=== PATIENT | female | born 1955 | race Caucasian/White ===

== ENCOUNTER 2017-01-19 08:16 | Emergency (ER) ==
[2017-01-19] MEDS ORDERED: NS 2,000 ML IV ONE (09:08)
[2017-01-19] MEDS ORDERED: NS 1,000 ML IV ONE ×2 (09:14→11:07)
[2017-01-19] MEDS ORDERED: ZOFRAN IV ONE (09:14)
[2017-01-19] MEDS ORDERED: IMODIUM PO ONE (09:15)
--- NOTE | 2017-01-19 09:42 | PROVIDER DOCUMENTATION ---
HPI-General Adult - General Chief Complaint: N/V/D Stated Complaint: VOMITING,BACK/BILA LEG PAIN Time Seen by Provider: 01/19/17 09:07 Source: patient Allergies/Adverse Reactions: Patient Allergies Allergy/AdvReac Type Severity Reaction Status Date / Time No Known Allergies Allergy Verified 01/19/17 09:25 Home Medications: Home Medication List Medication Instructions Recorded Confirmed Last Taken Type Levothyroxine Sodium [Synthroid] 50 microgm PO DAILY 08/29/16 01/19/17 3 Days Ago History Gabapentin [Neurontin] 300 mg PO TID #6 capsule 10/12/16 01/19/17 3 Days Ago Rx Lorazepam [Ativan] 0.5 mg PO BID #3 tablet 10/12/16 01/19/17 Unknown Rx Clonazepam [Klonopin] 0.5 mg PO BID #60 tablet 10/14/16 01/19/17 3 Days Ago Rx Hydrocodone Bit/Acetaminophen 1 each PO PRN PRN 01/19/17 01/19/17 3 Days Ago History [Hydrocodon-Acetaminophen 5-325] - History of Present Illness -Gen Adult Nature of Presenting Problems: Pt is a 61 yof who came to the ED with a cc of N/V/D. Pt reports she has been N/ V/D for three days. Pt reports she is unable to keep anything down. Pt reports she has chills and a fever. Location of Pain/Injury: reports: abdomen Pain Radiation: reports: no radiation Quality of Pain: reports: aching Onset/Duration: reports: 3 days ago Timing: reports: still present Context/Activities at Onset: reports: light activity Modifying Factors: improves with: vomiting Associated Symptoms: reports: diarrhea, fever/chills, nausea, vomiting Similar Symptoms Previously?: No Recently seen or treated by another doctor?: No Review of Systems - Adult - REVIEW OF SYSTEMS - ADULT Constitutional: reports: chills, fever. denies: fatique, weight gain Eyes: reports: no symptoms reported Ears, Nose, Mouth & Throat: denies: sinus problem, mouth/dental pain Cardiovascular: reports: no symptoms reported Respiratory: reports: no symptoms reported Gastrointestinal: reports: abdominal pain, diarrhea, nausea, vomiting. denies: hematemesis, constipation, difficulty swallowing, frequent heartburn Genitourinary: reports: no symptoms reported Musculoskeletal: reports: no symptoms reported Integumentary: denies: itching, nail changes Neurological: reports: no symptoms reported Psychiatric: reports: no symptoms reported Endocrine: reports: no symptoms reported Hematologic/Lymphatic: reports: no symptoms reported Allergic/Immunologic: reports: no symptoms reported All Other Systems: Reviewed and Negative Past History - Adult - PAST MEDICAL HISTORY-ADULT Review of Records: reports: Old Records Reviewed, Nursing Assessment Review Major Childhood Illnesses: reports: denies history Cardiovascular: reports: HTN Respiratory: reports: COPD Gastrointestinal: reports: GERD Obstetrical/Gynecological: reports: denies history Genitourinary: reports: denies history Musculoskeletal: reports: arthritis Neurological: reports: CVA Psychiatric: reports: anxiety, depression, psychiatric problems Endocrine/Immune: reports: thyroid disorder (hypo) Other Conditions: reports: denies history - PRIOR SURGERIES/PROCEDURES Surgical/Procedure History: reports: cholecystectomy, BTL, - IMMUNIZATION STATUS Childhood Immunizations: See Nurse Assessment Flu Vaccine: See Nurse Assessment - FAMILY HISTORY Family History: reviewed, not pertinent Physical Exam-General - PHYSICAL EXAM-ADULT Initial Vital Signs Reviewed: Yes - CONSTITUTIONAL General Appearance: alert, no apparent distress (s) - EYES Eyes: PERRL/EOMI, pink conjunctivae, fundi clear, no AV nicking - HEAD, EARS, NOSE, MOUTH & THROAT HENMT: normocephalic/atraumatic, moist mucous membranes, normal ENT inspection, TMs normal, pharynx normal - NECK Neck: non-tender - RESPIRATORY Respiratory: chest non-tender, lungs clear - CARDIOVASCULAR Cardiovascular: normal peripheral pulses, regular rate, rhythm - GASTROINTESTINAL (ABDOMEN) Abdominal Exam: normal bowel sounds, tenderness - MUSCULOSKELETAL Back Exam: normal inspection Extremity: normal range of motion - SKIN Integumentary: normal turgor - NEUROLOGIC Neurologic: grossly normal - PSYCHIATRIC Psych/Mental Status: normal mood/affect, normal thought content, normal thought process, oriented x 3 Progress - PLAN OF CARE/RESULTS Progress/Plan/Lab Results: Vital Signs - 24 hr 01/19/17 08:43 Temperature 97.7 F Pulse Rate 117 H Respiratory 18 Rate Blood Pressure 135/99 O2 Sat by Pulse 100 Oximetry Orders Category Date Time Status Saline Loc DIRECTED Care 01/19/17 08:45 Active NPO Diet 01/19/17 08:45 Active AMYLASE [CHEM] Stat Lab 01/19/17 08:45 Uncollected CBC WITH ELECTRONIC DIFF [HEME] Stat Lab 01/19/17 08:45 Uncollected COMPREHENSIVE METABOLIC PANEL [CHEM] Stat Lab 01/19/17 08:45 Uncollected LIPASE [CHEM] Stat Lab 01/19/17 08:45 Uncollected T4 Stat Lab 01/19/17 09:19 Uncollected TSH Stat Lab 01/19/17 09:19 Ordered URINALYSIS W/POSS RFLX CULT [URINALYSIS] Stat Lab 01/19/17 08:45 Uncollected 0.9% Sodium Chloride Inj [Ns] 1,000 ml Med 01/19/17 09:14 Active IV 999 mls/hr 0.9% Sodium Chloride Inj [Ns] 2,000 ml Med 01/19/17 09:08 Active IV 999 mls/hr Loperamide [Imodium] Med 01/19/17 09:15 Discontinued 4 mg PO NOW ONE Ondansetron [Zofran] Med 01/19/17 09:14 Discontinued 4 mg IV NOW ONE - REASSESSMENT Reassessment #1 Time Reassessed: 11:14 (Pt reports she ran out of her pain medicine and anxiety medicine. ) Status: unchanged Departure - Departure Time of Disposition Order: 11:37 DIAGNOSIS: Vomiting Qualifiers: Vomiting type: unspecified Vomiting Intractability: unspecified Nausea presence : unspecified Qualified Code(s): R11.10 - Vomiting, unspecified Disposition: HOME 01 Certified Medical Emergency: Emergent Condition: Good Attestation - Scribe Verification/Attestation Scribe:: Jonna Sandoval Acting as Scribe for:: Srinivas Constantino Scribe documention review:: This chart was documented by a scribe and accurately reflects the service the provider performed and the decisions made by the provider.
[2017-01-19 09:52] LABS: MANUAL DIFF NEEDED? NO
[2017-01-19 09:59] LABS: BASO% 0.3 % (0.0-0.8); EOS# 0.01 X1000 (0.0-0.7); EOS% 0.1 % (0.0-10.0); HEMATOCRIT 44.1 % (37.0-47.0); HEMOGLOBIN 14.7 g/dL (12.0-16.0); LYMPH# 0.87 X1000 (1.2-3.4); LYMPH% 12.6 % (20.5-51.1); MCH 27.8 PG (27-31); MCHC 33.3 g/dL (33-37); MCV 83.5 FL (81-99); MONO# 0.42 X1000 (0.11-0.59); MONO% 6.1 % (1.7-9.3); MPV 10.8 FL (7.4-10.4); NEUT% 80.9 % (42.2-75.2); PLT 355 X1000 (130-400); RBC 5.28 XMIL (4.2-5.4)
[2017-01-19 10:11] LABS: AGAP 12; ALBUMIN 4.2 g/dL (3.5-5.0); ALKALINE PHOSPHATASE 120 U/L (32-104); AMYLASE 25 U/L (20-200); BUN 5 mg/dL (8-22); CHLORIDE 101 mmol/L (98-107); COSMO 276; GOT 14 U/L (10-30); GPT 8 U/L (10-36); SODIUM 139 mmol/L (136-145); TCO2 26 mmol/L (25-35); TOTAL BILIRUBIN 0.62 mg/dL (0.20-1.00); TOTAL PROTEIN 7.2 g/dL (6.3-8.3)
[2017-01-19] MEDS ORDERED: KLONOPIN PO ONE (10:54)
[2017-01-19 11:13] LABS: URINE CULTURE NEEDED? NO; URINE MICRO REVIEW NEEDED? NO; URINE SOURCE CLEAN CATCH
[2017-01-19] MEDS ORDERED: PHENERGAN IV ONE (11:13)
[2017-01-19] MEDS ORDERED: SODIUM CHLORIDE 0.9% INJ ONE (11:13)
[2017-01-19 11:20] LABS: BILIRUBIN URINE NEGATIVE (NEGATIVE); BLOOD URINE NEGATIVE (NEGATIVE); COLOR YELLOW; GLUCOSE URINE NEGATIVE (NEGATIVE); LEUKOCYTES URINE NEGATIVE (NEGATIVE); NITRITE URINE NEGATIVE (NEGATIVE); PROTEIN URINE NEGATIVE (NEGATIVE); SP GRAVITY URINE 1.008; TURBIDITY URINE CLEAR (CLEAR); UROBILINOGEN URINE 3 mg/dL (NORMAL)
[2017-01-19 11:21] LABS: UR EPITHELIAL CELLS <10 /HPF (<10); URINE BACTERIA 1+ /HPF; URINE RBC <10 /HPF (<10); URINE WBC <10 /HPF (<10)
[2017-01-19 11:46] VITALS: BP 127/82
== END 2017-01-19 11:59 | disposition home or self-care (01) ==
LOC: ED 08:16
DX: R11.2 Nausea with vomiting, unspecified (principal); R19.7 Diarrhea, unspecified; R50.9 Fever, unspecified; M54.9 Dorsalgia, unspecified; M79.605 Pain in left leg; M79.604 Pain in right leg; R10.819 Abdominal tenderness, unspecified site; I10 Essential (primary) hypertension; J44.9 Chronic obstructive pulmonary disease, unspecified; M19.90 Unspecified osteoarthritis, unspecified site; E03.9 Hypothyroidism, unspecified; F41.9 Anxiety disorder, unspecified; Z79.899 Other long term (current) drug therapy; Z86.73 Personal history of transient ischemic attack (TIA), and cerebral infarction without residual deficits
CPT/HCPCS: 80053; 81001; 82150; 83690; 84436; 84443; 85025; 96374; 96375; J2405; J2550; J7030

== ENCOUNTER 2017-04-11 17:43 | Inpatient (IN) ==
[2017-04-11] MEDS ORDERED: NS 1,000 ML IV ONE (18:12)
--- NOTE | 2017-04-11 18:46 | Diag Imaging Result Doc PS360 ---
EXAM: CHEST-2 VIEWS HISTORY: poss pneumonia TECHNIQUE: COMPARISON: 03/18/2017 and 03/19/2017 FINDINGS: There are increased interstitial markings which remain in the lingular segment of the left upper lobe. The lungs are hyperexpanded and there is an increased AP diameter to the chest. Heart is not enlarged. The vessels are not distended. No pleural effusions. Mild scoliosis. IMPRESSION: Persistent or recurrent pneumonia in the lingular segment of the left upper lobe versus scarring. Emphysema. Electronically signed by Bruce Mercedes 04/11/2017 6:44 PM
[2017-04-11] MEDS ORDERED: ROCEPHIN 1 GM/NS 1 GM/50 ML IVPB IV ONE (19:06)
[2017-04-11] MEDS ORDERED: MORPHINE IV ONE (19:06)
[2017-04-11] MEDS ORDERED: ZOFRAN IV ONE (19:06)
[2017-04-11 20:01] LABS: BASO% 0.2 % (0.0-0.8); EOS# 0.04 X1000 (0.0-0.7); EOS% 0.2 % (0.0-10.0); HEMOGLOBIN 13.1 g/dL (12.0-16.0); IMM GRAN# 0.07 X1000 (0.0-0.04); IMM GRAN% 0.3 % (0.0-0.5); LYMPH# 1.13 X1000 (1.2-3.4); LYMPH% 5.2 % (20.5-51.1); MANUAL DIFF NEEDED? NO; MCH 27.2 PG (27-31); MCHC 32.8 g/dL (33-37); MCV 83.2 FL (81-99); MONO# 1.55 X1000 (0.11-0.59); MONO% 7.1 % (1.7-9.3); MPV 9.7 FL (7.4-10.4); PLT 600 X1000 (130-400); RBC 4.81 XMIL (4.2-5.4)
[2017-04-11 20:23] LABS: AGAP 15; ALBUMIN 3.5 g/dL (3.5-5.0); ALKALINE PHOSPHATASE 147 U/L (32-104); BUN 7 mg/dL (8-22); CALCIUM 9.1 mg/dL (8.8-10.2); CHLORIDE 95 mmol/L (98-107); COSMO 273; GOT 9 U/L (10-30); GPT < 5 U/L (10-36); SODIUM 137 mmol/L (136-145); TCO2 27 mmol/L (25-35); TOTAL BILIRUBIN 0.43 mg/dL (0.20-1.00); TOTAL PROTEIN 7.8 g/dL (6.3-8.3)
[2017-04-11] MEDS ORDERED: LEVAQUIN 750 MG/D5W 750 MG/150 ML IVPB IV ONE (20:50)
--- NOTE | 2017-04-11 20:51 | PROVIDER DOCUMENTATION ---
This chart was entered by Fernando Chase Scribe, acting as scribe for Pawan Dixon PA. HPI-Respiratory General - General Chief Complaint: Cough Stated Complaint: VOMITING/POSS DEHYDRATION Time Seen by Provider: 04/11/17 18:11 Source: patient Allergies/Adverse Reactions: Patient Allergies Allergy/AdvReac Type Severity Reaction Status Date / Time No Known Allergies Allergy Verified 04/11/17 18:45 Home Medications: Home Medication List Medication Instructions Recorded Confirmed Last Taken Type Levothyroxine Sodium [Synthroid] 50 microgm PO DAILY 08/29/16 04/11/17 04/11/17 10:00 History 50 MICROGM Clonazepam [Klonopin] 0.5 mg PO BID 03/18/17 04/11/17 04/11/17 10:00 History 0.5 MG Gabapentin [Gabapentin] 800 mg PO TID 04/11/17 04/11/17 04/11/17 10:00 History 800 MG Hydrocodone/Acetaminophen [[place] 1 each PO TID 04/11/17 04/11/17 04/11/17 10:00 History 7.5-325 Tablet] 1 EACH Omeprazole [Omeprazole] 20 mg pe PO QAM 04/11/17 04/11/17 04/11/17 10:00 History 20 MG PE Promethazine [Phenergan] 25 mg PO Q6H PRN PRN 04/11/17 04/11/17 04/10/17 History 25mg - History of Present Illness-Resp Nature of Presenting Problem: Pt is a 60 yowf who presents to ER with CC of brown productive cough and shortness of breath x3 days. Pt reports that she was diagnosed with pna x3 weeks ago and was put on Bactrim x10 days (pt unsure as to why she has bactrim rx). No further complaints. Quality of Pain: reports: none Severity in ED: reports: moderate Onset/Duration: reports: 3 days ago Timing: reports: still present Cough Quality/Degree: reports: moderate, productive cough, sputum Associated Symptoms: reports: cough, flu-like symptoms, shortness of breath, short of breath, wheezing, other (weakness). denies: chest pain/soreness, facial pain, fever/chills, headache, hurts to breathe, hyperventilating, lightheadedness, muscle/bodyaches, sinus pain, sore throat, sweaty Similar Symptoms Previously?: Yes Recently seen or treated by another doctor?: Yes Review of Systems - Adult - REVIEW OF SYSTEMS - ADULT Constitutional: reports: fatique. denies: chills, fever, night sweats, weight gain, weight loss Eyes: reports: no symptoms reported Ears, Nose, Mouth & Throat: reports: no symptoms reported Cardiovascular: reports: no symptoms reported Respiratory: reports: chronic cough, cough, excessive sputum production, shortness of breath. denies: dyspnea on exertion, hemoptysis, pleurisy, wheezing Gastrointestinal: reports: no symptoms reported Genitourinary: reports: no symptoms reported Musculoskeletal: reports: no symptoms reported Integumentary: reports: no symptoms reported Neurological: reports: no symptoms reported Psychiatric: reports: no symptoms reported Endocrine: reports: no symptoms reported Hematologic/Lymphatic: reports: no symptoms reported Allergic/Immunologic: reports: no symptoms reported All Other Systems: Reviewed and Negative Past History - Adult - PAST MEDICAL HISTORY-ADULT Review of Records: reports: Nursing Assessment Review, Medications Reviewed Cardiovascular: reports: HTN Respiratory: reports: COPD Gastrointestinal: reports: GERD Genitourinary: reports: other (pt reports her bladder has dropped and she needs repair. ) Musculoskeletal: reports: arthritis Neurological: reports: CVA Psychiatric: reports: anxiety, depression, psychiatric problems Endocrine/Immune: reports: thyroid disorder (hypo) - PRIOR SURGERIES/PROCEDURES Surgical/Procedure History: reports: cholecystectomy, BTL, - IMMUNIZATION STATUS Childhood Immunizations: See Nurse Assessment Flu Vaccine: See Nurse Assessment - FAMILY HISTORY Family History: reviewed, not pertinent Physical Exam-General - PHYSICAL EXAM-ADULT Initial Vital Signs Reviewed: Yes - CONSTITUTIONAL General Appearance: appears well, alert, moderate distress, thin - EYES Eyes: PERRL/EOMI, pink conjunctivae - HEAD, EARS, NOSE, MOUTH & THROAT HENMT: normocephalic/atraumatic, moist mucous membranes, normal ENT inspection, TMs normal, pharynx normal. negative: pharyngeal erythema, tonsillar exudate - NECK Neck: non-tender, full range of motion, supple, normal inspection. negative: C- spine tenderness, limited range of motion, lymphadenopathy - RESPIRATORY Respiratory: chest non-tender, no pleuratic chest pain, no respiratory distress , no accessory muscle use, respiratory distress, decreased breath sounds, wheezing. negative: lungs clear, normal breath sounds - CARDIOVASCULAR Cardiovascular: normal peripheral pulses, regular rate, rhythm. negative: bradycardia, tachycardia, irregularly irregular - GASTROINTESTINAL (ABDOMEN) Abdominal Exam: normal bowel sounds, non tender, soft, no organomegaly, no pulsatile mass. negative: distended, rebound, tenderness - LYMPHATIC Lymphatic: no adenopathy - MUSCULOSKELETAL Back Exam: normal inspection, no CVA tenderness, no vertebral tenderness. negative: CVA tenderness, vertebral tenderness Extremity: normal range of motion, non-tender, normal gait, normal inspection, no pedal edema, no calf tenderness, normal capillary refill, pelvis stable. negative: deformity, erythema, inflammation, swelling, tenderness - SKIN Integumentary: normal color, normal turgor, warm/dry. negative: abrasion(s), diaphoresis, ecchymosis, erythema, laceration(s), swelling, tenderness, warm - NEUROLOGIC Neurologic: asphalt paver II-XII nml as tested, grossly normal, no motor/sensory deficits . negative: facial droop, focal weakness, motor weakness, sensory deficit - PSYCHIATRIC Psych/Mental Status: normal mood/affect, normal thought content, normal thought process, oriented x 3 Progress - PLAN OF CARE/RESULTS Progress/Plan/Lab Results: Vital Signs - 8 hr 04/11/17 17:56 Temperature 99.7 F H Pulse Rate 104 H Respiratory Rate 18 Blood Pressure 129/71 O2 Sat by Pulse Oximetry 98 Laboratory Results - last 24 hr 04/11/17 04/11/17 04/11/17 19:35 19:35 19:35 WBC 21.69 H RBC 4.81 Hgb 13.1 Hct 40.0 MCV 83.2 MCH 27.2 MCHC 32.8 L RDW Std Deviation 13.9 Plt Count 600 H MPV 9.7 Immature Gran % (Auto) 0.3 Neut % (Auto) 87.0 H Lymph % (Auto) 5.2 L [place] % (Auto) 7.1 Eos % (Auto) 0.2 Baso % (Auto) 0.2 Immature Gran # (Auto) 0.07 H Neut # (Auto) 18.86 H Lymph # (Auto) 1.13 L [place] # (Auto) 1.55 H Eos # (Auto) 0.04 Baso # (Auto) 0.04 Sodium 137 Potassium 4.0 Chloride 95 L Carbon Dioxide 27 Anion Gap 15 BUN 7 L Creatinine 0.6 Estimated GFR/1.73 m2 > 60 BUN/Creatinine Ratio 12 Glucose 116 H Calculated Osmolality 273 Calcium 9.1 Total Bilirubin 0.43 AST 9 L ALT < 5 L Alkaline Phosphatase 147 H Total Protein 7.8 Albumin 3.5 Globulin 4.3 Albumin/Globulin Ratio 0.8 Plasma Lactate 1.9 Orders Category Date Time Status Saline Loc NOW Care 04/11/17 18:11 Active cxr [CHEST-2 VIEWS] [RAD] Stat Exams 04/11/17 18:12 Completed BLOOD CULTURE [BLDCUL] Stat Lab 04/11/17 19:45 Results CBC WITH ELECTRONIC DIFF [HEME] Stat Lab 04/11/17 19:35 Completed COMPREHENSIVE METABOLIC PANEL [CHEM] Stat Lab 04/11/17 19:35 Completed LACTATE, PLASMA [CHEM] Stat Lab 04/11/17 19:35 Completed URINALYSIS W/POSS RFLX CULT-1 [URINALYSIS] Stat Lab 04/11/17 18:12 Uncollected 0.9% Sodium Chloride Inj [Ns] 1,000 ml Med 04/11/17 18:12 Discontinued IV 999 mls/hr CefTRIAXONE 1 GM/NS [Rocephin 1 gm/Ns] Med 04/11/17 19:06 Discontinued 1 gm in 50 ml IV NOW Morphine Med 04/11/17 19:06 Discontinued 4 mg IV NOW ONE Ondansetron [Zofran] Med 04/11/17 19:06 Discontinued 4 mg IV NOW ONE Result Diagrams: 04/11/17 19:35 04/11/17 19:35 - XRAY 1 XRAY: Bilateral XRAY Study: Chest Impression: See EMR Report XRAY Interpretation: Persistent worsening pneumonia - Alden Dixon - CONSULTS/PCP/HOSPITALIST Notification #1 *Consult/PCP/Hospitalist*: Dr. Ross (Hospitalist) Time Discussed: 20:46 Consult Disposition: Admit Departure - Departure Date of Disposition Decision: 04/11/17 Time of Disposition Decision: 20:50 DIAGNOSIS: Pneumonia Qualifiers: Pneumonia type: due to unspecified organism Laterality: unspecified laterality Lung location: unspecified part of lung Qualified Code(s): J18.9 - Pneumonia, unspecified organism Disposition: ADMITTED INPATIENT 09 Certified Medical Emergency: Emergent Condition: Stable Referrals and Follow-Ups: Andra Xavier CRNP [Primary Care Provider] - - Critical Care Note This patient required my direct & personal management of CC.: No Attestation - Physician/ MIKE Attestation Patient care was provided by Advanced Practice Provider:: Yes Advanced Practice Provider:: Pawan Dixon Advanced Practice Provider documentation review:: The Mid-level provider documentation, treatment plan and medical decision making was reviewed by the physician who agrees with all treatment and medical decision making by the MLP. The physician spent face to face time with patient:: Yes Advanced Practice Provider documentation review:: The physician spent face to face time with this patient and agrees with all MLP documentation, treatment, and medical decision making by the MLP. See provider notes for further information. This chart was documented by the indicated scribe, (Fernando Chase Scribe) and accurately reflects the services I performed and decisions made by me, Pawan Dixon PA, as attested by the provider's signature.
[2017-04-11 21:17] LABS: URINE SOURCE CATH
[2017-04-11 21:24] LABS: BILIRUBIN URINE NEGATIVE (NEGATIVE); BLOOD URINE NEGATIVE (NEGATIVE); COLOR YELLOW; GLUCOSE URINE NEGATIVE (NEGATIVE); LEUKOCYTES URINE SMALL (NEGATIVE); NITRITE URINE NEGATIVE (NEGATIVE); PROTEIN URINE TRACE mg/dL (NEGATIVE); TURBIDITY URINE CLEAR (CLEAR); UROBILINOGEN URINE 6 mg/dL (NORMAL)
[2017-04-11 21:25] LABS: URINE MICRO REVIEW NEEDED? YES
[2017-04-11 21:26] LABS: UR EPITHELIAL CELLS <10 /HPF (<10); URINE BACTERIA NEGATIVE /HPF; URINE CULTURE NEEDED? YES; URINE WBC TNTC /HPF (<10)
[2017-04-11] MEDS ORDERED: PHENERGAN IV ONE (21:31)
[2017-04-11] MEDS ORDERED: SODIUM CHLORIDE 0.9% INJ ONE (21:31)
[2017-04-11 21:33] LABS: URINE CASTS NONE SEEN; URINE CRYSTALS NONE SEEN; URINE SMALL ROUND CELLS NONE SEEN
--- NOTE | 2017-04-11 21:56 | HISTORY AND PHYSICAL ---
CHIEF COMPLAINT: Cough, feeling sick. PRIMARY CARE PHYSICIAN: Dr. Nory Xavier. HISTORY OF PRESENTING ILLNESS: A 61-year-old female with a history of hypertension, COPD and hypothyroidism had presented to the emergency department with 4 days history of having cough, feeling sick. Apparently she was treated for pneumonia with p.o. antibiotics several weeks ago. However, she did not improve and subsequently she had come to the emergency department. The patient was evaluated in ER. She had imaging done which was consistent with pneumonia and due to presenting symptoms it was thought that she would need hospitalization for further management. At the time of my examination she denied any headache, fever, chills, chest pain, hemoptysis, melena, but complained of coughing and shortness of breath. PAST MEDICAL HISTORY: Of hypertension, hypothyroidism, COPD. PAST SURGICAL HISTORY: Cholecystectomy. ALLERGIES: No known drug allergies. CURRENT MEDICATIONS: As listed in the MAR. SOCIAL HISTORY: 30+ pack years history of smoking. Denies any history of alcohol or illicit drug use. FAMILY HISTORY: No history of coronary disease. REVIEW OF SYSTEMS: [employer] point systems is as in HPI. Other systems negative. PHYSICAL EXAMINATION: GENERAL: Cooperative, friendly female. She is resting more comfortably now. VITAL SIGNS: Temperature 99.7 degrees, pulse 104, respiration 18, blood pressure 129/71, she is saturating 98%. HEENT: Atraumatic, normocephalic. Extraocular movements intact. PERRLA. NECK: Supple. CHEST: Bibasilar rales. CARDIOVASCULAR: Regular rate and rhythm. ABDOMEN: Soft. Positive bowel sounds. EXTREMITIES: No edema. NEURO: She is awake, alert, oriented x3. : No bladder distention. SKIN: Warm. LABORATORIES AND STUDIES: WBC 21.69, hemoglobin 13.1, hematocrit 40.0, platelets is 600,000. Sodium 137, potassium 4.0, chloride 95, CO2 27, BUN is 7, creatinine 0.6, glucose is 116. ASSESSMENT: A 61-year-old female with a history of chronic obstructive pulmonary disease, hypertension, hypothyroidism had presented to emergency department with 4-5 days history of worsening cough and shortness of breath. She previously had failed outpatient treatment for pneumonia and her recent x-rays consistent with persistent pneumonia. Subsequently she will need hospitalization for further management assessment. 1. Pneumonia. 2. Hypertension. 3. Chronic obstructive pulmonary disease. 4. Hypothyroidism. 5. Chronic pain. PLAN: 1. We will admit patient to medical floor with telemetry. 2. We will check blood cultures. Start patient on IV antibiotics. 3. We will continue with DuoNeb. 4. Wwe Wrestler patient extensively on smoking cessation. 5. We will monitor blood pressure closely. 6. We will restart her home medications. 7. We will give adequate pain control. 8. We will put patient on DVT prophylaxis with SCDs. 9. We will continue to follow and reassess. cc: Stalin Ross MD
[2017-04-11] MEDS ORDERED: LEVAQUIN 750 MG in NS 150 ML IV SCH (22:23)
[2017-04-11] MEDS: PHENERGAN PO PRN (23:01)
[2017-04-11] MEDS: NORCO-7.5 PO SCH (23:31)
[2017-04-11] MEDS: KLONOPIN PO SCH (23:31)
[2017-04-12] MEDS: DUONEB (A & A) INH PRN ×4 (03:30→22:47)
[2017-04-12] MEDS: PHENERGAN PO PRN ×3 (05:41→23:17)
[2017-04-12] MEDS: NORCO-7.5 PO SCH ×3 (05:41→23:18)
[2017-04-12] MEDS: SYNTHROID PO SCH ×2 (05:43→06:17)
[2017-04-12 06:10] LABS: MANUAL DIFF NEEDED? NO
[2017-04-12 06:28] LABS: BASO% 0.2 % (0.0-0.8); EOS# 0.08 X1000 (0.0-0.7); EOS% 0.7 % (0.0-10.0); HEMATOCRIT 34.1 % (37.0-47.0); HEMOGLOBIN 11.1 g/dL (12.0-16.0); IMM GRAN# 0.05 X1000 (0.0-0.04); IMM GRAN% 0.4 % (0.0-0.5); LYMPH# 1.47 X1000 (1.2-3.4); LYMPH% 13.2 % (20.5-51.1); MCH 27.4 PG (27-31); MCHC 32.6 g/dL (33-37); MCV 84.2 FL (81-99); MONO% 10.7 % (1.7-9.3); MPV 9.8 FL (7.4-10.4); NEUT% 74.8 % (42.2-75.2); PLT 445 X1000 (130-400); RBC 4.05 XMIL (4.2-5.4)
[2017-04-12 06:33] LABS: AGAP 11; BUN 4 mg/dL (8-22); CALCIUM 8.5 mg/dL (8.8-10.2); CHLORIDE 99 mmol/L (98-107); COSMO 273; POTASSIUM 3.5 mmol/L (3.5-5.1); SODIUM 138 mmol/L (136-145); TCO2 28 mmol/L (25-35)
[2017-04-12] MEDS: NEURONTIN PO SCH ×3 (09:32→23:18)
[2017-04-12] MEDS: PRILOSEC PO SCH (09:32)
[2017-04-12] MEDS: KLONOPIN PO SCH ×2 (09:32→23:18)
--- NOTE | 2017-04-12 11:37 | PROGRESS NOTE ---
DATE: 04/12/2017 SUBJECTIVE: Patient admitted yesterday, 61 years old. She came in with cough and feeling sick. She is followed by Dr. Nory Xavier. A 61-year-old with history of hypertension, COPD, hypothyroidism. She presents to the emergency department with a 4-day history of cough and was feeling sick. Treated for pneumonia with p.o. antibiotics several weeks go; however, she did not improve. Subsequently, she came to the emergency room. The patient was evaluated in the ER. Imaging done was consistent with pneumonia. Due to presenting symptoms, it was thought she would need hospitalization. PAST MEDICAL HISTORY: Hypertension, hypothyroidism, COPD, cholecystectomy. She states that she may be breathing a little bit better. She is pretty puny. She is concerned as she has lost about 6 pounds this last month and wanted to know if we will give her something for appetite. OBJECTIVE: Temperature 98.2 degrees, pulse 82, respirations 18, blood pressure 83/53. Lungs are clear in all lung oconnell. Cardiovascular: Regular rhythm and rate without murmur or S3. Abdomen is soft. Skin is warm and dry. Urine output 1900 mL. LABORATORY DATA: Reviewed from this morning. White count 11,170; it is down from 21,000. Hematocrit 34, platelet count 445,000. Chemistries look good. Sodium 138, potassium 3.4, chloride 99. BUN 4, creatinine 0.4. ASSESSMENT AND PLAN: 1. Chronic obstructive pulmonary disease exacerbation. Recurrent pneumonia in the lingular segment of the left upper lobe. There may be some scarring there as well. Continue bronchodilators and antibiotic. Patient on Levaquin 750 mg IV daily, q. 24 hours, and she got one dose of ceftriaxone yesterday. She is on albuterol treatments. 2. Weight loss. Poor appetite. Encouraged p.o. intake. Consider appetite stimulant if her p.o. intake is not adequate. 3. History of gastroesophageal reflux. She is on Prilosec. 4. History of primary hypothyroidism. Appears to be euthyroid. I do think it would be worthwhile to check her T4 and TSH. Note, her white blood cell count had come down some. cc: Binh Fuentes MD
[2017-04-12] MEDS: NICODERM PATCH TD SCH (12:20)
[2017-04-12] MEDS ORDERED: PNEUMOVAX 23 IM ONE (18:05)
[2017-04-12] MEDS: LEVAQUIN 750 MG/D5W 750 MG/150 ML IVPB IV SCH (23:17)
[2017-04-13] MEDS: NORCO-7.5 PO SCH ×4 (00:40→22:39)
[2017-04-13] MEDS: NEURONTIN PO SCH ×4 (02:56→22:39)
[2017-04-13] MEDS: DUONEB (A & A) INH PRN (04:08)
[2017-04-13] MEDS: SYNTHROID PO SCH (06:27)
[2017-04-13] MEDS: PHENERGAN PO PRN (06:27)
--- NOTE | 2017-04-13 08:01 | Diag Imaging Result Doc PS360 ---
EXAM: CHEST-PORTABLE HISTORY: pneumonia TECHNIQUE: Portable upright AP COMPARISON: 04/11/2017 FINDINGS: A small infiltrate remains in the lower left lung. This is questionably slightly smaller than on the prior exam. Right lung remains well expanded. The heart is not enlarged. The pulmonary vessels are not distended. No pleural effusions identified. There is scoliosis. IMPRESSION: Persistent left basilar infiltrate. Electronically signed by Bruce Mercedes 04/13/2017 7:58 AM
[2017-04-13] MEDS: NICODERM PATCH TD SCH (09:40)
[2017-04-13] MEDS: KLONOPIN PO SCH ×2 (09:40→22:39)
[2017-04-13] MEDS: PRILOSEC PO SCH (09:40)
[2017-04-13] MEDS: NS 1,000 ML IV SCH (13:00)
--- NOTE | 2017-04-13 13:28 | DISCHARGE SUMMARY ---
ADMISSION DATE: 04/11/2017 DISCHARGE DATE: 04/13/2017 HISTORY OF PRESENT ILLNESS: Ms. Alonso is a 61-year-old who was admitted on the evening of 04/11/[address] Cody Gant to the hospitalist's service. She goes to see DORIS Xavier. She was coughing, feeling sick. A 61-year-old with history of hypertension, COPD, hypothyroidism presented to the emergency room with 4-day history of having cough and feeling sick. She was treated for pneumonia with p.o. antibiotics several weeks ago. However, she did not improve and subsequently came to the emergency department. The patient was evaluated in the ER. Imaging done which consistent with pneumonia. Due to presenting symptoms thought it would be best to hospitalize. At time of examination she denied any headache, fever, chills, chest pain, hemoptysis, melena but complained of cough and shortness of breath. PAST MEDICAL HISTORY: Hypertension, hypothyroidism, COPD. PAST SURGICAL HISTORY: Cholecystectomy. ALLERGIES: No known drug allergies. SOCIAL HISTORY: She has a 30 pack-year history of smoking. Denies history of alcohol. HOSPITAL COURSE: So admitted her for pneumonia, 4 to 5-day history of worsening cough and breathing. Given her IV antibiotics and some bronchodilator treatments. She was put on a nicotine patch 21 mg. Continued her Synthroid 50 mcg a day and put on Levaquin 750 mg a day, Neurontin 800 mg t.i.d., Klonopin 0.5 mg b.i.d., and she did get her pneumococcal vaccination. Her chest x-ray on admission on 04/11/2017 revealed persistent recurrent pneumonia in the lingular segment of left upper lobe versus scarring and some underlying emphysema. Followup chest x-ray on 04/13/2017 today with persistent left basilar infiltrate. She clinically feels much better, breathing much better. She is requesting to go home. I will keep her on Levaquin 750 mg for another 10 days. DISCHARGE MEDICATIONS: She will continue her home medications. She is on Klonopin 0.5 mg b.i.d., gabapentin 800 mg t.i.d., she takes hydrocodone 7.5/325 t.i.d. I think [facility]. She is on Synthroid 50 mcg a day, omeprazole 20 mg p.o. q.a.m. I will give her a steroid inhaler and have her take that for a couple weeks to help with her cough and give her prescription for Levaquin 750 mg daily for 10 days. DISCHARGE INSTRUCTIONS: She will follow up with DORIS Galeana, in the next couple of weeks. cc: Binh Fuentes MD
[2017-04-13] MEDS: LEVAQUIN 750 MG/D5W 750 MG/150 ML IVPB IV SCH (22:36)
[2017-04-14] MEDS: NS 1,000 ML IV SCH ×2 (03:55→16:02)
[2017-04-14] MEDS: SYNTHROID PO SCH (06:24)
[2017-04-14] MEDS: NORCO-7.5 PO SCH ×3 (06:24→20:43)
[2017-04-14] MEDS: DUONEB (A & A) INH PRN ×2 (07:56→19:44)
[2017-04-14] MEDS: PRILOSEC PO SCH (08:19)
[2017-04-14] MEDS: NEURONTIN PO SCH ×3 (08:19→16:01)
[2017-04-14] MEDS: KLONOPIN PO SCH ×2 (08:19→20:42)
[2017-04-14] MEDS: NICODERM PATCH TD SCH (08:19)
[2017-04-14] MEDS ORDERED: COLACE PO PRN (12:25)
--- NOTE | 2017-04-14 13:39 | PROGRESS NOTE ---
DATE: 04/14/2017 SUBJECTIVE: Ms. Alonso is feeling better. Breathing is definitely better. Complains that her mouth is sore on her tongue and around the anterior mucosa. I do not see any lesions. It does appear to be red. She is requesting some nystatin. Is also requesting something for her bowels to move. She has constantly been complaining of her back hurting which has been going on a long time. I think this is due to lumbosacral arthralgia and being in the bed. Continue to encourage her to get up. Talked about going home tomorrow with home health. OBJECTIVE: Vital signs: Temperature 97.4 degrees, pulse 80, respirations 18, blood pressure 97/65. Lungs: Clear in all lung oconnell. Cardiovascular: Regular rhythm and rate without murmur or S3. Abdomen: Soft. No pedal edema. : Urine output is about 600 mL. LABS: No new lab. Reviewed the lab from the . ASSESSMENT AND PLAN: 1. Chronic obstructive pulmonary disease exacerbation, recurrent pneumonia in the lingular segment which is improving. Continue Levaquin 750 mg and probably discharge her on Levaquin at home for another 7 days. 2. Weight loss, poor appetite. Encourage p.o. intake. She would like something to help her appetite. I am going to try some Remeron maybe 15 mg at night and see if that helps. 3. Gastroesophageal reflux. On Prilosec. 4. Hypothyroidism. Appears to be euthyroid. 5. Irritated mouth. Will treated her with some nystatin. 6. Complains of constipation. Will start her on some Colace. See if we can set her up to go home tomorrow with home health. cc: Binh Fuentes MD
[2017-04-14] MEDS: MYCOSTATIN SUSP PO SCH ×3 (14:38→20:42)
[2017-04-14] MEDS: LEVAQUIN 750 MG/D5W 750 MG/150 ML IVPB IV SCH (20:42)
[2017-04-14] MEDS ORDERED: REMERON PO SCH (21:00)
[2017-04-15] MEDS: NS 1,000 ML IV SCH (05:45)
[2017-04-15] MEDS: NORCO-7.5 PO SCH ×2 (05:48→13:46)
[2017-04-15] MEDS: SYNTHROID PO SCH ×2 (05:48→07:51)
[2017-04-15 07:17] VITALS: BP 98/69
[2017-04-15] MEDS: NICODERM PATCH TD SCH (08:32)
[2017-04-15] MEDS: NEURONTIN PO SCH ×2 (08:32→12:18)
[2017-04-15] MEDS: MYCOSTATIN SUSP PO SCH ×2 (08:32→12:18)
[2017-04-15] MEDS: PHENERGAN PO PRN (08:32)
[2017-04-15] MEDS: PRILOSEC PO SCH (08:32)
[2017-04-15] MEDS: KLONOPIN PO SCH (08:32)
--- NOTE | 2017-04-15 14:07 | DISCHARGE SUMMARY ---
ADMISSION DATE: 04/11/2017 DISCHARGE DATE: 04/15/2017 Presented on 04/11/2017 complaining of cough and feeling sick. Primary care doctor is Andra Xavier. 61-year-old with a history of hypertension, COPD and hypothyroidism presented to the emergency department with a 4 day history of having cough and feeling sick. Apparently she was treated for pneumonia with p.o. antibiotics several weeks ago however she stated she did not improve so she subsequently went to the emergency department. The patient was evaluated in the emergency room. Imaging was done and consistent with pneumonia. Due to presenting symptoms it was thought she would need hospitalization for further management. At the time of examination denied any headache, fever, chills, chest pain, hemoptysis, melena with complaint of cough and shortness of breath. PAST MEDICAL HISTORY: Hypertension, hypothyroidism, COPD. PAST SURGICAL HISTORY: Status post cholecystectomy. ALLERGIES: No known drug allergies. Patient was admitted, given some IV antibiotics and breathing treatments and IV fluids. She seemed to show steady improvement and breathing was much more comfortable. She did complain of back pain but she has had this for a long time. Appears to be consistent with musculoskeletal arthralgia and myalgia. Did complain that her mouth was a little sore. We did start her on some nystatin swish and swallow. She also wants something to help her bowels and we did begin physical therapy. She was eating much better. We emphasized the need for her to increase her p.o. intake and eat well and to try and build up her strength in her legs and recommended we try and get home health involved. So discharged her on 04/15/2017. DISCHARGE MEDICATION: DuoNeb treatments. Klonopin 0.5 mg b.i.d. Colace 100 mg b.i.d. p.r.n. Neurontin 800 mg t.i.d. We will keep her on Levaquin 750 mg p.o. daily for another 5 days. Synthroid 50 mcg daily. Remeron 15 mg p.o. at bedtime which I started with hopes to help her appetite. NicoDerm patch 21 mg daily. She has Mycostatin swish and swallow which she will do for another 7 days. Omeprazole 20 mg q.a.m. She will follow up with her primary care physician and that is DORIS Xavier. cc: MD Andra Harmon CRNP
--- NOTE | 2017-04-15 14:28 | Diag Imaging Result Doc PS360 ---
EXAM: LUMBAR SPINE 2-VIEWS HISTORY: back pain TECHNIQUE: AP and lateral COMMENT: There is generalized osteopenia. The pedicles are intact. There is no evidence of fracture or subluxation. There is a large amount of stool in the left colon. IMPRESSION: Osteopenia. No acute bony disease. Constipation. Electronically signed by Panchito Payton 04/15/2017 2:26 PM
== END 2017-04-15 16:09 | disposition home health service (06) ==
LOC: ED 17:43 → SUATTDRO 21:54 → 3N 21:54
PROVIDERS: ATTEND Emergency Medicine

== ENCOUNTER 2019-03-16 09:21 | Inpatient (IN) ==
[2019-03-16] MEDS ORDERED: D5W 1,000 ML IV PRN (12:50)
[2019-03-16] MEDS ORDERED: ZOFRAN IM PRN (12:50)
[2019-03-16] MEDS ORDERED: MAALOX PLUS LIQUID PO PRN (12:50)
[2019-03-16] MEDS ORDERED: SEROQUEL PO PRN (12:50)
[2019-03-16] MEDS ORDERED: NICOTINE GUM BUCCAL PRN (12:50)
[2019-03-16] MEDS ORDERED: TYLENOL PO PRN (12:50)
[2019-03-16] MEDS ORDERED: PHENOBARBITAL IV PRN (12:50)
[2019-03-16] MEDS ORDERED: ZOFRAN IV PRN (12:50)
[2019-03-16] MEDS ORDERED: SENOKOT PO PRN (12:50)
[2019-03-16] MEDS ORDERED: DULCOLAX PR PRN (12:50)
[2019-03-16] MEDS ORDERED: MOTRIN PO PRN (12:50)
[2019-03-16] MEDS ORDERED: DESYREL PO PRN (12:50)
[2019-03-16] MEDS ORDERED: IMODIUM PO PRN ×2 (12:50)
[2019-03-16] MEDS ORDERED: ROBAXIN PO PRN (13:14)
[2019-03-16] MEDS ORDERED: BENTYL PO PRN (13:14)
[2019-03-16] MEDS ORDERED: LIBRIUM PO PRN (13:14)
[2019-03-16] MEDS ORDERED: SINEMET 25/100 PO PRN (13:14)
[2019-03-16] MEDS ORDERED: ATARAX PO PRN ×2 (13:14→13:24)
[2019-03-16 13:17] LABS: URINE SOURCE CLEAN CATCH
[2019-03-16 13:26] LABS: UR AMPHETAMINES QUAL NONE DETECTED (NONE DETECT); UR BARBITUATES QUAL NONE DETECTED (NONE DETECT); UR BENZODIAZEPIN QUAL NONE DETECTED (NONE DETECT); UR CANNABINOIDS QUAL NONE DETECTED (NONE DETECT); UR COCAINE QUAL NONE DETECTED (NONE DETECT); UR METHADONE QUAL NONE DETECTED (NONE DETECT); UR METHAMPHETAMINE QUAL NONE DETECTED (NONE DETECT); UR OPIATES QUAL NONE DETECTED (NONE DETECT); UR OXYCODONE QUAL NONE DETECTED (NONE DETECT); UR PCP QUAL NONE DETECTED (NONE DETECT); UR PROPOXYPHENE QUAL NONE DETECTED (NONE DETECT); UR TCA QUAL NONE DETECTED (NONE DETECT)
[2019-03-16] MEDS: ZOFRAN ODT PO PRN (13:35)
[2019-03-16 13:38] LABS: AMYLASE 21 U/L (20-200); LIPASE 7 U/L (13-60)
[2019-03-16 13:50] LABS: BILIRUBIN URINE NEGATIVE (NEGATIVE); BLOOD URINE NEGATIVE (NEGATIVE); CLARITY VERY CLOUDY (CLEAR); COLOR YELLOW; GLUCOSE URINE NEGATIVE (NEGATIVE); KETONE URINE NEGATIVE (NEGATIVE); LEUKOCYTES URINE 2+ (NEGATIVE); NITRITE URINE NEGATIVE (NEGATIVE); PROTEIN URINE NEGATIVE (NEGATIVE); UROBILINOGEN URINE NORMAL
[2019-03-16] MEDS ORDERED: TUBERSOL ID ONE (14:00)
[2019-03-16 14:23] LABS: URINE BACTERIA NEGATIVE /HFP; URINE CAST NONE SEEN /LPF; URINE CRYSTAL NONE SEEN /HPF; URINE EPITHELIAL CELLS <10 /HPF (<10); URINE RBC <10 /HPF (<10); URINE YEAST NONE SEEN /HPF
[2019-03-16] MEDS: SUBOXONE 2 MG/0.5 MG FILM SL SCH (15:46)
[2019-03-16] MEDS ORDERED: REMERON PO SCH (21:00)
[2019-03-16] MEDS: ZYPREXA PO SCH (21:14)
[2019-03-16] MEDS: NEURONTIN PO SCH (21:14)
[2019-03-16] MEDS: DESYREL PO SCH (21:15)
[2019-03-16] MEDS: REMERON PO SCH (21:15)
[2019-03-16] MEDS: KLONOPIN PO PRN (21:31)
[2019-03-17] MEDS: SUBOXONE 2 MG/0.5 MG FILM SL SCH ×2 (02:40→15:35)
[2019-03-17] MEDS: SYNTHROID PO SCH ×2 (06:18)
[2019-03-17] MEDS: PRILOSEC PO SCH (06:19)
[2019-03-17] MEDS ORDERED: PROTONIX PO SCH (07:00)
--- NOTE | 2019-03-17 07:03 | HISTORY AND PHYSICAL ---
CHIEF COMPLAINT: Nausea and vomiting. HISTORY OF PRESENT ILLNESS: The patient is a 63-year-old female who presented to [facility] secondary to nausea, vomiting, abdominal pain, myalgias, and paresthesias. She notes that she has been abusing opiates as well as social issues as well as medical issues. SOCIAL HISTORY: Patient is . She is in on disability. She lives at home in [place]. PAST MEDICAL HISTORY: Arthritis in her legs, chronic anxiety, and history of stroke in 2008. She has recurrent bronchitis, hypothyroidism, and restless legs. MEDICATIONS: 1. Synthroid 0.125 daily. 2. Mirtazapine 15 1-12 at bedtime. 3. Hydroxyzine 25 b.i.d. 4. Gabapentin 400 3 times a day. ALLERGIES: Codeine. REVIEW OF SYSTEMS: CINA score is 11 secondary to nausea, vomiting, abdominal pain, and myalgias. She has had decreased appetite, hot and cold temperature changes. Frequently, she feels like her skin is crawling. Denies any true fevers. Denies current cough, congestion, or upper respiratory type symptoms. Denies headaches, blurred vision, or change in her vision. Denies any focalized weakness in her extremities. Denies dysuria, constipation, melena, or hematochezia. SUBSTANCE ABUSE HISTORY: The patient has never been in inpatient treatment for opiate abuse in the past. She has been attempting to get off her opiates, but has been unable to do so due to severe withdrawal symptoms. She started using depressants at age 57. Currently, she takes up to 3 mg a day. She started opiates at 57. Over the last 3 years, she has increased that to 8 tablets per day. She started smoking at age 18. Currently, she smokes a pack a day. PHYSICAL EXAMINATION: VITAL SIGNS: Reviewed and stable. GENERAL: Patient is awake and alert. Currently, she is in no respiratory distress. Pleasant to talk with. HEENT: Normocephalic. NECK: Supple. CARDIOVASCULAR: Regular rate. No murmurs. CHEST: Clear and nonlabored. ABDOMEN: Soft and nondistended. EXTREMITIES: Moves all extremities. NEUROLOGIC: Patient is awake, alert, and oriented. She does have to be redirected to answer questions and frequently gets distracted. She is fidgety, moving about. No current respiratory distress. LABORATORY: Pending. ASSESSMENT: 1. Nausea and vomiting. 2. Abdominal pain. 3. Myalgias. 4. Paresthesias. 5. Paroxysmal sweating. 6. Chronic anxiety and depression. 7. Hypothyroidism. 8. Opiate abuse withdrawal and stabilization. PLAN: We will admit the patient to the hospital to [facility] to begin counseling. We will place her on medication assisted therapy on Suboxone. We will adjust accordingly. Continue her home medications. Further orders as needed. cc: Gerson Santana MD
[2019-03-17] MEDS ORDERED: PHENERGAN PO PRN (08:51)
[2019-03-17] MEDS: CYMBALTA PO SCH (09:24)
[2019-03-17] MEDS: NEURONTIN PO SCH ×3 (09:24→17:44)
[2019-03-17] MEDS: FOLIC ACID PO SCH (09:24)
[2019-03-17] MEDS: VITAMIN B-1 PO SCH (09:25)
[2019-03-17] MEDS: THERA M PLUS PO SCH (09:26)
[2019-03-17] MEDS: KLONOPIN PO PRN ×2 (09:27→20:38)
[2019-03-17] MEDS: MEGACE LIQUID PO SCH ×2 (15:35→20:38)
[2019-03-17] MEDS: NICODERM PATCH TD PRN (17:51)
[2019-03-17] MEDS: ZYPREXA PO SCH (20:38)
[2019-03-17] MEDS: DESYREL PO SCH (20:38)
[2019-03-17] MEDS: REMERON PO SCH (20:38)
--- NOTE | 2019-03-17 21:57 | PROGRESS NOTE ---
DATE: 03/17/2019 SUBJECTIVE: Patient notes he still is having lots of nausea and abdominal pain. Denies any fevers, chills. States she has not been drinking very well. She has not been eating. OBJECTIVE: Vital signs: Temperature 97.5, pulse 80, respiratory rate 18, BP 90/60. General: Patient is awake, alert. She is in no respiratory distress. HEENT: Normocephalic. Neck: Supple. Cardiovascular: Regular rate. Chest: Clear. Abdomen: Soft. Extremities: Moves all extremities. ASSESSMENT: 1. Nausea and vomiting. 2. Abdominal pain. 3. Myalgias. 4. Paresthesias. 5. Oral intake. PLAN: We will continue patient in the hospital. Continue counseling. Further orders as needed. cc: Gerson Santana MD
[2019-03-18] MEDS: SUBOXONE 2 MG/0.5 MG FILM SL SCH ×2 (02:31→15:06)
[2019-03-18] MEDS: SYNTHROID PO SCH ×2 (05:55)
[2019-03-18] MEDS: PRILOSEC PO SCH (05:55)
[2019-03-18] MEDS: CYMBALTA PO SCH (08:17)
[2019-03-18] MEDS: THERA M PLUS PO SCH (08:17)
[2019-03-18] MEDS: FOLIC ACID PO SCH (08:17)
[2019-03-18] MEDS: MEGACE LIQUID PO SCH ×2 (08:17→21:04)
[2019-03-18] MEDS: VITAMIN B-1 PO SCH (08:17)
[2019-03-18] MEDS: NEURONTIN PO SCH ×3 (08:17→21:03)
[2019-03-18] MEDS: KLONOPIN PO PRN ×2 (08:29→19:17)
[2019-03-18] MEDS: NICODERM PATCH TD PRN (08:29)
[2019-03-18] MEDS: ZOFRAN ODT PO PRN (11:58)
[2019-03-18] MEDS: DESYREL PO SCH (21:02)
[2019-03-18] MEDS: ZYPREXA PO SCH (21:03)
[2019-03-18] MEDS: REMERON PO SCH (21:03)
[2019-03-18] MEDS ORDERED: LASIX IV ONE (22:40)
[2019-03-18] MEDS: XOPENEX NEB INH SCH (22:54)
[2019-03-18 23:24] LABS: BASO# 0.03 X1000 (0.0-0.2); BASO% 0.1 % (0.0-0.8); EOS# 0.05 X1000 (0.0-0.7); EOS% 0.2 % (0.0-10.0); HEMATOCRIT 39.9 % (37.0-47.0); HEMOGLOBIN 13.2 g/dL (12.0-16.0); IMM GRAN# 0.06 X1000 (0.0-0.04); IMM GRAN% 0.3 % (0.0-0.5); LYMPH# 1.33 X1000 (1.2-3.4); LYMPH% 6.4 % (20.5-51.1); MCH 27.8 PG (27-31); MCHC 33.1 g/dL (33-37); MCV 84.2 FL (81-99); MONO# 1.52 X1000 (0.11-0.59); MONO% 7.3 % (1.7-9.3); MPV 9.5 FL (7.4-10.4); NEUT# 17.87 X1000 (1.4-6.5); NEUT% 85.7 % (42.2-75.2); PLT 260 X1000 (130-400); RBC 4.74 XMIL (4.2-5.4); RDW 13.6 % (11.5-14.5); WBC 20.86 X1000 (4.8-10.8)
[2019-03-18] MEDS ORDERED: XOPENEX NEB INH SCH (23:30)
[2019-03-18 23:32] LABS: AGAP 10; ALBUMIN 3.3 g/dL (3.5-5.0); ALKALINE PHOSPHATASE 138 U/L (32-104); BUN 8 mg/dL (8-22); CALCIUM 8.6 mg/dL (8.8-10.2); CHLORIDE 97 mmol/L (98-107); COSMO 275; CREATININE 0.4 mg/dL (0.5-0.9); ESTIMATED GFR > 60; GLUCOSE 118 mg/dL (70-104); GOT 59 U/L (10-30); GPT 27 U/L (10-36); POTASSIUM 3.5 mmol/L (3.5-5.1); SODIUM 138 mmol/L (136-145); TCO2 32 mmol/L (25-35); TOTAL PROTEIN 6.4 g/dL (6.3-8.3)
--- NOTE | 2019-03-18 23:38 | PROGRESS NOTE ---
DATE: 03/18/2019 SUBJECTIVE: Patient notes she is still having trouble eating. Denies any fevers. States she is still very tired, fatigued. Denies any chest pain, palpitations. Denies any constipation, melena, hematochezia. PHYSICAL EXAMINATION: Vital Signs: Reviewed. Temperature 97.6 degrees, pulse 104, respiratory 18, BP 198/71. General: Patient is in no current distress. She is somewhat ill appearing. She is quite frail. She is pleasant to talk with. HEENT: Normocephalic. Neck: Supple. Cardiovascular: Regular rate. Chest: Clear. Abdomen: Soft. Extremities: Moves all extremities. Neurologic: No changes. ASSESSMENT: 1. Nausea and vomiting. 2. Abdominal pain. 3. Myalgias. 4. Adult failure to thrive. 5. Chronic protein calorie malnutrition. 6. Polysubstance use and abuse. PLAN: We will continue patient in the hospital. Continue to wean. We will add Megace. We will get Physical Therapy involved. Further orders as needed. cc: Gerson Santana MD
--- NOTE | 2019-03-18 23:55 | EKG Report ---
Test Performed on : 03/18/2019 11:27:08 PM Test Reason : elevated hr Blood Pressure : / mmHG Vent. Rate : 145 BPM Atrial Rate : 145 BPM P-R Int : 088 ms QRS Dur : 088 ms QT Int : 366 ms P-R-T Axes : 000 041 067 degrees QTc Int : 568 ms Sinus tachycardia. with short NV Cannot rule out Anterior infarct (cited on or before 14-JUL-2018) Abnormal ECG When compared with ECG of 30-NOV-2018 08:54, QRS axis shifted right Borderline criteria for Inferior infarct are no longer present ST no longer depressed in Inferior leads Nonspecific T wave abnormality no longer evident in Inferior leads Unconfirmed Result
[2019-03-19] MEDS ORDERED: CARDIZEM IV ONE ×2 (00:38→01:07)
[2019-03-19] MEDS ORDERED: CARDIZEM 125 MG/D5W 125 MG/125 ML IVPB IV SCH (03:00)
[2019-03-19] MEDS: SUBOXONE 2 MG/0.5 MG FILM SL SCH ×2 (03:01→18:03)
[2019-03-19] MEDS ORDERED: CARDIZEM 125 MG/D5W 125 MG/125 ML IVPB ONE (03:02)
[2019-03-19] MEDS: XOPENEX NEB INH SCH ×3 (03:40→11:26)
--- NOTE | 2019-03-19 05:53 | Diag Imaging Result Doc PS360 ---
EXAM: CHEST-PORTABLE HISTORY: sob TECHNIQUE: Portable chest single view COMPARISON: 09/13/2018 FINDINGS: The lungs are well expanded. The heart is not enlarged. The vessels are not distended. There are basilar infiltrates, left greater than right. Questionable small left effusion. IMPRESSION: Basilar infiltrates. Electronically signed by Bruce Mercedes 03/19/2019 5:50 AM
[2019-03-19] MEDS: PRILOSEC PO SCH (06:25)
[2019-03-19] MEDS: SYNTHROID PO SCH ×2 (06:25)
[2019-03-19] MEDS ORDERED: SUBOXONE 2 MG/0.5 MG FILM SL SCH ×2 (08:15→15:00)
[2019-03-19] MEDS ORDERED: ATARAX PO PRN ×2 (08:35→16:18)
[2019-03-19 08:40] LABS: BLOOD TYPE ARTERIAL; SAMPLE BLOOD
[2019-03-19 08:41] LABS: HCO3-(ACT) 28.6 mmoll (20.0-26.0); METHB 0.6 % (0.0-1.5); O2(CT) 19.1 mL/dL (15.0-23.0); PCO2(98.6) 35 mmHg (35-45); PO2(98.6) 51 mmHg (60-100); SAO2 91.4 % (95.0-100.0); THB 15.4 g/dL (11.5-17.4); pH(98.6) 7.51 (7.35-7.45)
[2019-03-19] MEDS ORDERED: NS 1,000 ML IV ONE ×2 (08:55→10:04)
[2019-03-19] MEDS ORDERED: DUONEB (A & A) INH PRN ×2 (08:57→16:18)
[2019-03-19 08:58] LABS: O2HB 88.7 % (95.0-99.0)
[2019-03-19] MEDS ORDERED: NS 1,000 ML ONE (08:59)
[2019-03-19 09:00] LABS: ALLEN TEST YES; MODALITY VENTIMASK
[2019-03-19] MEDS ORDERED: LIBRIUM PO SCH ×3 (09:00→21:00)
[2019-03-19 09:16] LABS: BASO# 0.04 X1000 (0.0-0.2); BASO% 0.2 % (0.0-0.8); HEMATOCRIT 44.1 % (37.0-47.0); HEMOGLOBIN 14.9 g/dL (12.0-16.0); IMM GRAN# 0.12 X1000 (0.0-0.04); IMM GRAN% 0.5 % (0.0-0.5); LYMPH# 0.69 X1000 (1.2-3.4); LYMPH% 2.9 % (20.5-51.1); MCH 28.1 PG (27-31); MCHC 33.8 g/dL (33-37); MCV 83.1 FL (81-99); MONO# 1.79 X1000 (0.11-0.59); MONO% 7.5 % (1.7-9.3); MPV 9.9 FL (7.4-10.4); NEUT% 88.9 % (42.2-75.2); PLT 412 X1000 (130-400); RBC 5.31 XMIL (4.2-5.4); RDW 13.8 % (11.5-14.5); WBC 23.94 X1000 (4.8-10.8)
[2019-03-19] MEDS: FOLIC ACID PO SCH (09:21)
[2019-03-19] MEDS: CYMBALTA PO SCH (09:21)
--- NOTE | 2019-03-19 09:21 | EKG Report ---
Test Performed on : 03/19/2019 08:25:35 AM Test Reason : elevated HR Blood Pressure : / mmHG Vent. Rate : 143 BPM Atrial Rate : 143 BPM P-R Int : 130 ms QRS Dur : 080 ms QT Int : 278 ms P-R-T Axes : 074 -17 085 degrees QTc Int : 429 ms Sinus tachycardia. Possible Left atrial enlargement Cannot rule out Anterior infarct (cited on or before 14-JUL-2018) Abnormal ECG When compared with ECG of 18-MAR-2019 23:27, (Unconfirmed) No significant change was found Unconfirmed Result
[2019-03-19] MEDS: THERA M PLUS PO SCH (09:22)
[2019-03-19] MEDS: VITAMIN B-1 PO SCH (09:22)
[2019-03-19] MEDS: MEGACE LIQUID PO SCH (09:22)
[2019-03-19] MEDS: NEURONTIN PO SCH ×3 (09:22→17:00)
[2019-03-19] MEDS: LOPRESSOR PO SCH ×2 (09:23→13:43)
--- NOTE | 2019-03-19 09:31 | Diag Imaging Result Doc PS360 ---
EXAM: CHEST-PORTABLE HISTORY: Hypoxia TECHNIQUE: Chest single view COMPARISON: 03/19/2019 FINDINGS: The right lung is well expanded. Worsening infiltrates and atelectasis in the left lung base. There is a small left pleural effusion. No cardiomegaly. No pulmonary edema. Moderate scoliosis. IMPRESSION: Worsening infiltrates and atelectasis in the left lung base. Electronically signed by Bruce Mercedes 03/19/2019 9:28 AM
[2019-03-19 09:35] LABS: AGAP 17; ALBUMIN 3.4 g/dL (3.5-5.0); ALKALINE PHOSPHATASE 139 U/L (32-104); BUN 11 mg/dL (8-22); CALCIUM 8.7 mg/dL (8.8-10.2); CHLORIDE 93 mmol/L (98-107); COSMO 273; CREATININE 0.6 mg/dL (0.5-0.9); ESTIMATED GFR > 60; GLUCOSE 168 mg/dL (70-104); GOT 38 U/L (10-30); GPT 23 U/L (10-36); MAGNESIUM 1.3 mg/dL (1.5-2.7); POTASSIUM 3.1 mmol/L (3.5-5.1); SODIUM 135 mmol/L (136-145); TCO2 25 mmol/L (25-35)
[2019-03-19 09:45] LABS: TSH 0.05 uIUmL (0.27-4.20)
[2019-03-19 09:47] LABS: FREE T4 2.54 ng/dL (0.93-1.70)
[2019-03-19] MEDS ORDERED: MAGNESIUM SULFATE 2 GM/S.W.I. 2 GM/50 ML IVPB IV ONE (10:33)
[2019-03-19] MEDS ORDERED: ZOSYN 3.375 GM in NS 50 ML IV SCH (10:45)
[2019-03-19] MEDS ORDERED: VANCOMYCIN IV PER PHARMACY MISC SCH (10:45)
[2019-03-19] MEDS ORDERED: MAGNESIUM SULFATE IV ONE (11:00)
[2019-03-19] MEDS ORDERED: POTASSIUM CHLORIDE 20 MEQ/SWI 20 MEQ/100 ML IVPB IV SCH (11:00)
[2019-03-19] MEDS ORDERED: NS IV ONE (11:00)
[2019-03-19] MEDS ORDERED: POTASSIUM CHLORIDE IV ONE (11:00)
[2019-03-19] MEDS ORDERED: VANCOMYCIN 1,400 MG in NS 250 ML IV ONE (11:00)
[2019-03-19] MEDS: DUONEB (A & A) INH SCH ×3 (11:29→23:40)
[2019-03-19 11:55] LABS: BANDS 1 % (0-1); LYMPHS 5 % (21-51); MONO 8 % (1-9); SEGS 86 % (42-75)
[2019-03-19 12:04] LABS: INR 1.32
[2019-03-19 12:28] LABS: CK INDEX 3.4 (0.0-2.5); CK-MB 6.25 ng/mL (0.0-5.0)
[2019-03-19] MEDS ORDERED: LEVOPHED 8 MG in D5 1/2 NS 250 ML IV SCH ×2 (13:30→17:00)
[2019-03-19] MEDS ORDERED: DESYREL PO PRN (16:15)
[2019-03-19] MEDS ORDERED: D5W 1,000 ML IV PRN (16:16)
[2019-03-19] MEDS ORDERED: DULCOLAX PR PRN (16:16)
[2019-03-19] MEDS ORDERED: BENTYL PO PRN (16:17)
[2019-03-19] MEDS ORDERED: ZOFRAN IM PRN (16:20)
[2019-03-19] MEDS ORDERED: ZOFRAN ODT PO PRN (16:20)
[2019-03-19] MEDS ORDERED: IMODIUM PO PRN ×2 (16:30→16:32)
[2019-03-19] MEDS ORDERED: MOTRIN PO PRN (16:31)
[2019-03-19] MEDS ORDERED: MAALOX PLUS LIQUID PO PRN (16:31)
[2019-03-19] MEDS ORDERED: NICOTINE GUM BUCCAL PRN (16:31)
[2019-03-19] MEDS ORDERED: SEROQUEL PO PRN (16:32)
[2019-03-19] MEDS ORDERED: PHENOBARBITAL IV PRN (16:32)
[2019-03-19] MEDS ORDERED: SENOKOT PO PRN (16:33)
[2019-03-19] MEDS ORDERED: LIBRIUM PO PRN (16:34)
[2019-03-19] MEDS ORDERED: ROBAXIN PO PRN (16:34)
[2019-03-19] MEDS ORDERED: SINEMET 25/100 PO PRN (16:34)
[2019-03-19] MEDS ORDERED: PHENERGAN PO PRN (16:36)
[2019-03-19] MEDS: ZOSYN 3.375 GM in NS 50 ML IV SCH ×2 (16:59→23:43)
[2019-03-19] MEDS: TYLENOL PO PRN (17:00)
[2019-03-19] MEDS ORDERED: MAGNESIUM SULFATE 4 GM/S.W.I. 4 GM/100 ML IVPB IV ONE (18:05)
[2019-03-19] MEDS ORDERED: LR 1,000 ML IV SCH (18:15)
[2019-03-19] MEDS: LR 1,000 ML IV SCH (18:31)
[2019-03-19] MEDS: LIDODERM TOP SCH (18:34)
[2019-03-19] MEDS: POTASSIUM CHLORIDE 20 MEQ/SWI 20 MEQ/100 ML IVPB IV SCH ×2 (18:35→22:28)
[2019-03-19] MEDS ORDERED: XOPENEX NEB INH SCH (19:30)
[2019-03-19] MEDS ORDERED: DUONEB (A & A) INH SCH (19:30)
[2019-03-19] MEDS ORDERED: LOPRESSOR PO SCH (20:00)
[2019-03-19] MEDS ORDERED: MEGACE LIQUID PO SCH (21:00)
[2019-03-19] MEDS ORDERED: DESYREL PO SCH (21:00)
[2019-03-19 21:23] LABS: ALLEN TEST YES; BLOOD TYPE ARTERIAL; HCO3-(ACT) 24.2 mmoll (20.0-26.0); METHB 1.1 % (0.0-1.5); O2(CT) 17.4 mL/dL (15.0-23.0); O2HB 97.2 % (95.0-99.0); PO2(98.6) 166 mmHg (60-100); SAMPLE BLOOD; SAO2 99.2 % (95.0-100.0); THB 12.5 g/dL (11.5-17.4)
[2019-03-19 21:26] LABS: MODALITY NRB; PCO2(98.6) 53 mmHg (35-45)
[2019-03-19] MEDS: REMERON PO SCH (22:40)
[2019-03-19] MEDS: ZYPREXA PO SCH (22:41)
[2019-03-19] MEDS ORDERED: NS 250 ML IV ONE (22:59)
--- NOTE | 2019-03-19 22:59 | PROGRESS NOTE ---
DATE: 03/19/2019 SUBJECTIVE: Patient last night had an abrupt change. She started noting that she was short of breath and coughing. Her heart rate went up to 120s and 130s. A chest x-ray was obtained and she was moved to the ICU. PHYSICAL EXAMINATION: Vital Signs: Reviewed. Patient blood pressure is 80s and 90s systolic. Her heart rate is in the 120s to 130s. Cardizem had to be stopped due to low blood pressure. She is afebrile. Respiratory 22. HEENT: Normocephalic. Neck: Supple. Cardiovascular: Irregular rate, irregular rhythm. Chest: Decreased breath sounds bilaterally. No current wheezing. No crackles noted. Abdomen: Soft, nondistended. Extremities: Moves all extremities. Neurologic: No changes. ASSESSMENT: 1. Chronic pain. Patient is continuing to ask for pain medication. Discussed with her that any and all pain medications certainly could bring about her untimely due to respiratory suppression. We will decrease her Suboxone to try to prevent her from going into acute opiate withdrawal during these current worsened symptoms. 2. Pneumonia. 3. Sepsis. Her lactate is elevated. We will place her on sepsis protocol, place her on antibiotics. 4. Supraventricular tachycardia. Heart rate is elevated. Currently cannot use medications to slow heart due to her blood pressure. 5. Severe hypotension. We will place her on Levophed. TIME: 38 minutes was spent in total care regarding her current conditions, speaking to her and her . cc: Gerson Santana MD
[2019-03-19] MEDS ORDERED: LOPRESSOR IV PRN (23:00)
[2019-03-19 23:57] LABS: AGAP 11; BUN 10 mg/dL (8-22); CALCIUM 8.2 mg/dL (8.8-10.2); CHLORIDE 104 mmol/L (98-107); CK PROFILE 87 U/L (24-173); COSMO 281; CREATININE 0.5 mg/dL (0.5-0.9); ESTIMATED GFR > 60; GLUCOSE 152 mg/dL (70-104); POTASSIUM 4.6 mmol/L (3.5-5.1); SODIUM 140 mmol/L (136-145); TCO2 25 mmol/L (25-35)
[2019-03-20] MEDS: LR 1,000 ML IV SCH ×2 (00:05→09:58)
--- NOTE | 2019-03-20 03:22 | PROGRESS NOTE ---
DATE: 03/19/2019 INTERVAL HISTORY: Ms Alonso initially presented to [facility] for nausea, vomiting, abdominal pain, and myalgia with failure to thrive. It was thought to be secondary to opioid abuse, and she was started on p.r.n. medications to take care of her opioid abuse. However, at [facility], she started developing shortness of breath and imaging had suggested left lower lobe pneumonia, and eventually she became hypotensive, so she was transferred to [facility] for septic shock secondary to left lower lobe suspected aspiration pneumonia for pulmonology consultation, the patient was having nausea and vomiting as well. SUBJECTIVE: At the time of my evaluation, patient is complaining of left-sided pleuritic chest pain. Denies known history of coronary artery disease. However, she does mention she does have prior history of cerebrovascular accident and weakness of her right side because of that, and mild slurring of her speech. OBJECTIVE: Vital signs: Currently, at the time of my evaluation, she is afebrile with temperature of 98.9, her pulse is 120 per minute, respiratory rate 16, blood pressure 85/55, as she is on norepinephrine. General: Cachectic appearing, not in any acute distress. HEENT: Oral cavity is moist. Lungs: Decreased air entry with inspiratory crackles, left inframammary region. Cardiovascular: S1, S2. Tachycardic. No murmur, rub, or gallop. Abdomen: Soft, nontender. Extremities: She does not have lower extremity edema. LAB: Significant for leukocytosis, normal hemoglobin, respiratory acidosis, hypokalemia, hypomagnesemia, and mild transaminitis. Microbiology: Blood culture and urine culture are pending. ASSESSMENT AND PLAN: 1. Septic shock from left lower lobe likely aspirational pneumonia. 2. Acute hypoxic respiratory failure due to left lower lobe pneumonia with lactic acidosis. 3. Hypokalemia, hypomagnesemia, and transaminitis in the setting of intravenous fluid resuscitation and sepsis. 4. History of substance abuse and anxiety. 5. History of chronic pain. PLAN: I will continue the patient on intravenous vancomycin and Zosyn. Follow up with blood culture results. Continue norepinephrine to maintain MAP more than 65 mmHg. I will also continue intravenous fluid resuscitation and electrolyte repletion. TIME SPENT: More than 30 minutes were spent in taking care of this critically ill patient. I allowed her to ask any questions, answered all of them satisfactorily. cc: Chencho Reardon MD MTDD
[2019-03-20] MEDS: DUONEB (A & A) INH SCH ×8 (03:40→23:15)
[2019-03-20 04:46] LABS: ALLEN TEST YES; BE 1.8 mmoll (-3.0-3.0); BLOOD TYPE ARTERIAL; HCO3-(ACT) 26.2 mmoll (20.0-26.0); METHB 0.7 % (0.0-1.5); O2(CT) 19.9 mL/dL (15.0-23.0); O2HB 93.8 % (95.0-99.0); PCO2(98.6) 50 mmHg (35-45); PO2(98.6) 71 mmHg (60-100); SAMPLE BLOOD; SAO2 95.5 % (95.0-100.0); THB 15.1 g/dL (11.5-17.4); pH(98.6) 7.36 (7.35-7.45)
[2019-03-20] MEDS: SUBOXONE 2 MG/0.5 MG FILM SL SCH (05:07)
[2019-03-20] MEDS: PRILOSEC PO SCH ×2 (05:07→08:45)
[2019-03-20 05:18] LABS: AGAP 8; BUN 10 mg/dL (8-22); CALCIUM 8.3 mg/dL (8.8-10.2); CHLORIDE 106 mmol/L (98-107); COSMO 280; CREATININE 0.4 mg/dL (0.5-0.9); ESTIMATED GFR > 60; GLUCOSE 126 mg/dL (70-104); MAGNESIUM 2.5 mg/dL (1.5-2.7); PHOSPHORUS 2.9 mg/dL (2.7-4.5); POTASSIUM 4.5 mmol/L (3.5-5.1); SODIUM 140 mmol/L (136-145); TCO2 26 mmol/L (25-35)
[2019-03-20] MEDS: ZOSYN 3.375 GM in NS 50 ML IV SCH ×4 (05:24→23:10)
[2019-03-20 05:43] LABS: BASO# 0.03 X1000 (0.0-0.2); BASO% 0.1 % (0.0-0.8); HEMATOCRIT 35.3 % (37.0-47.0); HEMOGLOBIN 11.4 g/dL (12.0-16.0); IMM GRAN# 0.08 X1000 (0.0-0.04); IMM GRAN% 0.3 % (0.0-0.5); LYMPH# 0.59 X1000 (1.2-3.4); LYMPH% 2.5 % (20.5-51.1); MCH 27.6 PG (27-31); MCHC 32.3 g/dL (33-37); MCV 85.5 FL (81-99); MONO# 2.21 X1000 (0.11-0.59); MONO% 9.2 % (1.7-9.3); MPV 10.3 FL (7.4-10.4); NEUT# 21.06 X1000 (1.4-6.5); NEUT% 87.9 % (42.2-75.2); PLT 366 X1000 (130-400); RBC 4.13 XMIL (4.2-5.4); RDW 14.1 % (11.5-14.5); WBC 23.97 X1000 (4.8-10.8)
[2019-03-20 06:13] LABS: LYMPHS 3 % (21-51); MONO 11 % (1-9); SEGS 86 % (42-75)
[2019-03-20] MEDS ORDERED: LEVOPHED 8 MG in D5 1/2 NS 250 ML IV SCH (07:03)
[2019-03-20] MEDS ORDERED: ATROVENT NEB INH PRN (07:52)
[2019-03-20] MEDS: NEURONTIN PO SCH ×4 (08:46→16:25)
[2019-03-20] MEDS: CYMBALTA PO SCH ×2 (08:46→12:31)
[2019-03-20] MEDS: LOVENOX SUBQ SCH (08:46)
[2019-03-20] MEDS: XOPENEX NEB INH SCH (08:47)
[2019-03-20 08:49] LABS: MODALITY VENTIMASK
[2019-03-20] MEDS: LIDODERM TOP SCH (08:49)
[2019-03-20] MEDS ORDERED: VITAMIN B-1 PO SCH ×2 (09:00)
[2019-03-20] MEDS ORDERED: THERA M PLUS PO SCH (09:00)
[2019-03-20] MEDS ORDERED: FOLIC ACID PO SCH (09:00)
--- NOTE | 2019-03-20 10:25 | Diag Imaging Result Doc PS360 ---
EXAM: CHEST-PORTABLE 03/20/2019 HISTORY: abnormal exam TECHNIQUE: AP portable at 1014 COMMENT: There is increased left pleural fluid. There may be a small effusion on the right. There is increasing opacification of the left lower chest which is probably largely due to fluid. Atelectasis or pneumonia is present in the left lower lobe. IMPRESSION: Worsening pleural effusion on the left. Electronically signed by Panchito Payton 03/20/2019 10:23 AM
[2019-03-20] MEDS ORDERED: VANCOMYCIN 1,250 MG in NS 250 ML IV SCH (11:00)
[2019-03-20] MEDS: VANCOMYCIN 1,250 MG in NS 250 ML IV SCH (11:18)
[2019-03-20] MEDS: CLINIMIX E 4.25%-5% SOLUTION 1,000 ML IV SCH (11:21)
[2019-03-20] MEDS: KLONOPIN PO PRN ×2 (14:23→20:39)
[2019-03-20] MEDS ORDERED: BLISTEX MEDICATED BERRY LIP BALM TOP PRN (14:26)
--- NOTE | 2019-03-20 15:35 | ECHO REPORT ---
ORDER DATE: 03/20/2019 INDICATION FOR THE STUDY: Pneumonia, shortness of breath, opiate withdrawal. FINDINGS: 1. The right atrium is mildly enlarged. There echo densities in the superior portion of the right atrium suggestive of a Chiari network. 2. Mild tricuspid regurgitation. RV systolic pressure of 45. 3. Normal RV size and systolic function. 4. Trace pulmonic insufficiency. 5. Normal left atrial size with a dimension of 3.0 cm. 6. No mitral prolapse. Mild mitral regurgitation. No evidence of mitral stenosis. 7. Normal LV size, end-diastolic dimension of 4.3. Normal wall thicknesses with a posterior and interventricular septal wall thickness of 0.8 cm each. Normal LV systolic function. Estimated EF is 65% with normal wall motion. 8. Aortic valve opens well. No evidence of stenosis or insufficiency. 9. Aorta appears normal in visualized segments. 10. No pericardial effusion seen. 11. Injection of agitated saline contrast did not visualize any evidence of significant shunting. IMPRESSION: 1. Mild right atrial enlargement with a Chiari network noted (this is a normal variant). 2. Suggestion of a possible very small membranous VSD. Could consider a transesophageal echo in the future, possibly as an outpatient, to further evaluate if necessary. 3. Normal right ventricular and left ventricular systolic function. 4. Negative bubble study. cc: MD Chencho Pierce MD
--- NOTE | 2019-03-20 19:19 | PROGRESS NOTE ---
DATE: 03/20/2019 INTERVAL HISTORY: Overnight Ms. Alonso did receive Suboxone, and she had become very lethargic. She has had intermittent episodes of tachycardia with heart rate of 140, for which she was started on she was started on intravenous metoprolol as needed. Her lactic acidosis was improving. Her metabolic acidosis was also improving. SUBJECTIVE: The patient is drowsy but arousable. She is complaining of back pain. Otherwise, denies any other complaints. Physical Examination: Vital Signs: Currently temperature of 97.6 degrees, pulse of 102, respiratory rate 16. She is maintaining MAP above 65 on norepinephrine. She is saturating 92% on Venturi mask General: Appears cachectic, not in any acute distress on Venturi mask. Oral cavity is dry. Lungs: Decreased air entry with inspiratory crackles on left infra-axillary region. Otherwise, no wheeze or rhonchi. Cardiovascular: S1, S2 normal. Tachycardic. No murmur, rub, or gallop. Abdomen: Soft. She has generalized tenderness. Extremities: She does not have any lower extremity edema. Neurologic: She is drowsy but arousable. Answers simple commands, lapses back into sleep again. Input and output: She has been positive 4 L today. LABS: Suggestive of persistent leukocytosis, normocytic anemia, normal platelet count, normal pH with hypercarbia and PO2 of 71 on 50% Venturi mask. Her electrolytes are within acceptable range. Her lactate has normalized. Her urinalysis and toxicology were negative. Microbiology: Blood culture and urine culture are in lab. IMAGING: Chest x-ray yesterday had worsening infiltrate and atelectasis in the left lung base. ASSESSMENT AND PLAN: 1. Septic shock from left lower lobe likely aspiration pneumonia, since the patient was having nausea and vomiting at [facility]. I will continue oxygenation through Venturi mask. Continue intravenous vancomycin, intravenous Zosyn. Follow up culture data as well as urine antigens. Continue ipratropium nebulization as needed for shortness of breath and norepinephrine to maintain mean arterial pressure of more than 65. I will consult Pulmonology, as the patient was transferred for pulmonology evaluation. 2. Electrolyte abnormalities including hypokalemia and hypomagnesemia. These have resolved. Her lactic acidosis has resolved as well. Her mild transaminitis was likely in the setting of septic shock. 3. History of substance abuse, anxiety, chronic pain, and suspected withdrawal on presentation to [facility]. I will continue her home medications of mirtazapine, olanzapine, duloxetine and gabapentin. I will also continue nicotine patch for tobacco abuse. DISPOSITION: The patient's condition remains critical, and I will continue to observe her inside the ICU. More than 30 minutes of critical care time was spent in taking care of this patient. Surrogate decision-maker is the patient's son; however, I have the patient's daughter's contact information, who I will try to reach out to inform about the patient's clinical course. cc: Chencho Reardon MD
--- NOTE | 2019-03-20 20:38 | PULMONOLOGY CONSULTATION ---
DATE: 03/20/2019 REQUESTING PHYSICIAN: Dr. Reardon. REASON FOR CONSULTATION: Pneumonia and respiratory failure. HISTORY OF PRESENT ILLNESS: Ms. Alonso is a 63-year-old white female with bipolar disorder, substance abuse, COPD with ongoing tobacco use, who was admitted 03/17/2019 to the [facility]. She developed increased cough, increased shortness of breath along with tachycardia and lactic acidosis and was transferred to [place] ICU and then subsequently transferred to [facility]. She is awake, alert. Her lactic acidosis is clearing. PAST MEDICAL HISTORY: 1. COPD with ongoing tobacco use. 2. Hiatal hernia. 3. Gastroesophageal reflux disease. 4. Hypothyroidism with current thyroid studies consistent with iatrogenic hyperthyroidism. 5. Colitis earlier in November of this year. 6. Status post cholecystectomy. 7. History of CVA in 2008. 8. Bipolar disorder. 9. Arthritis. 10. Sedative/narcotic use/abuse. 11. Hypertension. 12. Status post bilateral cataract surgery. 13. Anxiety/depressive disorder. FAMILY HISTORY: positive for hypertension and skin cancer. REVIEW OF SYSTEMS: Notable for abdominal and back pain, productive cough, generalized weakness and fatigue. SOCIAL HISTORY: Is positive for ongoing tobacco use. She is and on disability. Denies alcohol use. PHYSICAL EXAM: Reveals a thin white female who has lost 10 pounds over the last year. Heart rate 112, blood pressure 106/71, respiratory rate 19, O2 saturation 97% on 50% FiO2. The patient is on Levophed.HEENT: Pupils are equal. Mild temporal wasting. Oropharynx appears clear. Neck: Supple. Chest: Reveals prolonged expiratory phase with rhonchi bilaterally and decreased breath sounds left base. Cardiac: Increased rate, regular rhythm. Abdomen: Scaphoid and soft . Extremities: Without edema. LABORATORIES: Chest x-ray reveals increasing opacification in the left base with possible effusion on the left and the right base. Arterial blood gas pH 7.36, pCO2 of 50, PO2 of 71 on 50% face mask. White blood count 23.97, hemoglobin 11.4, platelet count 366,000. Sodium 140, potassium 4.0, chloride 106, bicarbonate 26, BUN 10, creatinine 0.4. IMPRESSION: 63-year-old female with substance use/abuse associated with bipolar disorder who was admitted to the [facility]. The patient has known hiatal hernia. She currently has reports dyspnea, abdominal pain and weight loss over the last several months. The patient has 1. Acute hypoxemic respiratory failure. 2. Left lower lobe pneumonia. 3. Sepsis. 4. Bilateral effusions. 5. Iatrogenic hyperthyroidism. 6. Abnormal weight loss, possibly related to hyperthyroidism. 7. Chronic obstructive pulmonary disease with ongoing tobacco use/nicotine addiction. RECOMMENDATIONS: 1. Agree with current antibiotic regimen. 2. Initiate bronchodilators and incentive spirometer for bronchial hygiene. 3. Maintain NPO status given known hiatal hernia and abdominal pain. 4. Wean vasopressors as tolerated. 5. Anticipate CT scan of the thorax, abdomen and pelvis when she has improved. 6. Encourage smoking cessation. 7. Will initiate Clinimix today given malnutrition. cc: Cody Baldwin MD MTDD
[2019-03-20] MEDS: REMERON PO SCH (20:39)
[2019-03-20] MEDS: TYLENOL PO PRN (20:39)
[2019-03-20] MEDS: ZYPREXA PO SCH (20:39)
[2019-03-20] MEDS: NICODERM PATCH TD PRN (20:40)
[2019-03-21] MEDS: CLINIMIX E 4.25%-5% SOLUTION 1,000 ML IV SCH ×2 (03:35→16:37)
[2019-03-21] MEDS: ZOSYN 3.375 GM in NS 50 ML IV SCH ×4 (05:47→22:08)
[2019-03-21] MEDS: LOVENOX SUBQ SCH ×2 (05:47→06:48)
[2019-03-21] MEDS: PRILOSEC PO SCH ×2 (05:47→05:50)
[2019-03-21 06:27] LABS: BASO# 0.01 X1000 (0.0-0.2); BASO% 0.1 % (0.0-0.8); EOS# 0.04 X1000 (0.0-0.7); EOS% 0.3 % (0.0-10.0); HEMATOCRIT 31.9 % (37.0-47.0); HEMOGLOBIN 10.2 g/dL (12.0-16.0); IMM GRAN# 0.05 X1000 (0.0-0.04); IMM GRAN% 0.4 % (0.0-0.5); LYMPH# 0.74 X1000 (1.2-3.4); LYMPH% 5.9 % (20.5-51.1); MCH 27.4 PG (27-31); MCV 85.8 FL (81-99); MONO# 0.93 X1000 (0.11-0.59); MONO% 7.5 % (1.7-9.3); MPV 10.2 FL (7.4-10.4); NEUT% 85.8 % (42.2-75.2); PLT 290 X1000 (130-400); RBC 3.72 XMIL (4.2-5.4); RDW 14.1 % (11.5-14.5); WBC 12.47 X1000 (4.8-10.8)
[2019-03-21 06:49] LABS: MAGNESIUM 1.8 mg/dL (1.5-2.7); PHOSPHORUS 2.7 mg/dL (2.7-4.5)
[2019-03-21 07:01] LABS: AGAP 6; ALB/GLOB RATIO 0.7; ALBUMIN 2.1 g/dL (3.5-5.0); ALKALINE PHOSPHATASE 76 U/L (32-104); BUN 8 mg/dL (8-22); CALCIUM 8.7 mg/dL (8.8-10.2); CHLORIDE 103 mmol/L (98-107); COSMO 284; CREATININE 0.3 mg/dL (0.5-0.9); ESTIMATED GFR > 60; GLUCOSE 119 mg/dL (70-104); GOT 11 U/L (10-30); GPT 9 U/L (10-36); POTASSIUM 3.5 mmol/L (3.5-5.1); SODIUM 143 mmol/L (136-145); TCO2 34 mmol/L (25-35); TOTAL BILIRUBIN 0.27 mg/dL (0.20-1.00); TOTAL PROTEIN 5.3 g/dL (6.3-8.3)
--- NOTE | 2019-03-21 07:16 | Diag Imaging Result Doc PS360 ---
EXAM: CHEST-PORTABLE 03/21/2019 HISTORY: abnormal exam TECHNIQUE: AP portable at 0531 COMMENT: The inspiration is less optimal than on 03/20/2019. There is a left pleural effusion and a smaller effusion on the right. There is slightly increased ill-defined opacity over the right lung base which may indicate worsening pulmonary edema. There continues to be volume loss and opacity in the left lower lobe. IMPRESSION: Pulmonary edema. Bilateral pleural effusions. Atelectasis versus pneumonia left lower lobe. Electronically signed by Panchito Payton 03/21/2019 7:14 AM
[2019-03-21] MEDS: DUONEB (A & A) INH SCH ×5 (07:31→23:20)
[2019-03-21] MEDS ORDERED: LASIX IV ONE ×2 (08:26→21:00)
[2019-03-21] MEDS: POTASSIUM CHLORIDE 20 MEQ/SWI 20 MEQ/100 ML IVPB IV SCH ×2 (08:57→10:49)
[2019-03-21] MEDS: TYLENOL PO PRN (09:05)
[2019-03-21] MEDS: CYMBALTA PO SCH (09:05)
[2019-03-21] MEDS: LIDODERM TOP SCH (09:06)
[2019-03-21] MEDS: ATIVAN PO PRN ×2 (10:50→21:32)
--- NOTE | 2019-03-21 10:57 | PROGRESS NOTE ---
DATE: 03/21/2019 INTERVAL HISTORY: Overnight patient was agitated. She had pulled out her IV line, pulled out her Jackson catheter and was trying to come out of bed. Her Levophed has been off since about 2 a.m. Her WBC is trending down, however chest x-ray suggests worsening infiltrate on the left lobe. Currently, the patient is drowsy but easily arousable with verbal stimuli and she is able to follow simple commands. She complains of back pain. She denies she also complains of chest hurting. She denies shortness of breath. VITAL SIGNS: She has been afebrile with temperature of 97.5 degrees, pulse 104, respiratory rate 16, blood pressure 128/73. She is saturating 98% on Venturi mask. PHYSICAL EXAMINATION: She does not appear in any acute distress.HEENT: Oral cavity is moist. Lungs: Air entry bilaterally equal. There is no wheeze. There are decreased air entry with inspiratory crackles on the left infra-axillary and infra scapular region. Right hemithorax has bronchovesicular breath sounds without any wheeze, rhonchi, crackles. Cardiovascular: S1, S2 normal. Tachycardic. No murmur, rub, or gallop. Abdomen: Soft, nontender. No hepatosplenomegaly. Active bowel sounds. Neurologic: She is arousable, follows simple commands. LABS: Suggestive of improving leukocytosis, normocytic anemia, normal platelet count, normal electrolytes except low potassium. Normal kidney function. Microbiology no positive data to date. IMAGING: Chest x-ray suggests she has pulmonary edema, bilateral pleural effusions, atelectasis versus pneumonia of left lower lobe. Echocardiogram was performed yesterday and it suggested she had mild right atrial enlargement, possible small membranous ventricular septal defect, normal systolic function and bubble study was negative. ASSESSMENT AND PLAN: 1. Septic shock from left lower lobe likely aspiration pneumonia and acute hypoxic respiratory failure leading to acute chronic obstructive pulmonary disease exacerbation. Continue intravenous vancomycin, intravenous Zosyn, albuterol ipratropium nebulization. She has been off norepinephrine since 2 a.m. today. Pulmonology on board. I will consider giving her a dose of Lasix depending on her course. 2. History of vomiting and diarrhea and weight loss for which she had presented to the [facility] could be in the setting of thyrotoxicosis without thyrotoxic storm. Her levothyroxine has been held since admission. I will follow up with TSH in future continue to manage her symptomatically at the moment. 3. Hypokalemia is being repleted. 4. Her hypomagnesemia on presentation has resolved along with lactic acidosis as well. 5. History of substance abuse, anxiety, chronic pain. Continue home basic medications of mirtazapine, olanzapine, duloxetine, gabapentin and I will adjust the dose to address her agitation at nighttime and to make sure she is awake during daytime. DISPOSITION: Patient remains inside the ICU for close monitoring of her cardiac respiratory status. She has been started on intravenous Clinimix. I will continue her on water with ice chips as tolerated and will potentially begin clear liquid diet depending on her course in the next 24 hours or so. Plan of care discussed with the patient. All of her questions have been answered. >30 minutes of critical care time was spent in taking care of this patient. Her prognosis is guarded. I called patient's daughter Ms. Joseph and informed her about patient's critical condition and answered all of her questions. cc: Chencho Reardon MD MTDD
[2019-03-21] MEDS: VANCOMYCIN 1,250 MG in NS 250 ML IV SCH (11:05)
[2019-03-21] MEDS: ZOFRAN IV PRN (12:54)
--- NOTE | 2019-03-21 14:22 | Diag Imaging Result Doc PS360 ---
EXAM: CT THORAX W/CONTRAST 03/21/2019 HISTORY: weight loss TECHNIQUE: This exam was performed using automated exposure control, adjustment of mA or kV according to patient size, and/or use of iterative reconstruction technique. COMMENT: The current study is compared with the previous study of 03/03/2018. There are prevascular nodes which have increased in size since the previous study measuring over 13 mm in greatest dimension. There is also increased subcarinal adenopathy. There is retained contrast in the esophagus. There is a large hiatal hernia. There is consolidation of the left lower lobe and portions of the lingula with air bronchograms. This was not the case previously. There is a left and smaller right pleural effusion. There is also consolidation of the left lower lobe and the posterior costophrenic sulcus which has worsened since the previous study. There is some bronchiectasis in the right middle lobe and ill-defined opacity in the medial portion of the middle lobe which is slightly worse than on the previous study. Some improvement in ill-defined opacity in the anterior inferior right upper lobe is present in comparison with the previous study however. The adrenal glands are not enlarged. There is scoliosis of the thoracic spine with convexity to the left. No evidence of acute bony disease is present. IMPRESSION: Worsened bibasilar pneumonia. Bronchiectasis and probable fibrosis in the right middle lobe. Hiatal hernia with retained fluid in the esophagus. The possibility of chronic aspiration pneumonia should be considered. Mediastinal adenopathy. Electronically signed by Panchito Payton 03/21/2019 2:20 PM
--- NOTE | 2019-03-21 14:31 | Diag Imaging Result Doc PS360 ---
EXAM: CT ABD/PELVIS W/PO AND IV CON 03/21/2019 HISTORY: Abd pain TECHNIQUE: This exam was performed using automated exposure control, adjustment of mA or kV according to patient size, and/or use of iterative reconstruction technique. COMMENT: The current study is compared with 11/25/2018. The pleural effusions and basilar pulmonary consolidation on the current study were not present at the time the previous exam. The hiatal hernia was present previously. There is intra and extrahepatic biliary dilatation. This is worse than on the previous study. The common bile duct measures almost 12 mm in the pancreatic head. This is larger than on the previous study at which time it measured less than 7 mm. There has been cholecystectomy. The aorta is not distended. The mesenteric and renal arteries are patent. There are multiple cysts in the kidneys. There is no evidence of hydronephrosis or solid mass. The spleen is not enlarged. The adrenal glands are not enlarged. The pancreas is slightly atrophic but is otherwise unremarkable. There is some stool throughout the colon. The small bowel is not distended. There is no evidence of significant adenopathy. Pelvis: There is no evidence of appendicitis. There is a Jackson catheter in the bladder. There is some perirectal edema. This is worse than on the previous examination. No abnormal fluid collections are otherwise present. The regional skeleton is stable in appearance. IMPRESSION: 1. Bibasilar pneumonia and pleural effusions. 2. Increasing biliary dilatation. The possibility of a obstructing lesion in the distal common bile duct or ampulla cannot be excluded. 3. Infiltration of the perirectal and presacral fat of uncertain significance. The possibility of proctitis cannot be excluded and clinical correlation is recommended. Electronically signed by Panchito Payton 03/21/2019 2:29 PM
--- NOTE | 2019-03-21 15:04 | PULMONOLOGY PROGRESS NOTE ---
DATE: 03/21/2019 SUBJECTIVE: The patient is awake, alert, conversant, and asking for food. Her Levophed is being tapered but has not been completely discontinued. PHYSICAL EXAM: Vital Signs: Blood pressure 114/66, heart rate 107, respiratory rate 17, oxygen saturation 91% on nasal cannula. HEENT: Pupils are equal and reactive. Oropharynx appears clear. Neck: Supple. Chest: Reveals decreased breath sounds, left greater than right base. Cardiac: S1, S2. Increased rate. Abdomen: Soft . Extremities: Trace edema. LABORATORIES: White blood count 12.47 and decreasing, hemoglobin 10.2, platelet count 290,000. Sodium 143, potassium 3.5, chloride 103, bicarbonate 34, BUN 8, creatinine 0.3. IMAGING: Chest x-ray reveals shallow inspiration with left lower lobe infiltrate/pneumonia and increased changes at the right base. IMPRESSION: A 63-year-old with substance abuse disorder and bipolar disorder who has a known hiatal hernia, who was transferred to this hospital with 1. Acute hypoxemic respiratory failure. 2. Left lower lobe pneumonia. 3. Sepsis with ongoing vasopressor requirements. 4. Bilateral effusions. 5. Iatrogenic hyperthyroidism. 6. Chronic obstructive pulmonary disease with ongoing tobacco use. 7. Abnormal weight loss. DISCUSSION: A 63-year-old with problems outlined above. Her vasopressors are being decreased. Her work of breathing appears to be decreasing as well but she is not yet over her hypotensive event. RECOMMENDATIONS: 1. Continue current antibiotic regimen. 2. Pursue CT scan of the thorax, abdomen and pelvis to see if an etiology for her weight loss can be identified. 3. Continue bronchodilators and incentive spirometry. 4. Continue oxygen for acute hypoxemic respiratory failure. 5. Continue to wean vasopressors as tolerated. 6. Encourage smoking cessation. 7. Await immunoglobulin levels and replace if low. 8. Continue Clinimix for now. cc: Cody Baldwin MD
[2019-03-21] MEDS: ZYPREXA PO SCH (21:32)
[2019-03-21] MEDS: NICODERM PATCH TD PRN (21:32)
[2019-03-21] MEDS: REMERON PO SCH (21:32)
[2019-03-21] MEDS: NEURONTIN PO SCH (21:33)
[2019-03-22] MEDS: CLINIMIX E 4.25%-5% SOLUTION 1,000 ML IV SCH ×2 (04:19→23:12)
[2019-03-22] MEDS: ZOSYN 3.375 GM in NS 50 ML IV SCH ×2 (04:19→12:12)
[2019-03-22] MEDS ORDERED: NS 250 ML IV ONE (05:11)
[2019-03-22 05:56] LABS: AGAP 9; CHLORIDE 90 mmol/L (98-107); GLUCOSE 132 mg/dL (70-104); POTASSIUM 3.1 mmol/L (3.5-5.1); SODIUM 136 mmol/L (136-145); TCO2 37 mmol/L (25-35)
[2019-03-22 05:57] LABS: BUN 11 mg/dL (8-22); CALCIUM 8.7 mg/dL (8.8-10.2); COSMO 273; CREATININE 0.4 mg/dL (0.5-0.9); ESTIMATED GFR > 60; MAGNESIUM 1.6 mg/dL (1.5-2.7); PHOSPHORUS 3.5 mg/dL (2.7-4.5)
[2019-03-22] MEDS: PRILOSEC PO SCH (05:57)
[2019-03-22] MEDS: GAMUNEX-C 10% IV ONE ×2 (05:57→06:10)
[2019-03-22 06:12] LABS: BASO# 0.04 X1000 (0.0-0.2); BASO% 0.3 % (0.0-0.8); EOS# 0.05 X1000 (0.0-0.7); EOS% 0.4 % (0.0-10.0); HEMATOCRIT 36.6 % (37.0-47.0); HEMOGLOBIN 11.8 g/dL (12.0-16.0); IMM GRAN# 0.22 X1000 (0.0-0.04); IMM GRAN% 1.6 % (0.0-0.5); LYMPH# 1.01 X1000 (1.2-3.4); LYMPH% 7.5 % (20.5-51.1); MCH 26.9 PG (27-31); MCHC 32.2 g/dL (33-37); MCV 83.6 FL (81-99); MONO# 1.61 X1000 (0.11-0.59); MONO% 11.9 % (1.7-9.3); MPV 9.5 FL (7.4-10.4); NEUT# 10.59 X1000 (1.4-6.5); NEUT% 78.3 % (42.2-75.2); PLT 314 X1000 (130-400); RBC 4.38 XMIL (4.2-5.4); WBC 13.52 X1000 (4.8-10.8)
[2019-03-22 07:22] LABS: BANDS 6 % (0-1); LYMPHS 6 % (21-51); MONO 4 % (1-9); SEGS 84 % (42-75)
--- NOTE | 2019-03-22 07:26 | EKG Report ---
Test Performed on : 03/19/2019 9:19:26 PM Test Reason : TACHY Blood Pressure : / mmHG Vent. Rate : 136 BPM Atrial Rate : 136 BPM P-R Int : 160 ms QRS Dur : 082 ms QT Int : 278 ms P-R-T Axes : 057 006 057 degrees QTc Int : 418 ms Sinus tachycardia. Possible Left atrial enlargement Septal infarct (cited on or before 14-JUL-2018) Abnormal ECG When compared with ECG of 19-MAR-2019 08:25, (Unconfirmed) Questionable change in initial forces of Septal leads Confirmed by Juan FLEMING, Silas Severino ([id number]) on 03/22/2019 9:27:57 AM
[2019-03-22] MEDS: DUONEB (A & A) INH SCH ×5 (07:30→23:42)
[2019-03-22] MEDS: CYMBALTA PO SCH (08:40)
[2019-03-22] MEDS: LOVENOX SUBQ SCH (08:41)
[2019-03-22] MEDS: POTASSIUM CHLORIDE 20 MEQ/SWI 20 MEQ/100 ML IVPB IV SCH ×2 (08:45→13:32)
[2019-03-22] MEDS: MAGNESIUM SULFATE 2 GM/S.W.I. 2 GM/50 ML IVPB IV SCH ×2 (08:45→11:25)
--- NOTE | 2019-03-22 10:23 | PROGRESS NOTE ---
DATE: 03/22/2019 INTERVAL HISTORY: No acute event overnight. Ms. Alonso was transferred out of ICU to step-down unit. She has been started on clear liquid diet but she has not eaten. SUBJECTIVE: She is drowsy but arousable. She follows most of the commands, but does not contribute to history meaningfully. She denies new complaints. OBJECTIVE: Vital Signs: Temperature 98.1 degrees, pulse 108, respiratory rate 22, blood pressure 92/69, saturating 96% on 3 L nasal cannula. General: Appears cachectic, not in any acute distress. HEENT: Oral cavity is moist. Lungs: Air entry bilaterally equal. No wheeze. Lungs: Decreased air entry with inspiratory crackles on left infra-axillary infrascapular region. Bronchovesicular breath sounds on the right side without wheeze, rhonchi, crackles, or crackles. Cardiovascular: S1, S2 normal. Tachycardic. No murmur or gallop. Abdomen: Soft, nontender. No hepatosplenomegaly. Active bowel sounds. Extremities: No lower extremity edema. Neurologic: She is arousable, following simple commands. LABORATORY DATA: Suggestive of mild leukocytosis, normocytic anemia, normal platelet count. Hypokalemia, hyponatremia. Microbiology culture data so far has been negative. IMAGING: Abdomen and pelvis CT yesterday had suggested bilateral pneumonia and pleural effusion, increasing biliary dilatation with possibility of obstructing lesion in the distal common bile duct or ampulla, infiltration of the perirectal and presacral fat with suspicion of proctitis. However, she did not have elevation of her liver function tests significantly, and her carcinoembryonic antigen was within acceptable range. She was repleted with immunoglobins yesterday. ASSESSMENT AND PLAN: 1. Septic shock from left lower lobe likely aspirational pneumonia and acute hypoxic respiratory failure leading to acute chronic obstructive pulmonary disease exacerbation. Continue intravenous vancomycin, intravenous Zosyn, albuterol ipratropium nebulization. She has been off norepinephrine since 03/21/2019. She received doses of intravenous Lasix yesterday with improvement in urine output and she was -3 L yesterday. Continue oxygen to maintain saturation more than 94%. 2. History of diarrhea, vomiting, weight loss at [facility] in the setting of opioid use and suspected thyrotoxicosis without thyrotoxic storm. Continue to hold levothyroxine and follow-up repeat TSH tomorrow. Manage it symptomatically. 3. Hypokalemia and hypomagnesemia, being repleted. 4. Protein energy malnutrition. Start the patient on clear liquid diet and intravenous Clinimix. I will also consult dietitian. Depending on her course in the future, she might need Gastroenterology evaluation to rule out any pancreatic or biliary malignancy based on CT scan findings. However, she does not have any obstructive liver function test abnormalities. 5. History of substance abuse, anxiety, chronic pain. Continue home medications of mirtazapine, olanzapine, duloxetine, and gabapentin, and I will adjust dose based on her response. She is more drowsy, so my plan is to discontinue one of these medications. DISPOSITION: I will continue to monitor the patient in [facility]. Plan of care discussed with her. Yesterday, I called the patient's daughter and answered all of her questions. ADDENDUM: Urine streptococcal antigen is positive and I will change her antibiotics to Ceftriaxone and Flagyl. cc: Chencho Reardon MD MTDD
[2019-03-22] MEDS: ZOFRAN IV PRN (13:11)
[2019-03-22] MEDS: LIDODERM TOP SCH (13:11)
[2019-03-22] MEDS ORDERED: VANCOMYCIN 1,400 MG in NS 250 ML IV ONE (15:00)
[2019-03-22] MEDS: ROCEPHIN 2 GM in NS 50 ML IV SCH (17:20)
[2019-03-22] MEDS: FLAGYL 500 MG/NS 500 MG/100 ML IVPB IV SCH ×2 (17:20→23:12)
[2019-03-22] MEDS: NEURONTIN PO SCH (20:42)
[2019-03-22] MEDS: ZYPREXA PO SCH (20:42)
--- NOTE | 2019-03-22 21:51 | PULMONOLOGY PROGRESS NOTE ---
DATE: 03/22/2019 SUBJECTIVE: The patient is awake, alert, and conversant. She reports she did have some reflux after she drank an Ensure today. She remains on clear liquids. OBJECTIVE: Vital Signs: The patient has been afebrile for the last 24 hours. Blood pressure 123/81, heart rate 110, respiratory rate 18, oxygen saturation 95% on 3 L per nasal cannula. HEENT: Pupils are equal and reactive. Oropharynx appears clear. Neck: Supple. Chest: Reveals decreased breath sounds left base. Cardiac exam: S1, S2. Abdomen: Soft. Extremities: Without edema. LABORATORIES: Immunoglobulin level obtained 03/20 shows significant reduction at 537 mg/dL. White blood count 13.5, hemoglobin 11.8, platelet count 314,000. Sodium 136, potassium 3.1, chloride 90, bicarbonate 37, BUN 11, creatinine 0.4. IMPRESSION: A 63-year-old with 1. Acute hypoxemic respiratory failure. 2. Aspiration with left lower lobe pneumonia. 3. Small bilateral effusions. 4. Immunoglobulin deficiency. 5. Chronic obstructive pulmonary disease with ongoing tobacco use. 6. Biliary dilatation. Cannot rule out obstructing lesion in the distal common bile duct or ampulla. RECOMMENDATION: 1. Immunoglobulin replacement. This was ordered earlier this morning. 2. Cautious p.o. intake. 3. Continue bronchodilators and incentive spirometry. 4. Oxygen for hypoxemic respiratory failure. 5. Encourage smoking cessation. 6. Continue Clinimix until p.o. intake improves. 7. GI evaluation to be directed per the hospitalist service. cc: Cody Baldwin MD
[2019-03-23] MEDS: TYLENOL PO PRN ×4 (01:02→20:19)
[2019-03-23] MEDS: ATIVAN PO PRN ×2 (01:02→11:57)
[2019-03-23] MEDS ORDERED: VANCOMYCIN 1,250 MG in NS 250 ML IV SCH (03:00)
[2019-03-23] MEDS: PRILOSEC PO SCH (05:44)
[2019-03-23] MEDS: FLAGYL 500 MG/NS 500 MG/100 ML IVPB IV SCH ×4 (05:44→23:09)
--- NOTE | 2019-03-23 06:46 | Diag Imaging Result Doc PS360 ---
CHEST-PORTABLE - 03/23/2019 INDICATION: abnormal exam COMPARISON: 03/21/2019 FINDINGS: There has been improvement in the bibasilar pleural effusions and small infiltrates. Heart size remains normal. No new infiltrates. IMPRESSION: Improvement in the bibasilar pleural effusions and small infiltrates. Electronically signed by Christian Helms 03/23/2019 6:43 AM
[2019-03-23] MEDS: DUONEB (A & A) INH SCH ×5 (07:42→23:05)
[2019-03-23 08:15] LABS: BASO# 0.09 X1000 (0.0-0.2); BASO% 0.7 % (0.0-0.8); EOS# 0.06 X1000 (0.0-0.7); EOS% 0.5 % (0.0-10.0); HEMATOCRIT 34.7 % (37.0-47.0); HEMOGLOBIN 11.2 g/dL (12.0-16.0); IMM GRAN# 0.81 X1000 (0.0-0.04); IMM GRAN% 6.7 % (0.0-0.5); LYMPH% 8.2 % (20.5-51.1); MCHC 32.3 g/dL (33-37); MCV 83.6 FL (81-99); MONO% 19.7 % (1.7-9.3); MPV 10.2 FL (7.4-10.4); NEUT# 7.82 X1000 (1.4-6.5); NEUT% 64.2 % (42.2-75.2); PLT 338 X1000 (130-400); RBC 4.15 XMIL (4.2-5.4); RDW 14.6 % (11.5-14.5); WBC 12.18 X1000 (4.8-10.8)
[2019-03-23 08:18] LABS: AGAP 13; BUN 12 mg/dL (8-22); CALCIUM 8.5 mg/dL (8.8-10.2); CHLORIDE 94 mmol/L (98-107); COSMO 273; CREATININE 0.3 mg/dL (0.5-0.9); ESTIMATED GFR > 60; GLUCOSE 123 mg/dL (70-104); PHOSPHORUS 3.6 mg/dL (2.7-4.5); POTASSIUM 3.7 mmol/L (3.5-5.1); SODIUM 136 mmol/L (136-145); TCO2 29 mmol/L (25-35)
[2019-03-23 08:28] LABS: BANDS 6 % (0-1); LYMPHS 16 % (21-51); MONO 10 % (1-9); SEGS 60 % (42-75)
[2019-03-23] MEDS: ZOFRAN IV PRN (08:39)
[2019-03-23] MEDS: LOVENOX SUBQ SCH (08:39)
[2019-03-23] MEDS: LIDODERM TOP SCH (08:40)
[2019-03-23] MEDS: NICODERM PATCH TD PRN (08:40)
--- NOTE | 2019-03-23 11:08 | PROGRESS NOTE ---
DATE: 03/23/2019 INTERVAL HISTORY: The patient has been tolerating liquid diet well so far. Her TSH had started increasing so I will start patient on lower than her home dose of levothyroxine. Currently, she denies any new complaints. She states she was able to work out with physical therapy. VITAL SIGNS: Vitals suggest temperature of 98.3 degrees, pulse of 125, respiratory rate 15, blood pressure 104/71 and saturating 95% on 3 L nasal cannula. PHYSICAL EXAMINATION: The patient is cachectic not in any acute distress. Oral cavity is moist. Lungs: Air entry bilaterally equal. No wheeze, rhonchi, or crackles, except left infrascapular region where she has crackles. Abdomen: Soft. She has a left upper quadrant pain. Active bowel sounds. Extremities: No lower extremity edema. LABORATORY: Labs are suggestive of improving leukocytosis. Normal platelet count. Normal electrolytes. Microbiology: Urine streptococcal antigen has been positive. IMAGING: Chest x-ray today suggests improvement in bibasilar pleural effusions and small infiltrates. ASSESSMENT AND PLAN: 1. Left lower lobe pneumonia due to Streptococcus pneumonia leading to septic shock and acute hypoxic respiratory failure, and acute chronic obstructive pulmonary disease exacerbation on presentation. Her septic shock has resolved. Continue oxygenation to maintain saturation more than 92 to 94 percent. Continue intravenous ceftriaxone and metronidazole. Continue albuterol ipratropium nebulization. She has been off norepinephrine since 03/21. Chest x-ray suggests improvement in her lung findings. 2. History of abdominal pain, vomiting, diarrhea, and weight loss at [facility] in the setting of opioid use and suspected thyrotoxicosis without thyrotoxic storm. I will resume her levothyroxine at a lower dose today. On reviewing CT scan images, she did have extra and intrahepatic biliary dilatation since 2010. She also had upper and lower endoscopy in 2016. I will consider Gastroenterology evaluation to see if she would need MRCP versus ERCP in the near future. Also, she had started becoming nauseous again. 3. Hypokalemia and hypomagnesemia resolved. 4. Protein energy malnutrition. Continue clear liquid diet and intravenous Clinimix until her p.o. intake improves. 5. History of substance abuse, anxiety, and chronic pain. Continue home medications of olanzapine and gabapentin. I am holding some of the other home medications considering her drowsiness. I will continue omeprazole for GERD, nicotine patch for ongoing tobacco abuse, and enoxaparin for DVT prophylaxis. DISPOSITION: Continue to monitor in [facility] for persistent tachycardia. Plan of care discussed with her. All of her questions have been answered satisfactorily. cc: Chencho Reardon MD
--- NOTE | 2019-03-23 12:21 | Diag Imaging Result Doc PS360 ---
EXAM: MRI MRCP (ABD W/O CONTRAST) 03/23/2019 HISTORY: Evaluate for pancreatic head mass. TECHNIQUE: Axial T2, in and out of phase T1, coronal in and out of phase 3-D, MRCP MIPS axial and water 3-D COMMENT: The pancreatic duct is not distended. There is intra and extrahepatic biliary dilatation as was also demonstrated on CT on 03/21/2019. The distal common bile duct measures in excess of 9 mm. The last 9 mm of the common duct are narrowed. There is no evidence of abnormal signal in the liver. The pancreatic duct measures 2 mm. There are some cysts in the kidneys. There is a large hiatal hernia. IMPRESSION: Possibility of a stricture or mucosal lesion in the distal common bile duct cannot be excluded. No evidence of mass. No evidence of pancreatic ductal dilatation. Electronically signed by Panchito Payton 03/23/2019 12:19 PM
[2019-03-23] MEDS: CLINIMIX E 4.25%-5% SOLUTION 1,000 ML IV SCH (14:15)
[2019-03-23] MEDS: ROCEPHIN 2 GM in NS 50 ML IV SCH (15:38)
[2019-03-23] MEDS: ZYPREXA PO SCH (20:18)
[2019-03-23] MEDS: NEURONTIN PO SCH (20:18)
--- NOTE | 2019-03-24 02:33 | PULMONOLOGY PROGRESS NOTE ---
DATE: 03/23/2019 SUBJECTIVE: The patient is awake and alert. She reports she has pain and would like pain medications. OBJECTIVE: Vital Signs: The patient has been afebrile for the last 24 hours. BP 104/71, heart rate 111, respiratory rate 17, oxygen saturation 97% on 2.5 L per nasal cannula. HEENT: Pupils are equal and reactive. Oropharynx appears clear. Neck: Supple. Chest: Reveals diminished breath sounds with crackles at the left base. Cardiac: S1, S2. Abdomen: Soft and without hepatosplenomegaly. Extremities: Without edema. LABORATORY DATA: White blood count 12.12, hemoglobin 11.2, platelet count 338,000. Sodium 136, potassium 3.7, chloride 94, bicarbonate 29, BUN 12, creatinine 0.3. Microbiology reveals no new data. Chest x-ray by report reveals improvement, but she continues to have significant consolidation at the left lung base. IMPRESSION: 1. Aspiration pneumonia involving the left lower lobe. 2. Acute hypoxemic respiratory failure. 3. Immunoglobulin deficiency. 4. Chronic obstructive pulmonary disease with ongoing tobacco use. 5. Biliary dilatation with no mass identified on MRI. RECOMMENDATIONS: 1. Follow up immunoglobulin level in 2 to 3 weeks. 2. Continue current antibiotic regimen. 3. Cautious p.o. intake. 4. Continue oxygen for hypoxemic respiratory failure. 5. Encourage smoking cessation. 6. Continue physical therapy as tolerated. cc: Cody Baldwin MD
[2019-03-24] MEDS: CLINIMIX E 4.25%-5% SOLUTION 1,000 ML IV SCH ×3 (03:32→16:33)
[2019-03-24] MEDS: ATIVAN PO PRN ×2 (03:33→13:37)
[2019-03-24] MEDS: TYLENOL PO PRN ×3 (03:33→15:45)
[2019-03-24] MEDS: SYNTHROID PO SCH ×3 (05:00→06:01)
[2019-03-24] MEDS: PRILOSEC PO SCH ×2 (05:00→05:57)
[2019-03-24] MEDS: FLAGYL 500 MG/NS 500 MG/100 ML IVPB IV SCH ×4 (05:57→14:01)
[2019-03-24 06:09] LABS: BASO# 0.09 X1000 (0.0-0.2); BASO% 0.8 % (0.0-0.8); EOS# 0.15 X1000 (0.0-0.7); EOS% 1.3 % (0.0-10.0); HEMATOCRIT 34.4 % (37.0-47.0); HEMOGLOBIN 11.3 g/dL (12.0-16.0); IMM GRAN% 13.8 % (0.0-0.5); LYMPH# 1.23 X1000 (1.2-3.4); LYMPH% 10.6 % (20.5-51.1); MCH 27.3 PG (27-31); MCHC 32.8 g/dL (33-37); MCV 83.1 FL (81-99); MONO# 1.92 X1000 (0.11-0.59); MONO% 16.6 % (1.7-9.3); MPV 10.1 FL (7.4-10.4); NEUT% 56.9 % (42.2-75.2); PLT 380 X1000 (130-400); RBC 4.14 XMIL (4.2-5.4); RDW 14.7 % (11.5-14.5); WBC 11.59 X1000 (4.8-10.8)
[2019-03-24 06:13] LABS: AGAP 10; BUN 14 mg/dL (8-22); CALCIUM 8.5 mg/dL (8.8-10.2); CHLORIDE 97 mmol/L (98-107); COSMO 270; CREATININE 0.3 mg/dL (0.5-0.9); ESTIMATED GFR > 60; GLUCOSE 121 mg/dL (70-104); MAGNESIUM 1.7 mg/dL (1.5-2.7); PHOSPHORUS 3.6 mg/dL (2.7-4.5); POTASSIUM 3.8 mmol/L (3.5-5.1); SODIUM 134 mmol/L (136-145); TCO2 27 mmol/L (25-35)
[2019-03-24] MEDS: DUONEB (A & A) INH SCH ×5 (07:40→23:39)
[2019-03-24] MEDS: ZOFRAN IV PRN ×2 (08:13→13:37)
[2019-03-24 08:26] LABS: BANDS 4 % (0-1); LYMPHS 12 % (21-51); SEGS 60 % (42-75)
[2019-03-24 08:27] LABS: EOS 1 % (1-10); MONO 10 % (1-9)
[2019-03-24] MEDS: LOVENOX SUBQ SCH (10:02)
[2019-03-24] MEDS: LIDODERM TOP SCH (10:02)
[2019-03-24] MEDS: NICODERM PATCH TD PRN (10:02)
[2019-03-24] MEDS: REGLAN PO SCH ×2 (11:22→15:45)
--- NOTE | 2019-03-24 11:26 | EKG Report ---
Test Performed on : 03/24/2019 11:20:09 AM Test Reason : Follow up QTc interval Blood Pressure : / mmHG Vent. Rate : 124 BPM Atrial Rate : 124 BPM P-R Int : 124 ms QRS Dur : 082 ms QT Int : 338 ms P-R-T Axes : 059 052 050 degrees QTc Int : 485 ms Sinus tachycardia. Possible Left atrial enlargement Cannot rule out Anterior infarct (cited on or before 14-JUL-2018) Abnormal ECG When compared with ECG of 19-MAR-2019 21:19, Questionable change in initial forces of Septal leads Nonspecific T wave abnormality, improved in Lateral leads Confirmed by Juan FLEMING, Silas Severino ([id number]) on 03/25/2019 11:39:14 AM
[2019-03-24] MEDS ORDERED: SUBOXONE 2 MG/0.5 MG SL SCH (11:45)
--- NOTE | 2019-03-24 12:40 | Diag Imaging Result Doc PS360 ---
CT HEAD W/O CONTRAST - 03/24/2019 INDICATION: Intermittent confusion. Rule out CVA. COMPARISON: 06/03/2018 FINDINGS: The ventricles and sulci are normal in size and contour. No intracranial mass or hemorrhage. The skull is intact. The sinuses mastoids and middle ears are clear. IMPRESSION: Negative exam. This exam was performed using automated exposure control, adjustment of mA or kV according to patient size, and/or use of iterative reconstruction technique Electronically signed by Christian Helms 03/24/2019 12:37 PM
--- NOTE | 2019-03-24 12:51 | PROGRESS NOTE ---
DATE: 03/24/2019 Hospital course summary: Ms. Alonso had initially presented to [facility] for poor appetite, abdominal pain, vomiting and was being treated for opioid withdrawal. Subsequently she had developed shortness of breath and hypoxia and so she was transferred over to [facility] ICU. She has been treated for septic shock. Currently being worked up for persistently low PO intake, nausea and pneumonia. INTERVAL HISTORY: The patient underwent MRCP yesterday which had detected mucosal lesion or stricture involving the distal common bile duct. Her Synthroid was restarted. No other acute events overnight. SUBJECTIVE: The patient denies any new complaints except back pain. She is ready to walk with physical therapy. She denies any chest pain or shortness of breath. She states she gets nauseous when she is trying to eat. We discussed about MRCP findings. I answered all of her question. She is able to sit up by the edge of the bed with the help of physical therapy. VITAL SIGNS: Temperature of 97.8 degrees, pulse of 112, respiratory rate 18, blood pressure of 105/73. She is saturating 96% on 2 L nasal cannula. PHYSICAL EXAMINATION: Cachectic. Not in any acute distress. Oral cavity is moist. Decreased air entry with inspiratory crackles in the left infrascapular region. Adequate air entry on right hemithorax. Cardiovascular: S1, S2 normal. Regular. No murmur, rub, or gallop. Abdomen is soft. Nontender except left upper quadrant mild tenderness. No lower extremity edema. Active bowel sounds. Neurologic: She is alert. She is oriented to herself, to me, and to this place. She is asking for pain medication for her left lower back pain. She does have some ptosis affecting the right eye but she states that is because of her prior stroke. She does not remember if she was taking any stroke medications. We discussed about her clinical condition and answered all of her questions. LABS: Suggestive of improving leukocytosis, normocytic anemia, normal platelet count. Her kidney function appears to be normal. MICROBIOLOGY: No positive data except urine streptococcal antigen. IMAGING: MRCP yesterday had suggested the possibility of a stricture or a mucosal lesion in the distal common bile duct. No evidence of mass. No evidence of pancreatic ductal dilatation. ASSESSMENT AND PLAN: 1. Left lower lobe pneumonia due to streptococcal pneumoniae leading to septic shock and acute hypoxic respiratory failure and acute chronic obstructive pulmonary disease exacerbation on presentation. Her septic shock has resolved. Continue oxygenation to maintain saturation more than 92%. Continue intravenous ceftriaxone and metronidazole for suspected aspiration as well. Continue albuterol-ipratropium nebulization. She has been off norepinephrine since March 21. Chest x-ray suggests interval improvement. 2. History of abdominal pain, vomiting, diarrhea, and weight loss at [facility] in the setting of opioid use and suspected thyrotoxicosis without thyrotoxic storm. She continues to have abdominal pain and nausea. Magnetic resonance cholangiopancreatography did detect suspected stricture or mucosal lesion involving the distal common bile duct. Previously, there were concerns about opioid induced gastroparesis as well. I will start the patient on metoclopramide. Continue her on a clear liquid diet and as needed Zofran. I will have gastroenterology evaluation to see if she would need an endoscopic retrograde cholangiopancreatography to further look into distal common bile duct lesion, considering she is a smoker and has had significant weight loss. 3. Protein energy malnutrition. Continue clear liquid diet and intravenous Clinimix until she is able to tolerate intake by mouth. 4. History of substance abuse, anxiety, and chronic pain. Continue home medications of olanzapine and gabapentin. I am holding other home medications considering her drowsiness. I will continue omeprazole for gastroesophageal reflux disease; nicotine patch for ongoing tobacco abuse; enoxaparin for deep venous thrombosis prophylaxis. 5. Intermittent confusion, likely in the setting of septic shock that she presented with because of streptococcus pneumoniae. The patient did have a prior history of cerebrovascular accident, though she is not listed to be taking any medicines for it. The patient's daughter on the phone was concerned about a new stroke. My suspicion is less, considering she does not any focal neurological deficit and she is able to raise all extremities above ground level, though she does have residual ptosis on right. I will get head CT to rule out any new cerebrovascular accident. 6. Disposition. The patient remains in [facility] as we treat her with intravenous antibiotics and await further gastroenterology evaluation. At the time of discharge, which I anticipate in the next 24 to 48 hours, she should be discharged on oral antibiotics. [facility] would send over a prescription of Suboxone at the time of discharge. I called patient's daughter today and informed her about patient's clinical course, and answered all of her questions satisfactorily. cc: Chencho Reardon MD MTDD
[2019-03-24] MEDS: MOTRIN PO SCH ×2 (13:32→19:44)
[2019-03-24] MEDS: ROCEPHIN 2 GM in NS 50 ML IV SCH (15:45)
[2019-03-24] MEDS: NEURONTIN PO SCH ×2 (19:43→20:40)
[2019-03-24] MEDS: ZYPREXA PO SCH (19:44)
--- NOTE | 2019-03-24 21:42 | GASTROENTEROLOGY CONSULTATION ---
DATE: 03/24/2019 REASON FOR CONSULTATION: Dilated common bile duct on CT and MRCP. HISTORY OF PRESENT ILLNESS: This is a 63-year-old, female, who came into the hospital, referred by [facility] for nausea, vomiting, abdominal pain. The patient also reported myalgia and paresthesias. She was evaluated and diagnosed with acute hypoxemic respiratory failure, aspiration, left lower lobe pneumonia, small bilateral effusions. She was also noted to have immunoglobulin deficiency. During workup, she had CT scan and MRCP that showed biliary dilatation. Imaging studies were reviewed by Dr. Rowe. Abdominal/pelvis CT scan showed bibasilar pneumonia and pleural effusions, increasing biliary dilatation with the possibility of an obstructive lesion in the distal common bile duct or ampulla. Patient had an MRCP on 03/23/2019 that showed possibility of stricture or mucosal lesion in the distal common bile duct that could not be excluded, but no evidence of mass and no evidence of pancreatic ductal dilation. The common bile duct measured 9 mm. Patient does have a history of cholecystectomy patient's liver function tests have been normal. She had mild elevation in her bilirubin at 1.80, but that has improved. PAST MEDICAL HISTORY: Arthritis, chronic anxiety, history of CVA in 2008, history of bronchitis, hypothyroidism, restless legs syndrome. History of opioid abuse. ALLERGIES: Codeine causing vomiting. HOME MEDICATIONS: Clonazepam 1 tablet 3 times a day as needed. Duloxetine 1 tablet daily. Gabapentin, one 3 times a day. Hydroxyzine 1 twice a day as needed. Levothyroxine 1 daily. Mirtazapine 1.5 mg every night, olanzapine 1 every night. Omeprazole 1 daily. Trazodone 1 every night. SOCIAL HISTORY: She is . She is on disability. Apparently, she is following with [facility]. REVIEW OF SYSTEMS: Per history of present illness.Vital Signs: Temperature 98.1, pulse 100, respirations 18, blood pressure 105/63. General: Patient is awake and alert. She is in no acute distress. She does report off and on. History of abdominal pain. Nausea with vomiting. Poor appetite. Weight loss. Respiratory: Lung sounds decreased with some crackles noted. Cardiovascular: Regular rate and rhythm. Abdomen: Soft. Mild tenderness with palpation, positive bowel sounds. Extremities: With no lower extremity edema noted. Neurological: Cranial nerves 2-12 grossly intact. At the time of my evaluation, she was alert and oriented. DIAGNOSTIC RESULTS: Laboratory: Hematology: WBC 11.59, hemoglobin 11.3, hematocrit 34.4, MCV 83.1, platelets 380. Chemistry: Sodium 134, potassium 3.8, chloride 97, CO2 of 27, BUN 14, creatinine 0.3, glucose 121, calcium 8.5. Imaging studies: MRCP showing distal common bile duct measuring 9 mm. No evidence of abnormal signal in the liver, pancreatic duct measuring 2 mm. Large hiatal hernia. No evidence of mass. No evidence of pancreatic ductal dilation. CT scan of the abdomen and pelvis showed common bile duct measuring 12 mm in the pancreatic head. ASSESSMENT: 1. Recent diagnosis of pneumonia on antibiotics. Patient had sepsis related to infection. She is currently on O2 by nasal cannula. 2. Abdominal pain, nausea, vomiting, weight loss. 3. Protein-calorie malnutrition. 4. History of substance abuse. 5. Dilated common bile duct, with recent CT scan and MRCP. PLAN: Continue current management. We will repeat her liver function tests. Her previous liver function tests were normal. Will repeat those tomorrow. Dr. Rowe has reviewed the imaging studies with normal liver function tests. He does not recommend proceeding with ERCP. Will continue to follow. Further plans to be made as needed. I have discussed this case with Dr. Rowe. Dictated by DORIS Hines for Bart Rowe MD cc: DORIS Ross MD
[2019-03-25] MEDS: ZYPREXA PO SCH ×2 (00:01→20:29)
[2019-03-25] MEDS: FLAGYL 500 MG/NS 500 MG/100 ML IVPB IV SCH ×4 (00:07→15:30)
[2019-03-25] MEDS: ATIVAN PO PRN ×2 (01:15→13:24)
--- NOTE | 2019-03-25 03:04 | PULMONOLOGY PROGRESS NOTE ---
DATE: 03/24/2019 SUBJECTIVE: The patient reports she did get out of bed today. She continues to complain bitterly of left-sided chest pain and requests pain medicines on every visit. OBJECTIVE: Vital Signs: The patient is afebrile. Blood pressure 105/63, heart rate 102, respiratory rate 18, oxygen saturation 96% on 3 L per nasal. HEENT: Pupils are equal and reactive. Oropharynx appears clear. Neck: Supple. Chest: Reveals diminished breath sounds left base. Cardiac: S1, S2. Abdomen: Soft with positive bowel sounds. Extremities: Without edema. LABORATORIES: White blood count 11.59, hemoglobin 11.3, platelet 380,000. Sodium 134, potassium 3.8, chloride 97, bicarbonate 27, BUN 14, creatinine 0.3. Streptococcal pneumonia antigen is positive. Legionella antigen is negative. IMPRESSION: 1. A 63-year-old with pneumococcal pneumonia with dense consolidation left lower lobe. 2. Immunoglobulin deficiency status post replacement. 3. Acute hypoxemic respiratory failure. 4. Chronic obstructive pulmonary disease with ongoing tobacco use. 5. Chronic pain syndrome, recently admitted to [facility]. She continues to request medications. 6. Biliary dilation without significant liver function tests abnormalities, being followed by the GI service. RECOMMENDATIONS: 1. Encourage patient to get out of bed and become mobile as tolerated. 2. Encourage deep breathing and cough, along with incentive spirometry. 3. Continue broad-spectrum antibiotics. 4. Encourage smoking cessation. 5. Prognosis is guarded. She is not motivated to deep breathe, cough, and move. cc: Cody Baldwin MD
[2019-03-25] MEDS: CLINIMIX E 4.25%-5% SOLUTION 1,000 ML IV SCH ×2 (04:57→07:57)
[2019-03-25] MEDS: MOTRIN PO SCH ×3 (05:24→22:19)
[2019-03-25] MEDS: SYNTHROID PO SCH ×2 (05:24→06:05)
[2019-03-25] MEDS: PRILOSEC PO SCH (05:25)
[2019-03-25 05:42] LABS: BASO# 0.15 X1000 (0.0-0.2); BASO% 1.5 % (0.0-0.8); HEMATOCRIT 34.5 % (37.0-47.0); IMM GRAN# 1.84 X1000 (0.0-0.04); IMM GRAN% 18.7 % (0.0-0.5); LYMPH# 1.71 X1000 (1.2-3.4); LYMPH% 17.4 % (20.5-51.1); MCH 26.6 PG (27-31); MCHC 31.9 g/dL (33-37); MCV 83.3 FL (81-99); MONO# 1.77 X1000 (0.11-0.59); NEUT# 4.18 X1000 (1.4-6.5); NEUT% 42.4 % (42.2-75.2); PLT 401 X1000 (130-400); RBC 4.14 XMIL (4.2-5.4); RDW 15.1 % (11.5-14.5); WBC 9.85 X1000 (4.8-10.8)
[2019-03-25 05:57] LABS: AGAP 7; BUN 16 mg/dL (8-22); CHLORIDE 98 mmol/L (98-107); COSMO 268; CREATININE 0.3 mg/dL (0.5-0.9); ESTIMATED GFR > 60; GLUCOSE 102 mg/dL (70-104); MAGNESIUM 1.8 mg/dL (1.5-2.7); PHOSPHORUS 3.6 mg/dL (2.7-4.5); SODIUM 133 mmol/L (136-145); TCO2 28 mmol/L (25-35)
[2019-03-25 06:11] LABS: ALB/GLOB RATIO 0.8; ALBUMIN 2.5 g/dL (3.5-5.0); ALKALINE PHOSPHATASE 83 U/L (32-104); GOT 6 U/L (10-30); GPT < 5 U/L (10-36); TOTAL BILIRUBIN 0.25 mg/dL (0.20-1.00); TOTAL PROTEIN 5.6 g/dL (6.3-8.3)
[2019-03-25] MEDS: ZOFRAN IV PRN ×2 (06:48→15:29)
[2019-03-25] MEDS: DUONEB (A & A) INH SCH ×5 (07:21→23:30)
[2019-03-25] MEDS: REGLAN PO SCH ×4 (07:56→15:29)
[2019-03-25] MEDS: LIDODERM TOP SCH (08:01)
[2019-03-25] MEDS: LOVENOX SUBQ SCH (08:01)
[2019-03-25] MEDS: NICODERM PATCH TD PRN (10:12)
--- NOTE | 2019-03-25 14:52 | PROGRESS NOTE ---
DATE: 03/25/2019 SUBJECTIVE: This morning Ms. Alonso refers to be feeling a lot better. She still has generalized pain but for the most part unremarkable. OBJECTIVE: Vital signs: Blood pressure is 114/75, pulse of 122, temperature is 98.3 degrees. General: Ms. Alonso is a 63-year-old female. She is in bed. Not seemingly distressed. HEENT: Mucosa is pink and moist. Anicteric. Acyanotic. Neck: Supple. Chest: Air entry was bilaterally reduced, more so to the right posterior lung field. Cardiovascular: Regular rate and rhythm. Abdomen: Soft. Extremities: No pedal edema. STAFFING RN: Patient is awake, alert, and oriented. There is no focal neurological deficit. LABORATORY DATA: WBC is down to 9.85, hemoglobin is 11.0, platelet count of 401,000. Chemistry is also reviewed, unremarkable. Patient's current antimicrobials include ceftriaxone [address] scan of the head yesterday was negative. An MRCP showed the possibility of a stricture or mucosal lesion in the distal common bile duct cannot be excluded. ASSESSMENT: 1. Acute hypoxemic respiratory failure on presentation secondary to the left lower lobe pneumonia, improved. The patient is currently on 3 L of nasal cannula; seems to be saturating well. 2. Streptococcal pneumoniae, pneumonia of the left lower lobe associated with IgG immunoglobulin deficiency. The patient is on IV antibiotics. 3. Protein calorie malnutrition. The patient is on Clinimix and has been tolerating about 25% of her meals. 4. History of opiate abuse. The patient has gone through the [facility] in [place]. I understand there is a plan for her to be on Suboxone. We will leave that for her to follow up once discharged. 5. Dilated common bile duct. MRCP suggests mucosa lesion or a stricture. GI is following. cc: Simon Rowan MD
[2019-03-25] MEDS: ROCEPHIN 2 GM in NS 50 ML IV SCH (15:29)
[2019-03-25] MEDS: NEURONTIN PO SCH (20:28)
[2019-03-25] MEDS: TYLENOL PO PRN (20:28)
[2019-03-25] MEDS ORDERED: MAALOX PLUS LIQUID PO ONE (22:04)
[2019-03-26] MEDS: FLAGYL 500 MG/NS 500 MG/100 ML IVPB IV SCH ×3 (00:20→17:40)
[2019-03-26] MEDS: ATIVAN PO PRN (01:32)
[2019-03-26] MEDS: PRILOSEC PO SCH (05:11)
[2019-03-26] MEDS: CLINIMIX E 4.25%-5% SOLUTION 1,000 ML IV SCH (05:11)
[2019-03-26] MEDS: SYNTHROID PO SCH ×2 (05:11→06:05)
[2019-03-26] MEDS: MOTRIN PO SCH (05:11)
--- NOTE | 2019-03-26 06:49 | Diag Imaging Result Doc PS360 ---
CHEST-PORTABLE - 03/26/2019 INDICATION: abnormal exam COMPARISON: 03/23/2019 FINDINGS: Stable left basilar pleural effusion. Stable hazy infiltrate in the left midlung and base. The right lung is well expanded and clear. Heart size remains normal. IMPRESSION: Improved aeration of the right lung. Stable infiltrate and small effusion at the left base. Electronically signed by Christian Helms 03/26/2019 6:47 AM
[2019-03-26] MEDS: DUONEB (A & A) INH SCH ×3 (07:32→15:33)
[2019-03-26] MEDS: REGLAN PO SCH ×3 (08:02→17:41)
[2019-03-26] MEDS: LOVENOX SUBQ SCH (08:02)
[2019-03-26] MEDS: LIDODERM TOP SCH (08:02)
--- NOTE | 2019-03-26 08:09 | PULMONOLOGY PROGRESS NOTE ---
DATE: 03/25/2019 SUBJECTIVE: The patient is awake and alert. She continues to report some pain with deep inspiration. She reports she has been getting out of bed. OBJECTIVE: Vital Signs: The patient has been afebrile for the last 24 hours. Blood pressure 114/75, heart rate 122, respiratory rate 31, oxygen saturation 93% on 3 L per nasal cannula. HEENT: Pupils are equal and reactive. Oropharynx is clear. Neck: Neck is supple. Chest: Reveals decreased breath sounds, left base. Cardiac exam: S1, S2. Abdomen: Soft. Extremities: Without edema. LABORATORIES: White blood count is normal for the first time during this hospitalization at 9.85. Hemoglobin 11.0, platelet count 401,000. Sodium 133, potassium 4.0, chloride 98, bicarbonate 28. BUN 16, creatinine 0.3. IMPRESSION: A 63-year-old with: 1. Pneumococcal pneumonia with dense consolidation, left lower lobe. 2. Immunoglobulin deficiency with replacement during this hospitalization. 3. Acute hypoxemic respiratory failure. 4. Chronic obstructive pulmonary disease with ongoing tobacco use. 5. Chronic pain syndrome with addiction to pain medications. 6. Biliary dilation which is being followed by the Gastroenterology Service. RECOMMENDATION: 1. Continue current antibiotic regimen. 2. Continue bronchial hygiene. 3. Encourage smoking cessation. 4. Follow up chest x-ray tomorrow morning. cc: Cody Baldwin MD
[2019-03-26 12:47] VITALS: BP 121/73
[2019-03-26] MEDS ORDERED: KLONOPIN PO PRN (14:31)
[2019-03-26] MEDS ORDERED: PROTONIX PO ONE (14:34)
[2019-03-26] MEDS ORDERED: CARAFATE LIQUID PO SCH (14:45)
--- NOTE | 2019-03-26 16:06 | PROGRESS NOTE ---
DATE: 03/26/2019 SUBJECTIVE: This morning, Ms. Alonso referred to be feeling a little better. She was okay for discharge. However, I was called later on to the bedside. Apparently, the family is not very happy that Ms. Alonso is being discharged. Ms. Alonso has been in hospital since 03/16/2019, today is day 10. OBJECTIVE: Vital Signs: Blood pressure 121/73, pulse is 110, respiration is 15, temperature 98.2 degrees. The patient was saturating 96% on room air. General: Ms. Alonso is a 63-year-old female. She was in bed. She was not in any distress. HEENT: Mucosa is pink and moist. Anicteric. Acyanotic. Neck: Supple. Chest: Good air entry bilaterally. Few crackles especially to the left posterior lung field. Cardiovascular: Regular rate and rhythm. No murmurs, no rubs, no gallops. Abdomen: Soft, minimally tender in the epigastrium, but no rebound, no guarding. Extremities: No pedal edema. Neurologic: The patient is awake, alert, and oriented. LABORATORY DATA: WBC from yesterday was completely normal. The chemistry was also unremarkable. Chest x-ray this morning shows improved aeration of the right lung. There is stable infiltrate and small effusion at the left base. ASSESSMENT: 1. Acute hypoxemic respiratory failure on presentation. The patient is currently off oxygen. She seems to be saturating well. 2. Streptococcal pneumoniae of the left lower lobe associated with IgG immunoglobulin deficiency. The patient has been on IV antibiotics for 10 days. Subsequent chest x-ray looks a whole lot better and she has also been given IVIG. 3. Protein calorie malnutrition. We will continue encouraging Ms. Alonso to improve in her enteral feedings. She is also on supplements. 4. History of opiate abuse. The patient has been enlisted in [facility]. Understands she is not going to be on Suboxone any longer. 5. Dilated common bile duct. MRCP suggests mucosal lesion or stricture. Gastroenterology is on board. 6. Epigastric discomfort associated with nauseation. This seems to be something that they have just told me. However, the patient has had other admissions in the hospital for the same complaints. She has even had endoscopies done, one on 04/23/2016, where it showed mild gastritis, which appears to be peptic ulcer and also hiatal hernia. The patient is currently on proton pump inhibitor and Carafate. 7. Alleged diarrhea. This morning, patient denying having any diarrhea, however, just a while ago when I went to talk to the family members, Ms. Alonso says she has been having diarrhea. However, the nursing staff reports that they are not aware of this incidence. I have asked Ms. Alonso to give us a sample to check and make sure that she does not have any C diff. On the chart, there are 2 documentations of bowel movement yesterday and only 1 today. So in general, I think Ms. Alonso is clinically stable. I think from medical standpoint, her pneumonia is a lot better. She is not needing any more supplemental oxygen and her chest x-ray shows a lot of improvement. Her WBC is normalized. I think she will be okay going home on Augmentin to complete a total of 14 days. Ms. Alonso also has generalized weakness as well as drug related issues, which I think she would need a drug rehabilitation program or to follow up with [facility]. I did make it clear to her that I am not writing up any Suboxone and I am not writing up any Klonopin or any sedatives. She would have to get that from her primary care doctor and from her mental health doctors. I have notified Case Management about the decision from the family not to accept discharge. cc: Simon Rowan MD
[2019-03-26] MEDS: ROCEPHIN 2 GM in NS 50 ML IV SCH (17:41)
--- NOTE | 2019-03-26 19:10 | GASTROENTEROLOGY PROGRESS NOTE ---
DATE: 03/26/2019 SUBJECTIVE: Patient still reports episodes of nausea and vomiting. She reports abdominal pain. OBJECTIVE: Vital Signs: Temperature 98.6 degrees, pulse 110, respirations 15, blood pressure 113/79. General: Patient is awake and alert, in no acute distress. LABORATORY: Hematology: WBC 9.85, hemoglobin 11.0, hematocrit 34.5, MCV 83.3, platelets 401,000. Chemistry: Sodium 133, potassium 4.0, chloride 98, CO2 28, BUN 16, creatinine 0.3, glucose 102, total bilirubin 0.25, AST 6, ALT 5, alkaline phosphatase 83. ASSESSMENT AND PLAN: 1. Acute hypoxic respiratory failure, left lower lobe pneumonia, on antibiotics. 2. Dilated common bile duct with normal liver function tests. Magnetic retrograde cholangiopancreatography showed the possibility of a stricture or mucosal lesion in the distal common bile duct could not be excluded, but no evidence of mass and no evidence of pancreatic ductal dilation. Per Dr. Rowe, since her liver function tests are normal, would not proceed with endoscopic retrograde cholangiopancreatography at present time. If she continues to have gastrointestinal symptoms of nausea, vomiting, and abdominal pain, she may require an esophagogastroduodenoscopy. Further plans will be made according to her progress. On-call GI physician will be available over the weekend. If patient is discharged, would recommend she follow up with us as an outpatient. Further plans could be made as needed. I have discussed this case with Dr. Rowe. Dictated by DORIS Hines for Bart Rowe MD cc: DORIS Ross MD
[2019-03-27] MEDS ORDERED: PROTONIX PO SCH (07:00)
--- NOTE | 2019-03-27 21:37 | DISCHARGE SUMMARY ---
ADMISSION DATE: 03/16/2019 DISCHARGE DATE: 03/26/2019 DISPOSITION: Home. FOLLOW-UP: Will be with Dr. Raines, Dr. Ganesh Ramirez. CONSULTATIONS DURING THIS ADMISSION: 1. Pulmonary Medicine was consulted. The patient was seen by Dr. Baldwin. 2. GI was consulted. The patient was seen by Dr. Raines. ELECTIVE PROCEDURES DONE DURING THIS ADMISSION: None. IMAGING STUDIES OF SIGNIFICANCE: 1. A chest x-ray was done which showed bibasilar infiltrates. 2. A subsequent chest x-ray done on March 19 show worsening infiltrate and atelectasis in the left lung. 3. Echocardiogram showed ejection fraction of 65% with normal wall motion. 4. Repeat chest x-ray showed worsening pleural effusion on the left. 5. A CT scan of the chest showed worsening bibasilar pneumonia, bronchiectasis and probably fibrosis in the right middle lobe. There was a hiatal hernia will retain fluid in the esophagus. Possible chronic aspiration pneumonia could be considered. 6. CT scan of the abdomen and pelvis showed increase in biliary dilation. Possibility of obstructing lesion in the distal common bile duct or ampulla could not be could not be excluded. There was infiltration of the perirectal and presacral area of uncertain significance. Also, the possibility of proctitis could not be excluded. 7. An MRCP showed a possibility of a stricture or mucosal lesion in the distal common bile duct that cannot be excluded. No evidence of mass. No evidence of pancreatic ductal dilation. 8. A CT scan of the head was negative. A subsequent chest x-ray this morning showed improved aeration of the right lung. There was stable infiltrate and small effusion of the left base. ADMISSION DIAGNOSES: 1. Nausea and vomiting. 2. Abdominal pain. 3. Myalgia. 4. Paresthesias. 5. Opiate abuse, withdrawal, and stabilization. DIAGNOSES AT THE TIME OF DISCHARGE: 1. Acute hypoxemic respiratory failure, resolved. 2. 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 3. Protein calorie malnutrition. 4. History of opioid use and abuse. 5. Dilated common bile duct of unclear significance. MRCP suggested mucosal lesion or stricture but no mass. GI was on board. 6. Epigastric discomfort associated with nausea, presumably due to gastritis with esophagitis. 7. History of hiatal hernia. 8. Chronic benzodiazepine use. DISCHARGE MEDICATIONS: 1. Mirtazapine 15 p.o. at bedtime. 2. Trazodone 50 mg p.o. at bedtime. 3. Klonopin 0.5 three times daily p.r.n. 4. Duloxetine 30 mg p.o. daily. 5. Gabapentin 400 p.o. 3 times per day. 6. Hydroxyzine. 7. Olanzapine 7.5 p.o. at bedtime. 8. Omeprazole 20 mg p.o. daily. 9. Amoxicillin 875 p.o. every 12. 10. Levothyroxine 50 mcg p.o. daily. PRESENTING COMPLAINT: Nausea and vomiting. HISTORY OF PRESENTING COMPLAINT: Ms Alonso is a 63-year-old female who presented to [facility] under the [facility] program because of nausea and vomiting and paresthesia. Initially it was thought that she had withdrawal symptoms from narcotic abuse. The patient was admitted under [facility] for medical stabilization. HOSPITAL COURSE: Ms. Alonso was in [place]. However, after 2 days, it was found that she was having more difficulty breathing. A chest x-ray revealed worsening of her lung findings. She was subsequently brought to [facility] for higher level of care. Ms Leone was initially admitted to the ICU. She was on she was on a Venturi mask and later on transitioned to non-rebreather. Pulmonary was consulted. The patient had a urinalysis that was positive for Strep pneumoniae antigen. Throughout the hospital course she continued to show improvement. Oxygen needs continued to improve, until this morning she is not on any oxygen at all, and she has been doing well. Ms. Alonso was also seen on multiple occasions by Physical Therapy. At 1 point because of nauseation, a CT scan of the abdomen was done. It did show some increasing of the CBD. I think this is mainly related to chronic opioid use. However, MRCP did suggest mid some mucosal lesion, but no mass. GI was consulted. The patient was seen by Dr. Doctor Rowe, who only recommended clinical observation, but no need for ERCP. Ms. Alonso continued to show some improvement during the hospital course; however, the later part of the hospital course was just complicated with generalized weakness and the fact that Ms. Alonso wanted to be on Suboxone and also wanted to be on sedatives, which she has not been on since this hospital course. The family members were also pretty much adamant that Ms. Alonso be on her home medications. It appears that Ms. Alonso is chronically on Klonopin and also some pain medications; however, I did notify the family that she would have to go back to the physicians that she gets her prescriptions from, and I would not be willing to put her back on those medications, since I think she needs to be weaned off and eventually come off or reassess the reason why she has been on that for that long period of time. During the hospital course, I did reach out to 1 of the [employer] social workers, who notified that Ms. Alonso would probably not need any Suboxone anymore. Today Ms. Alonso was clinically stable for discharge; however, there was the family members were a little unhappy and requested that she stay some more time; however, I did explain to them extensively that the medical reason why Ms. Alonso was admitted here was because of her shortness of breath and hypoxemic failure which has all improved and that she is not needing even oxygen at this point, and her white count has normalized and her chest x-ray looks a whole lot better, and I think that Ms. Alonso is stable for discharge. Case Management was also involved, and eventually Ms. Alonso was okayed for discharge today. All the discharge instructions have been discussed with her and with the , who was at the bedside at the time of the encounter. They both expressed understanding. Time spent for discharge was 40 minutes. cc: MD Juarez Landers MD Dr. Tiffany Andry
== END 2019-03-26 16:20 | disposition home or self-care (01) | DRG 896 ==
LOC: P.DIRADM 09:21 → SUATTDRO 09:21 → P.MEDSURG 09:34 → P.ICU 03-19 02:34 → ICU 03-19 15:47 → 3S 03-22 00:12
PROVIDERS: ATTEND Internal Medicine
CPT/HCPCS: 70450; 71010; 71045; 71260; 74177; 74181; 80048; 80053; 80076; 80104; 80202; 80301; 80305; 80307; 80320; 81001; 82055; 82150; 82378; 82550; 82553; 82784; 82805; 82948; 83605; 83690; 83735; 83880; 84100; 84439; 84443; 84484; 84703; 85025; 85379; 85610; 85730; 87040; 87088; 87449; 87899; 93005; 93010; 93306; 94640; 94761; 94799; 97110; 97161; 97162; 97530; A9270; G0431; G0434; G0477; G0480; G6040; J0696; J1561; J1650; J1940; J2405; J2543; J3370; J3475; J3480; J7030; J7040; J7050; J7120; Q9967; S0030; S0179; XXXXX

== ENCOUNTER 2019-04-13 10:11 | Inpatient (IN) ==
--- NOTE | 2019-04-13 10:52 | Diag Imaging Result Doc PS360 ---
CHEST-1 VIEW - 04/13/2019 INDICATION: POSSIBLE SEPSIS COMPARISON: 03/26/2019 FINDINGS: There has been significant improvement in the dense left basilar infiltrate. No significant infiltrates at this time. Heart size and pulmonary vascularity is normal. No pneumothorax or pleural effusion. IMPRESSION: No acute disease. Electronically signed by Christian Helms 04/13/2019 10:50 AM
[2019-04-13 11:08] LABS: URINE SOURCE CLEAN CATCH
[2019-04-13 11:11] LABS: BASO# 0.02 X1000 (0.0-0.2); BASO% 0.1 % (0.0-0.8); EOS# 0.31 X1000 (0.0-0.7); EOS% 2.1 % (0.0-10.0); HEMATOCRIT 43.6 % (37.0-47.0); HEMOGLOBIN 14.2 g/dL (12.0-16.0); IMM GRAN# 0.05 X1000 (0.0-0.04); IMM GRAN% 0.3 % (0.0-0.5); LYMPH# 1.25 X1000 (1.2-3.4); LYMPH% 8.4 % (20.5-51.1); MCH 26.6 PG (27-31); MCHC 32.6 g/dL (33-37); MCV 81.8 FL (81-99); MONO# 1.27 X1000 (0.11-0.59); MONO% 8.5 % (1.7-9.3); MPV 10.5 FL (7.4-10.4); NEUT# 12.07 X1000 (1.4-6.5); NEUT% 80.6 % (42.2-75.2); PLT 509 X1000 (130-400); RBC 5.33 XMIL (4.2-5.4); RDW 15.8 % (11.5-14.5); WBC 14.97 X1000 (4.8-10.8)
[2019-04-13 11:13] LABS: BILIRUBIN URINE NEGATIVE (NEGATIVE); BLOOD URINE SMALL (NEGATIVE); COLOR YELLOW; GLUCOSE URINE NEGATIVE (NEGATIVE); KETONE URINE NEGATIVE (NEGATIVE); LEUKOCYTES URINE LARGE (NEGATIVE); NITRITE URINE NEGATIVE (NEGATIVE); PROTEIN URINE 100 mg/dL (NEGATIVE); SP GRAVITY URINE 1.026; TURBIDITY URINE HAZY (CLEAR); UROBILINOGEN URINE 3 mg/dL (NORMAL)
[2019-04-13 11:23] LABS: UR EPITHELIAL CELLS <10 /HPF (<10); URINE BACTERIA NEGATIVE /HPF; URINE RBC <10 /HPF (<10); URINE WBC TNTC /HPF (<10)
[2019-04-13] MEDS ORDERED: NS 1,000 ML IV ONE ×2 (11:33→12:40)
[2019-04-13 11:34] LABS: URINE CASTS NONE SEEN
[2019-04-13] MEDS ORDERED: ZOFRAN IV ONE (11:34)
[2019-04-13 11:35] LABS: AGAP 17; ALB/GLOB RATIO 1.1; ALBUMIN 3.8 g/dL (3.5-5.0); ALKALINE PHOSPHATASE 184 U/L (32-104); BUN 6 mg/dL (8-22); CALCIUM 8.4 mg/dL (8.8-10.2); CHLORIDE 93 mmol/L (98-107); CK PROFILE 171 U/L (24-173); COSMO 273; CREATININE 0.5 mg/dL (0.5-0.9); ESTIMATED GFR > 60; GLUCOSE 127 mg/dL (70-104); GOT 33 U/L (10-30); GPT 8 U/L (10-36); POTASSIUM 2.8 mmol/L (3.5-5.1); SODIUM 137 mmol/L (136-145); TCO2 27 mmol/L (25-35); TOTAL BILIRUBIN 0.87 mg/dL (0.20-1.00); TOTAL PROTEIN 7.4 g/dL (6.3-8.3)
[2019-04-13 12:18] LABS: INR 1.01; PROTIME 14.1 Seconds (11.0-16.0)
[2019-04-13] MEDS ORDERED: LEVAQUIN 500 MG/D5W 500 MG/100 ML IVPB IV ONE (12:40)
[2019-04-13] MEDS ORDERED: REGLAN IV ONE (14:11)
[2019-04-13] MEDS ORDERED: NS 1,000 ML IV SCH (14:15)
[2019-04-13] MEDS ORDERED: NS + KCL 40 MEQ 1,000 ML IV ONE (14:19)
[2019-04-13] MEDS: ZOFRAN IV PRN ×2 (14:28→18:46)
[2019-04-13] MEDS ORDERED: SODIUM CHLORIDE 0.9% INJ ONE (15:14)
[2019-04-13] MEDS ORDERED: PROTONIX IV ONE (15:14)
[2019-04-13] MEDS ORDERED: MORPHINE IV ONE (15:14)
--- NOTE | 2019-04-13 16:03 | EKG Report ---
Test Performed on : 04/13/2019 11:18:46 AM Test Reason : HT Blood Pressure : / mmHG Vent. Rate : 107 BPM Atrial Rate : 107 BPM P-R Int : 148 ms QRS Dur : 088 ms QT Int : 362 ms P-R-T Axes : 075 104 -08 degrees QTc Int : 483 ms Sinus tachycardia. Rightward axis Cannot rule out Anterior infarct (cited on or before 14-JUL-2018) Abnormal ECG When compared with ECG of 24-MAR-2019 11:20, Inverted T waves have replaced nonspecific T wave abnormality in Inferior leads Unconfirmed Result
[2019-04-13] MEDS: NS 1,000 ML IV SCH (17:36)
--- NOTE | 2019-04-13 18:08 | PROVIDER DOCUMENTATION ---
This chart was entered by Harmony Tellez Scribe, acting as scribe for Lyndsey Patten MD. HPI-Abdominal Pain/GI Problem - General Chief Complaint: SEPSIS ALERT - D Stated Complaint: VOMITING Time Seen by Provider: 04/13/19 11:27 Source: patient Allergies/Adverse Reactions: Patient Allergies Allergy/AdvReac Type Severity Reaction Status Date / Time codeine AdvReac VOMITING Verified 11/30/18 08:17 Home Medications: Home Medication List Medication Instructions Recorded Confirmed Last Taken Type Clonazepam 1 tab PO TID PRN PRN 03/16/19 04/13/19 03/14/19 History 0.5mg Gabapentin 1 cap PO TID 03/16/19 04/13/19 03/14/19 History 400mg Hydroxyzine Pamoate 1 cap PO BID PRN PRN 03/16/19 04/13/19 Unknown History Omeprazole 1 cap PO DAILY@0600 03/16/19 04/13/19 04/12/19 History 1 cap Amoxicillin/Pot Clavulanate 875 mg PO Q12HR #14 tab 03/26/19 04/13/19 04/12/19 Rx [Augmentin] 875mg Levothyroxine [Synthroid] 50 microgm PO DAILY@0700 #120 tab 03/26/19 04/13/19 04/13/19 Rx 50mcg - History of Present Illness-ABD Nature of Presenting Problems: Patient is a 63 year old female who presents with epigastric abdominal pain, nausea, vomiting, diarrhea and loss of appetite that has been present for 3 days. Patient also reports low back pain and dysuria. States she is on [place] and wants to get off of all pain medications. History of CVA. Abdominal Pain Onset Location: reports: epigastric Pain Radiation: reports: no radiation Quality of Pain: reports: aching Severity in ED: reports: mild Onset/Duration: reports: 3 days ago Timing: reports: still present Activities at Onset: reports: light activity Associated Symptoms: reports: back/neck pain (low back), diarrhea, genitourinary problems (dysuria), loss of appetite, nausea, vomiting Bruising or Bleeding Gums?: No Similar Symptoms Previously?: Yes Recently seen or treated by another doctor?: Yes Review of Systems - Adult - REVIEW OF SYSTEMS - ADULT Constitutional: reports: no symptoms reported. denies: chills, fever, fatique Eyes: reports: no symptoms reported Ears, Nose, Mouth & Throat: reports: no symptoms reported Cardiovascular: reports: no symptoms reported Respiratory: reports: no symptoms reported Gastrointestinal: reports: see HPI, abdominal pain, diarrhea, nausea, poor appetite, vomiting Genitourinary: reports: see HPI, dysuria. denies: hematuria, urinary retention Musculoskeletal: reports: see HPI, back pain (lower). denies: muscle aches, neck pain Integumentary: reports: no symptoms reported Neurological: reports: no symptoms reported Psychiatric: reports: no symptoms reported Endocrine: reports: no symptoms reported Hematologic/Lymphatic: reports: no symptoms reported Allergic/Immunologic: reports: no symptoms reported All Other Systems: Reviewed and Negative Past History - Adult - PAST MEDICAL HISTORY-ADULT Review of Records: reports: Old Records Reviewed, Nursing Assessment Review, Medications Reviewed, Social history reviewed & non-contributory. Major Childhood Illnesses: reports: denies history Cardiovascular: reports: HTN Respiratory: reports: asthma, COPD Gastrointestinal: reports: GERD Obstetrical/Gynecological: reports: denies history Genitourinary: reports: other (pt reports her bladder has dropped and she needs repair. ) Musculoskeletal: reports: arthritis, chronic pain Neurological: reports: CVA Psychiatric: reports: anxiety, depression, psychiatric problems Endocrine/Immune: reports: thyroid disorder (hypo) Other Conditions: reports: denies history - PRIOR SURGERIES/PROCEDURES Surgical/Procedure History: reports: cholecystectomy, BTL, - IMMUNIZATION STATUS Childhood Immunizations: See Nurse Assessment Flu Vaccine: See Nurse Assessment - FAMILY HISTORY Family History: reviewed, not pertinent - SOCIAL HISTORY Smoking: cigarettes, greater than 1 pack/day Provider spent 3-5 mins advising pt. on dangers of tobacco.: Discussed manners to quit use, and f/u contacts for add'l counseling. Substance Use: denies Living Situation: family Physical Exam-General - PHYSICAL EXAM-ADULT Initial Vital Signs Reviewed: Yes - CONSTITUTIONAL General Appearance: alert, mild distress, thin, other (actively vomiting). negative: lethargic - RESPIRATORY Respiratory: chest non-tender, lungs clear, normal breath sounds. negative: crackles, rhonchi, wheezing - CARDIOVASCULAR Cardiovascular: normal peripheral pulses, tachycardia. negative: systolic murmur - GASTROINTESTINAL (ABDOMEN) Abdominal Exam: normal bowel sounds, soft, tenderness (epigastric). negative: guarding, rebound - MUSCULOSKELETAL Extremity: non-tender, normal inspection. negative: deformity, erythema, swelling - SKIN Integumentary: normal color, normal turgor, warm/dry. negative: cyanosis, ecchymosis, erythema, jaundice - NEUROLOGIC Neurologic: grossly normal. negative: aphasia, facial droop - PSYCHIATRIC Psych/Mental Status: normal mood/affect, oriented x 3. negative: anxious, paranoid Progress - PLAN OF CARE/RESULTS Progress/Plan/Lab Results: Vital Signs - 8 hr 04/13/19 10:13 04/13/19 11:16 Temperature 97.7 F Pulse Rate 133 H 108 H Respiratory Rate 22 19 Blood Pressure 122/80 110/77 O2 Sat by Pulse Oximetry 98 96 Laboratory Results - last 24 hr 04/13/19 04/13/19 04/13/19 10:29 10:29 10:29 WBC 14.97 H RBC 5.33 Hgb 14.2 Hct 43.6 MCV 81.8 MCH 26.6 L MCHC 32.6 L RDW Std Deviation 15.8 H Plt Count 509 H MPV 10.5 H Immature Gran % (Auto) 0.3 Neut % (Auto) 80.6 H Lymph % (Auto) 8.4 L Glades % (Auto) 8.5 Eos % (Auto) 2.1 Baso % (Auto) 0.1 Immature Gran # (Auto) 0.05 H Neut # (Auto) 12.07 H Lymph # (Auto) 1.25 Glades # (Auto) 1.27 H Eos # (Auto) 0.31 Baso # (Auto) 0.02 Plasma Lactate 2.3 H Urine Source CLEAN CATCH Urine Color YELLOW Urine Turbidity HAZY Urine pH 6.0 Ur Specific Thida 1.026 Urine Protein 100 A Ur Glucose (Stick) NEGATIVE Ur Ketones (Stick) NEGATIVE Urine Blood SMALL A Urine Nitrite NEGATIVE Urine Bilirubin NEGATIVE Urobilinogen Dipstick 3 A Urine Leukocytes LARGE A Urine WBC (Auto) TNTC A Urine RBC (Auto) <10 U Epithel Cells (Auto) <10 Urine Bacteria (Auto) NEGATIVE Orders Category Date Time Status Cardiac Monitoring DIRECTED Care 04/13/19 10:22 Active IV Insertion ORDERED Care 04/13/19 10:22 Active Notify MD of + Sepsis Screen NOW Care 04/13/19 10:22 Active Notify Physician As Ordered Care 04/13/19 10:22 Active CHEST-1 VIEW [RAD] Stat Exams 04/13/19 10:22 Completed BLOOD CULTURE [BLDCUL] Stat Lab 04/13/19 10:22 Uncollected CBC WITH DIFF [HEME] Stat Lab 04/13/19 10:29 Completed CK PROFILE [SP CHEM] Stat Lab 04/13/19 10:29 Received COMPREHENSIVE METABOLIC PANEL [CHEM] Stat Lab 04/13/19 10:29 Received LACTATE, PLASMA [CHEM] Lab 04/13/19 13:30 Uncollected LACTATE, PLASMA [CHEM] Lab 04/13/19 16:30 Uncollected LACTATE, PLASMA [CHEM] Q3H Lab 04/13/19 10:29 Completed PROTIME WITH INR [COAG] Stat Lab 04/13/19 10:29 Received PTT [COAG] Stat Lab 04/13/19 10:29 Received TROPONIN T Stat Lab 04/13/19 10:29 Received URINALYSIS W/POSS RFLX CULT [URINALYSIS] Stat Lab 04/13/19 10:29 Results URINE MANUAL MICROSCOPIC [URINALYSIS] Stat Lab 04/13/19 10:29 Results Oxygen Device Stat Oth 04/13/19 10:22 Active Result Diagrams: 04/15/19 05:36 04/15/19 05:36 - EKG 1 Time of EKG reading by physician:: 11:18 EKG Read and Signed by:: Lyndsey Patten EKG Interpretation (*Must complete 3 of following elements*): Abnormal Rate: 107 Rhythm: sinus tachycardia Olar: right MN Interval: normal Comments: cannot rule out anterior infarct, age undetermined - XRAY 1 XRAY Study: Chest Impression: See EMR Report ( CHEST-1 VIEW - 04/13/2019 INDICATION: POSSIBLE SEPSIS COMPARISON: 03/26/2019 FINDINGS: There has been significant improvement in the dense left basilar infiltrate. No significant infiltrates at this time. Heart size and pulmonary vascularity is normal. No pneumothorax or pleural effusion. IMPRESSION: No acute disease. Electronically signed by Christian Helms 04/13/2019 10:50 AM 04/13/19 1050 Interpreting Physician: Christian Helms MD Dictated Date/Time: 04/13/19 1049 cc: Lyndsey Patten MD; None,PCP) - CONSULTS/PCP/HOSPITALIST Notification #1 *Consult/PCP/Hospitalist*: DORIS Kulkarni for Hospitalist Time Discussed: 12:59 Reason/Comments: Dr. Patten consulted with Cayla about patient. Consult Disposition: Will see in ED, Admit Departure - Departure Date of Disposition Decision: 04/13/19 Time of Disposition Decision: 12:59 DIAGNOSIS: SIRS (systemic inflammatory response syndrome), UTI (urinary tract infection), Nausea and vomiting, Hypokalemia Disposition: ADMITTED INPATIENT 09 Certified Medical Emergency: Emergent Condition: Fair - Critical Care Note This patient required my direct & personal management of CC.: Yes Total Time (mins): 31 Critical Care Statement: This patient required my direct personal management to treat or rule out processes, the absence of which, could potentiallly result in sudden, clinically significant life or limb threatening deterioration. Attestation - Physician/ MIKE Attestation The physician spent face to face time with patient:: Yes Advanced Practice Provider documentation review:: Supervising physician onsite and consulted in the evaluation and care of this patient. The physician did have a face to face encounter with the patient. This chart was documented by the indicated scribe, (Harmony Tellez Scribe) and accurately reflects the services I performed and decisions made by me, Lyndsey Patten MD, as attested by the provider's signature.
--- NOTE | 2019-04-13 18:34 | HISTORY AND PHYSICAL ---
CHIEF COMPLAINT: Nausea/vomiting. HISTORY OF PRESENT ILLNESS: This is a 63-year-old female with a prior history of opiate abuse status post withdrawal and stabilization in March 2019, who presented to the emergency room complaining of nausea/vomiting, diarrhea, and loss of appetite for 3 days. She does have chronic back pain for which she was previously on [place] and benzodiazepines. She denies any chest pain, palpitations, any fevers or chills. She does state that her back pain, which is chronic, is unchanged. She does report some dysuria over the last 24 hours. The patient was hospitalized from March 16 to March 26. During this time, she developed intractable vomiting as well as aspiration pneumonia. She was found to have biliary dilatation on CT scan with the possibility of an obstructive lesion in the distal common bile duct. She underwent an MRCP on 03/23/2019 that showed the possibility of a stricture or mucosal lesion in the distal common bile duct. No evidence of mass and no evidence of pancreatic ductal dilatation. She was evaluated by Dr. Rowe of Gastroenterology, who felt that ,in light of her LFTs being normal, he would not proceed with endoscopic retrograde cholangiopancreatography but if symptoms persisted that she required EGD. She was to follow up with him on an outpatient basis. PAST MEDICAL HISTORY: 1. Chronic back pain. 2. Hypertension. 3. Hypothyroidism. 4. Depression. 5. Anxiety. 6. Degenerative joint disease. 7. Gastroesophageal reflux disease. 8. Bipolar disorder. 9. 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 PAST SURGICAL HISTORY: Cholecystectomy, tubal , and bilateral lens replacement for cataracts. SOCIAL HISTORY: She lives with her and son. She denies any alcohol or illicit drug use. She does smoke a pack a day. FAMILY HISTORY: Hypertension and skin cancer. ALLERGIES: Codeine. HOME MEDICATIONS: A list will be obtained by the nursing staff and once verified, we will review restart as appropriate. REVIEW OF SYSTEMS: Discussed with patient with pertinent positives stated in the HPI. She denied any syncope, dizziness, any chest pain or palpitations, any recent weight loss or weight gain, any fevers or chills, any night sweats, PND, orthopnea, any black or bloody vomitus or stools, constipation, any hematuria, frequency, or urgency. PHYSICAL EXAMINATION: GENERAL: This is a 63-year-old female who is sitting up in the bed, watching TV in no distress. VITALS: Blood pressure is 117/76 with a heart rate of 96, respirations are 17, temperature is 97.8 degrees with room air saturations 95% to 96%. HEENT: Head is normocephalic, atraumatic. Mucous membranes are moist. NECK: Supple with trachea midline. CARDIOVASCULAR: Regular rate and rhythm. S1, S2 appreciated. No murmur. EXTREMITIES: Calves are nontender bilateral with peripheral pulses palpable x4 extremities. PULMONARY: Breath sounds are clear with no increased work of breathing noted. Chest rises and falls symmetric respiration. Chest wall is nontender to palpation. GASTROINTESTINAL: Abdomen is soft with some epigastric tenderness. She is nondistended with bowel sounds in all 4 quadrants. SKIN: Warm and dry. NEUROLOGIC: She is alert oriented x3. DIAGNOSTIC STUDIES: WBC is 14.9 with hemoglobin 14.2, hematocrit 43.6, and platelets of 509,000. Sodium is 137, potassium 2.8, BUN 6, creatinine 0.5, glucose of 127, AST is 33, ALT 8, alkaline phosphatase of 184. Urinalysis reveals too numerous to count white blood cells, less than 10 epithelial cells, less than 10 red blood cells. Chest x-ray reveals no acute disease. Blood cultures and urine culture pending. IMPRESSION: 1. Intractable nausea/vomiting. 2. Possible urinary tract infection. 3. Hypokalemia. 4. Hypothyroid. 5. Chronic obstructive pulmonary disease. 6. Dilated common bile duct with magnetic resonance cholangiopancreatography suggesting mucosal lesion or stricture, but no mass. PLAN: The patient will be admitted to the medical floor, placed on telemetry. She will be n.p.o. at present. We will consult Dr. Rowe in Gastroenterology. We will continue with IV hydration. We will give Zofran for nausea. We will repeat a CBC, CMP, magnesium in the morning. For DVT prophylaxis, we will use SCDs. We will hold off on any anticoagulation as we are unsure what procedure she may warrant due to this stricture. Further treatments pending hospital course. Patient seen and examined by me face to face, all the laboratory, vitals signs, images were reviewed, patient presented with nausea and vomiting, abdominal pain, she was discharged recently, MRCP showed a dilated common bile duct, will be admitted with fluids, NPO, pain medication, GI consult, he will be admitted to the regular floor , telemetry, I agree with the BUSINESS SOLUTIONS DIRECTOR's assessment and plan, Jeanmarie Valdez MD. Dictated by DORIS Espino for Jeanmarie Martini MD cc: DORIS Espino MD [facility]
[2019-04-13] MEDS ORDERED: ATARAX PO ONE (20:35)
[2019-04-13] MEDS ORDERED: TORADOL IV ONE (20:35)
[2019-04-14] MEDS: NS 1,000 ML IV SCH (00:42)
[2019-04-14] MEDS ORDERED: MORPHINE IV ONE (01:15)
[2019-04-14] MEDS: ZOFRAN IV PRN ×4 (01:18→22:12)
[2019-04-14] MEDS ORDERED: ATARAX PO ONE (04:08)
[2019-04-14 07:09] LABS: BASO# 0.02 X1000 (0.0-0.2); BASO% 0.5 % (0.0-0.8); EOS# 0.19 X1000 (0.0-0.7); EOS% 5.1 % (0.0-10.0); HEMATOCRIT 33.1 % (37.0-47.0); HEMOGLOBIN 10.6 g/dL (12.0-16.0); IMM GRAN# 0.03 X1000 (0.0-0.04); IMM GRAN% 0.8 % (0.0-0.5); LYMPH# 0.71 X1000 (1.2-3.4); LYMPH% 19.1 % (20.5-51.1); MCH 26.9 PG (27-31); MONO% 13.4 % (1.7-9.3); MPV 10.8 FL (7.4-10.4); NEUT# 2.27 X1000 (1.4-6.5); NEUT% 61.1 % (42.2-75.2); PLT 265 X1000 (130-400); RBC 3.94 XMIL (4.2-5.4); RDW 15.5 % (11.5-14.5); WBC 3.72 X1000 (4.8-10.8)
[2019-04-14 07:23] LABS: AGAP 8; ALB/GLOB RATIO 0.8; ALBUMIN 2.1 g/dL (3.5-5.0); ALKALINE PHOSPHATASE 135 U/L (32-104); BUN 4 mg/dL (8-22); CALCIUM 7.2 mg/dL (8.8-10.2); CHLORIDE 109 mmol/L (98-107); COSMO 275; CREATININE 0.4 mg/dL (0.5-0.9); ESTIMATED GFR > 60; GLUCOSE 76 mg/dL (70-104); GOT 23 U/L (10-30); GPT 6 U/L (10-36); MAGNESIUM 1.5 mg/dL (1.5-2.7); POTASSIUM 3.3 mmol/L (3.5-5.1); SODIUM 140 mmol/L (136-145); TCO2 23 mmol/L (25-35); TOTAL BILIRUBIN 0.36 mg/dL (0.20-1.00); TOTAL PROTEIN 4.8 g/dL (6.3-8.3)
[2019-04-14] MEDS ORDERED: POTASSIUM CHLORIDE 20 MEQ in NS 1,000 ML IV SCH (09:28)
[2019-04-14] MEDS ORDERED: VANCOMYCIN IV PER PHARMACY MISC SCH (11:30)
--- NOTE | 2019-04-14 12:02 | PROGRESS NOTE ---
DATE: 04/14/2019 SUBJECTIVE: This patient is still complaining of abdominal pain and nausea. No vomiting today. She has been evaluated by Gastroenterology Department. The plan is to go ahead and do an ERCP. We will wait for the results. OBJECTIVE: Vital Signs: Temperature 98.4 degrees, pulse 99 respiratory rate 20, blood pressure 123/80, and oxygen saturation 98 on room air. HEENT: Head normocephalic. No trauma. PERRLA. Neck: Supple. No JVD. No masses. Central trachea. Chest: Clear to auscultation. No wheezing. No rales. Abdomen: Soft. Tenderness to palpation at the level of the epigastric area. No signs of peritoneal irritation. Positive bowel sounds. Extremities: No edema. No clubbing. No cyanosis. Neurological: The patient is alert and oriented x3. No focal deficits. LABORATORY: WBC 3.7, hemoglobin 10.6, hematocrit 33.1, and platelets 265,000. Sodium 140, potassium 3.3, chloride 109, bicarbonate 23, BUN 4, creatinine 0.4, glucose 76, calcium 7.2, AST 23, ALT 6, alkaline phosphatase 135, and albumin 2.1. ASSESSMENT AND PLAN: 1. Intractable nausea and vomiting. This is getting a little bit better. She is still complaining of nausea. We will continue with same management and IV fluids. 2. Urinary tract infection. This patient has not been having any symptoms today, but she is not quite sure about it. I will discuss with her after the procedure. So far, we have a gram- positive cocci in the urine. I checked her home medications, and she has been on Augmentin at home. I will start this patient on vancomycin, and wait for the final results. 3. Dilated common bile duct with MRCP suggesting mucosal lesion or stricture, but no mass. She is scheduled to get an ERCP today. We will monitor this patient for now. 4. Hypokalemia, I will replace the potassium. She is getting IV fluids, and I will add potassium to the fluids. 5. Hypothyroidism. This patient is on levothyroxine 50 mcg p.o. daily. I will switch it to p.o. since she is not taking anything by mouth, and I will monitor. 6. History of chronic obstructive pulmonary disease, not in exacerbation. cc: Jeanmarie Martini MD
[2019-04-14] MEDS ORDERED: VANCOMYCIN 1,500 MG in NS 250 ML IV ONE (14:00)
--- NOTE | 2019-04-14 15:28 | GASTROENTEROLOGY CONSULTATION ---
DATE: 04/14/2019 REASON FOR CONSULTATION: Abdominal pain, nausea, vomiting. HISTORY OF PRESENT ILLNESS: This is a 63-year-old female, who we had seen during a previous hospitalization in March. At that time, she had been treated for intractable nausea and vomiting. She also had aspiration pneumonia. On evaluation, she was found to have biliary dilation on CT scan. She had an MRCP that showed the possibility of a stricture in the distal common bile duct. During that hospitalization, her LFTs remained normal, so it was felt it was not necessary to proceed with an ERCP. The patient was recommended to follow up with us as an outpatient. We have not seen her in the office since her hospital discharge. The patient returns in to the hospital again with nausea, vomiting, diarrhea, and appetite loss. She has chronic pain and is on pain medication. She does have a history of opioid abuse. At the time of my evaluation, the patient is complaining of some nausea. She reports having vomiting. She is anxious and asking for medication. PAST MEDICAL HISTORY: Chronic back pain, hypertension, hypothyroidism, anxiety, depression, degenerative joint disease, GERD, bipolar disorder, history of CVA. PAST SURGICAL HISTORY: Cholecystectomy, history of tubal , cataract surgery. ALLERGIES: Codeine causing vomiting. HOME MEDICATIONS: Augmentin 875 mg every 12 hours, clonazepam 1 mg 3 times a day as needed, gabapentin 1 three times a day, hydroxyzine 1 twice a day as needed, levothyroxine 50 mcg daily, omeprazole daily. SOCIAL HISTORY: Lives with her and son. At the time of my evaluation, there was no family at the bedside. Denies alcohol or illicit drug use. Smokes a pack of cigarettes daily. REVIEW OF SYSTEMS: Per history of present illness. PHYSICAL EXAMINATION: Vital signs: Temperature 98.6, pulse 90, respirations 20, blood pressure 102/65. General: The patient is awake and alert. She is anxious. She is asking for medication for her anxiety. She is complaining of some abdominal pain. She has reported episodes of nausea and vomiting today. Respiratory: Lung sounds essentially clear. Cardiovascular: Regular rate and rhythm. Abdomen: Soft, tender with palpation diffusely, otherwise positive bowel sounds. Extremities: No lower extremity edema noted. Neurologic: The patient is alert and oriented. She is complaining of anxiety. LABORATORY: Hematology: WBC 3.72, hemoglobin 10.6, hematocrit 33.1, MCV 84.0, platelet 265. Chemistry: Sodium 140, potassium 3.3, chloride 109, CO2 23, BUN 4, creatinine 0.4, total bilirubin 0.36, AST 23, ALT 6, alkaline phosphatase 135, total protein 4.8, albumin 2.1. ASSESSMENT AND PLAN: 1. Intractable nausea and vomiting. Continue symptomatic treatment. 2. Dilated common bile duct by computed tomography and magnetic resonance cholangiopancreatography. The patient's liver function tests have remained normal at her last hospitalization, so endoscopic retrograde cholangiopancreatography was not performed. Will plan for endoscopic retrograde cholangiopancreatography today for further evaluation. 3. Urinary tract infection on antibiotics. 4. Hypokalemia. The patient has had replacement. I have discussed ERCP procedure with the patient and also given her a brochure. I have discussed benefits versus risks with the patient and she wishes to proceed. Further plans will be made according to findings. In the meantime, continue symptomatic treatment. I have discussed this case with Dr. Rowe. Thank you for this consultation. Dictated by DORIS Hines for Bart Rowe MD cc: DORIS Ross MD
[2019-04-14] MEDS ORDERED: DIPRIVAN 1% ONE ×9 (16:51→19:35)
[2019-04-14] MEDS ORDERED: XYLOCAINE-MPF 2% ONE (16:51)
[2019-04-14] MEDS ORDERED: ROBINUL ONE (16:51)
[2019-04-14] MEDS ORDERED: ZOFRAN ONE (17:19)
[2019-04-14] MEDS ORDERED: INDOCIN ONE (17:19)
[2019-04-14] MEDS ORDERED: VERSED ONE (17:22)
[2019-04-14] MEDS ORDERED: GLUCAGON ONE (18:10)
[2019-04-14] MEDS ORDERED: STERILE WATER INJ. ONE (18:10)
--- NOTE | 2019-04-14 20:58 | Diag Imaging Result Doc PS360 ---
EXAM: ERCP-BILIARY AND PANCREATIC 04/14/2019 HISTORY: elevated LFTs, dilated CBD TECHNIQUE: ERCP one image COMMENT: The visualized portion of the pancreatic duct is unremarkable. There are no apparent stones. IMPRESSION: No definite abnormality. Electronically signed by Panchito Payton 04/14/2019 8:55 PM
--- NOTE | 2019-04-14 21:44 | OPERATIVE NOTE ---
PROCEDURE DATE: 04/14/2019 PROCEDURE: Endoscopic retrograde cholangiopancreatography. PREOPERATIVE DIAGNOSIS: Dilated common bile duct with elevated liver function tests. POSTOPERATIVE DIAGNOSIS: Normal pancreatogram. Common bile duct could not be cannulated. HISTORY: This is a 63-year-old white female. This is her 2nd admission with complaints of abdominal pain, nausea and vomiting. On her last admission, she was found to have dilated common bile duct, but her liver functions were normal. But on this admission, she presented with the same symptoms, but this time her LFTs were elevated along with dilated common bile duct, albeit mildly elevated. With possibility of intra-ductal stone or stricture, since she has dilated common bile duct ERCP was scheduled. PROCEDURE: Informed consent was obtained from the patient as well as family members. The procedure, risks, benefits, alternatives were explained in layman's terms. Risks of, but not limited to bleeding, perforation, aspiration, pneumonia, and pancreatitis was explained. They understood and agreed to proceed. Patient was brought to the endoscopy unit and was premedicated as per Anesthesia. After adequate sedation, while she was lying in the left lateral position and adequately sedated, the duodenal scope was introduced into the posterior pharynx and advanced manually into the esophagus. Through the esophagus, it was advanced into the stomach. Stomach was insufflated. Pylorus identified. Scope was then passed through the pylorus into the duodenal bulb, and then the 2nd portion of duodenum. The papilla was identified. Using the sphincterotome with the help of a guidewire, I tried to cannulate the common bile duct, but I was able to only cannulated the pancreatic duct. Pancreatogram obtained which did not reveal any pathology in the pancreatic duct. Multiple attempts were made with different cannulas and I was unable to cannulate the common bile duct. Only pancreatic duct could be cannulated. After multiple attempts, the scope was then withdrawn. Patient tolerated the procedure with no complications noted. Patient was then transferred to the recovery area in a stable condition. IMPRESSION: Abdominal pain, nausea and vomiting with dilated common bile duct and elevated liver function tests. Normal pancreatogram. RECOMMENDATION: At this point, since I was not able to cannulate the common bile duct and no information could be obtained, option 1 would be to repeat endoscopic retrograde cholangiopancreatography. Maybe a transfer or referral to a tertiary center for endoscopic retrograde cholangiopancreatography or even better she can have an endoscopic ultrasound to better visualized the common bile duct for any pathology. She may need endoscopic retrograde cholangiopancreatography ultimately if pathology was found that would require endoscopic retrograde cholangiopancreatography. I have tried to find the patient's family member to explain the findings, but I was unable to find them. cc: Bart Rowe MD
[2019-04-14] MEDS: POTASSIUM CHLORIDE 20 MEQ in NS 1,000 ML IV SCH (22:02)
[2019-04-15] MEDS: POTASSIUM CHLORIDE 20 MEQ in NS 1,000 ML IV SCH ×2 (00:17→09:18)
[2019-04-15] MEDS ORDERED: VANCOMYCIN 1,200 MG in NS 250 ML IV SCH (02:00)
[2019-04-15] MEDS: TYLENOL PO PRN (03:35)
[2019-04-15] MEDS: ZOFRAN IV PRN ×5 (05:01→21:14)
[2019-04-15] MEDS: SODIUM CHLORIDE 0.9% INJ PRN (06:12)
[2019-04-15] MEDS: SYNTHROID IV SCH (06:12)
[2019-04-15 06:21] LABS: HEMATOCRIT 35.2 % (37.0-47.0); HEMOGLOBIN 11.4 g/dL (12.0-16.0); MCH 27.2 PG (27-31); MCHC 32.4 g/dL (33-37); MPV 10.5 FL (7.4-10.4); RBC 4.19 XMIL (4.2-5.4); RDW 15.7 % (11.5-14.5); WBC 8.27 X1000 (4.8-10.8)
[2019-04-15 06:25] LABS: AGAP 10; ALB/GLOB RATIO 0.8; ALBUMIN 2.2 g/dL (3.5-5.0); ALKALINE PHOSPHATASE 298 U/L (32-104); BUN 4 mg/dL (8-22); CALCIUM 7.5 mg/dL (8.8-10.2); CHLORIDE 107 mmol/L (98-107); COSMO 270; CREATININE 0.4 mg/dL (0.5-0.9); ESTIMATED GFR > 60; GLUCOSE 86 mg/dL (70-104); GOT 75 U/L (10-30); GPT 17 U/L (10-36); POTASSIUM 3.3 mmol/L (3.5-5.1); SODIUM 137 mmol/L (136-145); TCO2 20 mmol/L (25-35); TOTAL BILIRUBIN 0.58 mg/dL (0.20-1.00); TOTAL PROTEIN 4.9 g/dL (6.3-8.3)
[2019-04-15] MEDS: NS + KCL 20 MEQ 1,000 ML IV SCH ×2 (12:08→23:53)
[2019-04-15] MEDS: NORCO-5 PO PRN ×3 (12:11→23:52)
[2019-04-15] MEDS: LEVAQUIN 750 MG/D5W 750 MG/150 ML IVPB IV SCH (13:25)
--- NOTE | 2019-04-15 14:18 | PROGRESS NOTE ---
DATE: 04/15/2019 SUBJECTIVE: This patient is still complaining of abdominal pain. It looks like she is tolerating p.o. She went for an ERCP yesterday, but the bile duct was not cannulated, so I discussed the case with Dr. Rowe and the plan is to keep the patient until Friday and he will go ahead and do a new ERCP again. OBJECTIVE: Vital Signs: Temperature 98.6 degrees, pulse 91, respiratory rate 16, blood pressure 123/76, oxygen saturation 99 on room air. HEENT: Head normocephalic. No trauma. PERRLA. Neck: Supple. No JVD. No masses. Central trachea. Chest: Clear to auscultation. No wheezing. No rales. Abdomen: Soft. Tenderness to palpation at the level of the epigastric area. No signs of peritoneal irritation. Positive bowel sounds. Extremities: No edema. No clubbing. No cyanosis. Neurological: The patient is alert. She is oriented. No focal deficits. LABORATORY: WBC 8.2, hemoglobin 11.4, hematocrit 35.2, platelets 269,000. Sodium 137, potassium 3.3, chloride 207, bicarbonate 20, BUN 4, creatinine 0.4, glucose 86, calcium 7.5, AST 75, ALT 17, alkaline phosphatase 298, albumin 2.2. ASSESSMENT AND PLAN: 1. Intractable nausea and vomiting, this is better. She is still complaining of mild nausea. We will continue with the same management. She is on IV fluids and a liquid diet. 2. Dilated common bile duct. Yesterday, she went for an endoscopic retrograde cholangiopancreatography and the bile duct was not cannulated. We will go ahead and let it rest and try to do an endoscopic retrograde cholangiopancreatography again on Friday. Case has been discussed with Dr. Rowe. 3. Urinary tract infection with a positive culture that showed Staphylococcus lugdunensis. I have stopped the vancomycin and I have placed this patient on levofloxacin. We will continue with same management. 4. Hypokalemia. I will continue replacing the potassium through the IV fluids. 5. Hypothyroidism. Continue with levothyroxine IV. 6. History of chronic obstructive pulmonary disease, not in exacerbation. cc: Jeanmarie Martini MD
[2019-04-16] MEDS: ZOFRAN IV PRN ×2 (02:50→06:58)
[2019-04-16] MEDS: NORCO-5 PO PRN (06:11)
[2019-04-16] MEDS: SYNTHROID IV SCH (06:11)
[2019-04-16 06:31] LABS: BASO# 0.01 X1000 (0.0-0.2); BASO% 0.2 % (0.0-0.8); EOS# 0.09 X1000 (0.0-0.7); EOS% 1.8 % (0.0-10.0); HEMATOCRIT 34.8 % (37.0-47.0); HEMOGLOBIN 11.6 g/dL (12.0-16.0); IMM GRAN# 0.03 X1000 (0.0-0.04); IMM GRAN% 0.6 % (0.0-0.5); LYMPH# 0.82 X1000 (1.2-3.4); LYMPH% 16.1 % (20.5-51.1); MCHC 33.3 g/dL (33-37); MCV 80.9 FL (81-99); MONO# 0.68 X1000 (0.11-0.59); MONO% 13.4 % (1.7-9.3); MPV 10.7 FL (7.4-10.4); NEUT# 3.45 X1000 (1.4-6.5); NEUT% 67.9 % (42.2-75.2); PLT 272 X1000 (130-400); RDW 15.6 % (11.5-14.5); WBC 5.08 X1000 (4.8-10.8)
[2019-04-16 06:47] LABS: AGAP 9; ALB/GLOB RATIO 0.8; ALBUMIN 2.3 g/dL (3.5-5.0); ALKALINE PHOSPHATASE 296 U/L (32-104); BUN 3 mg/dL (8-22); CALCIUM 7.3 mg/dL (8.8-10.2); CHLORIDE 103 mmol/L (98-107); COSMO 265; CREATININE 0.4 mg/dL (0.5-0.9); ESTIMATED GFR > 60; GLUCOSE 105 mg/dL (70-104); GOT 36 U/L (10-30); GPT 12 U/L (10-36); POTASSIUM 3.3 mmol/L (3.5-5.1); SODIUM 134 mmol/L (136-145); TCO2 22 mmol/L (25-35); TOTAL BILIRUBIN 0.47 mg/dL (0.20-1.00); TOTAL PROTEIN 5.1 g/dL (6.3-8.3)
[2019-04-16] MEDS: PHENERGAN IV PRN ×4 (09:44→22:33)
[2019-04-16] MEDS: LEVAQUIN 750 MG/D5W 750 MG/150 ML IVPB IV SCH (12:21)
[2019-04-16] MEDS ORDERED: MORPHINE IV PRN (13:50)
[2019-04-16] MEDS ORDERED: NS + KCL 20 MEQ 1,000 ML IV SCH (13:54)
[2019-04-16] MEDS: MORPHINE IV PRN ×3 (14:07→22:32)
[2019-04-16] MEDS: CLINIMIX E 4.25%-5% SOLUTION 1,000 ML IV SCH (14:07)
--- NOTE | 2019-04-16 14:52 | GASTROENTEROLOGY PROGRESS NOTE ---
DATE: 04/16/2019 SUBJECTIVE: Patient states she feels a little better today. She does complain of some nausea. No reported vomiting today. OBJECTIVE: Vital Signs: Temperature 98.6 degrees, pulse 90, respirations 16, blood pressure 125/81. General: The patient is awake, alert, no acute distress. Abdomen: Soft, with mild tenderness on palpation. LABORATORY: Hematology: WBC 5.08, hemoglobin 11.6, hematocrit 34.8, MCV 80.9, platelets 272,000. Chemistry: Sodium 134, potassium 3.3, chloride 103, CO2 of 22, BUN 3, creatinine 0.4, glucose 105, total bilirubin 0.7, AST 36, ALT 12, alkaline phosphatase 296. ASSESSMENT AND PLAN: 1. Nausea and vomiting has improved. 2. Abdominal pain has improved. 3. Dilated common bile duct with attempted ERCP. Bile duct was unable to be cannulated. We will continue to follow and discuss options of repeating ERCP next week. Further plans will be made as needed. I have discussed this case with Dr. Rowe. Dictated by DORIS Hines for Bart Rowe MD cc: DORIS Ross MD
--- NOTE | 2019-04-16 14:56 | PROGRESS NOTE ---
DATE: 04/16/2019 SUBJECTIVE: This patient is still complaining of abdominal pain, nausea and vomiting. She went for an ERCP 2 days ago, but the bile duct was not cannulated. So, I discussed the case with Dr. Rowe yesterday and the plan is to keep the patient until Friday, so he can go ahead and do the ERCP again. If this is not possible or if he cannot cannulate this again, probably this patient will need to be transferred to a tertiary facility. OBJECTIVE: Vital signs: Temperature 99.4 degrees, pulse 103, respiratory rate 16, blood pressure 115/74, oxygen saturation 97% on room air. HEENT: Head normocephalic, no trauma. PERRLA. Neck: Supple. No JVD. No masses. Central trachea. Chest: Clear to auscultation. No wheezing. No rales. Abdomen: Soft. Tenderness to palpation at the level of the epigastric area. No signs of peritoneal irritation. Positive bowel sounds. Extremities: No edema, no clubbing, no cyanosis. Neurological examination: The patient is alert. She is oriented. No focal deficits. LABORATORY: WBC 5, hemoglobin 11.6, hematocrit 34.8, and platelets 272. Sodium 134, potassium 3.3, chloride 103, bicarbonate 22. BUN 3, creatinine 0.4 glucose 105, calcium 7.3, albumin 2.3. ASSESSMENT AND PLAN: 1. Intractable nausea and vomiting. She is still having nausea and vomiting. I have placed this patient on nausea medication with Phenergan since Zofran is not helping. We will continue to monitor this patient closely. 2. Abdominal pain. Continue with pain medication. 3. Dilated common bile duct. Two days ago she went for an endoscopic retrograde cholangiopancreatography and the bile duct was not cannulated. We will go ahead and let it rest, and try to do an endoscopic retrograde cholangiopancreatography on Friday. Case has been discussed with Dr. Rowe. 4. Urinary tract infection with a positive culture that showed a Staphylococcus lugdunensis. Continue with the same management. Continue with levofloxacin. 5. Hypokalemia. I will continue replacing her potassium through the intravenous fluids. 6. Hypothyroidism. Continue with levothyroxine intravenous. 7. History of chronic obstructive pulmonary disease, not in exacerbation. cc: Jeanmarie Martini MD
[2019-04-16] MEDS: SODIUM CHLORIDE 0.9% INJ PRN (22:33)
[2019-04-17] MEDS: MORPHINE IV PRN ×7 (02:43→23:23)
[2019-04-17] MEDS: PHENERGAN IV PRN ×6 (02:43→23:23)
[2019-04-17] MEDS: SODIUM CHLORIDE 0.9% INJ PRN ×2 (02:44→06:44)
[2019-04-17] MEDS: SYNTHROID IV SCH (06:46)
[2019-04-17 07:20] LABS: BASO# 0.01 X1000 (0.0-0.2); BASO% 0.1 % (0.0-0.8); EOS# 0.03 X1000 (0.0-0.7); EOS% 0.4 % (0.0-10.0); HEMATOCRIT 35.7 % (37.0-47.0); HEMOGLOBIN 11.9 g/dL (12.0-16.0); IMM GRAN# 0.03 X1000 (0.0-0.04); IMM GRAN% 0.4 % (0.0-0.5); LYMPH# 1.05 X1000 (1.2-3.4); LYMPH% 14.7 % (20.5-51.1); MCH 26.7 PG (27-31); MCHC 33.3 g/dL (33-37); MCV 80.2 FL (81-99); MONO# 0.94 X1000 (0.11-0.59); MONO% 13.2 % (1.7-9.3); MPV 10.8 FL (7.4-10.4); NEUT# 5.06 X1000 (1.4-6.5); NEUT% 71.2 % (42.2-75.2); PLT 291 X1000 (130-400); RBC 4.45 XMIL (4.2-5.4); RDW 15.9 % (11.5-14.5); WBC 7.12 X1000 (4.8-10.8)
[2019-04-17 08:03] LABS: AGAP 10; ALB/GLOB RATIO 0.9; ALBUMIN 2.7 g/dL (3.5-5.0); ALKALINE PHOSPHATASE 262 U/L (32-104); BUN 3 mg/dL (8-22); CALCIUM 7.8 mg/dL (8.8-10.2); CHLORIDE 107 mmol/L (98-107); COSMO 278; CREATININE 0.3 mg/dL (0.5-0.9); ESTIMATED GFR > 60; GLUCOSE 139 mg/dL (70-104); GOT 16 U/L (10-30); GPT 9 U/L (10-36); POTASSIUM 2.8 mmol/L (3.5-5.1); SODIUM 140 mmol/L (136-145); TCO2 23 mmol/L (25-35); TOTAL BILIRUBIN 0.46 mg/dL (0.20-1.00); TOTAL PROTEIN 5.7 g/dL (6.3-8.3)
[2019-04-17] MEDS: CLINIMIX E 4.25%-5% SOLUTION 1,000 ML IV SCH (10:48)
[2019-04-17] MEDS ORDERED: POTASSIUM CHLORIDE 20% LIQUID PO ONE (11:55)
[2019-04-17] MEDS: LEVAQUIN 750 MG/D5W 750 MG/150 ML IVPB IV SCH (12:19)
[2019-04-17] MEDS ORDERED: NS + KCL 40 MEQ 1,000 ML IV SCH (12:30)
[2019-04-17] MEDS ORDERED: MAGNESIUM SULFATE 2 GM/S.W.I. 2 GM/50 ML IVPB IV ONE (12:30)
[2019-04-17] MEDS ORDERED: KLONOPIN PO PRN (14:51)
--- NOTE | 2019-04-17 16:51 | GASTROENTEROLOGY PROGRESS NOTE ---
DATE: 04/17/2019 SUBJECTIVE: Patient is still complaining of pain, some nausea and spitting up. ERCP was attempted. Bile duct could not be cannulated. OBJECTIVE: Vital Signs: Temperature 99.4 degrees, pulse 87, respirations 18, blood pressure 103/70. General: Patient is awake and alert. She is complaining of abdominal pain along with nausea. Abdomen: Soft, tenderness with palpation. Positive bowel sounds. LABORATORY: Hematology. WBC 7.12, hemoglobin 11.9, hematocrit 35.7, MCV 80.2, platelets 291,000. Chemistry. Sodium 140, potassium 2.8, chloride 107, CO2 of 23, BUN 3, creatinine 0.3, glucose 139, calcium 7.8, total bilirubin 0.46, AST 16, ALT 9, alkaline phosphatase 262. ASSESSMENT AND PLAN: 1. Nausea and vomiting. 2. Abdominal pain. 3. Dilated common bile duct. ERCP was attempted but bile duct could not be cannulated. We will try to repeat ERCP procedure next week. Further plans to be made according to her progress and results of ERCP. I have discussed this case with Dr. Rowe. Continue symptomatic treatment for nausea, vomiting, and abdominal pain. Dictated by DORIS Hines for Bart Rowe MD cc: DORIS Ross MD
--- NOTE | 2019-04-17 17:10 | PROGRESS NOTE ---
DATE: 04/17/2019 SUBJECTIVE: This patient is complaining of abdominal pain. She is still having some nausea, she looks anxious, she went for an ERCP 3 days ago and the bile duct was not cannulated so we will repeat the procedure hopefully this Friday or Friday, in the meantime I will continue with pain medication. I will continue with omeprazole and I will put this patient back on home medications, clonazepam as needed. OBJECTIVE: Vital Signs: Temperature 99 degrees, pulse 95, respiratory rate 18, blood pressure 111/71, oxygen saturation 100% on room air. HEENT: Head normocephalic. No trauma. PERRLA. Neck: Supple. No JVD. No masses. Central trachea. Chest: Clear to auscultation. No wheezing. No rales. Abdomen: Soft, tenderness to palpation at the level of the epigastric area. No signs of peritoneal irritation. Positive bowel sounds. Extremities: No edema, no clubbing, no cyanosis. Neurologic: This patient is alert, she is oriented, no focal deficits. LABORATORY: WBC 7.1, hemoglobin 11.9, hematocrit 35.7, platelets 291,000. Sodium 140, potassium 2.8, chloride 107, bicarbonate 23, BUN 3, creatinine 0.3, glucose 139, calcium 7.8, AST 16, ALT 9, alkaline phosphatase 262, albumin 2.7. ASSESSMENT AND PLAN: 1. Intractable nausea and vomiting. She is still complaining of nausea but is getting better since she is getting Phenergan, will continue with the same management. 2. Abdominal pain. Continue pain medication. 3. Dilated common bile duct, 3 days ago she went for an ERCP and the bile duct was not cannulated, we will go ahead and let it rest and try to do an ERCP this coming Friday, case has been discussed with Dr. Rowe and so far that is the plan. 4. Urinary tract infection with a positive culture that showed Staphylococcus lugdunensis, continue with same management. She is not having symptoms. 5. Hypokalemia. I will increase the dose of potassium through her IV and also she will get a dose through her mouth. 6. Borderline low magnesium. I will replace the magnesium given her constant hypokalemia. 7. History of chronic obstructive pulmonary disease not in exacerbation. 8. Hypothyroidism. Continue with levothyroxine. cc: Jeanmarie Martini MD
[2019-04-17] MEDS: TUMS EXTRA STRENGTH PO PRN (17:27)
[2019-04-17] MEDS: KLONOPIN PO PRN (17:27)
[2019-04-17] MEDS: PRILOSEC PO SCH (22:38)
[2019-04-18] MEDS: MORPHINE IV PRN ×6 (03:58→22:34)
[2019-04-18] MEDS: PHENERGAN IV PRN ×6 (03:58→22:33)
[2019-04-18] MEDS: SODIUM CHLORIDE 0.9% INJ PRN ×2 (03:58→22:34)
[2019-04-18 07:14] LABS: AGAP 7; ALB/GLOB RATIO 0.9; ALBUMIN 2.3 g/dL (3.5-5.0); ALKALINE PHOSPHATASE 193 U/L (32-104); BUN 5 mg/dL (8-22); CALCIUM 7.1 mg/dL (8.8-10.2); CHLORIDE 107 mmol/L (98-107); COSMO 267; CREATININE 0.3 mg/dL (0.5-0.9); ESTIMATED GFR > 60; GLUCOSE 97 mg/dL (70-104); GOT 8 U/L (10-30); GPT 5 U/L (10-36); POTASSIUM 3.9 mmol/L (3.5-5.1); SODIUM 135 mmol/L (136-145); TCO2 21 mmol/L (25-35); TOTAL BILIRUBIN 0.27 mg/dL (0.20-1.00); TOTAL PROTEIN 4.9 g/dL (6.3-8.3)
[2019-04-18] MEDS: KLONOPIN PO PRN ×3 (07:58→23:52)
[2019-04-18] MEDS: TUMS EXTRA STRENGTH PO PRN (07:59)
[2019-04-18] MEDS: PRILOSEC PO SCH ×2 (07:59→22:33)
[2019-04-18] MEDS: SYNTHROID IV SCH (08:09)
[2019-04-18] MEDS: CLINIMIX E 4.25%-5% SOLUTION 1,000 ML IV SCH (08:32)
[2019-04-18] MEDS: NS 1,000 ML IV SCH (12:09)
--- NOTE | 2019-04-18 12:34 | PROGRESS NOTE ---
DATE: 04/18/2019 SUBJECTIVE: The patient is sleepy but arousable. She is still complaining of some abdominal pain. No nausea today. She went for an ERCP 4 days ago and the bile duct was not cannulated, so we will repeat the procedure hopefully tomorrow or Friday. In the meantime, I will continue with the same management. OBJECTIVE: Vital Signs: Temperature 98.7 degrees, pulse 85, respiratory rate 19, blood pressure 102/63, oxygen saturation 97% on room air. HEENT: Head normocephalic. No trauma. PERRLA. Neck: Supple. No JVD. No masses. Central trachea. Chest: Clear to auscultation. No wheezing. No rales. Abdomen: Soft. Tenderness to palpation at the level of the epigastric area. No signs of peritoneal irritation. Positive bowel sounds. Extremities: No edema, no clubbing, no cyanosis. Neurological Examination: The patient is sleepy but arousable. She is oriented. She does have some right hand weakness and right facial weakness but no other deficits. Laboratory: Sodium 135, potassium 3.9, chloride 107, bicarbonate 21, BUN 5, creatinine 0.3, glucose 97, calcium 7.1, alkaline phosphatase 193, albumin 2.3. ASSESSMENT AND PLAN: 1. Intractable nausea and vomiting. She is still complaining of some discomfort and nausea but this is getting better. We will continue with the same management. 2. Abdominal pain. Continue pain medication. 3. Dilated common bile duct. Four days ago, she went for an endoscopic retrograde cholangiopancreatography and the bile duct was not cannulated. We will go ahead, let it rest, and try to do an endoscopic retrograde cholangiopancreatography either tomorrow or Friday. Case has been discussed with Dr. Rowe and so far, that is the plan. 4. Urinary tract infection with positive urine culture that showed Staphylococcus lugdunensis. Continue with the same management. She is not having symptoms. 5. Hypokalemia. I will stop the potassium in the intravenous fluids. Potassium is normal today. 6. Borderline low magnesium. It has been replaced before. 7. History of chronic obstructive pulmonary disease, not in exacerbation. 8. Hypothyroidism. Continue levothyroxine. 9. Previous cerebrovascular accident, I believe in 2008, with some right facial weakness and some hand weakness. Aware. No new deficits. cc: Jeanmarie Martini MD
--- NOTE | 2019-04-18 15:15 | GASTROENTEROLOGY PROGRESS NOTE ---
DATE: 04/18/2019 The patient was resting comfortably. She was slightly somnolent but on questioning about her condition she still complains of some abdominal discomfort. She denies any nausea and vomiting. She has been able to tolerate her diet. She denies any fever, chills. Temperature 98.7 degrees, pulse 85 per minute, breathing 19, blood pressure 102/63. Head is atraumatic, normocephalic. Eyes. Conjunctivae is normal. No icterus noted. Abdomen is flat, soft, nontender. Bowel sounds are audible. No tenderness or guarding noted. LABS: Reviewed which showed AST is 8, ALT 5 which has normalized, alkaline phosphate slightly elevated 193 with total bilirubin 0.73. IMPRESSION: Persistent abdominal pain and nausea with history of dilated common bile duct. ERCP was attempted where common bile duct could not be cannulated. Option 1 is to retry the ERCP again and try to cannulate the common bile duct if possible to get a better idea as to any pathology that could result in her dilated common bile duct and elevated liver function tests. Now since liver function tests have normalized our option is to discharge her if symptoms allow and follow up as an outpatient where either we can schedule for ERCP later or refer her to tertiary center where endoscopic ultrasound can be done to get a better view of the entire biliary duct as well as the pancreas. I will review her condition again tomorrow, recheck her LFTs and decide for possible ERCP on Friday. Explained the findings and plan to patient. She understands. In the meantime I would advise her to ambulate with assistance and see if she can sit up in the bedside chair and advance her diet slowly. cc: Bart Rowe MD
[2019-04-18] MEDS: LEVAQUIN 750 MG/D5W 750 MG/150 ML IVPB IV SCH (18:39)
[2019-04-19] MEDS ORDERED: VANCOMYCIN IV PER PHARMACY MISC SCH (05:00)
[2019-04-19] MEDS: VANCOMYCIN 1,250 MG in NS 250 ML IV SCH ×2 (05:55→18:38)
[2019-04-19] MEDS: SYNTHROID IV SCH (05:56)
[2019-04-19] MEDS: ZOFRAN IV PRN (05:56)
[2019-04-19] MEDS: MORPHINE IV PRN ×5 (05:57→22:13)
[2019-04-19 06:39] LABS: BASO# 0.01 X1000 (0.0-0.2); BASO% 0.2 % (0.0-0.8); EOS# 0.13 X1000 (0.0-0.7); EOS% 2.3 % (0.0-10.0); HEMATOCRIT 34.2 % (37.0-47.0); IMM GRAN# 0.02 X1000 (0.0-0.04); IMM GRAN% 0.4 % (0.0-0.5); LYMPH# 1.43 X1000 (1.2-3.4); LYMPH% 25.3 % (20.5-51.1); MCH 26.5 PG (27-31); MCHC 32.2 g/dL (33-37); MCV 82.4 FL (81-99); MONO% 12.4 % (1.7-9.3); MPV 10.3 FL (7.4-10.4); NEUT# 3.36 X1000 (1.4-6.5); NEUT% 59.4 % (42.2-75.2); PLT 257 X1000 (130-400); RBC 4.15 XMIL (4.2-5.4); RDW 16.3 % (11.5-14.5); WBC 5.65 X1000 (4.8-10.8)
[2019-04-19 07:02] LABS: AGAP 9; ALBUMIN 2.6 g/dL (3.5-5.0); ALKALINE PHOSPHATASE 186 U/L (32-104); BUN 3 mg/dL (8-22); CALCIUM 7.8 mg/dL (8.8-10.2); CHLORIDE 104 mmol/L (98-107); COSMO 266; CREATININE 0.3 mg/dL (0.5-0.9); ESTIMATED GFR > 60; GLUCOSE 80 mg/dL (70-104); GOT 6 U/L (10-30); GPT < 5 U/L (10-36); POTASSIUM 3.7 mmol/L (3.5-5.1); SODIUM 135 mmol/L (136-145); TCO2 22 mmol/L (25-35); TOTAL BILIRUBIN 0.36 mg/dL (0.20-1.00); TOTAL PROTEIN 5.3 g/dL (6.3-8.3)
[2019-04-19] MEDS: KLONOPIN PO PRN ×3 (08:14→22:13)
[2019-04-19] MEDS: PRILOSEC PO SCH ×2 (08:14→22:13)
[2019-04-19] MEDS: PHENERGAN IV PRN ×4 (08:14→22:12)
[2019-04-19] MEDS: LEVAQUIN 750 MG/D5W 750 MG/150 ML IVPB IV SCH (11:41)
[2019-04-19] MEDS: CLINIMIX E 4.25%-5% SOLUTION 1,000 ML IV SCH (14:40)
[2019-04-20] MEDS: MORPHINE IV PRN ×5 (03:52→22:36)
[2019-04-20 06:12] LABS: BASO# 0.02 X1000 (0.0-0.2); BASO% 0.4 % (0.0-0.8); EOS% 3.7 % (0.0-10.0); HEMOGLOBIN 10.9 g/dL (12.0-16.0); IMM GRAN# 0.02 X1000 (0.0-0.04); IMM GRAN% 0.4 % (0.0-0.5); LYMPH# 1.66 X1000 (1.2-3.4); LYMPH% 30.5 % (20.5-51.1); MCH 26.8 PG (27-31); MCHC 32.1 g/dL (33-37); MCV 83.5 FL (81-99); MONO# 0.77 X1000 (0.11-0.59); MONO% 14.2 % (1.7-9.3); MPV 10.5 FL (7.4-10.4); NEUT# 2.77 X1000 (1.4-6.5); NEUT% 50.8 % (42.2-75.2); PLT 250 X1000 (130-400); RBC 4.07 XMIL (4.2-5.4); RDW 16.4 % (11.5-14.5); WBC 5.44 X1000 (4.8-10.8)
[2019-04-20 06:28] LABS: AGAP 8; ALBUMIN 2.5 g/dL (3.5-5.0); ALKALINE PHOSPHATASE 158 U/L (32-104); BUN 4 mg/dL (8-22); CALCIUM 7.9 mg/dL (8.8-10.2); CHLORIDE 104 mmol/L (98-107); COSMO 269; CREATININE 0.4 mg/dL (0.5-0.9); ESTIMATED GFR > 60; GLUCOSE 93 mg/dL (70-104); GOT 6 U/L (10-30); GPT < 5 U/L (10-36); POTASSIUM 3.4 mmol/L (3.5-5.1); SODIUM 136 mmol/L (136-145); TCO2 24 mmol/L (25-35); TOTAL BILIRUBIN 0.34 mg/dL (0.20-1.00); TOTAL PROTEIN 5.1 g/dL (6.3-8.3)
[2019-04-20] MEDS: VANCOMYCIN 1,250 MG in NS 250 ML IV SCH (07:05)
[2019-04-20] MEDS: SYNTHROID IV SCH ×2 (07:05→09:06)
[2019-04-20] MEDS: SODIUM CHLORIDE 0.9% INJ PRN ×2 (09:05→15:06)
[2019-04-20] MEDS: PHENERGAN IV PRN ×3 (09:05→20:29)
[2019-04-20] MEDS: PRILOSEC PO SCH ×2 (09:06→20:29)
[2019-04-20] MEDS: KLONOPIN PO PRN ×3 (09:18→20:29)
[2019-04-20] MEDS: CLINIMIX E 4.25%-5% SOLUTION 1,000 ML IV SCH ×2 (11:51→18:16)
[2019-04-20] MEDS: NS 1,000 ML IV SCH (11:52)
[2019-04-20] MEDS: LEVAQUIN 750 MG/D5W 750 MG/150 ML IVPB IV SCH (11:55)
[2019-04-20] MEDS ORDERED: COMPAZINE IV PRN (13:33)
[2019-04-21] MEDS: PHENERGAN IV PRN ×4 (02:28→20:20)
[2019-04-21] MEDS: KLONOPIN PO PRN (04:46)
[2019-04-21] MEDS: MORPHINE IV PRN ×3 (04:46→13:16)
[2019-04-21] MEDS: SODIUM CHLORIDE 0.9% INJ PRN ×2 (06:22→20:20)
[2019-04-21] MEDS: SYNTHROID IV SCH (06:22)
--- NOTE | 2019-04-21 07:23 | PROGRESS NOTE ---
DATE: 04/19/2019 SUBJECTIVE: This patient is completely alert today. She still complains of abdominal pain. No nausea today. She went for an ERCP five days ago and the bile duct was not cannulated so they will repeat hopefully the procedure, ERCP tomorrow. In the meantime, I will continue with the same management. OBJECTIVE: Vital Signs: Temperature 98.4, pulse 73, respiratory rate 20, blood pressure 90/57, and oxygen saturation 98% on room air. HEENT: Head normocephalic. No trauma. PERRLA. Neck supple. No JVD. Central trachea. Chest: Clear to auscultation. No wheezing. No rales. Abdomen: Soft. Tenderness to palpation at the level of the epigastric area. No signs of peritoneal irritation. Positive bowel sounds. Extremities : No edema. No clubbing. No cyanosis. Neurological: The patient is awake and alert. She is following commands. She has some right hand weakness and right facial weakness but no oral deficits. LABORATORY: WBC 5.6, hemoglobin 11, hematocrit 34.2, and platelets 257,000. Sodium 135, potassium 3.7, chloride 104, bicarbonate 22, BUN 3, creatinine 0.3, glucose 80. Calcium 7.8. AST 6, ALT less than 0.5, alkaline phosphatase 186, and albumin 2.6. ASSESSMENT AND PLAN: 1. Intractable nausea and vomiting. She is still complaining of some discomfort and nausea but she is about the same compared with yesterday. We will continue with same management. 2. Abdominal pain. Continue pain medication. 3. Dilated common bile duct. Five days ago, she went for an ERCP and the bile duct was not cannulated. We will go ahead and let it rest. We will try the endoscopy again tomorrow if Dr. Rowe's scheduled that for tomorrow. That was the plan so far. We will continue with the same management. 4. Urinary tract infection with positive culture that showed staphylococcus, Continue with the same management. She is not having symptoms now. 5. Hypokalemia. Stable. Continue to monitor. 6. Borderline low magnesium has been replaced. 7. History of COPD. Not in exacerbation. 8. Hypothyroidism. Continue levothyroxine. 9. Previous CVA. I believe in 2008 with right sided facial weakness and some hand weakness as well. Aware. No new deficits. cc: Jeanmarie Martini MD MTDD
[2019-04-21] MEDS: PRILOSEC PO SCH ×2 (09:29→20:21)
[2019-04-21] MEDS: LEVAQUIN 750 MG/D5W 750 MG/150 ML IVPB IV SCH (11:42)
[2019-04-21] MEDS ORDERED: SUBOXONE 2 MG/0.5 MG SL PRN (12:38)
[2019-04-21 13:11] LABS: BASO# 0.02 X1000 (0.0-0.2); BASO% 0.3 % (0.0-0.8); EOS# 0.07 X1000 (0.0-0.7); HEMOGLOBIN 11.9 g/dL (12.0-16.0); IMM GRAN# 0.02 X1000 (0.0-0.04); IMM GRAN% 0.3 % (0.0-0.5); LYMPH# 1.26 X1000 (1.2-3.4); LYMPH% 17.4 % (20.5-51.1); MCH 27.3 PG (27-31); MCHC 33.1 g/dL (33-37); MCV 82.6 FL (81-99); MONO# 0.82 X1000 (0.11-0.59); MONO% 11.3 % (1.7-9.3); MPV 10.2 FL (7.4-10.4); NEUT# 5.06 X1000 (1.4-6.5); NEUT% 69.7 % (42.2-75.2); PLT 287 X1000 (130-400); RBC 4.36 XMIL (4.2-5.4); RDW 16.3 % (11.5-14.5); WBC 7.25 X1000 (4.8-10.8)
[2019-04-21 13:54] LABS: AGAP 7; BUN 7 mg/dL (8-22); CALCIUM 8.3 mg/dL (8.8-10.2); CHLORIDE 101 mmol/L (98-107); COSMO 269; CREATININE 0.3 mg/dL (0.5-0.9); ESTIMATED GFR > 60; GLUCOSE 124 mg/dL (70-104); POTASSIUM 3.5 mmol/L (3.5-5.1); SODIUM 135 mmol/L (136-145); TCO2 27 mmol/L (25-35)
[2019-04-21] MEDS ORDERED: DIPRIVAN 1% 500 MG/50 ML BOTTLE ONE (14:20)
[2019-04-21] MEDS ORDERED: XYLOCAINE-MPF 2% ONE (14:42)
[2019-04-21] MEDS ORDERED: INDOCIN ONE (14:53)
[2019-04-21 15:08] LABS: LYMPHS 17 % (21-51); MONO 11 % (1-9); SEGS 72 % (42-75)
--- NOTE | 2019-04-21 15:14 | GASTROENTEROLOGY PROGRESS NOTE ---
DATE: 04/19/2019 SUBJECTIVE: The patient is up walking in the room with Physical Therapy. She is still complains of some nausea and abdominal pain. OBJECTIVE: Vital signs: Temperature 98.4, pulse 73, respirations 20, blood pressure 90/57. LABORATORY: Hematology: WBC 5.65, hemoglobin 11.0, hematocrit 34.2, MCV 82.4, platelet 257. Chemistry: Sodium 135, potassium 3.7, chloride 104, CO2 22, BUN 3, creatinine 0.3, glucose 80, total bilirubin 0.36, AST 6, ALT 5, alkaline phosphatase 186. ASSESSMENT AND PLAN: 1. Dilated common bile duct. 2. Liver function tests are normal. 3. Abdominal pain, nausea, vomiting. An ERCP was attempted last week and common bile duct could not be cannulated. We have discussed proceeding with repeat procedure this week. Due to scheduling, it will most likely have to be done on Friday. Will continue to follow and further plans will be made as needed. I have discussed this case with Dr. Rowe. Dictated by DORIS Hines for Bart Rowe MD cc: DORIS Ross MD
[2019-04-21] MEDS ORDERED: DIPRIVAN 1% ONE (15:48)
--- NOTE | 2019-04-21 16:15 | PROGRESS NOTE ---
DATE: 04/21/2019 INTERVAL HISTORY: The patient is still complaining of intermittent nausea, malaise, but no vomiting. Currently n.p.o. for repeat ERCP. Also, complains of anxiety despite having a very flat affect and no overt sign of anxiety. REVIEW OF SYSTEMS: Twelve point review of systems negative except as per interval history. LABORATORY: WBC 7.25, hemoglobin 11.9, hematocrit 36.0, platelets 287,000. Sodium 135, potassium 3.5, BUN 7, creatinine 0.3, glucose 124. VITALS: T-max 98.6, pulse 86, respirations 18, blood pressure 89/48. O2 sat 97% on room. PHYSICAL EXAMINATION: General: No acute distress. Vitals: As above. HEENT: Normocephalic, atraumatic. Moist mucous membranes. Poor dentition. No cervical adenopathy. Cardiovascular: Regular rate and rhythm. No murmurs noted. Pulmonary: Clear to auscultation bilaterally. No wheezing, rales or rhonchi. Abdomen: Soft. Minimal epigastric tenderness remains with no rebound or guarding. Bowel sounds positive. Extremities: Peripheral pulses intact. No clubbing, cyanosis or edema. Neurologic: Cranial nerves grossly intact. No focal deficits. Slight right hand weakness and right facial droop unchanged from previous. Psychiatric: Odd affect. Speech slow, but clear and coherent. Following commands. ASSESSMENT AND PLAN: 1. Nausea, vomiting, possible distal common bile duct lesion. The patient currently n.p.o. for repeat ERCP today. Previous ERCP unable to get up into the common bile duct. If unsuccessful, may have to consider transfer for further intervention. 2. Chronic pain. The patient appears to be on Suboxone at home. We will restart that when she is no longer n.p.o. 3. Urinary tract infection. Patient has been on Levaquin. Has now been adequately treated for her UTI, so we will go ahead and stop the antibiotics. Urine culture grew out Staphylococcus (not MRSA) which was sensitive to the Levaquin that she has been on. 4. Chronic obstructive pulmonary disease. No sign of exacerbation at this time. 5. Hypothyroidism. Continue Synthroid. 6. Previous CVA, with residual mild right-sided weakness, right upper extremity weakness, slight right facial droop, stable. 7. Patient complains of anxiety. Does not appear at all anxious. Actually appears almost slightly sedated. On review of the PDMP, she appears to have been on 2-.5 of Suboxone b.i.d.. But has not had Klonopin in a couple months. We will hold on any additional angiolytics. SUHAS
--- NOTE | 2019-04-21 16:35 | ENDOSCOPY OPERATIVE NOTE ---
[facility] ENDOSCOPY OPERATIVE NOTE , ERCP PROCEDURE REPORT EXAM DATE: 04/21/2019 PATIENT NAME: Roseanne Alonso MR #: [id number] BIRTHDATE: 1955 ATTENDING: Bart Rowe MD STATUS: inpatient CIRCUS RIDER: Rubina Rome, Amirah An, and Sloan Teixeira INDICATIONS: The patient is a 63 yr old female here for an ERCP due to abdominal pain of suspected b iliary origin, abnormal liver function test , and abnormal MRCP. PROCEDURE PERFORMED: ERCP with sphincterotomy/papillotomy ERCP with stent placement MEDICATIONS: Per Anesthesia CONSENT: The patient understands the risks and benefits of the procedure and understands that these r isks include, but are not limited to: sedation, allergic reaction, infection, perforation and/or bleeding. Alternative means of evaluation and treatment include, among others: physical exam, x-rays, and/or surgical intervention. The patient elects to proceed with this endoscopic procedure. HISTORY AND PHYSICAL: 04/21/2019 function. Hand hygiene and appropriate measures for infection prevention was taken. After the risks, benefits and alternatives of the procedure were thoroughly explained, Informed was verified, confirmed and timeout was successfully executed by the treatment team. With the patient in left semi-prone position, medications were admini stered intravenously.The [id number] ([id number]) was passed from the mouth into the esophagus and further advanc ed from the esophagus into the stomach. From stomach scope was directed to the second portion of the duodenum. M ajor papilla was aligned with the duodenoscope. The scope position was confirmed fluoroscopically. Rest of the finding s/therapeutics are given below. The scope was then completely withdrawn from the patient and the procedure completed. Th e pulse, BP, and O2 saturation were monitored and documented by the physician and the nursing staff throughout the ent soren procedure. The patient was cared for as planned according to standard protocol. The patient was then discharged to [facility] in stable condition and with appropriate post procedure care. ERCP: The Major Papilla was located in the second portion of the duodenum. The major papilla appeare d normal. Pancreatic duct cannulation was attempted using the sphincterotome with guidewire. Cannulation of th e pancreatic duct was performed with ease. Bile duct cannulation was attempted using the sphincterotome with guidewir e. Cannulation of the bile duct was difficult. Deep cannulation was successfully achieved. With guidewire within the bile duct, a biliary sphincterotomy was performed. Under endoscopic and fluoroscopic guidance, a 10Fr X 5cm plas tic stent was placed in the bile duct. ADVERSE EVENT: There were no complications. IMPRESSIONS: 1. Normal pancreatogram 2. Dilated common bile duct 3. Tapered distal CBD, benign sticture? No filling defects seen 4. S/p cholecystectomy RECOMMENDATIONS: 1. Repeat liver function test in 2 day(s) 2. Disposition 3. Return to floor when standard parameters are met REPEAT EXAM: Return in 4 weeks for ERCP. Stent removal. Bart Rowe MD eSigned: Bart Rowe MD 04/21/2019 4:35 PM cc: PATIENT NAME: Roseanne Alonso MR#: [id number]
--- NOTE | 2019-04-21 17:46 | Diag Imaging Result Doc PS360 ---
EXAM: ERCP-BILIARY AND PANCREATIC INDICATION: dilated CBD, repeat ERCP TECHNIQUE: COMPARISON: 04/14/2019 FINDINGS: Four spot fluoroscopic images of the opacified common bile duct were provided, which were performed during ERCP by Dr. Brooks. The common bile duct is dilated and there is abrupt narrowing of the distal common bile duct suggesting a possible stricture or obstructing stone. On the final image, there appears to have been placement of a biliary stent. IMPRESSION: As above. Please correlate with live fluoroscopic imaging. Electronically signed by Christiano Deluna 04/21/2019 5:43 PM
[2019-04-21] MEDS: PERIDEX MT SCH (20:21)
[2019-04-22] MEDS: CLINIMIX E 4.25%-5% SOLUTION 1,000 ML IV SCH ×4 (01:44→19:39)
[2019-04-22] MEDS: NS 1,000 ML IV SCH ×3 (01:44→19:40)
[2019-04-22] MEDS: ZOFRAN IV PRN ×2 (01:45→13:36)
[2019-04-22] MEDS: SYNTHROID IV SCH (06:17)
[2019-04-22] MEDS: SODIUM CHLORIDE 0.9% INJ PRN ×2 (06:17→09:01)
[2019-04-22 06:26] LABS: BASO# 0.01 X1000 (0.0-0.2); BASO% 0.1 % (0.0-0.8); EOS# 0.08 X1000 (0.0-0.7); EOS% 1.2 % (0.0-10.0); HEMATOCRIT 35.3 % (37.0-47.0); HEMOGLOBIN 11.5 g/dL (12.0-16.0); IMM GRAN# 0.03 X1000 (0.0-0.04); IMM GRAN% 0.4 % (0.0-0.5); LYMPH# 0.94 X1000 (1.2-3.4); MCH 26.7 PG (27-31); MCHC 32.6 g/dL (33-37); MCV 82.1 FL (81-99); MONO# 0.72 X1000 (0.11-0.59); MONO% 10.7 % (1.7-9.3); MPV 10.7 FL (7.4-10.4); NEUT# 4.92 X1000 (1.4-6.5); NEUT% 73.6 % (42.2-75.2); PLT 286 X1000 (130-400); RDW 15.7 % (11.5-14.5)
[2019-04-22 06:40] LABS: AGAP 9; BUN 7 mg/dL (8-22); CALCIUM 8.2 mg/dL (8.8-10.2); CHLORIDE 106 mmol/L (98-107); COSMO 278; CREATININE 0.3 mg/dL (0.5-0.9); ESTIMATED GFR > 60; GLUCOSE 107 mg/dL (70-104); POTASSIUM 3.9 mmol/L (3.5-5.1); SODIUM 140 mmol/L (136-145); TCO2 25 mmol/L (25-35)
[2019-04-22] MEDS: PERIDEX MT SCH ×2 (09:01→22:35)
[2019-04-22] MEDS: PRILOSEC PO SCH ×2 (09:01→22:35)
[2019-04-22] MEDS: PHENERGAN IV PRN (09:01)
[2019-04-22] MEDS: PAXIL PO SCH (12:34)
--- NOTE | 2019-04-22 15:42 | PROGRESS NOTE ---
DATE: 04/22/2019 INTERVAL HISTORY: The patient is status post ERCP with successful stenting of the biliary duct yesterday. Still complaining of upper abdominal pain. Some mild nausea but no vomiting. Still complaining of anxiety. The patient states that she "eats better when she is on Klonopin". No other acute events. No new complaints. REVIEW OF SYSTEMS: Twelve point review of systems negative except as per interval history. LABORATORY: WBC 6.7, hemoglobin 11.5, hematocrit 35.3, and platelets 286,000. Sodium 140, potassium 3.9, BUN 7, and creatinine 0.3. VITALS: T-max 98.7 degrees, pulse 99, respirations 20, blood pressure 102/56 and O2 saturation 100 percent on room air. PHYSICAL EXAMINATION: General: No acute distress. Vitals: As above. HEENT: Normocephalic, atraumatic. Moist mucous membranes. Poor dentition. Cardiovascular: Regular rate and rhythm. No murmurs noted. Pulmonary: Clear to auscultation bilaterally. No wheezing, rales, or rhonchi. Abdomen: Soft. Mild epigastric tenderness unchanged without rebound or guarding. Bowel sounds positive. Extremities: Peripheral pulses intact. No clubbing, cyanosis, or edema. Neurologic: Cranial nerves grossly intact. No focal deficits aside from chronic mild right hand weakness and right facial droop with slight slur. Psychiatric: Speech remains slow but appropriate and coherent. Still odd affect but cooperative and oriented x 3. ASSESSMENT AND PLAN: 1. Nausea, vomiting, possible distal common bile duct lesion. The patient s/p ERCP with successful biliary stent placement. no evidence of obvious malignancy found. still some upper abdominal pain and nausea but no vomiting. may be a chronic issue for the patient. if GI has no plans for further workup then will adance diet and if she tolerates it then will likely discharge home. 2. Chronic pain. The patient is on Suboxone at home. We will continue that here. 3. Urinary tract infection. S/p course of levaquin. 4. Chronic obstructive pulmonary disease. No sign of exacerbation at this time. 5. Hypothyroidism. Continue Synthroid. 6. Previous CVA, with residual mild right-sided weakness, right upper extremity weakness, slight right facial droop, stable. 7. Patient complains of anxiety. Does not appear at all anxious. Actually appears almost slightly sedated. On review of the PDMP, she appears to have been on 2-.5 of Suboxone b.i.d.. But has not had Klonopin in a couple months. We will hold on any additional benzodiazepines. did discuss this with the patient and she was amenable to paxil therapy so we will start that. [facility]
[2019-04-22] MEDS: PHENERGAN PO PRN (17:54)
--- NOTE | 2019-04-22 20:37 | PROGRESS NOTE ---
DATE: 04/20/2019 INTERVAL HISTORY: The patient still with nausea and diffuse abdominal pain, although no further vomiting. No acute events overnight. No new complaints. REVIEW OF SYSTEMS: Twelve point review of systems negative except as per Interval History. LABORATORY: WBC 5.4, hemoglobin 10.9, hematocrit 34.0, and platelets 250,000. Sodium 136, potassium 3.4, BUN 4, and creatinine 0.4. Alkaline phosphatase 158. AST 6 and ALT less than 5. Bilirubin 0.34. VITALS: Temperature maximum 98.6, pulse 85, respirations 20, blood pressure 194/60 and O2 saturation 95% on room air. PHYSICAL EXAMINATION: General: No acute distress. Vitals: As above. HEENT: Normocephalic, atraumatic. Moist mucous membranes. Neck: No cervical adenopathy. Cardiovascular: Regular rate and rhythm. No murmurs, rubs, or gallops. Pulmonary: Clear to auscultation bilaterally. No wheezing, rales, or rhonchi. Abdomen: Soft. Moderate epigastric to right upper quadrant tenderness without rebound or guarding remains. Bowel sounds positive. Extremities: Peripheral pulses intact. No clubbing or cyanosis. Neurologic: Stable right hand weakness and slight right facial droop but no new focal deficits. Psychiatric: Slightly flat affect but normal mood. Awake, alert, and oriented x3. Skin: No new rashes or lesions identified. ASSESSMENT AND PLAN: 1. Nausea and vomiting. No further vomiting. Still some nausea. Will add some Compazine and see if this helps. 2. Abdominal pain. Continue symptomatic treatment. 3. Dilated common bile duct, possible distal common bile duct lesion. Initially, ERCP was able to get to the ampulla and evaluate the pancreatic duct but not the bile duct. They plan on attempting again tomorrow. If they continue to have issues, then may have to attempt to transfer for more specialized evaluation for common bile duct mass, stricture, or other pathology. 4. Urinary tract infection. Urine culture is growing Staphylococcus lugdunensis. Will continue one more day of Levaquin. Should get her last dose of Levaquin today. 5. Hypokalemia. Low again today. Will further replete and monitor. 6. Chronic obstructive pulmonary disease. Remains stable. No sign of exacerbation at this time. 7. Hypothyroidism. Continue Synthroid. 8. History of cerebrovascular accident with residual mild right-sided weakness and right facial droop. Stable.
[2019-04-23] MEDS: SYNTHROID IV SCH (06:08)
[2019-04-23] MEDS: TYLENOL PO PRN (06:08)
[2019-04-23] MEDS: PHENERGAN PO PRN (06:17)
[2019-04-23] MEDS: CLINIMIX E 4.25%-5% SOLUTION 1,000 ML IV SCH (06:48)
--- NOTE | 2019-04-23 08:11 | GASTROENTEROLOGY PROGRESS NOTE ---
DATE: 04/20/2019 SUBJECTIVE: Patient was awake and alert, no acute distress. She still complains of some nausea and abdominal pain. We have plans for repeat ERCP on Friday. OBJECTIVE: Vital signs: Temperature 97.6, pulse 85, respirations 20, blood pressure 94/60. General: The patient is awake and alert. No acute distress. LABORATORY: Hematology: WBC 5.44, hemoglobin 10.9, hematocrit 34.0, MCV 83.5, platelet 250. Chemistry: Sodium 136, potassium 3.4, chloride 104, CO2 24, BUN 4, creatinine 0.4, glucose 93, calcium 7.9, total bilirubin 0.34, AST 6, ALT less than 5, alkaline phosphatase 158. ASSESSMENT AND PLAN: 1. Persistent abdominal pain and nausea. 2. Dilated common bile duct. 3. Will plan for repeat ERCP on Friday. Further plans to be made according to findings. I have discussed procedure along with benefits and risks with the patient and she wants to proceed. Further plans will be made as needed. Dictated by DORIS Hines for Bart Rowe MD cc: DORIS Ross MD
[2019-04-23] MEDS: PERIDEX MT SCH (09:11)
[2019-04-23] MEDS: PAXIL PO SCH (09:11)
[2019-04-23] MEDS: PRILOSEC PO SCH (09:11)
[2019-04-23 11:15] VITALS: BP 113/67
[2019-04-23 12:21] LABS: ALB/GLOB RATIO 1.1; ALBUMIN 3.3 g/dL (3.5-5.0); DIRECT BILIRUBIN 0.1 mg/dL (0.00-0.20); TOTAL BILIRUBIN 0.31 mg/dL (0.20-1.00); TOTAL PROTEIN 6.4 g/dL (6.3-8.3)
--- NOTE | 2019-04-23 20:14 | GASTROENTEROLOGY PROGRESS NOTE ---
DATE: 04/23/2019 SUBJECTIVE: Patient is awake and alert. She still reports some abdominal pain. She had an ERCP on 04/21/2019, indications for dilated common bile duct. Findings showed normal pancreatogram, dilated common bile duct, tapered distal common bile duct. Questionable benign stricture with no filling defects seen. Patient had sphincterotomy with stent placement. OBJECTIVE: Vital Signs: Temperature 98.5, pulse 101, respirations 17, blood pressure 113/67. General: Patient is awake and alert, no acute distress. LABORATORY: Hematology: WBC 6.70, hemoglobin 11.5, hematocrit 35.3, MCV 82.1. Chemistry: Sodium 140, potassium 3.9, chloride 106, CO2 of 25, BUN 7, creatinine 0.3, glucose 107, calcium 8.2. Total bilirubin 0.31, AST 13, ALT 5, alkaline phosphatase 159. ASSESSMENT AND PLAN: 1. Nausea and vomiting. 2. Abdominal pain. 3. Distal common bile duct dilation, status post ERCP and stent placement. Other medical problems: 1. Chronic obstructive pulmonary disease. 2. Hypothyroidism. 3. History of cerebrovascular accident. I believe patient has discharge orders. I have given her our contact information. She will need to follow up in the office and have the stent removed in approximately 4 to 6 weeks. The patient voices understanding. I have discussed this case with Dr. Rowe. Dictated by DORIS Hines for Bart Rowe MD cc: DORIS Ross MD
--- NOTE | 2019-04-24 00:55 | DISCHARGE SUMMARY ---
ADMISSION DATE: 04/13/2019 DISCHARGE DATE: 04/23/2019 PRIMARY CARE PHYSICIAN: Listed as none. CONSULTATIONS: GI. ADMISSION DIAGNOSES: 1. Intractable nausea, vomiting. 2. Dilated common bile duct by CTA and MRI, cholangiopancreatography. 3. Urinary tract infection. 4. Hypokalemia. DISCHARGE DIAGNOSES: 1. Intractable nausea, vomiting, stable. 2. Abdominal pain. 3. A dilated common bile duct, status post endoscopic retrograde cholangiopancreatography without being cannulated. 4. Staphylococcus lugdunensis urinary tract infection. 5. Hypokalemia, resolved. 6. History of chronic obstructive pulmonary disease, not in exacerbation. 7. Hypothyroidism. 8. Previous cerebrovascular accident with right-sided facial weakness and some hand weakness, aware. SUMMARY OF FINDINGS: This is a 63-year-old female who was seen in the hospital back in March and treated for an intractable nausea, vomiting, and an aspiration pneumonia. Was have found to have biliary dilation on CT scan. Had an MRCP that showed the possibility of a stricture in the distal common bile duct. Also during that hospitalization, LFTs remained normal and so it was felt that it was not necessary to proceed with an ERCP at that time. She had not been seen in GI office since that discharge, so now she returns to the hospital again with nausea, vomiting, diarrhea, and loss of appetite with chronic pain, on chronic pain medication with a history of opioid abuse. GI saw, discussed the ERCP procedure with the patient and gave her a brochure. We did an ERCP x- ray on 04/14/2019 that showed no definite abnormality. She had an ERCP on 04/14/2019 per GI with a normal pancreatogram, was unable to cannulate the common bile duct and no information could be obtained. GI felt that option 1 would be to repeat the ERCP, maybe a transfer referral to a tertiary center for an ERCP or even better she can have an endoscopic ultrasound to better visualize that common bile duct for a pathology and may need pathology if found to require the ERCP. On 04/21/2019, we did another ERCP x-ray that showed an abrupt narrowing of the distal common bile duct suggesting a possible stricture or obstructing stone and another ERCP was obtained and was found to have an impression of a normal pancreatogram, a dilated common bile duct, a tapered distal CBD with a benign stricture and was able to stent with sphincterotomy ]with stent placement. No evidence of obvious malignancy was found. The patient still is having some upper abdominal pain and nausea, but no vomiting and this is a chronic issue for this patient and it is felt that she can go home at this time and she will need to follow up with GI in 4 weeks to have her stent removed. DISCHARGE MEDICATIONS: Will include Tylenol 650 mg p.o. q.6 hours p.r.n., Suboxone 2 mg/0.5 mg 2 each sublingually b.i.d. p.r.n., Tums Extra Strength 750 p.o. p.c. and at bedtime p.r.n., Paxil 20 mg p.o. q.a.m., gabapentin 400 mg p.o. t.i.d., hydroxyzine 25 mg 1 capsule p.o. b.i.d. p.r.n., Synthroid 50 mcg p.o. daily, Protonix 40 mg p.o. daily. All discharge instructions have been reviewed with the patient and she verbalizes understanding. TIME SPENT: This is a 35 minute discharge. Dictated by DORIS Blevins for Justo Storm MD cc: DORIS Blevins MTDD
== END 2019-04-23 13:35 | disposition home health service (06) | DRG 445 ==
LOC: ED 10:11 → 4N 17:37 → SUATTDRO 17:37
PROVIDERS: ATTEND Internal Medicine
PROC: EN.ERCP (2019-04-14 17:12)
CPT/HCPCS: 71010; 71045; 74330; 80048; 80053; 80076; 81001; 82550; 83605; 83735; 84484; 85025; 85027; 85610; 85730; 87040; 87077; 87088; 87186; 93005; 94761; 94799; 96361; 96365; 96366; 96367; 96375; 96376; 97116; 97162; 97166; 97530; 97535; 99285; 99291; A9270; C9113; J1610; J1885; J1956; J2250; J2270; J2405; J2550; J2765; J3370; J3475; J3480; J7030; J7040; J7050; Q9966; Q9967; S0164

== ENCOUNTER 2019-06-07 13:00 | Inpatient (IN) ==
[2019-06-07] MEDS ORDERED: ASPIRIN PO ONE (13:34)
[2019-06-07] MEDS ORDERED: ASPIRIN PR ONE (13:34)
--- NOTE | 2019-06-07 13:57 | EKG Report ---
Test Performed on : 06/07/2019 1:37:51 PM Test Reason : EPIGASTRIC PAIN Blood Pressure : / mmHG Vent. Rate : 110 BPM Atrial Rate : 110 BPM P-R Int : 144 ms QRS Dur : 078 ms QT Int : 354 ms P-R-T Axes : 076 128 048 degrees QTc Int : 479 ms Sinus tachycardia. Biatrial enlargement Right axis deviation Cannot rule out Anterior infarct (cited on or before 14-JUL-2018) Abnormal ECG When compared with ECG of 13-APR-2019 11:18, (Unconfirmed) Questionable change in initial forces of Anterior leads Non-specific change in ST segment in Inferior leads Nonspecific T wave abnormality has replaced inverted T waves in Inferior leads Unconfirmed Result
--- NOTE | 2019-06-07 14:33 | Diag Imaging Result Doc PS360 ---
EXAM: CHEST-2 VIEWS 06/07/2019 HISTORY: EPIGASTRIC PAIN TECHNIQUE: PA and lateral chest COMMENT: There is apical pleural thickening on the left. There is no evidence of acute cardiac or pulmonary disease. There is COPD. The lungs are hyperinflated. Compared to 04/13/2019 the opacity previously present in the left lower lobe has resolved. The lungs are more hyperinflated but otherwise are has been no significant change. IMPRESSION: Exacerbation of COPD. Electronically signed by Panchito Payton 06/07/2019 2:31 PM
[2019-06-07 15:45] LABS: BASO# 0.04 X1000 (0.0-0.2); BASO% 0.4 % (0.0-0.8); EOS# 0.02 X1000 (0.0-0.7); EOS% 0.2 % (0.0-10.0); HEMOGLOBIN 13.8 g/dL (12.0-16.0); IMM GRAN# 0.02 X1000 (0.0-0.04); IMM GRAN% 0.2 % (0.0-0.5); LYMPH# 0.88 X1000 (1.2-3.4); LYMPH% 9.5 % (20.5-51.1); MCH 26.8 PG (27-31); MCHC 32.1 g/dL (33-37); MCV 83.5 FL (81-99); MONO# 0.58 X1000 (0.11-0.59); MONO% 6.3 % (1.7-9.3); MPV 10.1 FL (7.4-10.4); NEUT# 7.72 X1000 (1.4-6.5); NEUT% 83.4 % (42.2-75.2); PLT 497 X1000 (130-400); RBC 5.15 XMIL (4.2-5.4); RDW 17.7 % (11.5-14.5); WBC 9.26 X1000 (4.8-10.8)
[2019-06-07 15:46] LABS: PROTIME 13.3 Seconds (11.0-16.0)
[2019-06-07 15:48] LABS: PTT 31.2 Seconds (22.3-41.8)
[2019-06-07 15:53] LABS: AGAP 14; ALB/GLOB RATIO 1.3; ALBUMIN 3.8 g/dL (3.5-5.0); ALKALINE PHOSPHATASE 143 U/L (32-104); BUN 7 mg/dL (8-22); CALCIUM 9.2 mg/dL (8.8-10.2); CHLORIDE 95 mmol/L (98-107); CK PROFILE 46 U/L (24-173); COSMO 272; CREATININE 0.4 mg/dL (0.5-0.9); ESTIMATED GFR > 60; GLUCOSE 130 mg/dL (70-104); GOT 23 U/L (10-30); GPT 13 U/L (10-36); POTASSIUM 3.9 mmol/L (3.5-5.1); SODIUM 136 mmol/L (136-145); TCO2 27 mmol/L (25-35); TOTAL BILIRUBIN 0.43 mg/dL (0.20-1.00); TOTAL PROTEIN 6.7 g/dL (6.3-8.3)
[2019-06-07] MEDS ORDERED: ZOFRAN IV ONE ×2 (16:39→21:18)
[2019-06-07] MEDS ORDERED: NS 1,000 ML IV ONE (16:39)
--- NOTE | 2019-06-07 16:45 | PROVIDER DOCUMENTATION ---
HPI-Abdominal Pain/GI Problem - General Chief Complaint: Epigastric Pain Stated Complaint: ABD PAIN Time Seen by Provider: 06/07/19 16:35 Source: patient Allergies/Adverse Reactions: Patient Allergies Allergy/AdvReac Type Severity Reaction Status Date / Time codeine AdvReac VOMITING Verified 11/30/18 08:17 Home Medications: Home Medication List Medication Instructions Recorded Confirmed Last Taken Type Gabapentin 1 cap PO TID 03/16/19 04/13/19 03/14/19 History 400mg Hydroxyzine Pamoate 1 cap PO BID PRN PRN 03/16/19 04/13/19 Unknown History Acetaminophen [Tylenol] 650 mg PO Q6H PRN PRN tab 04/23/19 Unknown Rx Buprenorphine/Naloxone S.l. 2 ea SUBLINGUAL BID PRN PRN tab 04/23/19 Unknown Rx [Suboxone 2 mg/0.5 mg] Calcium Carbonate [Tums Extra 750 mg PO PC + HS PRN PRN tab 04/23/19 Unknown Rx Strength] Levothyroxine [Synthroid] 50 microgm PO DAILY@0700 #30 tab 04/23/19 Unknown Rx Pantoprazole [Protonix] 40 mg PO DAILY@0700 #30 tab 04/23/19 Unknown Rx Paroxetine [Paxil] 20 mg PO QAM #30 tab 04/23/19 Unknown Rx - History of Present Illness-ABD Nature of Presenting Problems: 63 YOF PRESENTS WITH C/O N/V X 3 DAYS, EPIGASTRIC PAIN, BURNING WITH URINATION AND WEAKNESS. SHE REPORTS SHE HAS BEEN UNABLE TO KEEP ANYTHING DOWN X 3 DAYS. SHE DENIES SOB, CP, FEVER, CHILLS. Abdominal Pain Onset Location: reports: epigastric Pain Radiation: reports: no radiation Quality of Pain: reports: aching Severity in ED: reports: moderate Onset/Duration: reports: 3 days ago Timing: reports: still present Activities at Onset: reports: none Exposure to sick contacts?: No Modifying Factors: improves with: nothing Associated Symptoms: reports: nausea, vomiting, weakness Last BM: 24 hours ago Dark Stools Present?: reports: none noticed Rectal Pain: reports: none Emesis Description: reports: none Bruising or Bleeding Gums?: No Similar Symptoms Previously?: No Recently seen or treated by another doctor?: No Review of Systems - Adult - REVIEW OF SYSTEMS - ADULT Constitutional: reports: no symptoms reported. denies: see HPI, chills, fever, fatique, night sweats, weight gain, weight loss, other Eyes: reports: no symptoms reported, see HPI Ears, Nose, Mouth & Throat: reports: no symptoms reported. denies: see HPI, ear discharge, ear pain, hearing loss, tinnitus, epistaxis, sinus problem, nose pain, loose teeth, mouth/dental pain, mouth swelling, hoarseness, throat pain, throat swelling, other Cardiovascular: reports: no symptoms reported. denies: see HPI, chest pain, edema, heart murmur, irregular heart rate, orthopnea, palpitations, poor circulation, PND, syncope, other Respiratory: reports: chronic cough (COPD, SMOKER). denies: no symptoms reported, see HPI, cough, dyspnea on exertion, excessive sputum production, hemoptysis, pleurisy, shortness of breath, wheezing, other Gastrointestinal: reports: see HPI, abdominal pain, nausea. denies: no symptoms reported, hematemesis, constipation, diarrhea, difficulty swallowing, frequent heartburn, poor appetite, rectal bleeding, vomiting, other Genitourinary: reports: no symptoms reported. denies: see HPI, dysuria, discharge, frequency, flank pain, frequent UTI's, hematuria, hesitency, incontinence, urinary retention, urgency, other Musculoskeletal: reports: no symptoms reported. denies: see HPI, bone pain, back pain, frequent leg cramps, joint pain, joint swelling, muscle aches, muscle weakness, neck pain, other Integumentary: reports: no symptoms reported. denies: see HPI, hives, hair loss, itching, mole changes, nail changes, rash, skin sores/ulcer, skin thickening, other Neurological: reports: no symptoms reported. denies: see HPI, ataxia, dizziness/vertigo, headache/migraines, loss of balance, numbness, paresthesia, seizure, slurred speech, syncope, tremors, other Psychiatric: reports: no symptoms reported. denies: see HPI, anxiety, anti-depressant use, alcohol/drug dependence, depression, emotional problems, insomnia, panic attacks, suicidal thoughts, other Endocrine: reports: no symptoms reported. denies: see HPI, change in skin pigment, excessive sweating, goiter, cold intolerance, heat intolerance, increased hunger, increased thirst, polyuria, other Hematologic/Lymphatic: reports: no symptoms reported. denies: see HPI, blood clots, easy bruising, low blood count, lymphedema, prolonged bleeding, swollen lymph nodes, transfusions, other Allergic/Immunologic: reports: no symptoms reported. denies: see HPI, allergic reactions, allergic rhinitis, asthma, eczema, food allergy, frequent infections, hay fever, hives, positive PPD, urticaria, other Past History - Adult - PAST MEDICAL HISTORY-ADULT Review of Records: reports: Nursing Assessment Review, Social history reviewed & non-contributory. Major Childhood Illnesses: reports: denies history Cardiovascular: reports: HTN Respiratory: reports: asthma, COPD Gastrointestinal: reports: GERD Obstetrical/Gynecological: reports: denies history Genitourinary: reports: other (pt reports her bladder has dropped and she needs repair. ) Musculoskeletal: reports: arthritis, chronic pain Neurological: reports: CVA Psychiatric: reports: anxiety, depression, psychiatric problems Endocrine/Immune: reports: thyroid disorder (hypo) Other Conditions: reports: denies history - PRIOR SURGERIES/PROCEDURES Surgical/Procedure History: reports: cholecystectomy, BTL, - IMMUNIZATION STATUS Childhood Immunizations: See Nurse Assessment Flu Vaccine: See Nurse Assessment - FAMILY HISTORY Family History: reviewed, not pertinent Physical Exam-General - PHYSICAL EXAM-ADULT Initial Vital Signs Reviewed: Yes - CONSTITUTIONAL General Appearance: alert, no apparent distress - EYES Eyes: PERRL/EOMI - HEAD, EARS, NOSE, MOUTH & THROAT HENMT: normocephalic/atraumatic, moist mucous membranes, normal ENT inspection - NECK Neck: non-tender, full range of motion, supple - RESPIRATORY Respiratory: chest non-tender, lungs clear - CARDIOVASCULAR Cardiovascular: normal peripheral pulses, regular rate, rhythm, no edema - GASTROINTESTINAL (ABDOMEN) Abdominal Exam: normal bowel sounds, tenderness (EPIGASTRIC) - LYMPHATIC Lymphatic: no adenopathy - MUSCULOSKELETAL Back Exam: normal inspection Extremity: normal range of motion, non-tender, normal gait, normal inspection - SKIN Integumentary: normal color, warm/dry - NEUROLOGIC Neurologic: grossly normal - PSYCHIATRIC Psych/Mental Status: normal mood/affect, oriented x 3 Progress - PLAN OF CARE/RESULTS Progress/Plan/Lab Results: Vital Signs - 8 hr 06/07/19 13:27 06/07/19 15:59 Temperature 98.3 F 98.5 F Pulse Rate 105 H 105 H Respiratory Rate 20 20 Blood Pressure 129/80 135/80 O2 Sat by Pulse Oximetry 98 96 Laboratory Results - last 24 hr 06/07/19 06/07/19 06/07/19 13:42 13:42 13:42 WBC 9.26 RBC 5.15 Hgb 13.8 Hct 43.0 MCV 83.5 MCH 26.8 L MCHC 32.1 L RDW Std Deviation 17.7 H Plt Count 497 H MPV 10.1 Immature Gran % (Auto) 0.2 Neut % (Auto) 83.4 H Lymph % (Auto) 9.5 L [place] % (Auto) 6.3 Eos % (Auto) 0.2 Baso % (Auto) 0.4 Immature Gran # (Auto) 0.02 Neut # (Auto) 7.72 H Lymph # (Auto) 0.88 L [place] # (Auto) 0.58 Eos # (Auto) 0.02 Baso # (Auto) 0.04 PT INR PTT (Actin FS) Sodium 136 Potassium 3.9 Chloride 95 L Carbon Dioxide 27 Anion Gap 14 BUN 7 L Creatinine 0.4 L Estimated GFR/1.73 m2 > 60 BUN/Creatinine Ratio 18 Glucose 130 H Calculated Osmolality 272 Calcium 9.2 Total Bilirubin 0.43 AST 23 ALT 13 Alkaline Phosphatase 143 H Creatine Kinase 46 Troponin T [id number] Pept 98 Total Protein 6.7 Albumin 3.8 Globulin 2.9 Albumin/Globulin Ratio 1.3 06/07/19 06/07/19 13:42 13:42 WBC RBC Hgb Hct MCV MCH MCHC RDW Std Deviation Plt Count MPV Immature Gran % (Auto) Neut % (Auto) Lymph % (Auto) [place] % (Auto) Eos % (Auto) Baso % (Auto) Immature Gran # (Auto) Neut # (Auto) Lymph # (Auto) [place] # (Auto) Eos # (Auto) Baso # (Auto) PT 13.3 INR 1.00 PTT (Actin FS) 31.2 Sodium Potassium Chloride Carbon Dioxide Anion Gap BUN Creatinine Estimated GFR/1.73 m2 BUN/Creatinine Ratio Glucose Calculated Osmolality Calcium Total Bilirubin AST ALT Alkaline Phosphatase Creatine Kinase Troponin T < 0.010 [id number] Pept Total Protein Albumin Globulin Albumin/Globulin Ratio Orders Category Date Time Status Cardiac Monitoring DIRECTED Care 06/07/19 13:37 Active Oxygen Therapy- ED Nursing DIRECTED Care 06/07/19 13:37 Active Saline Loc NOW Care 06/07/19 13:37 Active Saline Loc NOW Care 06/07/19 16:39 Ordered CHEST-2 VIEWS [RAD] Stat Exams 06/07/19 13:[address] ABD/PELVIS W/IV CONT ONLY [CT] Stat Exams 06/07/19 16:40 Ordered CBC WITH ELECTRONIC DIFF [HEME] Stat Lab 06/07/19 13:42 Completed CK PROFILE [SP CHEM] Stat Lab 06/07/19 13:42 Completed COMPREHENSIVE METABOLIC PANEL [CHEM] Stat Lab 06/07/19 13:42 Completed PRO B-NATRIURETIC PEPTIDE Stat Lab 06/07/19 13:42 Completed PROTIME WITH INR [COAG] Stat Lab 06/07/19 13:42 Completed PTT [COAG] Stat Lab 06/07/19 13:42 Completed TROPONIN T Stat Lab 06/07/19 13:42 Completed Aspirin Med 06/07/19 13:34 Stop Req 300 mg CO NOW ONE Aspirin Med 06/07/19 13:34 Stop Req 325 mg PO NOW ONE Ns 1000 ml IV Bolus X1 Med 06/07/19 16:39 Ordered 0.9% Sodium Chloride Inj [Ns] 1,000 ml IV 999 mls/hr Ondansetron [Zofran] Med 06/07/19 16:39 Once 4 mg IV NOW ONE CP/SOB/Palp >45 yrs of Age Stat Oth 06/07/19 13:34 Ordered EKG [EKG] Stat Ther 06/07/19 13:37 Draft Result Diagrams: 06/07/19 13:42 06/07/19 13:42 - REASSESSMENT Reassessment #1 Time Reassessed: 21:25 Status: other (Assumed care from Angelia Shahid NP. Pt reports a 3 day history of epigastric pain associated with n/v. Reviewed labs and CT scan which shows colitis. She states she is still hurting and nauseated. On exam, abdomen is soft and diffusely tender, mostly in epigastric region. Bowel sounds hyperactive in all quadrants. Will re-medicate and reassess. Will also po challenge prior to dispo.) Reassessment #2 Time Reassessed: 22:15 Status: unchanged (No change in pain or nausea) Reassessment #3 Time Reassessed: 22:46 Status: unchanged (No change in pain or nausea, pt still dry heaving in room. She is in agreement with admission plan.) - EKG 1 Time of EKG reading by physician:: 13:38 EKG Read and Signed by:: Ravin Vogel EKG Interpretation (*Must complete 3 of following elements*): Normal Rate: 110 Rhythm: ST [place]: right QRS: normal CO Interval: normal ST Wave: non-specific ST changes Prior EKG Comparison: unchanged from prior, changes noted - XRAY 1 XRAY Study: Chest ([facility] - [address], [address], [place] [address] [facility] - [address] [place] [address] Department of Imaging Patient: DARRYL VALVERDE Date: 06/07/19#: [id number] : 1955DM Status: PRE ERAcct#: [id number] Age/Sex: 63/FRoom/Bed: Loc: ED Ordering Physician: Ravin Vogel MD Family Physician: None,PCP Reason for Procedure: EPIGASTRIC PAIN ___ Signed EXAM: CHEST-2 VIEWS 06/07/2019 HISTORY: EPIGASTRIC PAIN TECHNIQUE: PA and lateral chest COMMENT: There is apical pleural thickening on the left. There is no evidence of acute cardiac or pulmonary disease. There is COPD. The lungs are hyperinflated. Compared to 04/13/2019 the opacity previously present in the left lower lobe has resolved. The lungs are more hyperinflated but otherwise are has been no significant change. IMPRESSION: Exacerbation of COPD. Electronically signed by Panchito Payton 06/07/2019 2:31 PM 06/07/19 1431 Interpreting Physician: Panchito Payton MD Dictated Date/Time: 06/07/19 1430 cc: Ravin Vogel MD; None,PCP) - CT/MRI 1 CT Study: Abdomen, Pelvis ([facility] - [address] , [address], [place] [address] [facility] - [address] [place] [address] Department of Imaging Patient: DARRYL VALVERDE Date: 06/07/19MR#: [id number] : 1955DM Status: REG [facility]#: [id number] Age/Sex: 63/FRoom/Bed: Loc: ED Ordering Physician: Sariah Shahid Family Physician: None,PCP Reason for Procedure: abd pain, TENDERNESS ___ Signed EXAM: CT ABD/PELVIS W/IV CONT ONLY 06/07/2019 HISTORY: abd pain, TENDERNESS TECHNIQUE: This exam was performed using automated exposure control, adjustment of mA or kV according to patient size, and/or use of iterative reconstruction technique. COMMENT: There is ill-defined opacity in the medial portion of the visualized inferior right middle lobe. This is similar in appearance to the previous study of 03/21/2019. There is a large hiatal hernia. The pleural fluid collections and lower lobe atelectasis which were present at the time the previous study have resolved. The aorta is not distended . The mesenteric and renal arteries are patent. There are granulomata in the spleen. There has been cholecystectomy. There is a biliary stent in the common bile duct. The common bile duct is distended to a point near the ampulla. This was also the case at the time the previous study. There continues to be intrahepatic biliary dilatation. The pancreas is stable in appearance. There are some cortical cysts in both kidneys. There is no evidence of hydronephrosis. There is stool in the ascending colon. The transverse colon is not distended and there is some apparent inflammatory change around the transverse colon. The possibility of mild colitis cannot be excluded. This appearance is worse than on the previous study. Pelvis: There is no evidence of appendicitis. There is a fair amount of stool in the distal colon including the rectum. The urinary bladder is not distended. There are no masses. There is no evidence of free fluid. There is a bone island in the medial iliac bone on the right which has not changed significantly since the previous examination. There are degenerative changes in the lumbar spine. IMPRESSION: Biliary dilatation. Mild colitis and constipation. Electronically signed by Panchito Payton 06/07/2019 8:47 PM 06/07/192046 Interpreting Physician: Panchito Payton MD Dictated Date/Time: 06/07/192039 cc: Sariah Shahid; None,PCP) - CONSULTS/PCP/HOSPITALIST Notification #1 *Consult/PCP/Hospitalist*: Dr. Ross Time Discussed: 22:50 Reason/Comments: admission- colitis, intractable n/v Consult Disposition: Admit Departure - Departure Date of Disposition Decision: 06/07/19 Time of Disposition Decision: 22:01 DIAGNOSIS: Colitis Abdominal pain Qualifiers: Abdominal location: unspecified location Qualified Code(s): R10.9 - Unspecified abdominal pain Nausea and vomiting Qualifiers: Vomiting type: unspecified Vomiting Intractability: intractable Qualified Code(s): R11.2 - Nausea with vomiting, unspecified Disposition: ADMITTED INPATIENT 09 Certified Medical Emergency: Emergent Condition: Stable Additional Freetext Instructions: ED Follow Up Instructions: You have been treated by a care provider in the Emergency Department. These instructions are being provided to you so you can have an understanding of how to care for yourself upon discharge. Upon discharge from the Emergency Department, you are responsible for making arrangements for follow-up care by a physician of your choice. Take all prescribed medications as directed. Return to the Emergency Department immediately for any new or worsening symptoms. You may call the Physician Referral phone number at [phone] to obtain a list of Physicians who are taking new patients. - Critical Care Note This patient required my direct & personal management of CC.: No Attestation - Physician/ MIKE Attestation Patient care was provided by Advanced Practice Provider:: Yes Advanced Practice Provider:: Marlene Maldonado Advanced Practice Provider documentation review:: The Mid-level provider documentation, treatment plan and medical decision making was reviewed by the physician who agrees with all treatment and medical decision making by the MLP. The physician spent face to face time with patient:: No Advanced Practice Provider documentation review:: Supervising physician onsite and consulted in the evaluation and care of this patient. The physician did not have a face to face encounter with the patient.
[2019-06-07] MEDS ORDERED: PEPCID IV ONE (18:19)
[2019-06-07] MEDS ORDERED: SODIUM CHLORIDE 0.9% INJ ONE (18:19)
[2019-06-07] MEDS ORDERED: G.I. COCKTAIL PO ONE (20:13)
[2019-06-07 20:29] LABS: URINE SOURCE CATH
[2019-06-07 20:33] LABS: BILIRUBIN URINE NEGATIVE (NEGATIVE); BLOOD URINE NEGATIVE (NEGATIVE); COLOR YELLOW; GLUCOSE URINE NEGATIVE (NEGATIVE); KETONE URINE NEGATIVE (NEGATIVE); LEUKOCYTES URINE NEGATIVE (NEGATIVE); NITRITE URINE NEGATIVE (NEGATIVE); PH URINE 7.5; PROTEIN URINE 30 mg/dL (NEGATIVE); SP GRAVITY URINE 1.025; TURBIDITY URINE CLEAR (CLEAR); UR EPITHELIAL CELLS <10 /HPF (<10); URINE BACTERIA NEGATIVE /HPF; URINE RBC <10 /HPF (<10); URINE WBC <10 /HPF (<10); UROBILINOGEN URINE NORMAL (NORMAL)
--- NOTE | 2019-06-07 20:49 | Diag Imaging Result Doc PS360 ---
EXAM: CT ABD/PELVIS W/IV CONT ONLY 06/07/2019 HISTORY: abd pain, TENDERNESS TECHNIQUE: This exam was performed using automated exposure control, adjustment of mA or kV according to patient size, and/or use of iterative reconstruction technique. COMMENT: There is ill-defined opacity in the medial portion of the visualized inferior right middle lobe. This is similar in appearance to the previous study of 03/21/2019. There is a large hiatal hernia. The pleural fluid collections and lower lobe atelectasis which were present at the time the previous study have resolved. The aorta is not distended. The mesenteric and renal arteries are patent. There are granulomata in the spleen. There has been cholecystectomy. There is a biliary stent in the common bile duct. The common bile duct is distended to a point near the ampulla. This was also the case at the time the previous study. There continues to be intrahepatic biliary dilatation. The pancreas is stable in appearance. There are some cortical cysts in both kidneys. There is no evidence of hydronephrosis. There is stool in the ascending colon. The transverse colon is not distended and there is some apparent inflammatory change around the transverse colon. The possibility of mild colitis cannot be excluded. This appearance is worse than on the previous study. Pelvis: There is no evidence of appendicitis. There is a fair amount of stool in the distal colon including the rectum. The urinary bladder is not distended. There are no masses. There is no evidence of free fluid. There is a bone island in the medial iliac bone on the right which has not changed significantly since the previous examination. There are degenerative changes in the lumbar spine. IMPRESSION: Biliary dilatation. Mild colitis and constipation. Electronically signed by Panchito Payton 06/07/2019 8:47 PM
[2019-06-07] MEDS ORDERED: MORPHINE IV ONE (21:18)
[2019-06-07] MEDS ORDERED: FLAGYL PO ONE (21:19)
[2019-06-07] MEDS ORDERED: REGLAN IV ONE (22:14)
[2019-06-07] MEDS ORDERED: DILAUDID IV ONE (22:14)
[2019-06-07] MEDS ORDERED: PHENERGAN IM ONE (22:35)
[2019-06-08] MEDS ORDERED: CITRATE OF MAGNESIA PO ONE (00:28)
[2019-06-08] MEDS: ZOFRAN IV PRN ×2 (01:31→10:09)
[2019-06-08] MEDS: NS 1,000 ML IV SCH ×3 (01:31→20:45)
[2019-06-08] MEDS ORDERED: BLISTEX MEDICATED BERRY LIP BALM TOP PRN (01:41)
--- NOTE | 2019-06-08 01:48 | HISTORY AND PHYSICAL ---
PRIMARY CARE PHYSICIAN: None. CHIEF COMPLAINT: Abdominal pain, nausea. HISTORY OF PRESENT ILLNESS: A 63-year-old female with a history of chronic back pain, hypertension, opioid abuse, hypothyroidism, CVA, bipolar disorder, COPD, who had presented to the emergency department complaining of having abdominal pain and nausea for the past several days. She was evaluated in the emergency department and she was given antiemetics; however, she did not have any improvement. The patient kept on asking for pain medications. She was seen in the ER and due to her presenting symptoms it was thought that we will place her for observation, further evaluation and management. At the time of my examination the patient denied any headache, fever, chills, hemoptysis, melena or weight changes, but complained of abdominal pain. PAST MEDICAL HISTORY: Includes back pain, hypertension, hypothyroidism, CVA, bipolar disorder, COPD. PAST SURGICAL HISTORY: Cholecystectomy, cataract surgery, lens replacement. ALLERGIES: Codeine. CURRENT MEDICATIONS: Acetaminophen 650 mg p.o. q.6 hours, Suboxone sublingual b.i.d, gabapentin 4 mg p.o. t.i.d., levothyroxine 50 mcg p.o. daily, pantoprazole 40 mg p.o. daily, paroxetine 20 mg p.o. q.a.m. SOCIAL HISTORY: 40+ pack years history of smoking. Denies any history of alcohol or illicit drug use. FAMILY HISTORY: No history of coronary disease. REVIEW OF SYSTEMS: Fourteen point review of system as listed in the HPI. Other systems negative. PHYSICAL EXAMINATION: GENERAL: A cooperative friendly female. She is resting more comfortably now. VITAL SIGNS: Temperature 98.5 degrees, pulse 105, respirations 22, blood pressure 135/80. HEENT: Atraumatic and normocephalic. Extraocular movements are intact. PERRLA. NECK: No masses. CHEST: Clear to auscultation. CARDIOVASCULAR: Regular rate and rhythm. ABDOMEN: Soft. Positive bowel sounds. EXTREMITIES: No edema. NEUROLOGIC: She is awake, alert and oriented x3. : No bladder distention. SKIN: Warm. LABORATORIES AND STUDIES: WBC is 9.26, hemoglobin is 13.8, hematocrit is 43.0, platelets 497,000. Sodium 136, potassium 3.9, chloride 95, CO2 is 27, BUN is 7, creatinine 0.4, glucose is 130. CE of the abdomen and pelvis shows mild colitis and constipation. ASSESSMENT: A 63-year-old female with a history of chronic back pain, hypertension, opioid abuse, bipolar disorder and GERD who had presented to the emergency department with several days history of having abdominal pain. She was evaluated in the emergency department. She continued to have nausea despite antiemetics, and have abdominal pain. Due to her presenting symptoms we will place her for observation, further evaluation and management. 1. Intractable nausea, vomiting and abdominal pain. 2. Mild colitis. 3. History of opioid abuse. 4. Hypertension. 5. Hypothyroidism. PLAN: 1. We will admit the patient to medical floor with telemetry. 2. Continue with supportive care, gentle hydration and antiemetics as needed. 3. Start the patient on Flagyl. 4. We will monitor the blood pressure closely. 5. Restart other home medications. 6. Put the patient on DVT prophylaxis with SCDs. 7. We will continue to follow, review, assess and make further recommendations based on the patient's clinical course. cc: Stalin Ross MD
[2019-06-08] MEDS: SUBOXONE 2 MG/0.5 MG SL SCH ×2 (03:19→13:28)
[2019-06-08] MEDS: FLAGYL 500 MG/NS 500 MG/100 ML IVPB IV SCH ×2 (04:52→13:29)
[2019-06-08] MEDS ORDERED: PHENERGAN IV ONE (05:02)
[2019-06-08] MEDS ORDERED: SODIUM CHLORIDE 0.9% INJ ONE (05:02)
[2019-06-08] MEDS ORDERED: G.I. COCKTAIL PO ONE (05:02)
[2019-06-08 07:52] LABS: BASO# 0.04 X1000 (0.0-0.2); BASO% 0.6 % (0.0-0.8); EOS# 0.01 X1000 (0.0-0.7); EOS% 0.2 % (0.0-10.0); HEMATOCRIT 34.7 % (37.0-47.0); HEMOGLOBIN 11.3 g/dL (12.0-16.0); IMM GRAN# 0.02 X1000 (0.0-0.04); IMM GRAN% 0.3 % (0.0-0.5); LYMPH# 1.29 X1000 (1.2-3.4); LYMPH% 19.6 % (20.5-51.1); MCH 27.7 PG (27-31); MCHC 32.6 g/dL (33-37); MONO# 0.71 X1000 (0.11-0.59); MONO% 10.8 % (1.7-9.3); MPV 9.6 FL (7.4-10.4); NEUT# 4.52 X1000 (1.4-6.5); NEUT% 68.5 % (42.2-75.2); PLT 375 X1000 (130-400); RBC 4.08 XMIL (4.2-5.4); RDW 17.6 % (11.5-14.5); WBC 6.59 X1000 (4.8-10.8)
[2019-06-08 08:21] LABS: AGAP 10; BUN 5 mg/dL (8-22); CALCIUM 8.2 mg/dL (8.8-10.2); CHLORIDE 103 mmol/L (98-107); COSMO 271; CREATININE 0.4 mg/dL (0.5-0.9); ESTIMATED GFR > 60; GLUCOSE 93 mg/dL (70-104); POTASSIUM 3.9 mmol/L (3.5-5.1); SODIUM 137 mmol/L (136-145); TCO2 24 mmol/L (25-35)
[2019-06-08] MEDS ORDERED: XANAX PO ONE (13:11)
[2019-06-08] MEDS ORDERED: PAXIL PO SCH (13:15)
[2019-06-08] MEDS ORDERED: SODIUM CHLORIDE 0.9% INJ SCH (13:15)
[2019-06-08] MEDS: DULCOLAX PR SCH ×3 (13:43→20:56)
[2019-06-08] MEDS: LEVSIN-SL SL SCH ×2 (13:43→20:53)
[2019-06-08] MEDS: REGLAN IV SCH ×2 (13:43→18:49)
[2019-06-08] MEDS: MIRALAX PO SCH ×2 (13:43→20:53)
[2019-06-08] MEDS ORDERED: PROTONIX IV SCH (14:00)
--- NOTE | 2019-06-08 15:00 | PROGRESS NOTE ---
DATE: 06/08/2019 SUBJECTIVE: Ms Alonso was admitted overnight for nausea, vomiting and epigastric pain of 3 days duration. Apparently, she has been in the hospital for a long duration in March and April and May 2019 and was treated with similar complaints, and a biliary stent was placed. She states that she is experiencing panic attack right now and she needs some help. She is not listed to be taking any medicines at home. The only medicine she takes is Suboxone. I will resume her Suboxone. OBJECTIVE: VITAL SIGNS: Current, temperature 98.1 degrees, pulse 104, respiratory rate 18, blood pressure 110/82. She is saturating 99% on room air. PHYSICAL EXAMINATION: General: She appears very anxious. HEENT: Oral cavity is moist. Lungs: Air entry bilaterally equal. No wheeze, rhonchi, or crackles. Cardiovascular: S1, S2 normal. No murmur, rub, or gallop. Abdomen: Soft. There is mild epigastric tenderness. Hypoactive bowel sounds. Extremities: No lower extremity edema. Neurologic: She is alert, she is oriented x3. Otherwise, examination is nonfocal. Input and output, she has not had any bowel movement so far. LABORATORY DATA: She does have normal hemoglobin, normal platelet count. Low BUN. She also appears to have severe protein calorie malnutrition. Microbiology did not have any growth. IMAGING: Had severe constipation as well as mild colitis. ASSESSMENT AND PLAN: 1. Intractable nausea, vomiting and abdominal pain, likely in the setting of constipation. I will start her on stool softeners. The mild colitis on CT scan is likely stercoral colitis based on my exam finding of minimal tenderness and no leukocytosis. I will stop the antibiotics. Previously, she did have ERCP with biliary stent placement, which appears to be in place with normal bilirubin. 2. History of opioid use disorder, on Suboxone maintenance. I will resume her home Suboxone. I will also start her on hyoscyamine for abdominal cramps; keep her on Reglan scheduled for intractable nausea and vomiting with intravenous fluids as well as proton pump inhibitors. 3. Anxiety and panic attack. I will start her on paroxetine, which she was supposed to be taking at the time of discharge. 4. Disposition. I will continue to monitor patient inside the hospital. I will keep her n.p.o. with ice chips and sips of water and medicines and advance diet as tolerated. I called the patient's daughter and informed her about patient's clinical course and answered all of her questions. cc: Chencho Reardon MD
[2019-06-08] MEDS: NICODERM PATCH TD PRN (15:57)
[2019-06-08] MEDS ORDERED: PAXIL PO ONE (18:45)
[2019-06-08] MEDS: MELATONIN PO SCH (20:53)
[2019-06-09] MEDS: REGLAN IV SCH ×2 (00:52→06:02)
[2019-06-09] MEDS: SUBOXONE 2 MG/0.5 MG SL SCH ×2 (00:52→12:20)
[2019-06-09] MEDS: LEVSIN-SL SL SCH ×3 (04:38→21:41)
[2019-06-09] MEDS: ZOFRAN IV PRN ×3 (04:38→21:41)
[2019-06-09 06:38] LABS: UR AMPHETAMINES QUAL NONE DETECTED (NONE DETECT); UR BARBITUATES QUAL PRESUMPTIVE POSITIVE (NONE DETECT); UR BENZODIAZEPIN QUAL NONE DETECTED (NONE DETECT); UR CANNABINOIDS QUAL NONE DETECTED (NONE DETECT); UR COCAINE QUAL NONE DETECTED (NONE DETECT); UR METHADONE QUAL NONE DETECTED (NONE DETECT); UR OPIATES QUAL PRESUMPTIVE POSITIVE (NONE DETECT); UR OXYCODONE QUAL NONE DETECTED (NONE DETECT); UR PCP QUAL NONE DETECTED (NONE DETECT)
[2019-06-09] MEDS: MIRALAX PO SCH ×2 (09:12→21:42)
[2019-06-09] MEDS: PAXIL PO SCH (09:12)
[2019-06-09] MEDS: NICODERM PATCH TD PRN (09:12)
[2019-06-09] MEDS: DULCOLAX PR SCH ×2 (09:12→21:42)
[2019-06-09 09:20] LABS: AGAP 14; BUN 4 mg/dL (8-22); CALCIUM 7.8 mg/dL (8.8-10.2); CHLORIDE 102 mmol/L (98-107); COSMO 270; CREATININE 0.4 mg/dL (0.5-0.9); ESTIMATED GFR > 60; GLUCOSE 117 mg/dL (70-104); POTASSIUM 3.4 mmol/L (3.5-5.1); SODIUM 136 mmol/L (136-145); TCO2 20 mmol/L (25-35)
[2019-06-09 09:22] LABS: FREE T4 0.94 ng/dL (0.93-1.70)
[2019-06-09 09:26] LABS: TSH 18.64 uIUmL (0.27-4.20)
[2019-06-09] MEDS ORDERED: CITRATE OF MAGNESIA PO ONE (11:04)
[2019-06-09] MEDS ORDERED: PHENERGAN PR PRN (11:59)
[2019-06-09] MEDS: G.I. COCKTAIL PO PRN (14:09)
[2019-06-09] MEDS: REGLAN PO SCH (17:25)
--- NOTE | 2019-06-09 17:55 | PROGRESS NOTE ---
DATE: 06/09/2019 INTERVAL HISTORY: The patient is still complaining of nausea and epigastric pain. Workup has been unremarkable. The patient is stating she still can't tolerate p.o., but no vomiting has been noted. The patient has been tolerating pills well. During my time in the room, patient appeared to be trying to force herself to retch unsuccessfully. The patient was observed after I left the room and no further attempted retching was noted for several minutes. No new complaints. REVIEW OF SYSTEMS: A 12-point review of systems negative except as per interval history. LABORATORIES: Sodium 136, potassium 3.4, BUN 4, creatinine 0.4, glucose 117. TSH 18.6, free T4 of 0.9. VITAL SIGNS: T-max 98.6 degrees, pulse 100, respirations 18, blood pressure 131/89, and O2 saturation 100% on room air. PHYSICAL EXAMINATION: General: No acute distress. Vital Signs: As above. HEENT and Neck: Normocephalic, atraumatic. Moist mucous membranes. No cervical adenopathy. Cardiovascular: Regular and rate rhythm. No murmur noted. Pulmonary: Clear to auscultation bilaterally. No wheezing, rales, or rhonchi. Abdomen: Soft, tender to palpation by hand in the epigastrium, but no tenderness to palpation by stethoscope even when palpated aggressively. Bowel sounds normal. Extremities: Peripheral pulses intact. No clubbing, cyanosis, or edema. Neurologic: Cranial nerves grossly intact. No focal deficits identified. Psychiatric: Odd affect. Awake, alert, oriented x3. Skin: No new rashes or lesions identified. ASSESSMENT AND PLAN: 1. Nausea, vomiting, abdominal pain, likely caused by constipation. Mild colitis on CT scan, likely also related to constipation. Nontender by palpation by stethoscope. The patient requesting Phenergan and gastrointestinal cocktail. We will give Phenergan suppository and gastrointestinal cocktail. Patient likely approaching maximum benefit of hospitalization. 2. Opioid use disorder. Continuing home Suboxone. Continue Reglan for now. 3. Psychiatric disorder, primarily anxiety. Restarted paroxetine, which the patient was supposed to be on at home but was not. 4. Hypothyroidism. Continue home Synthroid. The patient is borderline for needing an increase in her dose. Recommend recheck as an outpatient.
[2019-06-09] MEDS: MELATONIN PO SCH (21:41)
[2019-06-10] MEDS: SUBOXONE 2 MG/0.5 MG SL SCH ×2 (03:01→13:18)
[2019-06-10] MEDS: ZOFRAN IV PRN (03:02)
[2019-06-10] MEDS: PROTONIX PO SCH (06:15)
[2019-06-10] MEDS: LEVSIN-SL SL SCH ×3 (06:15→20:24)
[2019-06-10] MEDS: REGLAN PO SCH (06:15)
[2019-06-10] MEDS: G.I. COCKTAIL PO PRN ×2 (08:44→18:20)
[2019-06-10] MEDS: PAXIL PO SCH (08:45)
[2019-06-10] MEDS: DULCOLAX PR SCH (08:45)
[2019-06-10] MEDS: MIRALAX PO SCH ×2 (08:46→20:24)
[2019-06-10 08:52] LABS: BASO# 0.02 X1000 (0.0-0.2); BASO% 0.3 % (0.0-0.8); EOS# 0.01 X1000 (0.0-0.7); EOS% 0.2 % (0.0-10.0); HEMATOCRIT 37.4 % (37.0-47.0); HEMOGLOBIN 12.6 g/dL (12.0-16.0); LYMPH# 0.85 X1000 (1.2-3.4); MCH 27.6 PG (27-31); MCHC 33.7 g/dL (33-37); MONO# 0.66 X1000 (0.11-0.59); MONO% 10.1 % (1.7-9.3); MPV 9.7 FL (7.4-10.4); NEUT# 4.98 X1000 (1.4-6.5); NEUT% 76.4 % (42.2-75.2); PLT 445 X1000 (130-400); RBC 4.56 XMIL (4.2-5.4); RDW 17.6 % (11.5-14.5); WBC 6.52 X1000 (4.8-10.8)
--- NOTE | 2019-06-10 08:54 | Diag Imaging Result Doc PS360 ---
EXAM: KUB ABDOMEN HISTORY: constipation TECHNIQUE: Abdomen single view COMPARISON: 11/28/2017 FINDINGS: The gallbladder has been removed. There is a stent in the right upper outer. No bowel obstruction. No prominent stool. No organomegaly. Mild scoliosis. No abnormal calcifications. IMPRESSION: No significant constipation Electronically signed by Bruce Mercedes 06/10/2019 8:52 AM
[2019-06-10 09:14] LABS: AGAP 14; BUN 2 mg/dL (8-22); CALCIUM 8.1 mg/dL (8.8-10.2); CHLORIDE 96 mmol/L (98-107); COSMO 263; CREATININE 0.3 mg/dL (0.5-0.9); ESTIMATED GFR > 60; GLUCOSE 106 mg/dL (70-104); SODIUM 133 mmol/L (136-145); TCO2 23 mmol/L (25-35)
[2019-06-10 09:23] LABS: POTASSIUM 2.5 mmol/L (3.5-5.1)
[2019-06-10] MEDS ORDERED: POTASSIUM CHLORIDE 60 MEQ in NS 500 ML IV ONE (09:31)
[2019-06-10] MEDS: CARAFATE PO SCH ×3 (10:22→20:24)
--- NOTE | 2019-06-10 18:19 | PROGRESS NOTE ---
DATE: 06/10/2019 INTERVAL HISTORY: The patient observed through the window prior to entering the room. She appeared calm and in no distress. Upon entering the room, the patient began to moan loudly and clutch her belly complaining about her abdominal pain and nausea. Discussed with nursing, and no vomiting observed. Patient had significant bowel movement yesterday. No other acute events overnight. REVIEW OF SYSTEMS: Twelve-point review of systems negative except as per interval history. LABORATORY DATA: CBC unremarkable. Sodium 133. Initial potassium 2.5, repeat 3.6, BUN 2, creatinine 0.3, glucose 106. IMAGING: Abdominal x-ray with no evidence of ongoing constipation or other acute process. VITALS: T-max 98.6 degrees, pulse 102, respirations 20, blood pressure 136/89, O2 saturation 99% on room air. OBJECTIVE: General: No acute distress initially. After entering the room, patient appeared anxious and mildly distress. Vitals: As above. HEENT: Normocephalic, atraumatic. Moist mucous membranes. No cervical adenopathy. Cardiovascular: Regular rate and rhythm at the time of my exam. No murmur noted. Pulmonary: Clear to auscultation bilaterally. No wheezing, rales, or rhonchi. Abdomen: Soft, again tender to palpation by hand in upper abdomen but completely nontender to palpation by stethoscope even with very aggressive palpation. Bowel sounds normal. Extremities: Peripheral pulses intact. No clubbing, cyanosis, or edema. Neurologic: Cranial nerves grossly intact. No focal deficits identified. Psychiatric: Odd affect, anxious appearing. Awake, alert, oriented x3. Skin: No new rashes or lesions identified. ASSESSMENT AND PLAN: 1. Nausea, vomiting, abdominal pain, favor constipation as the cause. Constipation, now resolved. We will stop Reglan and stimulant laxative to make sure they are not contributing to abdominal cramping. Continue PPI. Patient requests Carafate, which we will go ahead and give her a trial of. P.o. intake not ideal but no vomiting noted. 2. Hypokalemia due to significantly low potassium this morning. We will replete aggressively and monitor. 3. Opioid use disorder. Continue home Suboxone. 4. Psychiatric disorder, does intermittently appear anxious. Restarted paroxetine, but given patient's substance abuse history, we will not prescribe her benzodiazepine. 5. Noncompliance. The patient has been noncompliant with medications in the past, especially non- benzodiazepine psychiatric medications. 6. Hypothyroidism. Continue home Synthroid. Patient borderline for needing an increase in her dose. Recommend recheck with her PCP as an outpatient. 7. Possible illicit barbiturate use. Patient's initial UDS positive for opiates and barbiturates. She does appear to have gotten some opiates in the ED, which could explain that, but she has not been given any barbiturates nor is she prescribed one. DISPOSITION: We will replete her potassium and assuming no other acute events will likely discharge in the morning.
[2019-06-10] MEDS: MELATONIN PO SCH (20:24)
[2019-06-11] MEDS: SUBOXONE 2 MG/0.5 MG SL SCH ×2 (01:11→12:55)
[2019-06-11] MEDS: PROTONIX PO SCH (06:00)
[2019-06-11] MEDS: LEVSIN-SL SL SCH ×2 (06:00→12:55)
[2019-06-11] MEDS: CARAFATE PO SCH ×2 (06:01→11:21)
[2019-06-11 08:43] LABS: AGAP 14; CHLORIDE 95 mmol/L (98-107); POTASSIUM 3.3 mmol/L (3.5-5.1); SODIUM 131 mmol/L (136-145); TCO2 22 mmol/L (25-35)
[2019-06-11 08:44] LABS: BUN 2 mg/dL (8-22); CALCIUM 8.3 mg/dL (8.8-10.2); COSMO 261; CREATININE 0.4 mg/dL (0.5-0.9); ESTIMATED GFR > 60; GLUCOSE 131 mg/dL (70-104)
[2019-06-11] MEDS: MIRALAX PO SCH (08:49)
[2019-06-11] MEDS: PAXIL PO SCH (08:49)
[2019-06-11] MEDS: G.I. COCKTAIL PO PRN (10:17)
[2019-06-11] MEDS: POTASSIUM CHLORIDE 20 MEQ/SWI 20 MEQ/100 ML IVPB IV SCH ×2 (10:53→12:54)
[2019-06-11 12:10] VITALS: BP 139/88
[2019-06-11] MEDS ORDERED: NS 250 ML ONE (12:48)
--- NOTE | 2019-06-12 15:19 | DISCHARGE SUMMARY ---
ADMISSION DATE: 06/07/2019 DISCHARGE DATE: 06/11/2019 DIAGNOSES: 1. Nausea, vomiting and abdominal pain, favor constipation as the cause, with constipation now resolved. 2. Hypokalemia, resolved. 3. Opioid use disorder, currently on Suboxone. 4. History of psychiatric disorder. 5. Noncompliance with medications. 6. Hypothyroidism. 7. Possible elicit barbiturate use with a positive urine drug screen for opiates in a patient that has not been given barbiturates during the hospitalization nor is she prescribed one. 8. Hypertension. DIAGNOSTIC DATA: On 06/07/2019, CT of the abdomen and pelvis revealed mild colitis and constipation. On 06/10/2019 revealed no significant constipation on KUB. HOSPITAL COURSE: Ms. Alonso presented to the emergency room complaining of abdominal pain and nausea. She was found to be constipated. After a bowel regimen, she did have a large bowel movement. Repeat KUB revealed no further constipation. She had no vomiting while in the hospital reported per the nurses or the patient. Ms. Alonso has a history of opioid abuse and is currently on Suboxone which we continued. She was supposed to be on paroxetine for anxiety at home, which she stated she was not taking. This was continued. She does have a history of noncompliance with medications in the past, wanting only benzodiazepine psychiatric medications and not taking non-benzodiazepine psychiatric medications. Dr. Storm did explain to the patient that he would not give her benzodiazepines, but that he had continued her paroxetine as had been ordered previously. She was noted to have a TSH of 18.[address] Storm, she will need to follow with her primary care physician for dose management. DISCHARGE VITAL SIGNS: Blood pressure is 139/80 with heart rate of 97, respirations 16, temperature 98.2 with room air saturations 98%. PHYSICAL EXAMINATION: CARDIOVASCULAR: Regular rate and rhythm. S1 and S2 appreciated. She has no lower extremity edema. Calves are nontender bilateral. Peripheral pulses x4 extremities. PULMONARY: Breath sounds are clear with no increased work of breathing noted. Chest rises and falls symmetrically with respiration. NEUROLOGICAL: She is alert and oriented x3. SKIN: Warm and dry. DISCHARGE MEDICATIONS: 1. Suboxone 2 mg/0.5 mg film 1 film b.i.d. as directed. 2. Bentyl 10 mg p.o. t.i.d. p.r.n. abdominal pain. 3. Carafate 1 g p.o. before meals and at bedtime. 4. MiraLAX 17 g p.o. daily. 5. NicoDerm patch 14 mg daily. 6. Paxil 20 mg daily. 7. Phenergan suppository 25 mg q.4 hours p.r.n. nausea and vomiting. 8. Protonix 40 mg p.o. daily. 9. Levothyroxine 50 mcg p.o. daily. 10.Tums Extra Strength 1 after meals and at bedtime. 11.Tylenol 650 q.6 hours p.r.n. 12.Zofran ODT 4 mg q.6 hours p.r.n. FOLLOWUP: She is to follow up with her primary care physician within the next 1 to 2 weeks. She needs to call Friday and inform them of her hospital admission and schedule an appointment for their recommendation. She has been instructed to return to the emergency room or call to be seen sooner for any syncope, dizziness, chest pain, palpitations, any shortness of breath, cough, fever or chills, temperature greater than 101, any nausea, vomiting, diarrhea, constipation, black or bloody vomitus or stools, any hematuria, dysuria, frequency, urgency or for any questions or concerns that she may have. She is being discharged home in stable condition with family members. This is a greater than 30 minute discharge. Dictated by DORIS Espino for Justo Storm MD cc: DORIS Espino MD Wallace Seay Agree with the above. the following is my own face to face assessment. patient still with some mild epigastric pain but no major pathology. she has reached maximum benefit of hospitalization. heart: RRR. lungs: CTAB. MTDD
== END 2019-06-11 16:00 | disposition home or self-care (01) | DRG 391 ==
LOC: ED 13:00 → 1N 13:00 → OBSVTOIN 23:49 → SUATTDRO 23:49
PROVIDERS: ATTEND Internal Medicine

== ENCOUNTER 2019-06-21 13:35 | Inpatient (IN) ==
--- NOTE | 2019-06-21 15:13 | PROVIDER DOCUMENTATION ---
HPI-General Adult - General Chief Complaint: Flank Pain Stated Complaint: NAUSEA/HIP PAIN Time Seen by Provider: 06/21/19 15:03 Source: patient Allergies/Adverse Reactions: Patient Allergies Allergy/AdvReac Type Severity Reaction Status Date / Time codeine AdvReac VOMITING Verified 11/30/18 08:17 Home Medications: Home Medication List Medication Instructions Recorded Confirmed Last Taken Type Acetaminophen [Tylenol] 650 mg PO Q6H PRN PRN tab 04/23/19 06/09/19 Unknown Rx Calcium Carbonate [Tums Extra 750 mg PO PC + HS PRN PRN tab 04/23/19 06/09/19 Unknown Rx Strength] Buprenorphine HCl/Naloxone HCl 1 ea SUBLINGUAL BID 06/08/19 06/08/19 06/07/19 09:00 History [Suboxone 2 mg/0.5 mg Sl Film] Dicyclomine [Bentyl] 10 mg PO TID PRN PRN #60 cap 06/11/19 Unknown Rx Levothyroxine [Synthroid] 50 microgm PO DAILY@0700 #30 tab 06/11/19 Unknown Rx Nicotine Patch [Nicoderm Patch] 14 mg TD DAILY PRN PRN patch.td24 06/11/19 Unknown Rx Ondansetron Odt [Zofran 4 mg Odt] 4 mg PO Q6H PRN PRN #30 tab 06/11/19 Unknown Rx Pantoprazole [Protonix] 40 mg PO DAILY@0700 #30 tab 06/11/19 Unknown Rx Paroxetine [Paxil] 20 mg PO QAM #30 tab 06/11/19 Unknown Rx Polyethylene Glycol 3350 [Miralax] 17 gm PO DAILY #30 powd.pack 06/11/19 Unknown Rx Promethazine [Phenergan] 25 mg SC Q4H PRN PRN #14 supp 06/11/19 Unknown Rx Sucralfate [Carafate] 1 gm PO AC + HS #90 tab 06/11/19 Unknown Rx - History of Present Illness -Gen Adult Nature of Presenting Problems: This is a 63yo female with PMH of constipation, hypothyroid, and suboxone therapy who presents with complaint of abdominal pain, vomiting and groin pain. The pateint reports that over the last three days she has been throwing up and hurting. She reports that her last bowel movement was the day before yesterday. She reports that her first symptom was pain in her side, and subsequently she started to have some vomiting. She reports that she has not been able to eat or drink very well. She reports that she has pain in both her groin and her stomach. She denies any fevers but does have chills. She reports that her symptoms feel similar to her previous admission for constipation. Review of Systems - Adult - REVIEW OF SYSTEMS - ADULT Constitutional: reports: chills Eyes: reports: no symptoms reported Ears, Nose, Mouth & Throat: reports: throat pain Cardiovascular: reports: no symptoms reported Respiratory: reports: no symptoms reported Gastrointestinal: reports: abdominal pain, vomiting (non-bloody) Genitourinary: reports: dysuria, other (groin pain) Musculoskeletal: reports: other (groin pain) Integumentary: denies: rash Neurological: reports: dizziness/vertigo Psychiatric: reports: anxiety Hematologic/Lymphatic: reports: other (no bleeding) Allergic/Immunologic: reports: allergic rhinitis Past History - Adult - PAST MEDICAL HISTORY-ADULT Review of Records: reports: Old Records Reviewed Major Childhood Illnesses: reports: other (Headaches) Cardiovascular: reports: HTN Respiratory: reports: asthma, COPD Gastrointestinal: reports: GERD Obstetrical/Gynecological: reports: denies history Genitourinary: reports: other (pt reports her bladder has dropped and she needs repair. ) Musculoskeletal: reports: arthritis, chronic pain Neurological: reports: CVA Psychiatric: reports: anxiety, depression, psychiatric problems Endocrine/Immune: reports: thyroid disorder (hypo). denies: Diabetes Other Conditions: reports: denies history - PRIOR SURGERIES/PROCEDURES Surgical/Procedure History: reports: cholecystectomy, BTL, - IMMUNIZATION STATUS Childhood Immunizations: See Nurse Assessment Flu Vaccine: See Nurse Assessment - FAMILY HISTORY Family History: other (Parents with unspecified heart disease) - SOCIAL HISTORY Smoking: less than 1 pack/day Substance Use: none/never Alcohol Use Frequency: never Living Situation: family Physical Exam-General - CONSTITUTIONAL General Appearance: appears well, alert - HEAD, EARS, NOSE, MOUTH & THROAT HENMT: normocephalic/atraumatic, moist mucous membranes - NECK Neck: non-tender - RESPIRATORY Respiratory: lungs clear, normal breath sounds. negative: crackles, wheezing - CARDIOVASCULAR Cardiovascular: no murmur, tachycardia, other (trace LE edema bilaterally) - GASTROINTESTINAL (ABDOMEN) Abdominal Exam: tenderness, other (generalized tenderness, most notible in the RLQ.) - NEUROLOGIC Neurologic: grossly normal - PSYCHIATRIC Psych/Mental Status: anxious, disheveled Progress - PLAN OF CARE/RESULTS Progress/Plan/Lab Results: Vital Signs - 8 hr 06/21/19 13:48 Temperature 97.9 F Pulse Rate 133 H Respiratory Rate 18 Blood Pressure 117/84 O2 Sat by Pulse Oximetry 98 Orders Category Date Time Status Saline Loc DIRECTED Care 06/21/19 13:52 Active NPO Diet 06/21/19 13:52 Active AMYLASE [CHEM] Stat Lab 06/21/19 14:38 Received CBC WITH ELECTRONIC DIFF [HEME] Stat Lab 06/21/19 14:38 Results COMPREHENSIVE METABOLIC PANEL [CHEM] Stat Lab 06/21/19 14:38 Received LIPASE [CHEM] Stat Lab 06/21/19 14:38 Received URINALYSIS W/POSS RFLX CULT [URINALYSIS] Stat Lab 06/21/19 13:52 Uncollected 63 yo female with hx of constipation and currently on suboxone treatment presents with nausea and abodinal pain. Noted to be SIRs positive with leukocytosis and tachycaridia. DDx: constipation, PNA, appendicitus, gastroenteritis, colitis, diverticulitis - continue work up with CT abdomen and pelvis as well as cxr and UA. Result Diagrams: 06/21/19 14:38 06/21/19 14:38 - REASSESSMENT Reassessment #1 Status: unchanged (Patient still reporting abdominal pain. Discussed the results of CT scan and concern for pneumonia. Patient was agreeable to admission for pneumonia treatment.) Departure - Departure Date of Disposition Decision: 06/21/19 Time of Disposition Decision: 17:53 DIAGNOSIS: Tobacco abuse, Hypothyroid Pneumonia Qualifiers: Pneumonia type: due to unspecified organism Laterality: bilateral Lung location: lower lobe of lung Qualified Code(s): J18.1 - Lobar pneumonia, unspecified organism Nausea & vomiting Qualifiers: Vomiting type: unspecified Vomiting Intractability: intractable Qualified Code(s): R11.2 - Nausea with vomiting, unspecified Abdominal pain Qualifiers: Abdominal location: generalized Qualified Code(s): R10.84 - Generalized abdominal pain Disposition: ADMITTED INPATIENT 09 Certified Medical Emergency: Emergent Condition: Good Referrals and Follow-Ups: None,PCP [Primary Care Provider] - Discharge Education: Steps to Quit Smoking - Critical Care Note This patient required my direct & personal management of CC.: No Attestation - Physician/ MIKE Attestation Patient care was provided by Advanced Practice Provider:: No The physician spent face to face time with patient:: Yes Advanced Practice Provider documentation review:: Supervising physician onsite and consulted in the evaluation and care of this patient. The physician did have a face to face encounter with the patient.
[2019-06-21] MEDS ORDERED: LR 1,000 ML IV ONE (15:26)
[2019-06-21] MEDS ORDERED: PHENERGAN IV ONE (15:34)
[2019-06-21] MEDS ORDERED: SODIUM CHLORIDE 0.9% INJ ONE ×3 (15:34→18:29)
[2019-06-21 15:42] LABS: BASO# 0.04 X1000 (0.0-0.2); BASO% 0.2 % (0.0-0.8); EOS# 0.01 X1000 (0.0-0.7); EOS% 0.1 % (0.0-10.0); HEMOGLOBIN 14.3 g/dL (12.0-16.0); IMM GRAN# 0.09 X1000 (0.0-0.04); IMM GRAN% 0.6 % (0.0-0.5); LYMPH# 0.97 X1000 (1.2-3.4); MCH 27.5 PG (27-31); MCHC 33.3 g/dL (33-37); MCV 82.7 FL (81-99); MONO# 1.36 X1000 (0.11-0.59); MONO% 8.4 % (1.7-9.3); MPV 9.7 FL (7.4-10.4); NEUT# 13.65 X1000 (1.4-6.5); NEUT% 84.7 % (42.2-75.2); PLT 809 X1000 (130-400); RDW 17.5 % (11.5-14.5); WBC 16.12 X1000 (4.8-10.8)
[2019-06-21] MEDS ORDERED: PEPCID IV ONE (15:57)
[2019-06-21] MEDS ORDERED: REGLAN IV ONE (15:57)
[2019-06-21 16:08] LABS: ESTIMATED GFR > 60
[2019-06-21 16:13] LABS: AGAP 13; ALB/GLOB RATIO 0.8; ALBUMIN 2.9 g/dL (3.5-5.0); ALKALINE PHOSPHATASE 201 U/L (32-104); AMYLASE 14 U/L (20-200); BUN 15 mg/dL (8-22); CHLORIDE 93 mmol/L (98-107); COSMO 273; CREATININE 0.4 mg/dL (0.5-0.9); GLUCOSE 144 mg/dL (70-104); GOT 109 U/L (10-30); GPT 48 U/L (10-36); LIPASE 4 U/L (13-60); POTASSIUM 3.3 mmol/L (3.5-5.1); SODIUM 135 mmol/L (136-145); TCO2 29 mmol/L (25-35); TOTAL BILIRUBIN 0.66 mg/dL (0.20-1.00); TOTAL PROTEIN 6.7 g/dL (6.3-8.3)
[2019-06-21 16:25] LABS: ANISOCYTOSIS OCCASIONAL; LARGE PLATELETS OCCASIONAL; LYMPHS 3 % (21-51); MONO 3 % (1-9); SEGS 94 % (42-75)
[2019-06-21 16:39] LABS: INR 1.2; PROTIME 15.3 Seconds (11.0-16.0)
[2019-06-21 16:40] LABS: PTT 46.5 Seconds (22.3-41.8)
--- NOTE | 2019-06-21 17:15 | Diag Imaging Result Doc PS360 ---
EXAM: CT ABD/PELVIS W/IV CONT ONLY HISTORY: abdominal pain, tachycardia, leukocytosis. TECHNIQUE: CT abdomen and pelvis with intravenous contrast COMPARISON: 06/07/2019 FINDINGS: interval development of infiltrates inferiorly in the right middle lobe and left upper lobe as well as inferiorly in the left lower lobe. No pleural effusions. Large hiatal hernia. There is fatty infiltration of the liver and the liver is enlarged. The gallbladder has been removed. There is a biliary stent. Normal spleen, pancreas, and adrenal glands. There are small renal cysts. No hydronephrosis. No aortic aneurysm. Moderate stool throughout the colon. No bowel obstruction. Normal uterus. Urinary bladder is distended and is normal. No ascites. No abscess. IMPRESSION: 1.Interval development of bilateral pneumonia 2.Moderate constipation, but no definite evidence of colitis on the current exam 3.No other interval change. This exam was performed using automated exposure control, adjustment of mA or kV according to patient size, and/or use of iterative reconstruction technique. Electronically signed by Bruce Mercedes 06/21/2019 5:13 PM
--- NOTE | 2019-06-21 17:26 | Diag Imaging Result Doc PS360 ---
EXAM: CHEST-1 VIEW HISTORY: sepsis abdominal pain TECHNIQUE: Chest single view COMPARISON: 06/07/2019 FINDINGS: The lungs are well expanded. No cardiomegaly. Interval development of infiltrates in the lower lungs. No pleural effusions identified. Mild scoliosis. IMPRESSION: Interval development of lower lung pneumonia Electronically signed by Bruce Mercedes 06/21/2019 5:23 PM
[2019-06-21] MEDS ORDERED: ROCEPHIN 1 GM in NS 50 ML IV ONE (17:28)
[2019-06-21] MEDS ORDERED: ZITHROMAX 500 MG/NS 500 MG/250 ML IVPB IV ONE (17:28)
[2019-06-21] MEDS ORDERED: G.I. COCKTAIL PO ONE (17:54)
[2019-06-21] MEDS ORDERED: TYLENOL PO PRN (18:27)
[2019-06-21] MEDS ORDERED: ATROVENT NEB INH PRN (18:27)
[2019-06-21] MEDS ORDERED: XOPENEX NEB INH PRN (18:27)
[2019-06-21] MEDS ORDERED: SYNTHROID IV ONE (18:29)
[2019-06-21] MEDS ORDERED: LACTULOSE PO ONE (18:31)
[2019-06-21] MEDS ORDERED: NICODERM PATCH TD SCH (18:47)
[2019-06-21] MEDS ORDERED: VANCOMYCIN IV PER PHARMACY MISC SCH (19:00)
[2019-06-21] MEDS ORDERED: ZOSYN 3.375 GM in NS 50 ML IV SCH (19:00)
[2019-06-21] MEDS ORDERED: VANCOMYCIN 1,500 MG in NS 250 ML IV ONE (19:00)
[2019-06-21 19:09] LABS: URINE SOURCE CATH
[2019-06-21 19:10] LABS: BILIRUBIN URINE NEGATIVE (NEGATIVE); BLOOD URINE NEGATIVE (NEGATIVE); COLOR YELLOW; GLUCOSE URINE NEGATIVE (NEGATIVE); KETONE URINE 10 mg/dL (NEGATIVE); LEUKOCYTES URINE NEGATIVE (NEGATIVE); NITRITE URINE NEGATIVE (NEGATIVE); PROTEIN URINE 70 mg/dL (NEGATIVE); TURBIDITY URINE CLEAR (CLEAR); UROBILINOGEN URINE NORMAL (NORMAL)
[2019-06-21 19:11] LABS: UR EPITHELIAL CELLS <10 /HPF (<10); URINE BACTERIA 4+ /HPF; URINE RBC <10 /HPF (<10); URINE WBC 20-40 /HPF (<10)
--- NOTE | 2019-06-21 19:26 | HISTORY AND PHYSICAL ---
PRIMARY CARE PROVIDER: None. It looks like she has seen Lorna Piña in the past. CHIEF COMPLAINT: Abdominal pain with nausea and vomiting for 3 days. Abdominal pain for 3 days. HISTORY OF PRESENT ILLNESS: Ms. Roseanne Alonso is a 63-year-old, female with a medical history of long-standing chronic pain who uses Suboxone, also with opioid constipation and chronic abdominal pain, medical noncompliance who now presents with complaints of a 3- day history of bilateral upper quadrant right lower quadrant abdominal pain and some other miscellaneous areas of pain. She states that she has been having some nausea with dry heaves. She has been having stools that are black with diarrhea, but the last 1 being 2 days ago. The last time she ate was yesterday. It was a couple bites of a sandwich. She has complained of chills for 3 days with white phlegm. Has not been passing flatus. So she will be admitted. We will go ahead and treat her constipation. She had an abdominal pelvic CT which showed that she has bibasilar pneumonia, but also there are signs of either significant dehydration with elevated lactate and tachycardia with elevated white blood cell count, versus sepsis. Otherwise, her blood pressure is stable. We will admit to the medical floor, and treat. PAST MEDICAL HISTORY: 1. Chronic pain. 2. Chronic abdominal pain. 3. Opioid related constipation. 4. Hypertension. 5. Uncontrolled hypothyroidism. 6. Anxiety, depression. 7. Degenerative joint disease. 8. GERD. 9. Bipolar disorder. 10. CVA in 2008 with some slight residual right-sided facial paralysis. 11. COPD. SURGICAL HISTORY: 1. Cholecystectomy. 2. Tubal . 3. Bilateral lens placements and cataracts. SOCIAL HISTORY: Lives with her , her son and [id number]. Denies alcohol or illicit drug use. She smokes a pack per day. FAMILY HISTORY: Positive for hypertension and skin cancer. ALLERGIES: Codeine. HOME MEDICATIONS: Not verified yet. REVIEW OF SYSTEMS: Fourteen-point review of systems are complete and all were negative except for those mentioned above in HPI. PHYSICAL EXAMINATION: VITAL SIGNS: Temperature 97.9 degrees, heart rate 111, respiratory rate 18, blood pressure 126/89, O2 saturation 99% on room air, 5 feet 3 inches tall, 100 pounds, BMI is 17.7. GENERAL: Ms. Rosenda Alonso is a 63-year-old ill-appearing female, very cachectic and anorexic. She answers questions appropriately. HEENT: Atraumatic, normocephalic. Pupils equal, round, reactive to light. Extraocular movements intact. Mucous membranes are dry. Tongue is red. NECK: Trachea midline. CARDIOVASCULAR: S1, S2. Tachycardic rate and rhythm. No rubs, gallops, or murmurs. Trace lower extremity edema. +2 dorsalis and pedal pulses. Negative JVD or carotid bruits. PULMONARY: Clear to auscultate. Decreased in the bases. No accessory muscle use or work of breathing noted. Tolerating room air next. GI: Soft, tender in all 4 quadrants. Positive bowel sounds x4, but hypoactive. EXTREMITIES: Moves all extremities equally, but she is weak. Generalized weakness of 3/5. Decreased range of motion. NEURO: A and O x3. Follows commands. Sensory is intact.Skin: Warm, dry, intact. LABORATORY DATA: White blood cells 16,000, hemoglobin 14, hematocrit 43, platelet count 809,000. INR is 1.20, PTT is 46.5. Sodium 135, potassium 3.3, BUN 15, creatinine 0.4, glucose 144, calcium 9.0, magnesium 2.0, bilirubin 0.66. AST 109, ALT 48. Alkaline phos 201, CK 25, troponin less than 0.01. Albumin is 2.9. Amylase 14, lipase 4, lactate 3.2. TSH is 13. IMAGING: Chest x-ray: Lower lung pneumonia. Abdominal pelvic CT: Bilateral pneumonia. Moderate constipation, but no definite evidence of colitis on the current exam. Otherwise, no changes. ASSESSMENT AND PLAN: 1. Chronic constipation secondary to opiate use and Suboxone currently. We will give her a 1- time dose of lactulose. Started her on MiraLAX and we will start her on scheduled Bentyl 4 times a day. 2. Chronic pain with chronic abdominal pain. She will get as Suboxone for now. 3. Anxiety. She is asking and requesting Klonopin. We are going to hold off for now. 4. Severe protein-calorie malnutrition with anorexia likely secondary to her chronic abdominal pain. We will get a nutritional consult. Put her on a regular diet. 5. Bibasilar pneumonia. She will be on antibiotics. We will continue her on Rocephin. Actually, we will do Zosyn and vancomycin to cover for the sepsis protocol and she will get IV fluid hydration. 6. Chronic obstructive pulmonary disease history. She has p.r.n. nebulizers, p.r.n. oxygen. 7. Uncontrolled hypothyroidism. We will continue on her Synthroid p.o. daily 50 mcg and she will get a 1-time IV 25 mcg given. 8. Complains of her tongue hurting. There is a little bit of white in the back of her tongue. It is red, but we will do nystatin swish and swallow in case she is developing oral candidiasis. 9. Hypertension. No medications for that as of right now. 10. Anxiety, depression. She will be on Paxil. 11. Gastroesophageal reflux disease. Protonix p.o. daily. Dictated by DORIS Dumont for Chencho Reardon MD cc: DORIS Dumont MD I agree with most components of history, physical, assessment and plan. A separate addendum has been dictated. MTDD
[2019-06-21 19:32] LABS: SP GRAVITY URINE 1.015
[2019-06-21 19:40] LABS: UR AMPHETAMINES QUAL NONE DETECTED (NONE DETECT); UR BARBITUATES QUAL PRESUMPTIVE POSITIVE (NONE DETECT); UR BENZODIAZEPIN QUAL NONE DETECTED (NONE DETECT); UR CANNABINOIDS QUAL NONE DETECTED (NONE DETECT); UR COCAINE QUAL NONE DETECTED (NONE DETECT); UR METHADONE QUAL NONE DETECTED (NONE DETECT); UR OPIATES QUAL NONE DETECTED (NONE DETECT); UR OXYCODONE QUAL NONE DETECTED (NONE DETECT); UR PCP QUAL NONE DETECTED (NONE DETECT)
--- NOTE | 2019-06-21 19:55 | HISTORY AND PHYSICAL ---
ADDENDUM: To history and physical dictated by nurse practitioner. I agree with most components of history, physical, assessment, and plan. In brief, Ms. Alonso is a 63-year-old lady with past medical history of severe protein energy malnutrition, recurrent nausea and vomiting thought to be related to opioid induced constipation with previous endoscopies and MRCP workup negative, recent hospital admission 10 days ago for recurrent nausea and vomiting due to constipation. He comes in with another episode of abdominal pain, vomiting in the emergency room. She was found to have sepsis with bilateral pneumonia so the hospitalist team is consulted for further management. SUBJECTIVE: On my evaluation, patient denies any chest pain, shortness of breath or cough, though her history, she is a poor historian. She does complain of abdominal pain and wants some medications for that. Currently, she has been afebrile, temperature of 97.9 degrees, pulse 111, respiratory rate 18, blood pressure 120/89, saturating 99% on room air. OBJECTIVE: General: Does not appear in any acute distress. Oral cavity has cheilitis and oral thrush. Lungs: Air entry bilaterally equal. No wheeze, rhonchi, or crackles. Cardiovascular: S1, S2 normal. No murmur, rub, or gallop. Abdomen: Soft. Periumbilical tenderness. No hepatosplenomegaly. Scaphoid. Extremities: No lower extremity edema. Neurological: She is alert. She is oriented x3. She is able to raise both upper and lower extremities above ground level. LABORATORY DATA: Suggestive of leukocytosis, thrombocytosis, lactic acidosis, hyponatremia, hypochloremia, hypokalemia, transaminitis and elevated TSH. ASSESSMENT AND PLAN: 1. Sepsis and lactic acidosis due to bilateral pneumonia. Though she does not have many symptoms of pneumonia, her x-ray and CT scan findings are definitive and she does have prior history of Streptococcus pneumonia. She also has lactic acidosis and organ dysfunction. 2. Likely clinical volume depletion. 3. Chronic recurrent nausea, vomiting, and abdominal pain due to constipation. 4. Hypothyroidism with prior history of thyrotoxicosis and now worsening hypothyroidism. 5. Active tobacco abuse. 6. Oral thrush. 7. Chronic opioid use disorder on Suboxone maintenance now. PLAN: 1. I will admit the patient in telemetry unit. I will treat her with intravenous ceftriaxone and azithromycin intravenous fluids and follow up with lactic acid and transaminitis and liver function tests tomorrow. 2. I will avoid all opioids and benzodiazepines for her recurrent abdominal pain and anxiety. I will only keep her on her home Suboxone. 3. I will treat constipation with suppositories and have outpatient followup with her regular doctor. Plan of care discussed with the patient. Her questions have been answered. cc: Chencho Reardon MD MTDD
[2019-06-21] MEDS: POTASSIUM CHLORIDE 20 MEQ/SWI 20 MEQ/100 ML IVPB IV SCH ×2 (20:35→23:08)
[2019-06-21] MEDS: MIRALAX PO SCH (20:49)
[2019-06-21] MEDS: DULCOLAX PR SCH (20:50)
[2019-06-21] MEDS: BENTYL PO SCH (20:50)
[2019-06-21] MEDS: MYCOSTATIN SUSP PO SCH (20:50)
[2019-06-21] MEDS: NS 1,000 ML IV SCH (20:52)
[2019-06-21] MEDS: ZOFRAN IV PRN (20:57)
[2019-06-21] MEDS ORDERED: SUBOXONE 2 MG/0.5 MG FILM SL SCH (21:00)
[2019-06-21] MEDS: SUBOXONE 2 MG/0.5 MG SL SCH (21:16)
[2019-06-21] MEDS: NICODERM PATCH TD SCH (22:16)
[2019-06-22] MEDS ORDERED: ATIVAN PO ONE (00:02)
[2019-06-22] MEDS: ZOFRAN IV PRN ×3 (03:18→21:59)
[2019-06-22] MEDS: PROTONIX PO SCH (07:05)
[2019-06-22] MEDS: SYNTHROID PO SCH (07:06)
[2019-06-22 07:55] LABS: INR 1.41; PROTIME 17.5 Seconds (11.0-16.0); PTT 50.6 Seconds (22.3-41.8)
[2019-06-22 07:59] LABS: BASO# 0.03 X1000 (0.0-0.2); BASO% 0.3 % (0.0-0.8); EOS# 0.07 X1000 (0.0-0.7); EOS% 0.8 % (0.0-10.0); HEMATOCRIT 34.3 % (37.0-47.0); HEMOGLOBIN 11.3 g/dL (12.0-16.0); IMM GRAN# 0.07 X1000 (0.0-0.04); IMM GRAN% 0.8 % (0.0-0.5); LYMPH# 1.32 X1000 (1.2-3.4); LYMPH% 15.1 % (20.5-51.1); MCH 26.9 PG (27-31); MCHC 32.9 g/dL (33-37); MCV 81.7 FL (81-99); MONO# 1.04 X1000 (0.11-0.59); MONO% 11.9 % (1.7-9.3); MPV 9.6 FL (7.4-10.4); NEUT# 6.23 X1000 (1.4-6.5); NEUT% 71.1 % (42.2-75.2); PLT 684 X1000 (130-400); RDW 17.6 % (11.5-14.5); WBC 8.76 X1000 (4.8-10.8)
[2019-06-22 08:44] LABS: AGAP 6; ALB/GLOB RATIO 0.9; ALBUMIN 2.3 g/dL (3.5-5.0); ALKALINE PHOSPHATASE 152 U/L (32-104); BUN 11 mg/dL (8-22); CALCIUM 7.8 mg/dL (8.8-10.2); CHLORIDE 102 mmol/L (98-107); COSMO 271; CREATININE 0.2 mg/dL (0.5-0.9); ESTIMATED GFR > 60; GLUCOSE 92 mg/dL (70-104); GOT 181 U/L (10-30); GPT 73 U/L (10-36); MAGNESIUM 1.8 mg/dL (1.5-2.7); POTASSIUM 4.1 mmol/L (3.5-5.1); SODIUM 136 mmol/L (136-145); TCO2 28 mmol/L (25-35); TOTAL BILIRUBIN 0.41 mg/dL (0.20-1.00)
[2019-06-22] MEDS: MIRALAX PO SCH (09:44)
[2019-06-22] MEDS: MYCOSTATIN SUSP PO SCH ×4 (09:44→21:59)
[2019-06-22] MEDS: BENTYL PO SCH ×4 (09:45→21:59)
[2019-06-22] MEDS: SUBOXONE 2 MG/0.5 MG SL SCH ×2 (09:45→21:59)
[2019-06-22] MEDS: NICODERM PATCH TD SCH (09:45)
[2019-06-22] MEDS: DULCOLAX PR SCH (09:45)
[2019-06-22] MEDS: PAXIL PO SCH (09:45)
--- NOTE | 2019-06-22 13:55 | PROGRESS NOTE ---
DATE: 06/22/2019 SUBJECTIVE: This morning Ms. Alonso refers to be doing a little better. Still has some abdominal discomfort. She has had a large bowel movement. OBJECTIVE: Vital signs: Blood pressure is 115/82, pulse of 116, respiration is 18, temperature 98.1 degrees. General: Ms. Alonso is a 63-year-old female she is in bed, no distress. She looks undernourished and emaciated. BMI is 15.4. Chest: Entry is bilateral reduced with some crackles posterior. Cardiovascular: Regular rate and rhythm. Abdomen: Soft. Extremities: No pedal edema. STEM SETTER: Patient is awake, alert and oriented. LABORATORY DATA: WBC is down to 8.76, hemoglobin is 11.3, platelet count 684,000. Chemistry is also reviewed is completely normal except for AST, ALT that is elevated. A CT scan of the abdomen and pelvis which was done did show interval development of bilateral pneumonia, moderate constipation, no definite evidence of colitis. ASSESSMENT: 1. Abdominal pain secondary to constipation from chronic opioid use. Patient is currently on Suboxone. 2. Severe protein calorie malnutrition. 3. Bibasilar pneumonia. Patient has been started on antimicrobial therapy. We are going to check her immunoglobulin level as well. 4. Chronic obstructive pulmonary disease in mild exacerbation. 5. Hypothyroidism. Will continue with home Synthroid. 6. Chronic pain. 7. Clinical volume depletion with hypoperfusion manifested with lactic acidosis improved with hydration. cc: Simon Rowan MD MTDD
[2019-06-22] MEDS: ROCEPHIN 1 GM in NS 50 ML IV SCH (16:52)
[2019-06-22] MEDS: G.I. COCKTAIL PO PRN (16:53)
[2019-06-22] MEDS: ZITHROMAX 500 MG/NS 500 MG/250 ML IVPB IV SCH (18:23)
[2019-06-23] MEDS: NS 1,000 ML IV SCH (01:22)
[2019-06-23] MEDS: DULCOLAX PR SCH ×3 (01:22→20:33)
[2019-06-23] MEDS: G.I. COCKTAIL PO PRN ×2 (03:26→12:11)
[2019-06-23] MEDS: ZOFRAN IV PRN (06:19)
[2019-06-23] MEDS: PROTONIX PO SCH (06:20)
[2019-06-23] MEDS: SYNTHROID PO SCH (06:20)
--- NOTE | 2019-06-23 06:55 | Diag Imaging Result Doc PS360 ---
CHEST-PORTABLE - 06/23/2019 INDICATION: dyspnea COMPARISON: 06/21/2019 FINDINGS: Stable hyperexpanded lungs. Stable small infiltrate in the left lung base. The right basilar infiltrate has improved. No pneumothorax or significant pleural effusion. Heart size is normal. IMPRESSION: Improvement in the right basilar infiltrate. Electronically signed by Christian Helms 06/23/2019 6:53 AM
[2019-06-23 07:49] LABS: AGAP 10; ALB/GLOB RATIO 0.8; ALBUMIN 2.4 g/dL (3.5-5.0); ALKALINE PHOSPHATASE 141 U/L (32-104); BUN 7 mg/dL (8-22); CALCIUM 7.9 mg/dL (8.8-10.2); CHLORIDE 103 mmol/L (98-107); COSMO 271; CREATININE 0.3 mg/dL (0.5-0.9); ESTIMATED GFR > 60; GLUCOSE 90 mg/dL (70-104); GOT 126 U/L (10-30); GPT 84 U/L (10-36); POTASSIUM 3.2 mmol/L (3.5-5.1); SODIUM 137 mmol/L (136-145); TCO2 24 mmol/L (25-35); TOTAL BILIRUBIN 0.35 mg/dL (0.20-1.00); TOTAL PROTEIN 5.4 g/dL (6.3-8.3)
[2019-06-23] MEDS: BENTYL PO SCH ×4 (09:27→20:33)
[2019-06-23] MEDS: MYCOSTATIN SUSP PO SCH ×4 (09:27→20:32)
[2019-06-23] MEDS: SUBOXONE 2 MG/0.5 MG SL SCH ×2 (09:27→20:32)
[2019-06-23] MEDS: PAXIL PO SCH (09:27)
[2019-06-23] MEDS: NICODERM PATCH TD SCH (09:27)
[2019-06-23] MEDS: MIRALAX PO SCH (09:36)
[2019-06-23] MEDS: MILK OF MAGNESIA PO SCH (14:42)
--- NOTE | 2019-06-23 14:46 | PROGRESS NOTE ---
DATE: 06/23/2019 SUBJECTIVE: Today Ms. Alonso refers to be doing okay but still having some abdominal pain but no vomiting. The patient is said to have had 2 bowel movements yesterday, none so far today. She was also able to consume about 50% of her meals. OBJECTIVE: Vital signs: Blood pressure is 126/85, pulse of 104, respirations 20, temperature 97.6 degrees. General: Ms. Alonso is a 63-year-old, female. She is in bed. She looks remarkably malnourished and far older than her age. HEENT: Mucosa is pink and moist. Anicteric. Acyanotic. Neck: Supple. Chest: Good air entry bilateral. Some prolonged expiratory phase of respiration. Cardiovascular: Regular rate and rhythm. Gastrointestinal: Abdomen is soft, minimally tender in the right lower abdomen, but there is no guarding, no rebound. Extremities: No pedal edema. Central nervous system: Patient is awake, alert, and oriented. LABORATORY DATA: Chemistry is reviewed. Potassium is 3.2. Rest of chemistry is completely normal. Patient's AST and ALT are minimally elevated. The IgG level is normal. CURRENT MEDICATIONS: Have all been reviewed. ASSESSMENT: 1. Abdominal pain secondary to constipation from chronic opioid use. We will continue with bowel regimen and pain management. 2. Severe protein calorie malnutrition. The patient is on supplements. 3. Bibasilar pneumonia. We will continue with antimicrobial therapy. IgG level is normal. 4. Chronic obstructive pulmonary disease with mild exacerbation, improved. 5. Hypothyroidism. Patient is on Synthroid. 6. Clinical volume depletion, improved. 7. Chronic pain syndrome. cc: Simon Rowan MD
[2019-06-23] MEDS: ZITHROMAX 500 MG/NS 500 MG/250 ML IVPB IV SCH (16:54)
[2019-06-23] MEDS: ROCEPHIN 1 GM in NS 50 ML IV SCH (16:55)
[2019-06-23] MEDS ORDERED: NS 1,000 ML ONE (20:43)
[2019-06-24] MEDS: ZOFRAN IV PRN ×4 (00:08→15:18)
[2019-06-24] MEDS: G.I. COCKTAIL PO PRN ×2 (00:12→13:51)
[2019-06-24] MEDS: SYNTHROID PO SCH (06:08)
[2019-06-24] MEDS: PROTONIX PO SCH (06:08)
--- NOTE | 2019-06-24 07:17 | Diag Imaging Result Doc PS360 ---
EXAM: KUB ABDOMEN 06/24/2019 HISTORY: SBO TECHNIQUE: KUB portable at 0457 COMMENT: There is a nonspecific colonic and small bowel gas pattern. There is a biliary stent. There has been cholecystectomy. The appearance of the abdomen has not changed significantly since 06/10/2019. IMPRESSION: Nonspecific abdomen. While the possibility of ileus cannot be excluded, there is no evidence of small bowel obstruction. Electronically signed by Panchito Payton 06/24/2019 7:15 AM
[2019-06-24 07:42] LABS: AGAP 10; ALB/GLOB RATIO 0.8; ALBUMIN 2.3 g/dL (3.5-5.0); ALKALINE PHOSPHATASE 132 U/L (32-104); BUN 6 mg/dL (8-22); CHLORIDE 102 mmol/L (98-107); COSMO 274; CREATININE 0.2 mg/dL (0.5-0.9); ESTIMATED GFR > 60; GLUCOSE 106 mg/dL (70-104); GOT 46 U/L (10-30); GPT 58 U/L (10-36); POTASSIUM 3.1 mmol/L (3.5-5.1); SODIUM 138 mmol/L (136-145); TCO2 26 mmol/L (25-35); TOTAL BILIRUBIN 0.36 mg/dL (0.20-1.00); TOTAL PROTEIN 5.2 g/dL (6.3-8.3)
[2019-06-24 07:59] LABS: CALCIUM 6.9 mg/dL (8.8-10.2)
[2019-06-24] MEDS: BENTYL PO SCH ×4 (08:10→20:24)
[2019-06-24] MEDS: PAXIL PO SCH (08:10)
[2019-06-24] MEDS: MILK OF MAGNESIA PO SCH (08:10)
[2019-06-24] MEDS: NICODERM PATCH TD SCH (08:10)
[2019-06-24] MEDS: MYCOSTATIN SUSP PO SCH ×4 (08:10→20:25)
[2019-06-24] MEDS: SUBOXONE 2 MG/0.5 MG SL SCH ×2 (08:11→20:24)
[2019-06-24] MEDS: MIRALAX PO SCH ×2 (08:11→11:42)
[2019-06-24] MEDS: DULCOLAX PR SCH ×3 (08:11→20:25)
[2019-06-24 09:49] LABS: PHOSPHORUS 2.9 mg/dL (2.7-4.5)
[2019-06-24] MEDS ORDERED: BLISTEX MEDICATED BERRY LIP BALM TOP PRN (12:30)
--- NOTE | 2019-06-24 14:03 | PROGRESS NOTE ---
DATE: 06/24/2019 SUBJECTIVE: This morning, Ms. Alonso refers to be having excruciating epigastric pain. The son was at the bedside at the time of the encounter. OBJECTIVE: Vital Signs: Blood pressure is 120/88, pulse of 130, respirations are 14, temperature is 98.4 degrees, the patient was saturating about 99% on room air. General Examination: Ms. Alonso is a 63-year-old, female. She was sitting at the edge of the bed. She was in some painful distress. HEENT: Mucosa is pink and moist. Anicteric. Acyanotic. Neck: Supple. Chest: Good air entry bilaterally. A few crackles in the posterior lung oconnell with mild prolonged expiratory phase of respiration. Cardiovascular: Regular rate and rhythm. GI: Abdomen is soft. There was some tenderness in the epigastrium and the right upper quadrant but there was not any rebound or guarding. Bowel sounds were present. Extremities: No pedal edema. AIRLINE CUSTOMER SERVICE AGENT: The patient was awake, alert, and oriented. Laboratory Data: Potassium is 3.1, calcium 6.9. Vitamin D level of 19.8. ASSESSMENT: 1. Abdominal pain on presentation, initially presumed to be constipation from chronic opioid use. The patient is getting adequate bowel movements. However, this morning, she is having more excruciating abdominal pain. We are going to do a CT scan of the abdomen with oral contrast and follow up accordingly. Her lipase is normal. 2. Severe protein calorie malnutrition. Patient is on supplements. 3. Bibasilar pneumonia. The patient is currently on intravenous antimicrobial therapy. IgG level is normal. 4. Chronic obstructive pulmonary disease with mild exacerbation, improved. 5. Hypothyroidism. We will continue with Synthroid. 6. Chronic pain syndrome, noted. 7. Clinical volume depletion on presentation, improved. 8. Vitamin D deficiency. We will continue to replace. 9. Hypokalemia, replaced. 10. Elevated liver enzymes. This is trending down. PLAN: In general, I think from a respiratory standpoint, Ms. Alonso is doing a lot better. However, she continues to have this excruciating epigastric pain. We are going to do a CT scan of the abdomen and pelvis to rule out any potential cause. Ms. Alonso is currently on a PPI and she is also getting a GI cocktail. cc: Simon Rowan MD CT report reviewed. Concern for SBO. Keep NPO consult surgery MTDD
--- NOTE | 2019-06-24 14:34 | Diag Imaging Result Doc PS360 ---
CT ABD/PELVIS W/PO AND IV CON - 06/24/2019 INDICATION: severe epigastric pain COMPARISON: 06/21/2019 FINDINGS: There has been slight improvement in the left basilar infiltrate. There is a trace left basilar pleural effusion now. There is a large hiatal hernia. There is a common bile duct stent in good position. No intrahepatic biliary dilation. There are small bilateral renal cysts. There is moderately severe dilation of several small bowel loops. In addition there is slight dilation of the colon with several air-fluid levels. No significant constipation. This suggests colonic ileus. There are several small bowel loops that are filled with oral contrast filling the left side of the abdomen. These are lateral to the colon loops of the splenic flexure and the descending colon. This is suggestive of an internal hernia. Bony structures are intact and well mineralized. IMPRESSION: 1. Abnormal bowel configuration suggesting an internal herniation with small bowel lateral to the descending colon in the left lateral abdomen. 2. There is moderate dilation of several small bowel loops and some colon loops. This suggests either partial obstruction or diffuse ileus. 3. Left lower lobe infiltrate/pneumonia. Trace left pleural effusion. This exam was performed using automated exposure control, adjustment of mA or kV according to patient size, and/or use of iterative reconstruction technique Electronically signed by Christian Helms 06/24/2019 2:32 PM
[2019-06-24] MEDS: ROCEPHIN 1 GM in NS 50 ML IV SCH (15:11)
[2019-06-24] MEDS: ZITHROMAX 500 MG/NS 500 MG/250 ML IVPB IV SCH (16:16)
--- NOTE | 2019-06-24 19:53 | CONSULTATION ---
DATE OF CONSULTATION: 06/24/2019 HISTORY OF PRESENT ILLNESS: Ms. Alonso was admitted on 06/21/2019 through our emergency department. She has a complicated medical history including substance abuse. She was admitted with vomiting and abdominal pain. She has been admitted for nausea vomiting in the past, which usually resolves with laxatives. She was admitted earlier in the month with much of the same symptoms. PAST MEDICAL HISTORY: Pneumonia, chronic pain, chronic abdominal pain and opioid-related constipation, hypertension, hypothyroidism, anxiety and depression, degenerative joint disease, GERD, hiatal hernia, bipolar disorder, stroke in 2009 with some residual right-sided facial paralysis, COPD. She has a common bile duct stent for a stricture per Dr. Rowe. PAST SURGICAL HISTORY: Cholecystectomy, tubal and bilateral lens placements and cataracts. SOCIAL HISTORY: She lives with her , her son and [id number]. She smokes a pack of cigarettes a day. FAMILY HISTORY: Positive for hypertension and skin cancer. ALLERGIES: Codeine. MEDICATIONS: She is on multiple medications, as reviewed in the chart. REVIEW OF SYSTEMS: A 14-point review of systems was performed. She has had crampy abdominal pain since her admission 06/21/2019. She is now sitting on the bedside commode. PHYSICAL EXAMINATION: On exam, Ms. Alonso is a small, slim white female. She is in no acute distress. Hemodynamically, her heart rate is 79, blood pressure 117/93, O2 saturation 98%. She is afebrile. She has no jaundice. No oral lesions. No cervical or supraclavicular lymphadenopathy. Her heart has a regular rate. Lungs have some expiratory wheezing. She has mild shortness of breath. Her abdomen is slightly distended, appears to be mildly tender throughout. Rectal exam was not performed, or vaginal exam. She does have palpable femoral pulses. She has no peripheral edema. Neurologically, she has no significant weakness on either side. She is awake and cooperative. DIAGNOSTIC DATA: A CT scan of her abdomen and pelvis has been performed. There is some dilatation of the small bowel but there are also air-fluid levels in the colon. There is no evidence of biliary dilatation or other pathology. LABORATORY DATA: Her last blood white blood cell count several days ago was normal. Electrolytes today were within normal limits. Liver function tests were only slightly elevated. IMPRESSION: 1. Recurrent abdominal pain, with some distention and nausea. 2. Chronic constipation. PLAN: We will rehydrate her and make sure that medically she is getting treated for hypothyroidism. She is getting laxatives that help move her bowels. She has no NG tube at this time. We will see if we can resolve this conservatively. cc: Mary Camejo MD
[2019-06-25] MEDS: G.I. COCKTAIL PO PRN ×3 (00:44→20:25)
[2019-06-25] MEDS: ZOFRAN IV PRN ×2 (03:06→13:35)
[2019-06-25] MEDS: SYNTHROID PO SCH (06:00)
[2019-06-25] MEDS: PROTONIX PO SCH (06:00)
[2019-06-25 07:11] LABS: BASO# 0.02 X1000 (0.0-0.2); BASO% 0.3 % (0.0-0.8); EOS# 0.04 X1000 (0.0-0.7); EOS% 0.7 % (0.0-10.0); HEMATOCRIT 35.6 % (37.0-47.0); HEMOGLOBIN 11.8 g/dL (12.0-16.0); LYMPH# 1.39 X1000 (1.2-3.4); LYMPH% 22.9 % (20.5-51.1); MCH 27.8 PG (27-31); MCHC 33.1 g/dL (33-37); MONO# 0.81 X1000 (0.11-0.59); MONO% 13.4 % (1.7-9.3); MPV 8.8 FL (7.4-10.4); NEUT% 62.7 % (42.2-75.2); PLT 644 X1000 (130-400); RBC 4.24 XMIL (4.2-5.4); RDW 17.4 % (11.5-14.5); WBC 6.06 X1000 (4.8-10.8)
[2019-06-25 07:21] LABS: ESTIMATED GFR > 60
[2019-06-25 07:25] LABS: AGAP 12; AMYLASE 10 U/L (20-200); BUN 7 mg/dL (8-22); CALCIUM 7.9 mg/dL (8.8-10.2); CHLORIDE 97 mmol/L (98-107); COSMO 266; CREATININE 0.3 mg/dL (0.5-0.9); GLUCOSE 124 mg/dL (70-104); SODIUM 133 mmol/L (136-145); TCO2 24 mmol/L (25-35)
--- NOTE | 2019-06-25 07:32 | Diag Imaging Result Doc PS360 ---
FLAT/UPRIGHT ABD/1 VIEW CHEST - 06/25/2019 INDICATION: abdominal pain. TECHNIQUE: COMPARISON: 06/24/2019 FINDINGS: There has been improvement in the bowel gas pattern, with decrease distended small bowel loops. The oral contrast has moved into the colon and rectum. Stable common bile duct stent. Stable cholecystectomy clips. No free air. The colon does remain somewhat gas distended but the appearance is nonspecific. Stable hazy infiltrate in the left lung base suggesting pneumonia. IMPRESSION: 1. Improvement in the small bowel gas pattern. Persistent mild gas dilation of the colon. 2. Left basilar pneumonia. Electronically signed by Christian Helms 06/25/2019 7:30 AM
[2019-06-25] MEDS ORDERED: MAGNESIUM SULFATE 2 GM/S.W.I. 2 GM/50 ML IVPB IV ONE (08:26)
[2019-06-25] MEDS: NS 1,000 ML IV SCH (09:21)
[2019-06-25] MEDS: VITAMIN D PO SCH (09:22)
[2019-06-25] MEDS: MYCOSTATIN SUSP PO SCH ×4 (09:23→20:25)
[2019-06-25] MEDS: DULCOLAX PR SCH ×2 (09:23→20:27)
[2019-06-25] MEDS: PAXIL PO SCH (09:23)
[2019-06-25] MEDS: BENTYL PO SCH ×4 (09:23→20:24)
[2019-06-25] MEDS: MILK OF MAGNESIA PO SCH (09:23)
[2019-06-25] MEDS: NICODERM PATCH TD SCH (09:23)
[2019-06-25] MEDS: MIRALAX PO SCH (09:25)
[2019-06-25] MEDS: SUBOXONE 2 MG/0.5 MG SL SCH ×2 (09:30→20:24)
[2019-06-25] MEDS: POTASSIUM CHLORIDE 20 MEQ/SWI 20 MEQ/100 ML IVPB IV SCH ×2 (10:58→13:23)
[2019-06-25] MEDS ORDERED: DEMEROL IV ONE (11:01)
--- NOTE | 2019-06-25 11:45 | PROGRESS NOTE ---
DATE: 06/25/2019 SUBJECTIVE: This morning Ms. Alonso refers to continued hurting in the right lower quadrant but no nauseation and no vomiting. OBJECTIVE: Vital Signs: Blood pressure is 123/88, pulse of 112, temperature is 98.2 degrees, respiration is 18, pulse of 112. The patient is saturating 100% on room air. General: Ms. Alonso is a 63-year-old elderly female. She is in bed. She is not in any cardiopulmonary distress. HEENT: Mucosa is pink and moist. Anicteric. Acyanotic. Neck: Supple. Chest: Good air entry bilateral. There is a few crackles in the posterior lung oconnell with mild prolonged expiratory phase of respiration. Cardiovascular: Regular rate and rhythm. No murmurs. GI: Abdomen is soft. There is some tenderness generally but no guarding and no rebound. Bowel sounds are present. SKULL GRINDER: Patient is awake, alert, and oriented. LABORATORY DATA: CBC is reviewed and is normal except for mild normocytic anemia and thrombocytosis. Her chemistry is reviewed. Sodium, potassium, and calcium are all on the lower end. DIAGNOSTIC STUDIES: A CT scan of the abdomen yesterday did show abnormal bowel configuration suggesting an internal herniation with small bowel lateral to the descending colon in the left lateral abdomen. There was suggestion also of either partial obstruction or diffuse ileus. A KUB this morning shows improvement in the small bowel gas pattern but there is still persistent mild gas dilation of the colon. ASSESSMENT: 1. Abdominal pain, presumably due to constipation from chronic opioid use. However, CT scan also suggests an internal hernia, which I am not sure if this is causing some of her ongoing pain. The patient has been evaluated by Surgery, will be pending their final recommendations today. 2. Severe protein calorie malnutrition. Patient is on supplements. 3. Bibasilar pneumonia. We will continue with antimicrobial therapy. IgG is normal. 4. Chronic obstructive pulmonary disease with mild exacerbation, improved. 5. Hypothyroidism. Will up-titrate the Synthroid dose. 6. Chronic pain syndrome. 7. Clinical volume depletion, improved. 8. Vitamin D deficiency. We will continue replacement. 9. Electrolytes abnormality including hypokalemia, hyponatremia and hypocalcemia. Will continue to replace all. 10. Transaminitis, improved. PLAN: In general, I think Ms. Alonso is doing okay. She still continues having some abdominal discomfort. She has been having bowel movements. There is actually one documented every single day. The one yesterday was documented to be soft but not diarrhea. However, she continues to have significant abdominal pain. Surgery evaluated her yesterday. We will be waiting for their re-evaluation this morning and then go from there. If it is okay with Surgery, I think we might be able to discharge her pending their final recommendations. cc: Simon Rowan MD
--- NOTE | 2019-06-25 12:41 | PROGRESS NOTE ---
DATE: 06/25/2019 SUBJECTIVE: Ms Roseanne Alonso is a 63-year-old white female who has had chronic abdominal discomfort and constipation. I was asked to see her because of her abdominal pain. Yesterday, she had several bowel movements and was able to pass flatus. She is sitting up today and clinically looks and feels better. OBJECTIVE: Her x-ray suggested more air in her colon. An abdominal x-ray showed recent oral diet from CT scan in her colon. Her white blood cell counts is normal. Electrolytes are within normal limits. On exam, her abdomen is soft. She does complain of some vague diffuse abdominal tenderness. She is afebrile. PLAN: I agree with advancing her diet to a regular diet and will allow the Hospitalist to discharge her home at their discretion. cc: Mary Camejo MD
[2019-06-25] MEDS: ZITHROMAX 500 MG/NS 500 MG/250 ML IVPB IV SCH ×2 (16:49→18:02)
[2019-06-25] MEDS: ROCEPHIN 1 GM in NS 50 ML IV SCH (17:06)
[2019-06-25] MEDS: DEMEROL IV PRN (19:36)
[2019-06-26] MEDS: NS 1,000 ML IV SCH (01:50)
[2019-06-26] MEDS: PROTONIX PO SCH (06:20)
[2019-06-26] MEDS: DEMEROL IV PRN (06:20)
[2019-06-26] MEDS ORDERED: SYNTHROID PO SCH (07:00)
[2019-06-26 07:53] VITALS: BP 127/66
[2019-06-26 07:54] LABS: AGAP 6; ALBUMIN 2.6 g/dL (3.5-5.0); BUN 6 mg/dL (8-22); CALCIUM 7.7 mg/dL (8.8-10.2); CHLORIDE 99 mmol/L (98-107); COSMO 265; CREATININE 0.3 mg/dL (0.5-0.9); ESTIMATED GFR > 60; GLUCOSE 88 mg/dL (70-104); MAGNESIUM 2.1 mg/dL (1.5-2.7); SODIUM 134 mmol/L (136-145); TCO2 29 mmol/L (25-35)
--- NOTE | 2019-06-26 08:20 | DISCHARGE SUMMARY ---
ADMISSION DATE: 06/21/2019 DISCHARGE DATE: 06/26/2019 DISPOSITION: Home. FOLLOW-UP: 1. With PCP, Dr. Santana. 2. Dr. Camejo. CONSULTATION DURING THIS ADMISSION: Surgery was consulted. Patient was seen by Dr. Camejo. INVASIVE PROCEDURES DONE DURING THIS ADMISSION: None. IMAGING STUDIES OF SIGNIFICANCE: 1. A chest x-ray did show interval development of lower lung pneumonia. 2. A CT scan of the abdomen and pelvis initially did show moderate constipation. No definite evidence of colitis. 3. The repeat CT scan of the abdomen and pelvic did show possible internal hernia. Moderate dilation of several small bowel loops, left lower lobe pneumonia. 4. A KUB yesterday showed improvement in the small bowel gas pattern. ADMISSION DIAGNOSES: 1. Chronic constipation secondary to opiate use and Suboxone. 2. Chronic pain with chronic abdominal pain. 3. Anxiety. 4. Severe protein calorie malnutrition. 5. Bibasilar pneumonia. 6. Chronic obstructive pulmonary disease. DIAGNOSES AT THE TIME OF DISCHARGE: 1. Abdominal pain secondary to constipation from chronic opioid use. 2. Internal hernia, currently asymptomatic. 3. Severe protein calorie malnutrition. 4. Bibasilar pneumonia, predominantly left side. 5. Chronic obstructive pulmonary disease in mild exacerbation, improved. 6. Hypothyroidism. 7. Chronic pain syndrome. 8. Vitamin D deficiency. 9. Mild electrolyte abnormality, all corrected. 10. Transaminitis improved. 11. History of bipolar disorder. DISCHARGE MEDICATIONS: 1. Suboxone 2 mg sublingual. 2. Carafate 1 g p.o. 3 times per day. 3. MiraLAX 17 g p.o. daily. 4. Promethazine 25 mcg p.o. q.4 p.r.n. 5. Paroxetine 20 mg p.o. q.a.m. 6. Pantoprazole 40 mg p.o. daily. 7. Bentyl 10 mg 3 times per day. 8. Levothyroxine 75 mcg p.o. daily. 9. Mirtazapine 50 mg p.o. at bedtime. 10. Klonopin 0.5 p.o. daily. 11. Dulcolax 10 mg b.i.d. 12. Movantik 12.5 p.o. daily. 13. Cholecalciferol 2000 units p.o. daily. 14. Magnesium oxide. 15. Amoxiclav 875 p.o. q.12. 16. Azithromycin 250 p.o. daily for 5 days. PRESENTING COMPLAINT: Abdominal pain, nausea, vomiting for 3 days. HISTORY OF PRESENTING COMPLAINT: Ms. Alonso is a 63-year-old female who has multiple comorbidities including long-standing chronic pain who uses Suboxone, also opioid constipation, chronic abdominal pain, noncompliance, came to the emergency department because of abdominal pain of non precise location. Upon presenting, she was evaluated. A CT scan did show some bibasilar pneumonia and constipation in the abdominal cavity. She was admitted to the medical floor for further medical evaluation. HOSPITAL COURSE: Ms. Alonso was admitted to the medical floor. She was adequately fluid resuscitated. Her symptoms were initially thought to be associated with constipation due to chronic opioid use. During the hospital course, she was started on bowel regimen. She did improve in terms of her constipation, but she continued having abdominal pain. Her pneumonia was also treated adequately. Immunoglobulin levels were rechecked which they were all normal. She did not need any immunoglobulin supplements. During the hospital course Ms. Alonso continued to have abdominal pain, so repeat CT scan was done which did not show any major difference. There was some improvement in the small intestine distribution. There was a mention of also internal hernia, so surgery was consulted and patient was seen by Dr. Camejo on 2 occasions and he recommended just medical management for the abdominal pain. This morning Ms. Alonso refers to be feeling a little better. Still has mild abdominal pain, but she has been tolerating her diet. She has been having regular bowel movement. We think she is fairly stable for discharge. All the discharge instructions have been discussed with her. She has been started on Movantik to prevent opioid induced constipation. She has also been given oral antibiotics to complete the treatment of 7 days for the pneumonia. TIME SPENT: The time spent for discharge is 45 minutes. cc: MD Gerson Landers MD Lynn R. Buckner, MD
[2019-06-26] MEDS: PAXIL PO SCH (08:49)
[2019-06-26] MEDS: NICODERM PATCH TD SCH (08:49)
[2019-06-26] MEDS: MILK OF MAGNESIA PO SCH ×2 (08:49→09:08)
[2019-06-26] MEDS: VITAMIN D PO SCH (08:49)
[2019-06-26] MEDS: BENTYL PO SCH (08:49)
[2019-06-26] MEDS: MYCOSTATIN SUSP PO SCH (08:50)
[2019-06-26] MEDS: G.I. COCKTAIL PO PRN (08:50)
[2019-06-26] MEDS: SUBOXONE 2 MG/0.5 MG SL SCH (09:04)
[2019-06-26] MEDS: MIRALAX PO SCH (09:07)
[2019-06-26] MEDS: DULCOLAX PR SCH (09:07)
== END 2019-06-26 11:24 | disposition home or self-care (01) | DRG 193 ==
LOC: ED 13:35 → SUATTDRO 19:17 → 1N 19:17
PROVIDERS: ATTEND Internal Medicine

== ENCOUNTER 2019-06-30 19:10 | Inpatient (IN) ==
[2019-06-30 20:08] LABS: BASO# 0.06 X1000 (0.0-0.2); BASO% 0.3 % (0.0-0.8); EOS# 0.01 X1000 (0.0-0.7); EOS% 0.1 % (0.0-10.0); HEMATOCRIT 40.8 % (37.0-47.0); HEMOGLOBIN 14.1 g/dL (12.0-16.0); IMM GRAN# 0.05 X1000 (0.0-0.04); IMM GRAN% 0.3 % (0.0-0.5); LYMPH# 1.07 X1000 (1.2-3.4); LYMPH% 6.1 % (20.5-51.1); MCH 27.3 PG (27-31); MCHC 34.6 g/dL (33-37); MCV 78.9 FL (81-99); MONO# 0.98 X1000 (0.11-0.59); MONO% 5.6 % (1.7-9.3); MPV 8.8 FL (7.4-10.4); NEUT# 15.34 X1000 (1.4-6.5); NEUT% 87.6 % (42.2-75.2); PLT 758 X1000 (130-400); RBC 5.17 XMIL (4.2-5.4); RDW 18.3 % (11.5-14.5); WBC 17.51 X1000 (4.8-10.8)
[2019-06-30 20:33] LABS: AGAP 15; ALB/GLOB RATIO 0.9; ALKALINE PHOSPHATASE 154 U/L (32-104); AMYLASE 36 U/L (20-200); BUN 9 mg/dL (8-22); CALCIUM 8.6 mg/dL (8.8-10.2); CHLORIDE 93 mmol/L (98-107); COSMO 267; CREATININE 0.6 mg/dL (0.5-0.9); ESTIMATED GFR > 60; GLUCOSE 93 mg/dL (70-104); GOT 600 U/L (10-30); GPT 307 U/L (10-36); LIPASE 7 U/L (13-60); POTASSIUM 3.2 mmol/L (3.5-5.1); SODIUM 134 mmol/L (136-145); TCO2 26 mmol/L (25-35); TOTAL BILIRUBIN 1.22 mg/dL (0.20-1.00); TOTAL PROTEIN 6.5 g/dL (6.3-8.3)
[2019-06-30] MEDS ORDERED: TORADOL IV ONE (22:33)
[2019-06-30] MEDS ORDERED: NS 1,000 ML IV ONE (22:33)
[2019-06-30] MEDS: ZOSYN 3.375 GM in NS 50 ML IV ONE (23:01)
[2019-07-01 01:15] LABS: URINE SOURCE CATH
[2019-07-01 01:21] LABS: URINE EPITHELIAL CELLS <10 /HPF (<10); URINE RBC <10 /HPF (<10)
[2019-07-01 01:22] LABS: COLOR YELLOW; URINE BACTERIA NEGATIVE /HFP; URINE CAST NONE SEEN /LPF; URINE CRYSTAL NONE SEEN /HPF; URINE YEAST NONE SEEN /HPF
[2019-07-01 01:23] LABS: BILIRUBIN URINE NEGATIVE (NEGATIVE); BLOOD URINE NEGATIVE (NEGATIVE); CLARITY CLEAR (CLEAR); GLUCOSE URINE NEGATIVE (NEGATIVE); KETONE URINE 40 mg/dL (NEGATIVE); LEUKOCYTES URINE NEGATIVE (NEGATIVE); NITRITE URINE NEGATIVE (NEGATIVE); PROTEIN URINE NEGATIVE (NEGATIVE); UROBILINOGEN URINE 0.2 EU/dL (0.2-1.0)
--- NOTE | 2019-07-01 01:54 | PROVIDER DOCUMENTATION ---
This chart was entered by Kori Lee Scribe, acting as scribe for Diomedes Ruiz MD. HPI-Abdominal Pain/GI Problem - General Chief Complaint: Abdominal Pain Stated Complaint: PYSCH Time Seen by Provider: 06/30/19 22:28 Source: patient Allergies/Adverse Reactions: Patient Allergies Allergy/AdvReac Type Severity Reaction Status Date / Time codeine AdvReac VOMITING Verified 11/30/18 08:17 Home Medications: Home Medication List Medication Instructions Recorded Confirmed Last Taken Type Buprenorphine HCl/Naloxone HCl 1 ea SUBLINGUAL BID 06/08/19 06/22/19 06/07/19 09:00 History [Suboxone 2 mg/0.5 mg Sl Film] Dicyclomine [Bentyl] 10 mg PO TID PRN PRN #60 cap 06/11/19 06/22/19 Unknown Rx Nicotine Patch [Nicoderm Patch] 14 mg TD DAILY PRN PRN patch.td24 06/11/19 Unknown Rx Ondansetron Odt [Zofran Odt] 4 mg PO Q6H PRN PRN #30 tab 06/11/19 06/22/19 Unknown Rx Pantoprazole [Protonix] 40 mg PO DAILY@0700 #30 tab 06/11/19 06/22/19 Unknown Rx Paroxetine [Paxil] 20 mg PO QAM #30 tab 06/11/19 06/22/19 Unknown Rx Polyethylene Glycol 3350 [Miralax] 17 gm PO DAILY #30 powd.pack 06/11/19 06/22/19 Unknown Rx Promethazine [Phenergan] 25 mg MA Q4H PRN PRN #14 supp 06/11/19 06/22/19 Unknown Rx Sucralfate [Carafate] 1 gm PO AC + HS #90 tab 06/11/19 06/22/19 Unknown Rx Acetaminophen [Tylenol Extra 500 mg PO TID 06/22/19 06/22/19 Unknown History Strength] Clonazepam 0.5 mg pe PO DAILY 06/22/19 06/22/19 Unknown History Mirtazapine 15 mg PO QHS 06/22/19 06/22/19 Unknown History Amoxicillin/Pot Clavulanate 875 mg PO Q12HR #10 tab 06/26/19 Unknown Rx [Augmentin] Azithromycin [Zithromax] 250 mg PO DAILY #5 tab 06/26/19 Unknown Rx Bisacodyl [Dulcolax] 10 mg MA BID #30 06/26/19 Unknown Rx Cholecalciferol (Vit D3) [Vitamin 2,000 unit PO DAILY #120 tab 06/26/19 Unknown Rx D3] Dicyclomine [Bentyl] 10 mg PO 4XDAY #30 cap 06/26/19 Unknown Rx Levothyroxine [Synthroid] 75 microgm PO DAILY@0700 #120 tab 06/26/19 Unknown Rx Magnesium Hydroxide [Milk of 30 ml PO DAILY #1 udc 06/26/19 Unknown Rx Magnesia] Naloxegol Oxalate [Movantik] 12.5 mg PO DAILY #30 tab 06/26/19 Unknown Rx Polyethylene Glycol 3350 [Miralax] 17 gm PO DAILY #30 powder, packet 06/26/19 Unknown Rx - History of Present Illness-ABD Nature of Presenting Problems: pt is a 63 yr old female presenting with 1 week complaint of abdominal pain, right flank pain, nausea and vomiting. pt denies any diarrhea. no other complaints Abdominal Pain Onset Location: reports: generalized abdomen Pain Radiation: reports: flank (right) Quality of Pain: reports: aching, cramping Severity in ED: reports: moderate Onset/Duration: reports: 1 week ago Timing: reports: still present Activities at Onset: reports: light activity Exposure to sick contacts?: No Modifying Factors: improves with: nothing Associated Symptoms: reports: nausea, vomiting. denies: diarrhea, fever/chills Last BM: unsure Dark Stools Present?: reports: none noticed Rectal Bleeding: reports: none Bruising or Bleeding Gums?: No Similar Symptoms Previously?: No Recently seen or treated by another doctor?: No Review of Systems - Adult - REVIEW OF SYSTEMS - ADULT Constitutional: denies: chills, fever Eyes: reports: no symptoms reported Ears, Nose, Mouth & Throat: reports: no symptoms reported Cardiovascular: denies: chest pain, palpitations, syncope Respiratory: denies: cough, shortness of breath Gastrointestinal: reports: abdominal pain, nausea, vomiting. denies: diarrhea Genitourinary: reports: flank pain (right). denies: dysuria, frequency Musculoskeletal: denies: back pain, joint pain, neck pain Integumentary: reports: no symptoms reported Neurological: denies: dizziness/vertigo, headache/migraines Psychiatric: reports: no symptoms reported Endocrine: reports: no symptoms reported Hematologic/Lymphatic: reports: no symptoms reported Allergic/Immunologic: reports: no symptoms reported All Other Systems: Reviewed and Negative Past History - Adult - PAST MEDICAL HISTORY-ADULT Review of Records: reports: Old Records Reviewed, Nursing Assessment Review, Medications Reviewed, Social history reviewed & non-contributory. Major Childhood Illnesses: reports: other (Headaches) Cardiovascular: reports: HTN Respiratory: reports: asthma, COPD Gastrointestinal: reports: GERD Obstetrical/Gynecological: reports: denies history Genitourinary: reports: other (pt reports her bladder has dropped and she needs repair. ) Musculoskeletal: reports: arthritis, chronic pain Neurological: reports: CVA Psychiatric: reports: anxiety, depression, psychiatric problems Endocrine/Immune: reports: thyroid disorder (hypo). denies: Diabetes Other Conditions: reports: denies history - PRIOR SURGERIES/PROCEDURES Surgical/Procedure History: reports: cholecystectomy, BTL, - IMMUNIZATION STATUS Childhood Immunizations: See Nurse Assessment Flu Vaccine: See Nurse Assessment - FAMILY HISTORY Family History: other (Parents with unspecified heart disease) - SOCIAL HISTORY Smoking: cigarettes Provider spent 3-5 mins advising pt. on dangers of tobacco.: Discussed manners to quit use, and f/u contacts for add'l counseling. Living Situation: alone Physical Exam-General - PHYSICAL EXAM-ADULT Initial Vital Signs Reviewed: Yes - CONSTITUTIONAL General Appearance: alert, no apparent distress, thin - EYES Eyes: PERRL/EOMI - HEAD, EARS, NOSE, MOUTH & THROAT HENMT: normocephalic/atraumatic, moist mucous membranes, normal ENT inspection - NECK Neck: non-tender, full range of motion, supple, normal inspection - RESPIRATORY Respiratory: chest non-tender, lungs clear, normal breath sounds - CARDIOVASCULAR Cardiovascular: normal peripheral pulses, regular rate, rhythm - GASTROINTESTINAL (ABDOMEN) Abdominal Exam: normal bowel sounds, soft, tenderness (RUQ), Herrera's sign ( +) - LYMPHATIC Lymphatic: no adenopathy - MUSCULOSKELETAL Back Exam: normal inspection Extremity: normal range of motion, non-tender, normal gait, normal inspection - SKIN Integumentary: normal color, normal turgor, warm/dry - NEUROLOGIC Neurologic: grossly normal, no motor/sensory deficits - PSYCHIATRIC Psych/Mental Status: normal mood/affect Progress - PLAN OF CARE/RESULTS Progress/Plan/Lab Results: Vital Signs - 8 hr 06/30/19 19:18 Temperature 99.0 F Pulse Rate 106 H Respiratory Rate 19 Blood Pressure 102/72 O2 Sat by Pulse Oximetry 100 Laboratory Results - last 24 hr 06/30/19 06/30/19 19:45 19:45 WBC 17.51 H RBC 5.17 Hgb 14.1 Hct 40.8 MCV 78.9 L MCH 27.3 MCHC 34.6 RDW Std Deviation 18.3 H Plt Count 758 H MPV 8.8 Immature Gran % (Auto) 0.3 Neut % (Auto) 87.6 H Lymph % (Auto) 6.1 L [place] % (Auto) 5.6 Eos % (Auto) 0.1 Baso % (Auto) 0.3 Immature Gran # (Auto) 0.05 H Neut # (Auto) 15.34 H Lymph # (Auto) 1.07 L [place] # (Auto) 0.98 H Eos # (Auto) 0.01 Baso # (Auto) 0.06 Sodium 134 L Potassium 3.2 L Chloride 93 L Carbon Dioxide 26 Anion Gap 15 BUN 9 Creatinine 0.6 Estimated GFR/1.73 m2 > 60 BUN/Creatinine Ratio 15 Glucose 93 Calculated Osmolality 267 Calcium 8.6 L Total Bilirubin 1.22 H AST 600 H ALT 307 H Alkaline Phosphatase 154 H Total Protein 6.5 Albumin 3.0 L Globulin 3.5 Albumin/Globulin Ratio 0.9 Amylase 36 Lipase 7 L Orders Category Date Time Status Saline Loc DIRECTED Care 06/30/19 19:22 Active NPO Diet 06/30/19 19:22 Active AMYLASE [CHEM] Stat Lab 06/30/19 19:45 Completed CBC WITH ELECTRONIC DIFF [HEME] Stat Lab 06/30/19 19:45 Completed COMPREHENSIVE METABOLIC PANEL [CHEM] Stat Lab 06/30/19 19:45 Completed LIPASE [CHEM] Stat Lab 06/30/19 19:45 Completed URINALYSIS W/POSS RFLX CULT [URINALYSIS] Stat Lab 06/30/19 19:22 Uncollected Result Diagrams: 06/30/19 19:45 06/30/19 19:45 - CONSULTS/PCP/HOSPITALIST Notification #1 *Consult/PCP/Hospitalist*: Dr Ross Time Discussed: 01:45 Reason/Comments: discussed plan of care for pt admit Consult Disposition: Admit Departure - Departure Date of Disposition Decision: 07/01/19 Time of Disposition Decision: 01:51 DIAGNOSIS: Elevated liver enzymes Abdominal pain Qualifiers: Abdominal location: generalized Qualified Code(s): R10.84 - Generalized abdominal pain Leukocytosis Qualifiers: Leukocytosis type: other Qualified Code(s): D72.828 - Other elevated white blood cell count Disposition: ADMITTED INPATIENT 09 Certified Medical Emergency: Emergent Condition: Serious Referrals and Follow-Ups: None,PCP [Primary Care Provider] - - Critical Care Note This patient required my direct & personal management of CC.: No Attestation - Physician/ MIKE Attestation The physician spent face to face time with patient:: Yes Advanced Practice Provider documentation review:: Supervising physician onsite and consulted in the evaluation and care of this patient. The physician did have a face to face encounter with the patient. This chart was documented by the indicated scribe, (Kori Lee Scribe) and accurately reflects the services I performed and decisions made by me, Diomedes Ruiz MD, as attested by the provider's signature.
--- NOTE | 2019-07-01 04:24 | HISTORY AND PHYSICAL ---
PRIMARY CARE PHYSICIAN: None. CHIEF COMPLAINT: Abdominal pain. HISTORY OF PRESENTING ILLNESS: A 63-year-old female with a history of chronic abdominal pain, chronic opioid use, currently on Suboxone, who had recently been discharged from hospital earlier this month for similar complaints of abdominal pain. She presents again complaining of abdominal pain. She states that it is worsening. She states that her doctor was not taking Medicaid anymore and she was not getting any medicines. She was evaluated in the emergency department. She complained of worsening abdominal pain, and due to her presenting symptoms, it was thought that we will place her for observation for further evaluation and management. At the time of my examination, she denied any headache, fever, chills, chest pain, or any weight changes, but complained of abdominal pain. The patient is a poor historian. PAST MEDICAL HISTORY: Includes chronic abdominal pain, hypertension, chronic constipation, hypothyroidism, bipolar disorder, CVA, COPD. PAST SURGICAL HISTORY: Cholecystectomy, bilateral lens placement, cataract surgery. ALLERGIES: Codeine. CURRENT MEDICATIONS: She does not recall, nursing staff will reconcile. SOCIAL HISTORY: A 66-tmpw-dnohc history of smoking. Denies any history of alcohol or illicit drug use. FAMILY HISTORY: No history of coronary artery disease. REVIEW OF SYSTEMS: Fourteen-point review of systems as in HPI. Other systems negative. PHYSICAL EXAMINATION: GENERAL: Cooperative, friendly female, she is resting comfortably. She appears frail, however. VITAL SIGNS: Temperature 99 degrees, pulse 106, respiration 19, blood pressure 102/72. HEENT: Atraumatic, normocephalic. Extraocular movements intact. PERRLA. NECK: No masses. CHEST: Scattered wheezes. CARDIOVASCULAR: Regular rate and rhythm. ABDOMEN: Soft. Diffuse tenderness. EXTREMITIES: No edema. NEUROLOGIC: She is awake, alert, oriented x3. GENITOURINARY: No bladder distention. SKIN: Warm. LABORATORIES AND STUDIES: WBC 17.51, hemoglobin 14.1, hematocrit 40.8, platelets 758,000. Sodium 134, potassium 3.2, chloride 93, CO2 is 26, BUN is 9, creatinine 0.6. Glucose is 93. AST 600, ALT 307, alkaline phosphatase 154. UA negative for nitrite. ASSESSMENT: This is a 63-year-old female with a history of chronic abdominal pain, hypertension, hypothyroidism, bipolar disorder, who was brought to the emergency department due to patient having worsening abdominal pain. She states that recently her doctor was not taking her Medicaid insurance, it is unclear if she was getting her Suboxone. She was evaluated in the ED and, due to her presenting symptoms, she will require admission for further management. 1. Chronic abdominal pain. 2. Constipation. 3. Abnormal liver function tests. 4. Leukocytosis. 5. Hypertension. 6. Ongoing tobacco abuse. PLAN: 1. We will admit patient to medical floor with telemetry. 2. We will keep patient NPO. Continue with supportive treatment with adequate hydration and antiemetics as needed. 3. Give patient a proper bowel regimen for constipation. 4. Check an abdominal ultrasound and hepatitis profile to evaluate her LFTs. 5. We will check blood cultures and start patient on empiric antibiotics. 6. We will monitor blood pressure closely. 7. I counseled patient on smoking cessation. 8. Put patient on DVT prophylaxis with SCDs. 9. We will continue to follow and reassess, make further recommendation based on patient's clinical course. cc: Stalin Ross MD
[2019-07-01] MEDS: ZOSYN 3.375 GM in NS 50 ML IV SCH ×4 (05:15→23:47)
[2019-07-01] MEDS ORDERED: DUONEB (A & A) INH PRN (05:15)
[2019-07-01] MEDS: ZOSYN 3.375 GM in NS 50 ML IV ONE (06:06)
--- NOTE | 2019-07-01 06:06 | Diag Imaging Result Doc PS360 ---
EXAM: CT ABD/PELVIS W/IV CONT ONLY HISTORY: abd pain TECHNIQUE: CT abdomen and pelvis with intravenous contrast COMPARISON: 06/24/2019 FINDINGS: Persistent infiltrates in the left lower lobe. Moderate to large hiatal hernia. Fatty infiltration of the liver. No change in the biliary stent. No change in the spleen, pancreas, adrenal glands, or kidneys. No hydronephrosis. Normal aorta. The bowel loops are much less distended on the current exam. There is air and fluid throughout the colon. No abscess. The urinary bladder is distended. Normal uterus and ovaries. No pelvic mass. IMPRESSION: 1.Persistent left lower lobe infiltrates 2.No bowel obstruction. Interval improvement with no distended loops on the current exam. 3.No other interval change. 4.A preliminary report was given at 11:44 PM on 06/30/2019 This exam was performed using automated exposure control, adjustment of mA or kV according to patient size, and/or use of iterative reconstruction technique. Electronically signed by Bruce Mercedes 07/01/2019 6:04 AM
[2019-07-01] MEDS: NS 1,000 ML IV SCH ×3 (06:12→23:48)
--- NOTE | 2019-07-01 08:17 | Diag Imaging Result Doc PS360 ---
EXAM: US ABDOMEN-COMPLETE 07/01/2019 HISTORY: abdominal pain TECHNIQUE: Abdominal ultrasound COMMENT: The visualized portions of the aorta and inferior vena cava are within normal limits in caliber, there are atherosclerotic calcifications in the aorta. Visualized portions of the body and head of the pancreas are normal in appearance. Liver is unremarkable in appearance. There is dilatation of the common bile duct to almost 10 mm. There is an apparent stent in the common bile duct. The kidneys are without evidence of hydronephrosis or mass. There is antegrade flow in the portal vein. The gallbladder surgically absent. The spleen is not enlarged. IMPRESSION: Dilatation the common bile duct with stent. Otherwise no significant abnormality. Electronically signed by Panchito Payton 07/01/2019 8:14 AM
[2019-07-01] MEDS: CARAFATE PO SCH ×4 (10:47→21:40)
[2019-07-01 12:37] LABS: T4 3.39 ug/dL (4.60-12.00)
[2019-07-01 12:39] LABS: TSH 15.09 uIUmL (0.27-4.20)
[2019-07-01] MEDS ORDERED: ROBINUL ONE (13:26)
[2019-07-01] MEDS ORDERED: DIPRIVAN 1% ONE ×2 (13:26)
[2019-07-01] MEDS ORDERED: XYLOCAINE-MPF 2% ONE (13:26)
[2019-07-01] MEDS ORDERED: VERSED ONE (13:27)
[2019-07-01 13:38] LABS: ALBUMIN 2.3 g/dL (3.5-5.0); DIRECT BILIRUBIN 0.6 mg/dL (0.00-0.20); TOTAL BILIRUBIN 0.88 mg/dL (0.20-1.00); TOTAL PROTEIN 4.5 g/dL (6.3-8.3)
--- NOTE | 2019-07-01 14:00 | ENDOSCOPY OPERATIVE NOTE ---
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 PROCEDURE PERFORMED: ERCP with foreign body removal MEDICATIONS: Per Anesthesia CONSENT: The patient understands the risks and benefits of the procedure and understands that these r isks include, but are not limited to: sedation, allergic reaction, infection, perforation and/or bleeding. Alternative means of evaluation and treatment include, among others: physical exam, x-rays, and/or surgical intervention. The patient elects to proceed with this endoscopic procedure. HISTORY AND PHYSICAL: 07/01/2019 function. Hand hygiene and appropriate measures for infection prevention was taken. After the risks, benefits and alternatives of the procedure were thoroughly explained, Informed was verified, confirmed and timeout was successfully executed by the treatment team. With the patient in left semi-prone position, medications were admini stered intravenously.The [id number] ([id number]) was passed from the mouth into the esophagus and further advanc ed from the esophagus into the stomach. From stomach scope was directed to the second portion of the duodenum. M ajor papilla was aligned with the duodenoscope. The scope position was confirmed fluoroscopically. Rest of the finding s/therapeutics are given below. The scope was then completely withdrawn from the patient and the procedure completed. Th e pulse, BP, and O2 saturation were monitored and documented by the physician and the nursing staff throughout the ent soren procedure. The patient was cared for as planned according to standard protocol. The patient was then discharged to [facility] in stable condition and with appropriate post procedure care. ERCP: A operater film prior to endoscope insertion revealved a previously placed stent. The Major Benoit lla was located in the second portion of the duodenum. A previously placed stent was seen extending from the orifice. The old stent was removed using a snare. Bile duct cannulation was attempted using a Acorns Pippa-Tip catheter wi th guidewire. Cannulation of the bile duct was performed with ease. Deep cannulation was successfully achieved. A cholangiogram was performed and the biliary tree appeared normal with no evidence of stones or fillings defects. Surgical changes from previous cholecystectomy. ESOPHAGUS: Esophagitis and hiatal hernia. STOMACH: Gastritis. ADVERSE EVENT: There were no complications. IMPRESSIONS: 1. S/p cholecystectomy 2. Esophagitis 3. Hiatus hernia 4. Distal gastritis RECOMMENDATIONS: 1. Repeat liver function test in 1 day(s) 2. Resume current medications 3. Start Clear liquid diet for 1 Day(s) 4. Disposition 5. Return to floor when standard parameters are met REPEAT EXAM: Bart Rowe MD eSigned: Bart Rowe MD 07/01/2019 1:59 PM cc: PATIENT NAME: Roseanne Alonso MR#: [id number]
[2019-07-01] MEDS: SUBOXONE 2 MG/0.5 MG SL SCH (15:17)
[2019-07-01] MEDS ORDERED: G.I. COCKTAIL PO ONE (15:39)
[2019-07-01] MEDS ORDERED: SODIUM CHLORIDE 0.9% INJ SCH (15:45)
--- NOTE | 2019-07-01 15:51 | Diag Imaging Result Doc PS360 ---
EXAM: ERCP-BILIARY AND PANCREATIC HISTORY: Ascending cholangitis TECHNIQUE: Three views COMPARISON: None. FINDINGS: The first film shows a stent in the mid abdomen. The last film shows contrast filling a mildly distended common bile duct. No stone identified Electronically signed by Bruce Mercedes 07/01/2019 3:49 PM
[2019-07-01] MEDS: MORPHINE IV PRN ×2 (18:00→23:49)
[2019-07-01] MEDS: PROTONIX IV SCH (18:01)
[2019-07-02] MEDS: SUBOXONE 2 MG/0.5 MG SL SCH ×5 (00:15→22:00)
[2019-07-02 06:36] LABS: BASO# 0.03 X1000 (0.0-0.2); BASO% 0.5 % (0.0-0.8); EOS# 0.12 X1000 (0.0-0.7); EOS% 2.1 % (0.0-10.0); HEMATOCRIT 29.5 % (37.0-47.0); HEMOGLOBIN 9.8 g/dL (12.0-16.0); IMM GRAN# 0.02 X1000 (0.0-0.04); IMM GRAN% 0.4 % (0.0-0.5); LYMPH# 1.33 X1000 (1.2-3.4); LYMPH% 23.5 % (20.5-51.1); MCH 26.9 PG (27-31); MCHC 33.2 g/dL (33-37); MONO# 0.63 X1000 (0.11-0.59); MONO% 11.2 % (1.7-9.3); MPV 8.9 FL (7.4-10.4); NEUT# 3.52 X1000 (1.4-6.5); NEUT% 62.3 % (42.2-75.2); PLT 507 X1000 (130-400); RBC 3.64 XMIL (4.2-5.4); RDW 18.3 % (11.5-14.5); WBC 5.65 X1000 (4.8-10.8)
[2019-07-02 06:44] LABS: AGAP 7; ALBUMIN 2.1 g/dL (3.5-5.0); ALKALINE PHOSPHATASE 95 U/L (32-104); BUN 8 mg/dL (8-22); CALCIUM 7.2 mg/dL (8.8-10.2); CHLORIDE 102 mmol/L (98-107); COSMO 268; CREATININE 0.2 mg/dL (0.5-0.9); ESTIMATED GFR > 60; GLUCOSE 84 mg/dL (70-104); GOT 139 U/L (10-30); GPT 136 U/L (10-36); POTASSIUM 2.9 mmol/L (3.5-5.1); SODIUM 135 mmol/L (136-145); TCO2 26 mmol/L (25-35); TOTAL BILIRUBIN 0.96 mg/dL (0.20-1.00); TOTAL PROTEIN 4.3 g/dL (6.3-8.3)
[2019-07-02] MEDS: ZOSYN 3.375 GM in NS 50 ML IV SCH ×3 (06:45→16:36)
[2019-07-02] MEDS ORDERED: KLOR-CON PO ONE (06:56)
[2019-07-02] MEDS: NS 1,000 ML IV SCH (07:05)
[2019-07-02] MEDS: MORPHINE IV PRN ×4 (08:20→21:13)
[2019-07-02] MEDS: CARAFATE PO SCH ×4 (08:21→21:12)
[2019-07-02] MEDS: SYNTHROID PO SCH (08:21)
--- NOTE | 2019-07-02 08:41 | PROGRESS NOTE ---
DATE: 07/02/2019 SUBJECTIVE: This patient is still complaining of abdominal pain, but I believe compared with yesterday she is a little bit better. She is tolerating a liquid diet. She had an ERCP done yesterday. They visualized a previous stent. The old stent was removed using a snare and a bile duct cannulation was performed. A cholangiogram was performed and the biliary tree appeared normal with no evidence of stone or filling defect. Surgical changes from previous cholecystectomy. Esophagus showed esophagitis and hiatal hernia. Stomach showed gastritis. She was transferred to the recovery room and then to the room without any problem. She is still complaining of abdominal pain, though. OBJECTIVE: Vital Signs: Temperature 98.6 degrees, pulse 83, respiratory rate 13, blood pressure 108/64, oxygen saturation 97% on room air. HEENT: Head normocephalic. No trauma. PERRLA. Neck: Supple. No JVD. No masses. Central trachea. Chest: Clear to auscultation. She has a lesion in the middle of the thorax which is oozing a little bit of blood. Abdomen: Soft. Tenderness to palpation at the level of the periumbilical area and epigastric area, right upper quadrant. No signs of peritoneal irritation. Positive bowel sounds. Extremities: No edema, no clubbing, no cyanosis. Decreased muscle mass. Neurological: The patient is alert. She is oriented. She is following commands. LABORATORY: WBC 5.6, hemoglobin 9.8, hematocrit 29.5, platelets 507,000. Sodium 135, potassium 2.9, chloride 102, bicarbonate 26, BUN 8, creatinine 0.2, glucose 84, calcium 7.2. AST 139, ALT 136,, alkaline phosphatase 95, albumin 2.1. ASSESSMENT AND PLAN: 1. Abdominal pain status post endoscopic retrograde cholangiopancreatography (ERCP) with foreign body removal. During the procedure, the major papilla was located in the second portion of the duodenum. A previously placed stent was seen extending from the orifice and was removed. The bile duct was cannulated and a cholangiogram was performed and the biliary tree appeared normal with no evidence of stones or filling defect. It shows surgical changes from previous cholecystectomy. She does have esophagitis, gastritis and hiatal hernia. They have recommended to continue with liquid diet. We repeated the LFTs, which are trending down nicely. We will resume all the medications and I will wait for a new evaluation by gastroenterology department to decide further management. Again, she is still in pain. 2. Constipation. I will add suppositories and MiraLAX to her medications. 3. Hypertension, stable. Actually blood pressure is controlled without any kind of blood pressure medication. 4. Tobacco abuse. This patient has been highly advised against tobacco use. Will continue with daily cessation education. cc: Jeanmarie Martini MD
[2019-07-02] MEDS: MIRALAX PO SCH (11:27)
[2019-07-02] MEDS: ZOFRAN IV PRN ×2 (13:54→18:59)
[2019-07-02] MEDS ORDERED: G.I. COCKTAIL PO ONE (14:18)
[2019-07-02] MEDS: PROTONIX IV SCH (16:36)
--- NOTE | 2019-07-02 18:11 | GASTROENTEROLOGY PROGRESS NOTE ---
DATE: 07/02/2019 SUBJECTIVE: The patient is still complaining of some abdominal pain. She had an ERCP on 07/01/2019. Findings showed esophagitis, gastritis, and hiatal hernia. Common bile duct stent was removed. OBJECTIVE: Vital Signs: Temperature 98.3 degrees, pulse 94, respirations 18, blood pressure 111/71. General: The patient is awake, alert, in no acute distress. Abdomen: Soft. Some tenderness with palpation. Otherwise, soft with positive bowel sounds. LABORATORY: Hematology: WBC 5.65, hemoglobin 9.8, hematocrit 29.5, MCV 81.0, platelet 507,000. Chemistry: Sodium 135, potassium 2.9, chloride 102, BUN 8, creatinine 0.2, glucose 84, calcium 7.2, total bilirubin 0.96, GGT 68, AST 139, ALT 136, alkaline phosphatase 95. ASSESSMENT AND PLAN: 1. Abdominal pain. 2. History of endoscopic retrograde cholangiopancreatography with stent placement in April. The patient has had repeat ERCP and stent removal. Her liver function tests are improving. We will continue to follow. Continue p.r.n. medications as needed. Further plans will be made according to her progress. I have discussed this case with Dr. Rowe. Dictated by DORIS Hines for Bart Rowe MD cc: DORIS Ross MD
[2019-07-03] MEDS: ZOFRAN IV PRN ×5 (00:27→20:44)
[2019-07-03] MEDS: ZOSYN 3.375 GM in NS 50 ML IV SCH ×5 (00:31→22:29)
[2019-07-03] MEDS ORDERED: G.I. COCKTAIL PO ONE (00:56)
[2019-07-03] MEDS: MORPHINE IV PRN ×5 (02:34→20:44)
[2019-07-03 06:10] LABS: BASO# 0.02 X1000 (0.0-0.2); BASO% 0.4 % (0.0-0.8); EOS# 0.15 X1000 (0.0-0.7); HEMATOCRIT 29.5 % (37.0-47.0); HEMOGLOBIN 9.8 g/dL (12.0-16.0); IMM GRAN# 0.02 X1000 (0.0-0.04); IMM GRAN% 0.4 % (0.0-0.5); LYMPH% 30.4 % (20.5-51.1); MCH 27.2 PG (27-31); MCHC 33.2 g/dL (33-37); MCV 81.9 FL (81-99); MONO# 0.65 X1000 (0.11-0.59); MONO% 13.2 % (1.7-9.3); NEUT# 2.59 X1000 (1.4-6.5); NEUT% 52.6 % (42.2-75.2); PLT 459 X1000 (130-400); RDW 18.4 % (11.5-14.5); WBC 4.93 X1000 (4.8-10.8)
[2019-07-03] MEDS: SYNTHROID PO SCH (06:11)
[2019-07-03] MEDS: CARAFATE PO SCH ×4 (06:16→20:45)
[2019-07-03 06:45] LABS: AGAP 8; ALB/GLOB RATIO 0.9; ALKALINE PHOSPHATASE 91 U/L (32-104); BUN 3 mg/dL (8-22); CALCIUM 7.2 mg/dL (8.8-10.2); CHLORIDE 101 mmol/L (98-107); COSMO 271; CREATININE 0.1 mg/dL (0.5-0.9); ESTIMATED GFR > 60; GLUCOSE 83 mg/dL (70-104); GOT 64 U/L (10-30); GPT 98 U/L (10-36); POTASSIUM 2.9 mmol/L (3.5-5.1); SODIUM 138 mmol/L (136-145); TCO2 29 mmol/L (25-35); TOTAL BILIRUBIN 1.15 mg/dL (0.20-1.00); TOTAL PROTEIN 4.3 g/dL (6.3-8.3)
[2019-07-03] MEDS: MIRALAX PO SCH (09:52)
[2019-07-03] MEDS: SUBOXONE 2 MG/0.5 MG SL SCH ×2 (10:24→22:28)
[2019-07-03] MEDS: G.I. COCKTAIL PO SCH ×2 (10:27→22:28)
[2019-07-03] MEDS: KLOR-CON PO SCH ×2 (10:49→20:45)
[2019-07-03] MEDS ORDERED: DULCOLAX PR ONE (10:51)
[2019-07-03 11:35] LABS: HEPATITIS PROFILE ACUTE SEE COMMENTS
--- NOTE | 2019-07-03 11:48 | PROGRESS NOTE ---
DATE: 07/03/2019 SUBJECTIVE: This patient is still complaining of abdominal pain, even though her laboratory looks much better. We will continue with same management. She has been placed back on Suboxone, but she has been refusing it. I had a conversation with the patient, and she will take it again. Also, I will continue with GI cocktail and antibiotics. OBJECTIVE: Vital Signs: Temperature 98.2 degrees, pulse 90, respiratory rate 18, blood pressure 126/73, oxygen saturation 98 on room air. HEENT: Head normocephalic, no trauma. PERRLA. Neck: Supple. No JVD. No masses. Central trachea. Chest: Clear to auscultation. She has a lesion in the middle of the thorax, which is getting better. Abdomen: Soft. Generalized tenderness to palpation, especially periumbilical area, epigastric area and right upper quadrant. No signs of peritoneal irritation. Positive bowel sounds. Extremities: No edema, no clubbing, no cyanosis. Decreased muscle mass. Neurological examination: The patient is alert. She is oriented. She is following commands. LABORATORY: WBC 4.9, hemoglobin 9.8, hematocrit 29.5, platelet 459. Sodium 138, potassium 2.9, chloride 101, bicarbonate 29. BUN 3, creatinine 0.1, glucose 83, calcium 7.2. AST 64, ALT 98, alkaline phosphatase 91, albumin 2. ASSESSMENT AND PLAN: 1. Abdominal pain status post endoscopic retrograde cholangiopancreatography with foreign body removal. During the procedure the major papilla was located in the second portion of the duodenum. A previously placed stent was seen extending from the orifice and was removed. The bile duct was cannulated and a cholangiogram was performed. The biliary tree appeared normal with no evidence of stones or filling defects. It shows though surgical changes from previous cholecystectomy. She does have esophagitis, gastritis and hiatal hernia. We will continue with liquid diet, which I will advance to full liquid diet. LFTs are trending down nicely. 2. Constipation. I added suppositories and MiraLAX to her medications. Let us see how she does. 3. Hypertension, stable. 4. Tobacco abuse. This patient has been highly advised against tobacco use. I will continue with daily cessation education. 5. Chronic pain. This patient has been on Suboxone. We will continue with that. cc: Jeanmarie Martini MD
--- NOTE | 2019-07-03 14:50 | GASTROENTEROLOGY PROGRESS NOTE ---
DATE: 07/03/2019 SUBJECTIVE: Patient is still complaining of some abdominal pain. She had an ERCP with stent removal on 07/01/2019. Findings showed esophagitis, gastritis, and a hiatal hernia. The stent was removed. Her liver function tests have improved. OBJECTIVE: Vital Signs: Temperature 97.9 degrees, pulse 95, respirations 16, blood pressure 117/75. General: Patient is awake, alert, no acute distress. Abdomen: Soft. Positive bowel sounds. Some tenderness with palpation. LABORATORY RESULTS: Hematology: WBC 4.93, hemoglobin 9.8, hematocrit 29.5, MCV 81.9. Platelets 459,000. Chemistry: Sodium 138, potassium 2.9, chloride 101, CO2 29, BUN 3, creatinine 0.1, glucose 83, total bilirubin 1.15, AST 64, ALT 98, alkaline phosphatase 91. ASSESSMENT AND PLAN: 1. Abdominal pain. Continue p.r.n. medications. 2. History of EGD and stent removal. 3. Elevated liver function tests are improving. PLAN: Continue symptomatic treatment. Will continue to follow. Further plans to be made according to her progress. I have discussed this case with Dr. Rowe. Dictated by DORIS Hines for Bart Rowe MD cc: DORIS Ross MD
[2019-07-03] MEDS: PROTONIX IV SCH (16:34)
[2019-07-03] MEDS ORDERED: KLONOPIN PO ONE (17:37)
[2019-07-04] MEDS: MORPHINE IV PRN ×6 (01:03→21:47)
[2019-07-04] MEDS: ZOFRAN IV PRN ×6 (01:03→21:47)
[2019-07-04] MEDS: ZOSYN 3.375 GM in NS 50 ML IV SCH ×5 (05:21→22:58)
[2019-07-04] MEDS: CARAFATE PO SCH ×4 (06:06→21:50)
[2019-07-04] MEDS: SYNTHROID PO SCH (06:06)
[2019-07-04 06:29] LABS: AGAP 6; ALB/GLOB RATIO 0.9; ALBUMIN 2.3 g/dL (3.5-5.0); ALKALINE PHOSPHATASE 100 U/L (32-104); BUN 2 mg/dL (8-22); CALCIUM 7.8 mg/dL (8.8-10.2); CHLORIDE 98 mmol/L (98-107); COSMO 260; CREATININE 0.2 mg/dL (0.5-0.9); ESTIMATED GFR > 60; GLUCOSE 81 mg/dL (70-104); GOT 38 U/L (10-30); GPT 81 U/L (10-36); POTASSIUM 4.2 mmol/L (3.5-5.1); SODIUM 132 mmol/L (136-145); TCO2 28 mmol/L (25-35); TOTAL BILIRUBIN 1.09 mg/dL (0.20-1.00)
--- NOTE | 2019-07-04 08:45 | PROGRESS NOTE ---
DATE: 07/04/2019 SUBJECTIVE: This patient is still complaining of abdominal pain, 06/12. She is on Suboxone. She is also getting Carafate PPI, which I will switch it from IV to p.o. I believe she is getting better. Liver enzymes are trending down nicely, almost normal. OBJECTIVE: Vital Signs: Temperature 98.5 degrees, pulse 86, respiratory rate 16, blood pressure 113/83, oxygen saturation 98 on room air. HEENT: Head normocephalic. No trauma. PERRLA. Neck: Supple. No JVD. No masses. Central trachea. Chest: Clear to auscultation. She has a lesion on the middle of the thorax sterile area that is oozing blood. Abdomen: Soft. Generalized tenderness to palpation, especially periumbilical area, epigastric area, and right upper quadrant. No signs of peritoneal irritation. Positive bowel sounds. Extremities: No edema, no clubbing, no cyanosis. Decreased muscle mass. Neurological: This patient is alert. She is oriented. She is following commands. LABORATORY DATA: Sodium 132, potassium 4.2, chloride 98, bicarbonate 28, BUN 2, creatinine 0.2, glucose 81, calcium 7.8. Bilirubin 1, AST 38, ALT 81, alkaline phosphatase 100, albumin 2.3. ASSESSMENT AND PLAN: 1. Abdominal pain, status post endoscopic retrograde cholangiopancreatography with foreign body removal. A previously placed stent has been removed. The bile duct was cannulated, and a cholangiogram was performed. The biliary tree appeared normal with no evidence of stones or filling defect. It showed surgical changes from previous cholecystectomy. She does have esophagitis, gastritis, and hiatal hernia. I have advanced the diet to full liquid diet. Liver function tests are trending down, almost normal. 2. Constipation. Continue with the same management. She had a small bowel movement yesterday. 3. Hypertension, stable. 4. Tobacco abuse. This patient has been highly advised against tobacco use. Will continue with daily cessation education. 5. Chronic pain. This patient has been on Suboxone. Will continue with that. 6. Hypokalemia, resolved. She received treatment yesterday. cc: Jeanmarie Martini MD
[2019-07-04] MEDS: DULCOLAX PR SCH (09:13)
[2019-07-04] MEDS: G.I. COCKTAIL PO SCH ×3 (09:13→21:50)
[2019-07-04] MEDS: SUBOXONE 2 MG/0.5 MG SL SCH ×2 (09:59→22:57)
[2019-07-04] MEDS: MIRALAX PO SCH (10:49)
[2019-07-04] MEDS: PROTONIX PO SCH ×2 (11:06→21:50)
--- NOTE | 2019-07-04 15:01 | GASTROENTEROLOGY CONSULTATION ---
DATE: 07/04/2019 SUBJECTIVE: The patient is resting comfortably. She continues to complain of mild discomfort in her abdomen and nausea. She claims she needs to be on pain medicine. OBJECTIVE: Vital signs: Her vitals today show temperature 98.5 degrees, pulse 86, breathing 16, blood pressure 113/83. Abdomen: Flat, soft, mildly tender, but no rebound tenderness or guarding noted. Bowel sounds are audible. DIAGNOSTIC DATA: AST has come down from 600 to 38. ALT is down from 307 to 81. Total bilirubin is 1.09 now. Alkaline phosphatase is 100. IMPRESSION: Ascending cholangitis. Most likely because of the stent. The stent has been removed, and her LFTs are improving. At this point, no new suggestions. Continue supportive care. Continue current treatment. For her esophagitis, gastritis and hiatal hernia, she needs to be on PPI and Carafate if needed. From a GI perspective, she can be discharged and to be followed up at the office as needed. If she stays in the hospital, I will be available if needed. cc: Bart Rowe MD
[2019-07-05] MEDS ORDERED: MOTRIN PO ONE (00:25)
[2019-07-05] MEDS: MORPHINE IV PRN ×2 (02:58→06:33)
[2019-07-05] MEDS: ZOFRAN IV PRN ×3 (02:59→12:28)
[2019-07-05 06:33] LABS: AGAP 8; ALB/GLOB RATIO 0.8; ALBUMIN 2.4 g/dL (3.5-5.0); ALKALINE PHOSPHATASE 117 U/L (32-104); BUN 2 mg/dL (8-22); CALCIUM 7.7 mg/dL (8.8-10.2); CHLORIDE 99 mmol/L (98-107); COSMO 260; CREATININE 0.3 mg/dL (0.5-0.9); ESTIMATED GFR > 60; GLUCOSE 85 mg/dL (70-104); GOT 26 U/L (10-30); GPT 61 U/L (10-36); POTASSIUM 4.2 mmol/L (3.5-5.1); SODIUM 132 mmol/L (136-145); TCO2 25 mmol/L (25-35); TOTAL BILIRUBIN 1.32 mg/dL (0.20-1.00); TOTAL PROTEIN 5.6 g/dL (6.3-8.3)
[2019-07-05] MEDS: SYNTHROID PO SCH (06:33)
[2019-07-05] MEDS: CARAFATE PO SCH ×2 (06:33→10:48)
[2019-07-05] MEDS: ZOSYN 3.375 GM in NS 50 ML IV SCH ×2 (06:40→12:28)
[2019-07-05] MEDS: PROTONIX PO SCH (08:35)
[2019-07-05] MEDS: DULCOLAX PR SCH (08:36)
[2019-07-05] MEDS: MIRALAX PO SCH (08:36)
[2019-07-05] MEDS: SUBOXONE 2 MG/0.5 MG SL SCH (10:47)
[2019-07-05] MEDS: G.I. COCKTAIL PO SCH (10:54)
[2019-07-05 11:12] VITALS: BP 129/75
--- NOTE | 2019-07-05 13:25 | DISCHARGE SUMMARY ---
ADMISSION DATE: 07/01/2019 DISCHARGE DATE: 07/05/2019 PRIMARY CARE PROVIDER: None. CONSULTATIONS: Bart Rowe MD of Gastroenterology. PERTINENT PROCEDURES: 1. Abdominal and pelvis CT: Persistent left lower lobe infiltrates, no bowel obstruction, interval improvement with no distended loops on current exam. 2. Abdominal ultrasound: Dilatation of the common bile duct with stent, otherwise no significant abnormality. 3. ERCP x-ray shows a stent in the mid abdomen, shows contrast filling, a mildly distended common bile duct, no stone identified. 4. ERCP with foreign body removal performed by Dr. Rowe. DISCHARGE DIAGNOSES: 1. Abdominal pain status post endoscopic retrograde cholangiopancreatography with foreign body removal. A previously placed stent had been removed. The bile duct was cannulated and a cholangiogram was performed. The biliary tree appeared to be normal with no evidence of stones or filling defect. It showed surgical changes from a previous cholecystectomy. She does have esophagitis, gastritis and a hiatal hernia. She has been advanced to a full-liquid diet. Liver function tests were trending down and were almost back to normal. 2. Constipation. Continue on bowel regimen. 3. Hypertension. Stable. 4. Tobacco abuse. The patient was highly advised against tobacco use and has received daily cessation education. 5. Chronic pain. On Suboxone. 6. Hypokalemia. Resolved. HOSPITAL COURSE: Briefly, Ms. Alonso is a 63-year-old female with a history of chronic abdominal pain and chronic opiate use who is currently on Suboxone. She had recently been discharged from the hospital in June for similar complaints of abdominal pain. She re-presented again complaining of abdominal pain that had worsen. She was evaluated in the ED and was placed in for further observation and treatment with a gastroenterology consult with Dr. Rowe. They did find ascending cholangitis. She underwent a MRCP. Her stent had been removed. Her LFTs improved. She was continued on supportive care and treatment. For her esophagitis gastritis and hiatal hernia she was placed on PPI and Carafate if only needed. She will follow up in the office with GI after discharge. VITAL SIGNS: At time of discharge her temperature was 98.2 degrees, heart rate 100, respirations 18, blood pressure 129/75, O2 was 98% on room air. DISCHARGED DIET: Full liquid, advance as tolerated. DISCHARGE MEDICATIONS: 1. Augmentin 875/125, one each p.o. q.12 hours, 12 tablets. 2. Carafate 1 g p.o. a.c. plus at bedtime, 160 tablets. 3. Ciprofloxacin 500 mg p.o. q.12 hours, 12 tabs. 4. MiraLAX 17 g p.o. daily. 5. Mylanta liquid 10 mL p.o. q.8 hours p.r.n. 6. Protonix 40 mg p.o. b.i.d. She is take 1 tablet twice a day for 1 month and then daily. 7. Suboxone 2 mg/0.5 mg sublingual film, 1 each sublingual b.i.d. 8. Synthroid 75 mcg p.o. daily. FOLLOWUP: Ms. Alonso is being discharged back home with self care. She is to follow up with Gastroenterology as well as a primary care provider who takes her insurance. She can return to the ED or call 911 for any worsening of symptoms. Discharge time 35 minutes Dictated by DORIS Longoria for Jeanmarie Martini MD cc: MD Bart Cooper MD MTDD
== END 2019-07-05 13:53 | disposition home or self-care (01) | DRG 446 ==
LOC: ED 19:10 → EDIPHOLD 19:10 → OBSVTOIN 07-01 05:41 → SUATTDRO 07-01 05:41 → 4N 07-01 07:32
PROVIDERS: ATTEND Internal Medicine
PROC: EN.ERCP (2019-07-01 13:39)

== ENCOUNTER 2019-07-21 11:03 | Inpatient (IN) ==
[2019-07-21] MEDS ORDERED: NS 1,000 ML IV ONE (11:32)
[2019-07-21] MEDS ORDERED: ZOFRAN IV ONE (11:32)
[2019-07-21 11:42] LABS: BASO# 0.04 X1000 (0.0-0.2); BASO% 0.5 % (0.0-0.8); EOS# 0.01 X1000 (0.0-0.7); EOS% 0.1 % (0.0-10.0); HEMATOCRIT 35.9 % (37.0-47.0); IMM GRAN# 0.04 X1000 (0.0-0.04); IMM GRAN% 0.5 % (0.0-0.5); LYMPH# 1.06 X1000 (1.2-3.4); LYMPH% 12.1 % (20.5-51.1); MCH 28.8 PG (27-31); MCHC 33.4 g/dL (33-37); MCV 86.3 FL (81-99); MONO# 0.94 X1000 (0.11-0.59); MONO% 10.7 % (1.7-9.3); MPV 8.7 FL (7.4-10.4); NEUT% 76.1 % (42.2-75.2); PLT 726 X1000 (130-400); RBC 4.16 XMIL (4.2-5.4); WBC 8.79 X1000 (4.8-10.8)
[2019-07-21] MEDS ORDERED: NS 1,000 ML IV SCH (11:45)
[2019-07-21 12:09] LABS: ESTIMATED GFR > 60
[2019-07-21 12:26] LABS: AGAP 13; ALB/GLOB RATIO 0.8; ALBUMIN 2.9 g/dL (3.5-5.0); ALKALINE PHOSPHATASE 330 U/L (32-104); AMYLASE 18 U/L (20-200); BUN 10 mg/dL (8-22); CALCIUM 7.9 mg/dL (8.8-10.2); CHLORIDE 95 mmol/L (98-107); COSMO 279; CREATININE 0.4 mg/dL (0.5-0.9); GLUCOSE 141 mg/dL (70-104); GOT 47 U/L (10-30); GPT 18 U/L (10-36); LIPASE 6 U/L (13-60); POTASSIUM 3.2 mmol/L (3.5-5.1); SODIUM 139 mmol/L (136-145); TCO2 31 mmol/L (25-35); TOTAL BILIRUBIN 1.43 mg/dL (0.20-1.00); TOTAL PROTEIN 6.5 g/dL (6.3-8.3)
[2019-07-21] MEDS ORDERED: POTASSIUM CHLORIDE 20% LIQUID PO ONE (12:35)
--- NOTE | 2019-07-21 14:41 | Diag Imaging Result Doc PS360 ---
EXAM: CT ABD/PELVIS W/IV CONT ONLY INDICATION: abd pain TECHNIQUE: This exam was performed using automated exposure control, adjustment of mA or kV according to patient size, and/or use of iterative reconstruction technique. COMPARISON: 06/30/2019 FINDINGS: There is patchy airspace consolidation at the left lung base indicating pneumonia. This is also seen on the previous study but it is worse on the current study. There is trace consolidation at the right lung base as well. There is probably also a component of fibrosis involving the lingula as well as the right middle lobe at the anterior bases. There has been a prior cholecystectomy. There has been interval removal of a biliary stent that was seen on the previous study. The common bile duct is still dilated. Measuring up to 1.2 cm in diameter. There is suggestion of mild hepatic steatosis. The spleen is unremarkable. There is stable pancreatic atrophy. The pancreas is grossly unremarkable, otherwise. There are several small renal cysts bilaterally. The kidneys are unremarkable, otherwise. The urinary bladder is distended. There is no evidence of urinary bladder wall thickening or bladder wall mass. The reproductive tract is grossly unremarkable as imaged. There is a moderate amount of stool in the colon. There are fluid-filled loops of small bowel throughout the abdomen with only mild distention. This is nonspecific. A represent ileus from mild enteritis. However, no discrete bowel wall thickening is appreciated. There is nothing that would indicate bowel obstruction. There is a stable large hiatal hernia. The remainder of the GI tract is essentially unremarkable. There is no evidence of acute osseous abnormality. IMPRESSION: 1.Airspace consolidation at the left lung base and minimal consolidation at the right lung base. This has worsened during the interval. 2.Fluid-filled loops of small bowel throughout the abdomen that are nonspecific but may represent ileus related to mild enteritis. 3.Distended urinary bladder but no lateral wall thickening is identified. 4.Interval removal of a biliary stent that was seen on the previous study. 5.Other incidental/nonacute findings detailed above. Electronically signed by Christiano Deluna 07/21/2019 2:39 PM
[2019-07-21] MEDS ORDERED: VANCOMYCIN 1 GM/NS 1 GM/250 ML IVPB IV ONE (15:34)
[2019-07-21] MEDS ORDERED: MAXIPIME 1 GM in NS 50 ML IV ONE (15:34)
[2019-07-21] MEDS ORDERED: VANCOMYCIN IV PER PHARMACY MISC SCH (16:44)
[2019-07-21] MEDS ORDERED: DUONEB (A & A) INH PRN (17:48)
[2019-07-21] MEDS: ZOFRAN IV PRN (17:55)
[2019-07-21] MEDS: CARAFATE PO SCH ×2 (17:56→21:32)
[2019-07-21] MEDS ORDERED: VANCOMYCIN 500 MG in NS 150 ML IV ONE (18:00)
--- NOTE | 2019-07-21 18:57 | HISTORY AND PHYSICAL ---
PRIMARY CARE PROVIDER: None. CHIEF COMPLAINT: Nausea/vomiting, left upper quadrant pain, chills with a productive cough with yellowish sputum. HISTORY OF PRESENT ILLNESS: Ms. Alonso is a 63-year-old female, well known to our service from multiple admissions for nausea/vomiting and chronic constipation secondary to opiate use, who re-presents to the ED complaining of nausea/vomiting, constipation, left upper quadrant pain, and a productive cough with yellowish sputum and chills. She reports the nausea and vomiting had been ongoing for 3 days. She adamantly denies any diarrhea. Workup in the ED continues to show airspace consolidation at the left lung base and minimal consolidation of the right lung base, worsening during the interval, fluid filled loops of small bowel in the abdomen nonspecific for ileus or mild enteritis. White count of 8, hemoglobin and hematocrit are stable. Potassium of 3.2, BUN 10, creatinine 0.4, a blood glucose of 141, total bilirubin of 1.43, AST of 47, alkaline phosphatase of 330. Amylase of 18, lipase of 6. She will be admitted to the hospital for intractable nausea and vomiting. She denies being around any sick contacts or anybody with a stomach virus. Again, adamantly denies diarrhea, only constipation. We will continue on her home bowel regimen, as well as broad-spectrum coverage for treatment for what looks like a worsening pneumonia. The patient does report fevers, productive cough with yellowish sputum, and she also reports when she takes in a deep breath, she gets a pain on the right side of her chest that causes her to gag. We will admit her to the medical telemetry floor to continue with further evaluation and treatment. PAST MEDICAL HISTORY: 1. Chronic pain. 2. Chronic abdominal pain. 3. Opioid-related constipation. 4. Hypertension. 5. Hypothyroidism. 6. Anxiety and depression. 7. Degenerative joint disease. 8. Gastroesophageal reflux disease. 9. Bipolar disorder. 10. 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 11. COPD. 12. Recent cholangitis status post stenting, with stent removal. 13. Cholecystectomy. 14. Stent removal secondary to cholangitis. 15. Tubal . 16. Bilateral lens placement and cataracts. SOCIAL HISTORY: She still lives with her , son, and [id number]. No alcohol or illicit drug use. She has not been able to smoke over the past 2 weeks. FAMILY HISTORY: Positive for hypertension and skin cancer. ALLERGIES: Codeine. HOME MEDICATIONS: 1. Phenergan. 2. Carafate. 3. Protonix. 4. Synthroid. REVIEW OF SYSTEMS: A 12-point review of systems was completely negative except for those mentioned in HPI. PHYSICAL EXAMINATION: VITAL SIGNS: Temperature 97.6 degrees, heart rate 98, respirations 18, blood pressure 129/80, O2 is 96% on room air. GENERAL: Ms. Alonso is a fragile ill-appearing 63-year-old female, who is lying on the stretcher in no acute distress. HEENT: Atraumatic, normocephalic. PERRL. Mucous membranes are dry. Her tongue is red. Possible thrush. NECK: Trachea midline. CARDIOVASCULAR: S1, S2 appreciated. No murmurs, gallops, or rubs noted. PULMONARY: Lung sounds: Scattered rhonchi on the right side, decreased in the bases. GASTROINTESTINAL: Soft, tender. Positive bowel sounds 4 quadrants. EXTREMITIES: No lower extremity edema. Bilateral pedal pulses were palpable. NEUROLOGIC: No focal deficits noted. DIAGNOSTIC DATA: as per HPI. LABORATORY DATA: White count 8, hemoglobin 12, hematocrit 35, platelet count is 726,000. Sodium 139, potassium 3.2, BUN 10, creatinine 0.4, blood glucose is 141, total bilirubin 1.43, AST 47, alkaline phosphatase 330. Amylase 18, lipase 6. ASSESSMENT AND PLAN: 1. Continued bilateral pneumonia. We will cover her with vancomycin and cefepime. Recheck a chest x-ray in the a.m. Collect a sputum culture. 2. Chronic nausea and vomiting with abdominal pain. We will continue with her home regimen. Add IV Zofran and IV fluids. 3. Clinical dehydration. We will continue with IV fluids. 4. Chronic constipation secondary to opiate use and Suboxone. Her abdomen CT shows enteritis; however, patient adamantly denies any diarrhea or having been around any sick contacts. We will check stool studies if the patient does develop diarrhea. We are currently covering her with broad-spectrum antibiotics, and she has been on antibiotics previously. 5. Chronic obstructive pulmonary disease history without exacerbation. 6. Hypothyroidism. Continue her Synthroid. 7. Oral thrush. We will do nystatin swish and swallow. 8. Hypertension. Not on any home medications for now. 9. Anxiety depression. Continue home medications. 10. Gastroesophageal reflux disease. Continue PPI and Carafate. 11. Chronically elevated liver function tests. We will continue to monitor. Further recommendation to follow physician evaluation and laboratory and diagnostic data. Dictated by DORIS Longoria for Katia Hay MD cc: Katia Hay MD I performed a face to face encounter on the patient. I reviewed all labs and imaging on the patient. I agree with the H&P as dictated. is a 63 year old female with a history of chronic abdominal pain, anxiety disorder, hypertension and COPD who presented to the ER with a chief complaint of abdominal pain associated with persistent nausea and vomiting. She was discharged from the hospital earlier this month after being admitted for abdominal pain. She complains of generalized abdominal pain and nausea. On exam, the patient is alert and oriented x 4. Her abdomen is soft with generalized tenderness. She has good bowel sounds. The CT of the abdomen/pelvis shows enteritis with left lower lobe pneumonia. The patient will be admitted and started on broad spectrum antibiotics after blood and sputum cultures have been obtained. Will also start the patient on a full liquid diet and antiemetic therapy. MTDD
[2019-07-21] MEDS: DUONEB (A & A) INH SCH ×2 (19:20→23:32)
[2019-07-21] MEDS ORDERED: G.I. COCKTAIL PO ONE (20:08)
[2019-07-21] MEDS: PROTONIX PO SCH (21:32)
[2019-07-21] MEDS: NS 1,000 ML IV SCH (21:35)
[2019-07-22] MEDS: ZOFRAN IV PRN ×4 (02:57→18:52)
[2019-07-22] MEDS: MAXIPIME 1 GM in NS 50 ML IV SCH ×2 (03:09→15:55)
[2019-07-22] MEDS: DUONEB (A & A) INH SCH ×6 (03:28→23:22)
[2019-07-22] MEDS ORDERED: MORPHINE IV ONE (05:51)
--- NOTE | 2019-07-22 06:59 | Diag Imaging Result Doc PS360 ---
EXAM: CHEST-PORTABLE 07/22/2019 HISTORY: Pneumonia TECHNIQUE: AP portable at 0609 COMMENT: There is increased opacity in the left lower lobe. Some of the difference between the current study and that of 06/25/2019 is probably related to less extensive inspiration. There is pleural thickening laterally in the inferior left chest as there was previously. IMPRESSION: Left lower lobe pneumonia. Electronically signed by Panchito Payton 07/22/2019 6:57 AM
[2019-07-22 08:17] LABS: BASO# 0.03 X1000 (0.0-0.2); BASO% 0.5 % (0.0-0.8); EOS# 0.05 X1000 (0.0-0.7); EOS% 0.9 % (0.0-10.0); HEMATOCRIT 30.7 % (37.0-47.0); HEMOGLOBIN 9.8 g/dL (12.0-16.0); IMM GRAN# 0.02 X1000 (0.0-0.04); IMM GRAN% 0.3 % (0.0-0.5); LYMPH# 1.32 X1000 (1.2-3.4); LYMPH% 22.7 % (20.5-51.1); MCH 28.3 PG (27-31); MCHC 31.9 g/dL (33-37); MCV 88.7 FL (81-99); MONO# 0.58 X1000 (0.11-0.59); MPV 8.6 FL (7.4-10.4); NEUT# 3.82 X1000 (1.4-6.5); NEUT% 65.6 % (42.2-75.2); PLT 583 X1000 (130-400); RBC 3.46 XMIL (4.2-5.4); RDW 22.3 % (11.5-14.5); WBC 5.82 X1000 (4.8-10.8)
[2019-07-22 08:35] LABS: AGAP 10; ALB/GLOB RATIO 0.7; ALBUMIN 2.2 g/dL (3.5-5.0); ALKALINE PHOSPHATASE 250 U/L (32-104); BUN 6 mg/dL (8-22); CALCIUM 7.1 mg/dL (8.8-10.2); CHLORIDE 104 mmol/L (98-107); COSMO 277; CREATININE 0.4 mg/dL (0.5-0.9); ESTIMATED GFR > 60; GLUCOSE 92 mg/dL (70-104); GOT 24 U/L (10-30); GPT 12 U/L (10-36); POTASSIUM 2.7 mmol/L (3.5-5.1); SODIUM 140 mmol/L (136-145); TCO2 26 mmol/L (25-35); TOTAL BILIRUBIN 0.95 mg/dL (0.20-1.00); TOTAL PROTEIN 5.3 g/dL (6.3-8.3)
[2019-07-22] MEDS ORDERED: KLOR-CON PO ONE (08:59)
[2019-07-22] MEDS ORDERED: MAGNESIUM SULFATE 2 GM/S.W.I. 2 GM/50 ML IVPB IV ONE (08:59)
[2019-07-22 09:02] LABS: LYMPHS 24 % (21-51); SEGS 76 % (42-75)
[2019-07-22] MEDS: MYCOSTATIN SUSP PO SCH ×4 (10:18→20:38)
[2019-07-22] MEDS: NS 1,000 ML IV SCH (10:19)
[2019-07-22] MEDS: VANCOMYCIN 1,300 MG in NS 250 ML IV SCH (10:20)
[2019-07-22] MEDS: CARAFATE PO SCH ×4 (10:20→20:38)
[2019-07-22] MEDS: PROTONIX PO SCH ×2 (10:20→20:38)
[2019-07-22] MEDS: NICODERM PATCH TD SCH (11:04)
[2019-07-22] MEDS: MIRALAX PO SCH (12:05)
--- NOTE | 2019-07-22 12:32 | Diag Imaging Result Doc PS360 ---
EXAM: ABDOMEN FLAT/UPRIGHT 07/22/2019 HISTORY: abd pain TECHNIQUE: Flat and upright abdomen COMMENT: There is contrast medium in the urinary bladder. There is small bowel and colonic gas without evidence of obstruction. There is some solid stool present in the colon. The stomach is not distended. There is no evidence of organomegaly or mass. There has apparently been previous cholecystectomy. There is a hiatal hernia. There is ill-defined opacification of the left lower lobe which appears worse than on 06/25/2019. There are also some coarse opacities present in the posterior costophrenic sulcus of the right lower lobe. IMPRESSION: 1. Constipation. 2. Bronchopneumonia particularly in the left lower lobe. Electronically signed by Panchito Payton 07/22/2019 12:30 PM
[2019-07-22] MEDS: LACTULOSE PO SCH ×2 (14:11→20:37)
--- NOTE | 2019-07-22 14:27 | PROGRESS NOTE ---
DATE: 07/22/2019 SUBJECTIVE: The patient states that she does not feel well today. She complains of nausea and abdominal pain. According to the nursing staff, the patient has not had a bowel movement in several days. OBJECTIVE: Vital Signs: Temperature is 97.5 degrees, blood pressure 109/81, heart rate 94, respirations 20, O2 saturations 98% on room air. General: This is a chronically ill-appearing elderly female, lying in bed in no acute distress. Heart: S1, S2 normal. Regular rate and rhythm. Lungs: Equal air entry bilaterally. No wheezing. No rales. No rhonchi. Abdomen: Positive bowel sounds. Soft, nontender, nondistended. Extremities: No edema, no cyanosis. Neurologic: The patient is alert and oriented x3. LABS: White blood cell count 5.8, hemoglobin 9.8, hematocrit 30, platelets 583. Sodium 140, potassium 2.7, chloride 104, CO2 26. BUN 6, creatinine 0.4, magnesium 1.7, glucose 92. X-RAYS: Abdominal x-ray shows constipation and pneumonia. Chest x-ray shows left lower lobe pneumonia. ASSESSMENT AND PLAN: 1. Left lower lobe pneumonia. Will continue with broad spectrum antibiotics. Will also check immunoglobulin level since the patient has multiple admissions for pneumonia. Continue with bronchodilator therapy and supplemental oxygen. 2. Abdominal pain. The x-ray reveals that the patient is constipated. We will start the patient on scheduled laxative therapy and monitor her closely. 3. Bipolar disorder. Aware. 4. Hypothyroidism. Continue on Synthroid. 5. Gastrointestinal prophylaxis. Will start the patient on omeprazole. 6. Deep vein thrombosis prophylaxis. Will start the patient on Lovenox. 7. Physical therapy has been consulted. cc: MD SUHAS King
--- NOTE | 2019-07-22 17:40 | Diag Imaging Result Doc PS360 ---
EXAM: CT THORAX W/O CONTRAST INDICATION: pneumonia TECHNIQUE: This exam was performed using automated exposure control, adjustment of mA or kV according to patient size, and/or use of iterative reconstruction technique. COMPARISON: 03/21/2019 FINDINGS: There is bronchiectasis involving the lingula, right middle lobe, and left lower lobe. There is patchy airspace consolidation involving the lingula and the left lower lobe consistent with pneumonia. It is not as severe as it was on the previous study. There is patchy mild bronchial mucous plugging at the left lung base as well. There is also milder consolidation in the right middle lobe. It is actually worse than the previous study. There are small bilateral effusions, largest on the left. There is stable mild biapical scarring. There is no cardiomegaly. There is a stable large hiatal hernia. There are calcified mediastinal and right hilar lymph nodes indicating prior granulomatous disease. Limited views of the upper abdomen reveals a small hyperdense blood filled right renal cyst but can be seen on the previous contrast-enhanced CT of the abdomen and pelvis dated 07/21/2019. IMPRESSION: 1.Airspace consolidation involving the left lower lobe, the lingula, and the right middle lobe indicating pneumonia with mild mucous plugging, at least on the left, as well as bronchiectasis. Consider atypical etiologies such as CLAIRE. 2.Small bilateral effusions. 3.Other incidental/nonacute findings detailed above. Electronically signed by Christiano Deluna 07/22/2019 5:37 PM
[2019-07-22 18:11] LABS: BILIRUBIN URINE NEGATIVE (NEGATIVE); BLOOD URINE NEGATIVE (NEGATIVE); COLOR YELLOW; GLUCOSE URINE NEGATIVE (NEGATIVE); KETONE URINE NEGATIVE (NEGATIVE); LEUKOCYTES URINE NEGATIVE (NEGATIVE); NITRITE URINE NEGATIVE (NEGATIVE); PROTEIN URINE NEGATIVE (NEGATIVE); SP GRAVITY URINE 1.027; TURBIDITY URINE CLEAR (CLEAR); URINE SOURCE CATH; UROBILINOGEN URINE NORMAL (NORMAL)
[2019-07-22 18:12] LABS: UR EPITHELIAL CELLS <10 /HPF (<10); URINE BACTERIA NEGATIVE /HPF; URINE RBC <10 /HPF (<10); URINE WBC <10 /HPF (<10)
[2019-07-22] MEDS ORDERED: DULCOLAX PR SCH (21:00)
[2019-07-23] MEDS: ZOFRAN IV PRN ×5 (01:01→23:59)
[2019-07-23] MEDS: NS 1,000 ML IV SCH ×2 (02:18→14:34)
[2019-07-23] MEDS: DUONEB (A & A) INH SCH ×6 (03:09→22:52)
[2019-07-23] MEDS: MAXIPIME 1 GM in NS 50 ML IV SCH ×2 (03:45→17:58)
[2019-07-23] MEDS: VANCOMYCIN 1,300 MG in NS 250 ML IV SCH ×2 (05:14→23:53)
[2019-07-23] MEDS: SYNTHROID PO SCH ×2 (06:11→14:36)
[2019-07-23] MEDS: CARAFATE PO SCH ×4 (06:11→20:44)
[2019-07-23] MEDS ORDERED: PRILOSEC PO SCH (07:00)
--- NOTE | 2019-07-23 07:30 | Diag Imaging Result Doc PS360 ---
EXAM: ABDOMEN FLAT/UPRIGHT INDICATION: ileus/constipation TECHNIQUE: Two views COMPARISON: 07/22/2019 FINDINGS: Gaseous distention of bowel appear slightly worse than the previous study. This is predominantly colonic. No large volume free abdominal gas is appreciated. The abdomen is essentially stable, otherwise. IMPRESSION: Slight worsening of gaseous distention of bowel. Electronically signed by Christiano Deluna 07/23/2019 7:27 AM
[2019-07-23 07:33] LABS: HEMATOCRIT 29.5 % (37.0-47.0); HEMOGLOBIN 9.5 g/dL (12.0-16.0); MCH 29.2 PG (27-31); MCHC 32.2 g/dL (33-37); MCV 90.8 FL (81-99); MPV 8.7 FL (7.4-10.4); RBC 3.25 XMIL (4.2-5.4); RDW 22.5 % (11.5-14.5); WBC 6.01 X1000 (4.8-10.8)
[2019-07-23 07:54] LABS: ALB/GLOB RATIO 0.8; ALBUMIN 2.2 g/dL (3.5-5.0); DIRECT BILIRUBIN 0.6 mg/dL (0.00-0.20); TOTAL BILIRUBIN 1.13 mg/dL (0.20-1.00); TOTAL PROTEIN 4.8 g/dL (6.3-8.3)
[2019-07-23 08:05] LABS: AGAP 9; BUN 3 mg/dL (8-22); CALCIUM 7.3 mg/dL (8.8-10.2); CHLORIDE 104 mmol/L (98-107); COSMO 276; CREATININE 0.2 mg/dL (0.5-0.9); ESTIMATED GFR > 60; GLUCOSE 104 mg/dL (70-104); POTASSIUM 3.5 mmol/L (3.5-5.1); SODIUM 140 mmol/L (136-145); TCO2 27 mmol/L (25-35)
[2019-07-23] MEDS ORDERED: G.I. COCKTAIL PO ONE (08:08)
[2019-07-23] MEDS ORDERED: BENTYL PO ONE (08:09)
[2019-07-23] MEDS: PROTONIX PO SCH ×2 (09:23→20:44)
[2019-07-23] MEDS: MYCOSTATIN SUSP PO SCH ×4 (09:23→20:44)
[2019-07-23] MEDS: NICODERM PATCH TD SCH (09:24)
[2019-07-23] MEDS: LACTULOSE PO SCH ×2 (09:24→20:44)
[2019-07-23] MEDS: MIRALAX PO SCH (09:25)
[2019-07-23] MEDS ORDERED: SODIUM CHLORIDE 0.9% 10 ML ONE (11:30)
[2019-07-23] MEDS ORDERED: MORPHINE IV ONE ×2 (14:17→20:00)
[2019-07-23] MEDS ORDERED: MAGNESIUM SULFATE 2 GM/S.W.I. 2 GM/50 ML IVPB IV ONE (14:31)
--- NOTE | 2019-07-23 15:11 | PROGRESS NOTE ---
DATE: 07/23/2019 SUBJECTIVE: The patient is resting comfortably in bed. She complains of persistent abdominal pain as well as nausea. She has been unable to vomit anything up today. She is having multiple bowel movements. OBJECTIVE: Vital Signs: Temperature 98.7 degrees, blood pressure 106/80, heart rate 116, respirations 18, O2 saturation 98% on room air. Intake 1.8 L. Output 2.4 L. General: This is a chronically ill-appearing elderly female lying in bed in no acute distress. HEENT: Head normocephalic and atraumatic. Heart: S1, S2 normal. Tachycardic. Lungs: Diminished breath sounds at the bases. No wheezing. Abdomen: Positive bowel sounds. Soft. Positive for generalized tenderness. Extremities: No edema, no cyanosis. Neurologic: The patient is alert and oriented x4. LABS: White blood cell count 6, hemoglobin 9.5, hematocrit 29, platelets 445,000. Sodium 140, potassium 3.5, chloride 104, CO2 27, BUN 3, creatinine 0.2, glucose 104, calcium 7.3, magnesium 1.6, AST 18, ALT 9, alkaline phosphatase 216. ASSESSMENT AND PLAN: 1. Abdominal pain. The patient complains of continuous abdominal pain as well as nausea. She is having bowel movements. We will consult with Gastroenterology for further recommendations. 2. Bilateral lobe pneumonia. Continue with broad-spectrum antibiotics and bronchodilator therapy. 3. Bipolar disorder. Aware. 4. Hypothyroidism. Continue on Synthroid. 5. Anemia. We will continue to monitor the hemoglobin and hematocrit closely. 6. Severe protein calorie malnutrition. Continue with the Ensure with each meal. The patient is not eating well due to abdominal pain. 7. Tobacco dependence. The patient has been counseled about smoking cessation. 8. Deep vein thrombosis prophylaxis. We will start the patient on Lovenox. cc: Katia Hay MD
[2019-07-23] MEDS: LOVENOX SUBQ SCH (16:15)
[2019-07-23] MEDS: PHENERGAN PR PRN (18:03)
--- NOTE | 2019-07-23 18:45 | GASTROENTEROLOGY CONSULTATION ---
DATE: 07/23/2019 REASON FOR CONSULTATION: Abdominal pain, constipation. HISTORY OF PRESENT ILLNESS: 1. This is a 63-year-old female, well known to us. She was recently in the hospital and just discharged on 07/25/2019 at that time. She is admitted with abdominal pain. During that hospitalization. ERCP was done for stent removal. Patient had not followed up in the office as an outpatient to have the stent removed as recommended. Patient states since being home she has had some continued abdominal pain. Occasional nausea. She has not been going to the bathroom well. She came in back in to the hospital with complaints of nausea, vomiting, abdominal pain, chills, productive cough and yellow sputum. She has been found to have pneumonia and is on antibiotics. CT scan showed. Consolidation of the left lung base. Minimal consolidation at the right lung base. 2. Fluid-filled loops of small bowel throughout the abdomen. Nonspecific possible ileus versus enteritis. 3. Distended urinary bladder and evidence of removal of biliary stent. Patient takes chronic pain medication for chronic pain syndrome, She states she has not been going to the bathroom well. Denies diarrhea and denies blood in the stool or black stool. PAST MEDICAL HISTORY: Chronic pain. History of constipation, hypertension, hypothyroidism, anxiety/depression. Degenerative joint disease, GERD, bipolar disorder, history of CVA, COPD. PAST SURGICAL HISTORY: Cholecystectomy. Patient had ERCP and stent placement and recent stent removal on 07/01/2019. EGD: Findings showed esophagitis gastritis and hiatal hernia. She has had tubal and bilateral lens implants and cataract. ALLERGIES: Codeine causing vomiting. HOME MEDICATIONS: 1. Synthroid 75 mcg daily. 2. Protonix 40 mg twice a day. Phenergan 1 as needed. Carafate 4 times a day. SOCIAL HISTORY: She lives with her , son and [id number]. No reported alcohol. She has not been smoking lately. REVIEW OF SYSTEMS: Per history of present illness. PHYSICAL EXAMINATION: Vital Signs: Temperature 98.7 degrees, pulse 116, respiratory 18, blood pressure 106/80. General: Patient is awake and alert in no acute distress. ASSESSMENT/PLAN: 1. She is complaining of abdominal pain and reports a diagnosis of pneumonia. She has complained of a cough. 2. Gastroesophageal reflux disease. ERCP with stent removal on 07/01/2019 showed esophagitis and gastritis. Hiatal hernia. Recommend to continue PPI. 3. Constipation versus ileus. Patient takes chronic pain medication, opioid induced constipation. Continue current laxative regimen. Patient may benefit from opioid induced constipation medication like Movantik. Further plans to be made according to her progress. 4. I have discussed this case with Dr. Rowe. Thank you for this consultation. Dictated by DORIS Hines for Bart Rowe MD cc: DORIS Ross MD
[2019-07-24] MEDS: DUONEB (A & A) INH SCH ×6 (03:31→23:40)
[2019-07-24] MEDS: ZOFRAN IV PRN ×3 (04:01→17:16)
[2019-07-24] MEDS: MAXIPIME 1 GM in NS 50 ML IV SCH ×2 (04:01→17:39)
[2019-07-24] MEDS: NS 1,000 ML IV SCH (04:02)
[2019-07-24] MEDS: CARAFATE PO SCH ×5 (06:13→21:21)
[2019-07-24] MEDS: SYNTHROID PO SCH (06:14)
--- NOTE | 2019-07-24 07:15 | EKG Report ---
Test Performed on : 07/24/2019 06:48:29 AM Test Reason : tachycardia Blood Pressure : / mmHG Vent. Rate : 112 BPM Atrial Rate : 112 BPM P-R Int : 132 ms QRS Dur : 080 ms QT Int : 370 ms P-R-T Axes : 073 083 048 degrees QTc Int : 505 ms Sinus tachycardia. Cannot rule out Anterior infarct (cited on or before 14-JUL-2018) Left atrial enlargement Abnormal ECG When compared with ECG of 07-JUN-2019 13:37, (Unconfirmed) Questionable change in initial forces of Anterior leads Confirmed by Leila FLEMING, Nakul Copeland ([id number]) on 07/24/2019 12:14:24 PM
[2019-07-24 08:21] LABS: HEMATOCRIT 27.8 % (37.0-47.0); HEMOGLOBIN 9.3 g/dL (12.0-16.0); MCH 29.7 PG (27-31); MCHC 33.5 g/dL (33-37); MCV 88.8 FL (81-99); MPV 8.7 FL (7.4-10.4); RBC 3.13 XMIL (4.2-5.4); RDW 22.7 % (11.5-14.5); WBC 7.48 X1000 (4.8-10.8)
[2019-07-24] MEDS ORDERED: MORPHINE IV PRN (08:49)
[2019-07-24 08:59] LABS: AGAP 9; BUN 3 mg/dL (8-22); CHLORIDE 99 mmol/L (98-107); COSMO 260; CREATININE 0.3 mg/dL (0.5-0.9); ESTIMATED GFR > 60; GLUCOSE 104 mg/dL (70-104); POTASSIUM 3.2 mmol/L (3.5-5.1); SODIUM 131 mmol/L (136-145); TCO2 23 mmol/L (25-35)
[2019-07-24] MEDS: MIRALAX PO SCH (09:05)
[2019-07-24] MEDS: LACTULOSE PO SCH ×2 (09:05→21:21)
[2019-07-24] MEDS: NICODERM PATCH TD SCH (09:05)
[2019-07-24] MEDS: MYCOSTATIN SUSP PO SCH ×5 (09:05→21:21)
[2019-07-24] MEDS: PROTONIX PO SCH ×3 (09:06→21:21)
[2019-07-24 09:22] LABS: CALCIUM 6.9 mg/dL (8.8-10.2)
[2019-07-24] MEDS ORDERED: CALCIUM GLUCONATE 1 GM in NS 50 ML IV ONE (10:35)
[2019-07-24] MEDS ORDERED: DILAUDID IV ONE (11:24)
[2019-07-24] MEDS: KLOR-CON PO ONE ×2 (11:37→12:11)
--- NOTE | 2019-07-24 12:40 | Diag Imaging Result Doc PS360 ---
EXAM: FLAT/UPRIGHT ABD/1 VIEW CHEST 07/24/2019 HISTORY: pneumonia/constipation TECHNIQUE: Flat and upright abdomen with AP chest COMMENT: There is gas throughout the colon. The stomach and small bowel are not distended. There has apparently been previous cholecystectomy. The appearance of the abdomen has not changed appreciably since the previous study of 07/23/2019. There continues to be opacification in the left lower lobe which is also slightly improved since the previous study. There appears to be a loculated pleural effusion laterally on the left. IMPRESSION: Left lower lobe pneumonia and pleural effusion. Nonspecific abdomen. Electronically signed by Panchito Payton 07/24/2019 12:38 PM
[2019-07-24] MEDS: NORCO-10 PO PRN ×2 (14:50→19:32)
[2019-07-24] MEDS: POTASSIUM CHLORIDE 20 MEQ/SWI 20 MEQ/100 ML IVPB IV SCH ×2 (14:51→18:01)
[2019-07-24] MEDS: LOVENOX SUBQ SCH (14:58)
--- NOTE | 2019-07-24 17:22 | PROGRESS NOTE ---
DATE: 07/24/2019 SUBJECTIVE: The patient continues to complain of persistent abdominal pain and she continues to dry heave OBJECTIVE: Vital Signs: Temperature 98.5 degrees, blood pressure 126/83, heart rate 113, respirations 18, O2 saturation 100% on 2 L nasal cannula. General: This is a chronically ill- appearing elderly female lying in bed in no acute distress. Heart: S1, S2 normal. Tachycardic. Lungs: Diminished breath sounds bilaterally. Abdomen: Positive bowel sounds, soft, mild epigastric tenderness. Extremities: No edema, no cyanosis. Neurologic: The patient is alert and oriented x3. LABS: White blood cell count 7.4, hemoglobin 9.3, hematocrit 27, platelets 425,000. Sodium 131, potassium 3.2, chloride 99, CO2 23, BUN 3, creatinine 0.3. ASSESSMENT AND PLAN: 1. Chronic abdominal pain. Will continue on the current laxative regimen. The x-ray has been unremarkable. 2. Pneumonia. Continue with antibiotic and bronchodilator therapy. 3. Bipolar disorder. Aware. 4. Hypothyroidism. Continue Synthroid. 5. Tobacco dependence. The patient has been counseled about smoking cessation. 6. Deep vein thrombosis prophylaxis. Continue on Lovenox. 7. Suicidal ideation. The patient is on one-to-one observation. cc: Katia Hay MD MTDD
[2019-07-24] MEDS: VANCOMYCIN 1 GM/NS 1 GM/250 ML IVPB IV SCH (18:12)
[2019-07-25] MEDS: NORCO-10 PO PRN ×6 (03:07→22:07)
[2019-07-25] MEDS: MAXIPIME 1 GM in NS 50 ML IV SCH ×2 (03:07→16:43)
[2019-07-25] MEDS: ZOFRAN IV PRN ×3 (03:12→22:07)
[2019-07-25] MEDS: DUONEB (A & A) INH SCH ×6 (03:50→23:43)
[2019-07-25] MEDS: SYNTHROID PO SCH (06:12)
[2019-07-25] MEDS: CARAFATE PO SCH ×4 (06:12→22:07)
[2019-07-25] MEDS: VANCOMYCIN 1 GM/NS 1 GM/250 ML IVPB IV SCH ×2 (06:12→17:52)
[2019-07-25] MEDS: PHENERGAN PR PRN ×2 (06:29→13:29)
[2019-07-25 07:36] LABS: HEMATOCRIT 29.3 % (37.0-47.0); HEMOGLOBIN 9.5 g/dL (12.0-16.0); MCH 29.7 PG (27-31); MCHC 32.4 g/dL (33-37); MCV 91.6 FL (81-99); MPV 8.4 FL (7.4-10.4); RBC 3.2 XMIL (4.2-5.4); RDW 23.6 % (11.5-14.5); WBC 5.98 X1000 (4.8-10.8)
[2019-07-25] MEDS ORDERED: MAGNESIUM SULFATE 2 GM/S.W.I. 2 GM/50 ML IVPB IV ONE (07:56)
[2019-07-25 07:58] LABS: AGAP 8; BUN 3 mg/dL (8-22); CALCIUM 7.3 mg/dL (8.8-10.2); CHLORIDE 103 mmol/L (98-107); COSMO 269; CREATININE 0.2 mg/dL (0.5-0.9); ESTIMATED GFR > 60; GLUCOSE 109 mg/dL (70-104); POTASSIUM 3.3 mmol/L (3.5-5.1); SODIUM 136 mmol/L (136-145); TCO2 25 mmol/L (25-35)
[2019-07-25] MEDS: NICODERM PATCH TD SCH (08:40)
[2019-07-25] MEDS: MIRALAX PO SCH (08:40)
[2019-07-25] MEDS: LACTULOSE PO SCH ×2 (08:40→22:08)
[2019-07-25] MEDS: MYCOSTATIN SUSP PO SCH ×4 (08:41→22:07)
[2019-07-25] MEDS: POTASSIUM CHLORIDE 20 MEQ/SWI 20 MEQ/100 ML IVPB IV SCH ×2 (08:50→11:37)
[2019-07-25] MEDS: PROTONIX PO SCH ×2 (09:30→22:07)
--- NOTE | 2019-07-25 11:05 | PROGRESS NOTE ---
DATE: 07/25/2019 SUBJECTIVE: The patient is resting comfortably. She continues to complain of epigastric pain. OBJECTIVE: Vital Signs: Temperature 98.3 degrees, blood pressure 126/80, heart rate 113, respirations 18, O2 saturation is 99% on 2 L nasal cannula. General: This is a chronically ill- appearing, elderly female, lying in bed in no acute distress. Heart: S1, S2 normal. Tachycardic. Lungs: Diminished breath sounds bilaterally. Abdomen: Positive bowel sounds. Soft, nontender, nondistended. Extremities: No edema, no cyanosis. Neurologic: The patient is alert and oriented x3. Labs: White blood cell count 5.9, hemoglobin 9.5, hematocrit 29, platelets 360,000. Sodium 136, potassium 3.3, chloride 103, BUN 3, creatinine 0.2, magnesium 1.5, calcium 7.3. ASSESSMENT AND PLAN: 1. Chronic abdominal pain. The patient has had a complete gastrointestinal workup with no obvious etiology discovered. We will continue with pain management. 2. Pneumonia. Continue with antibiotic and bronchodilator therapy. 3. Bipolar disorder. Aware. 4. Hypothyroidism. Continue on Synthroid. 5. Tobacco dependence. The patient has been counseled about smoking cessation. 6. Deep vein thrombosis prophylaxis. Continue on Lovenox. 7. Suicidal ideation. The patient is currently on one-to-one observation. Once she is medically stable, she will need to be assessed by [facility] for possible inpatient psychiatric treatment. cc: Katia Hay MD MTDD
--- NOTE | 2019-07-25 14:13 | GASTROENTEROLOGY PROGRESS NOTE ---
DATE: 07/25/2019 SUBJECTIVE: Patient is complaining of abdominal pain. She is currently on 1 on 1 observation due to suicidal ideation. Patient has chronic pain syndrome. She has had multiple GI workups including ERCP at last hospitalization on 07/01 with stent removed. Findings also showed esophagitis, gastritis, hiatal hernia. Her common bile duct stent was removed at that time. OBJECTIVE: Vital Signs: Temperature 98.2 degrees, pulse 127, respirations 17, blood pressure 129/75. General: The patient is awake and alert. She is complaining of abdominal pain and back pain. LABORATORY: Hematology: WBC 5.98, hemoglobin 9.5, hematocrit 29.3, MCV 91.6. Chemistry: Sodium 136, potassium 3.3, chloride 103, CO2 25, BUN 3, creatinine 0.2, glucose 109. ASSESSMENT: 1. Chronic abdominal pain. 2. Pneumonia. 3. Bipolar disorder. 4. Hypothyroidism. 5. Suicidal ideation. Patient has 1 on 1 observation at present time. PLAN: Continue PPI. Continue Carafate. Patient has had multiple GI workup. Recommend she have a psychiatric evaluation. She will most likely require evaluation from pain specialist. Further plans to be made according to her progress. I have discussed this case with Dr. Rowe. Dictated by DORIS Hines for Bart oRwe MD cc: DORIS Ross MD [facility]
[2019-07-25] MEDS ORDERED: KLONOPIN PO ONE (14:34)
[2019-07-25] MEDS: LOVENOX SUBQ SCH (14:40)
[2019-07-26] MEDS: DUONEB (A & A) INH SCH ×6 (03:43→23:21)
[2019-07-26] MEDS: NORCO-10 PO PRN ×2 (03:56→08:05)
[2019-07-26] MEDS: MAXIPIME 1 GM in NS 50 ML IV SCH ×2 (03:57→15:50)
[2019-07-26] MEDS: ZOFRAN IV PRN ×3 (04:01→23:05)
[2019-07-26] MEDS: VANCOMYCIN 1 GM/NS 1 GM/250 ML IVPB IV SCH (06:29)
[2019-07-26] MEDS: CARAFATE PO SCH ×4 (06:29→20:29)
[2019-07-26] MEDS: SYNTHROID PO SCH (06:29)
--- NOTE | 2019-07-26 06:49 | Diag Imaging Result Doc PS360 ---
EXAM: CHEST-1 VIEW HISTORY: pneumonia TECHNIQUE: Chest single view COMPARISON: Comparison films will not load FINDINGS: The lungs are hyperexpanded. No cardiomegaly. No pulmonary edema. The right lung is clear. There are increased interstitial markings in the left lung base with a small left pleural effusion. Mild scoliosis. IMPRESSION: Left basilar infiltrates with small left pleural effusion. Electronically signed by Bruce Mercedes 07/26/2019 6:47 AM
[2019-07-26 07:20] LABS: BASO# 0.03 X1000 (0.0-0.2); BASO% 0.5 % (0.0-0.8); EOS# 0.12 X1000 (0.0-0.7); EOS% 1.8 % (0.0-10.0); HEMATOCRIT 28.9 % (37.0-47.0); HEMOGLOBIN 9.4 g/dL (12.0-16.0); IMM GRAN# 0.02 X1000 (0.0-0.04); IMM GRAN% 0.3 % (0.0-0.5); LYMPH# 1.01 X1000 (1.2-3.4); LYMPH% 15.2 % (20.5-51.1); MCHC 32.5 g/dL (33-37); MCV 89.2 FL (81-99); MONO# 0.71 X1000 (0.11-0.59); MONO% 10.7 % (1.7-9.3); MPV 8.7 FL (7.4-10.4); NEUT# 4.75 X1000 (1.4-6.5); NEUT% 71.5 % (42.2-75.2); PLT 432 X1000 (130-400); RBC 3.24 XMIL (4.2-5.4); RDW 22.7 % (11.5-14.5); WBC 6.64 X1000 (4.8-10.8)
[2019-07-26 07:38] LABS: AGAP 10; ALBUMIN 2.1 g/dL (3.5-5.0); BUN 3 mg/dL (8-22); CALCIUM 7.5 mg/dL (8.8-10.2); CHLORIDE 99 mmol/L (98-107); COSMO 263; CREATININE 0.2 mg/dL (0.5-0.9); ESTIMATED GFR > 60; GLUCOSE 96 mg/dL (70-104); MAGNESIUM 1.6 mg/dL (1.5-2.7); PHOSPHORUS 2.3 mg/dL (2.7-4.5); POTASSIUM 3.7 mmol/L (3.5-5.1); SODIUM 133 mmol/L (136-145); TCO2 24 mmol/L (25-35)
[2019-07-26] MEDS ORDERED: MAGNESIUM SULFATE 2 GM/S.W.I. 2 GM/50 ML IVPB IV ONE (07:40)
[2019-07-26] MEDS ORDERED: SODIUM PHOSPHATE 20 MMOL in NS 250 ML IV ONE (07:41)
[2019-07-26 07:59] LABS: ANISOCYTOSIS 2+; LYMPHS 16 % (21-51); MONO 2 % (1-9); SEGS 82 % (42-75)
[2019-07-26] MEDS: MAG-OX PO SCH (08:54)
[2019-07-26] MEDS: MYCOSTATIN SUSP PO SCH ×4 (08:54→20:29)
[2019-07-26] MEDS: LACTULOSE PO SCH ×2 (08:54→20:29)
[2019-07-26] MEDS: NICODERM PATCH TD SCH (08:54)
[2019-07-26] MEDS: MIRALAX PO SCH (08:54)
[2019-07-26] MEDS: PROTONIX PO SCH ×2 (08:54→20:29)
--- NOTE | 2019-07-26 11:12 | PROVIDER DOCUMENTATION ---
This chart was entered by Harmony Tellez Scribe, acting as scribe for Sage Harrison MD. HPI-Abdominal Pain/GI Problem - General Chief Complaint: Nausea/Vomiting Stated Complaint: VOMITING Time Seen by Provider: 07/21/19 11:13 Source: patient Allergies/Adverse Reactions: Patient Allergies Allergy/AdvReac Type Severity Reaction Status Date / Time codeine AdvReac VOMITING Verified 07/21/19 11:32 Home Medications: Home Medication List Medication Instructions Recorded Confirmed Last Taken Type Levothyroxine [Synthroid] 75 microgm PO DAILY@0700 #120 tab 06/26/19 07/21/19 06/30/19 Rx Pantoprazole [Protonix] 40 mg PO BID #90 tab 07/05/19 07/21/19 Unknown Rx Sucralfate [Carafate] 1 gm PO AC + HS #160 tab 07/05/19 07/21/19 Unknown Rx Promethazine [Phenergan] 1 cap [place] Q6H PRN PRN 07/21/19 07/21/19 07/18/19 History - History of Present Illness-ABD Nature of Presenting Problems: Patient is a 63 year old female who presents with RLQ abdominal pain, nausea and vomiting. States symptoms have been present for 3 days. Denies diarrhea. Abdominal Pain Onset Location: reports: RLQ Pain Radiation: reports: no radiation Quality of Pain: reports: sharp Severity in ED: reports: mild Onset/Duration: reports: 3 days ago Timing: reports: still present, intermittent Activities at Onset: reports: light activity Modifying Factors: improves with: nothing Associated Symptoms: reports: nausea, vomiting Last BM: 2 days ago Bruising or Bleeding Gums?: No Similar Symptoms Previously?: Yes Recently seen or treated by another doctor?: Yes Review of Systems - Adult - REVIEW OF SYSTEMS - ADULT Constitutional: reports: no symptoms reported. denies: chills, fever, fatique Eyes: reports: no symptoms reported Ears, Nose, Mouth & Throat: reports: no symptoms reported Cardiovascular: reports: no symptoms reported. denies: chest pain, irregular heart rate, palpitations Respiratory: reports: no symptoms reported. denies: cough, shortness of breath, wheezing Gastrointestinal: reports: see HPI, abdominal pain (RLQ), nausea, vomiting. denies: diarrhea Genitourinary: reports: no symptoms reported Musculoskeletal: reports: no symptoms reported Integumentary: reports: no symptoms reported Neurological: reports: no symptoms reported Psychiatric: reports: no symptoms reported Endocrine: reports: no symptoms reported Hematologic/Lymphatic: reports: no symptoms reported Allergic/Immunologic: reports: no symptoms reported All Other Systems: Reviewed and Negative Past History - Adult - PAST MEDICAL HISTORY-ADULT Review of Records: reports: Old Records Reviewed, Social history reviewed & non- contributory. Major Childhood Illnesses: reports: other (Headaches) Cardiovascular: reports: HTN Respiratory: reports: asthma, COPD Gastrointestinal: reports: GERD Obstetrical/Gynecological: reports: denies history Genitourinary: reports: other (pt reports her bladder has dropped and she needs repair. ) Musculoskeletal: reports: arthritis, chronic pain Neurological: reports: CVA Psychiatric: reports: anxiety, depression, psychiatric problems Endocrine/Immune: reports: thyroid disorder (hypo). denies: Diabetes Other Conditions: reports: denies history - PRIOR SURGERIES/PROCEDURES Surgical/Procedure History: reports: cholecystectomy, BTL, - IMMUNIZATION STATUS Childhood Immunizations: See Nurse Assessment Flu Vaccine: See Nurse Assessment - FAMILY HISTORY Family History: other (Parents with unspecified heart disease) - SOCIAL HISTORY Smoking: cigarettes, less than 1 pack/day Provider spent 3-5 mins advising pt. on dangers of tobacco.: Discussed manners to quit use, and f/u contacts for add'l counseling. Substance Use: denies Physical Exam-General - PHYSICAL EXAM-ADULT Initial Vital Signs Reviewed: Yes - CONSTITUTIONAL General Appearance: alert, no apparent distress, cachetic. negative: lethargic - EYES Eyes: PERRL/EOMI, pink conjunctivae. negative: scleral icterus - HEAD, EARS, NOSE, MOUTH & THROAT HENMT: normocephalic/atraumatic, moist mucous membranes, pharynx normal. negative: angioedema - RESPIRATORY Respiratory: chest non-tender, lungs clear, normal breath sounds. negative: rales, rhonchi, stridor - CARDIOVASCULAR Cardiovascular: normal peripheral pulses, tachycardia. negative: regular rate, rhythm - GASTROINTESTINAL (ABDOMEN) Abdominal Exam: normal bowel sounds, soft, tenderness (diffuse). negative: guarding, rebound - MUSCULOSKELETAL Extremity: non-tender, normal inspection. negative: deformity, erythema - SKIN Integumentary: normal color, warm/dry, other (decrease skin turgor.). negative: diaphoresis, ecchymosis, jaundice - NEUROLOGIC Neurologic: grossly normal. negative: aphasia, facial droop - PSYCHIATRIC Psych/Mental Status: normal mood/affect, oriented x 3. negative: anxious Progress - PLAN OF CARE/RESULTS Progress/Plan/Lab Results: Vital Signs - 8 hr 07/21/19 11:09 Temperature 97.6 F Pulse Rate 139 H Respiratory Rate 20 Blood Pressure 104/71 O2 Sat by Pulse Oximetry 96 Result Diagrams: 07/21/19 11:18 07/21/19 11:18 - CT/MRI 1 CT Study: Abdomen, Pelvis Impression: See EMR Report ( EXAM: CT ABD/PELVIS W/IV CONT ONLY INDICATION: abd pain TECHNIQUE: This exam was performed using automated exposure control, adjustment of mA or kV according to patient size, and/or use of iterative reconstruction technique. COMPARISON: 06/30/2019 FINDINGS: There is patchy airspace consolidation at the left lung base indicating pneumonia. This is also seen on the previous study but it is worse on the current study. There is trace consolidation at the right lung base as well. There is probably also a component of fibrosis involving the lingula as well as the right middle lobe at the anterior bases. There has been a prior cholecystectomy. There has been inte rval removal of a biliary stent that was seen on the previous study. The common bile duct is still dilated. Measuring up to 1.2 cm in diameter. There is suggestion of mild hepatic steatosis. The spleen is unremarkable. There is stable pancreatic atrophy. The pancreas is grossly unremarkable, otherwise. There are several small renal cysts bilaterally. The kidneys are unremarkable, otherwise. The urinary bladder is distended. There is no evidence of urinary bladder wall thickening or bladder wall mass. The reproductive tract is grossly unremarkable as imaged. There is a moderate amount of stool in the colon. There are fluid-filled loops of small bowel throughout the abdomen with only mild dist ention. This is nonspecific. A represent ileus from mild enteritis. However, no discrete bowel wall thickening is appreciated. There is nothing that would indicate bowel obstruction. There is a stable large hiatal hernia. The remainder of the GI tract is essentially unremarkable. There is no evidence of acute osseous abnormality. IMPRESSION: 1.Airspace consolidation at the left lung base and minimal consolidation at the right lung base. This has worsened during the interval. 2.Fluid-filled loops of small bowel throughout the abdomen that are nonspecific but may represent ileus related to mild enteritis. 3.Distended urinary bladder but no lateral wall thickening is identified. 4.Interval removal of a biliary stent that was seen on the previous study. 5.Other incidental/nonacute findings detailed above. Electronically signed by Christiano Deluna 07/21/2019 2:39 PM 07/21/19 1439 Interpreting Physician: Christiano Deluna MD Dictated Date/Time: 07/21/19 1429 cc: Sage Harrison MD; None,PCP) - CONSULTS/PCP/HOSPITALIST Notification #1 *Consult/PCP/Hospitalist*: DORIS Macario for Hospitalist Time Discussed: 15:17 Reason/Comments: Dr. Harrison consulted with Amirah about patient Departure - Departure Date of Disposition Decision: 07/21/19 Time of Disposition Decision: 15:32 DIAGNOSIS: HCAP (healthcare-associated pneumonia), Enteritis Disposition: ADMITTED INPATIENT 09 Certified Medical Emergency: Emergent Condition: Good Referrals and Follow-Ups: None,PCP [Primary Care Provider] - - Critical Care Note This patient required my direct & personal management of CC.: No Attestation - Physician/ MIKE Attestation The physician spent face to face time with patient:: Yes Advanced Practice Provider documentation review:: Supervising physician onsite and consulted in the evaluation and care of this patient. The physician did have a face to face encounter with the patient. This chart was documented by the indicated scribe, (Harmony Tellez Scribe) and accurately reflects the services I performed and decisions made by me, Sage Harrison MD, as attested by the provider's signature.
[2019-07-26] MEDS: PERCOCET-10 PO PRN ×3 (11:20→20:29)
--- NOTE | 2019-07-26 14:25 | INFECTIOUS DISEASE CONSULT REP ---
DATE: 07/26/2019 CONCLUSION: The patient has a left lower lobe pneumonia with a small pleural effusion. The patient may have an immunoglobulin deficiency. The patient has oral candidiasis. RECOMMENDATIONS: I agree with treating the patient with vancomycin and cefepime. I have ordered immunoglobulin levels on the patient. I agree with treating the patient with nystatin. PRESENT ILLNESS: The patient is telling me that she has been dyspneic for the past 2 to 3 weeks. She has not been coughing and she has not produced any sputum. She also says that she has pain in her mouth. The patient's CBC shows a white count of 6640, hemoglobin 9.4, platelet count 432,000. The creatinine is 0.2. GFR is greater than 60. Blood cultures are negative. Chest x-ray shows left lower lobe pneumonia with a small effusion. The patient also tells me that she has lost 30 pounds in the past months. She states that she is anorectic.. PAST MEDICAL HISTORY/REVIEW OF SYSTEMS: Eyes and Ears: She denied having any problem seeing or hearing. Neck: No stiffness. Respiratory: See present illness. Cardiac: No chest pain or palpitations. GI: The patient has had anorexia and has lost 30 pounds in the past 2 to 3 months. Genitourinary: No dysuria or flank pain. Neurologic: No seizures. No recent loss of motor or sensory function. She does have generalized weakness, however. 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 PREVIOUS HOSPITALIZATIONS AND OPERATIONS: She has had 3 labor and deliveries, a miscarriage, a cholecystectomy. She has had pneumonia and also a stroke. MEDICAL DISEASES: Positive for hypertension and stroke, hypothyroidism, gastroesophageal reflux disease. INFECTIOUS DISEASE HISTORY: Positive for pneumonia and UTI. FAMILY HISTORY: Positive for diabetes mellitus, hypertension, myocardial infarction, and cancer. SOCIAL HISTORY: The patient lives in [place]. She is . She has dogs for pets. She smokes cigarettes. She does not drink alcoholic beverages or abuse drugs. ALLERGIES: She is allergic to codeine. HOME MEDICATIONS: Include the following: Clonazepam, Synthroid, Protonix, Phenergan, and Carafate. PHYSICAL EXAMINATION: Vital Signs: Temperature is 98.6 degrees, pulse 112, respirations 14, blood pressure 123/84. General: This is a chronically ill and malnourished-appearing, middle- aged female. She is in no acute distress. Head, Eyes, Ears, Nose, and Throat: She can hear my spoken words and see near objects. She has some hyperemia in her mouth. I saw one small area of a white patch. Neck: No meningismus. Thorax: The patient has an increased AP diameter of the chest. Lungs: Breath sounds were distant. I did not hear any rales or rhonchi. Cardiovascular: Heart rate is regular. Abdomen: Soft and slightly tender in the upper part of the abdomen. Neurologic: The patient is awake. She can move her extremities, although she has generalized weakness. There is no tremor. Her memory as regarding her medical history seemed to be intact. Integument: No rash. Thank you for the consult. cc: Jordan Lawrence MD
[2019-07-26] MEDS: PHENERGAN PR PRN (14:50)
[2019-07-26] MEDS: LOVENOX SUBQ SCH (14:50)
--- NOTE | 2019-07-26 14:55 | GASTROENTEROLOGY PROGRESS NOTE ---
DATE: 07/26/2019 SUBJECTIVE: Patient is awake and alert. She has a nurse tech at the bedside due to reports of suicidal ideation. Patient still reports pain in the back and stomach. Patient reports having a bowel movement yesterday. She is on PPI along with Carafate, also MiraLAX and lactulose. OBJECTIVE: Vital Signs: Temperature 98.6 degrees, pulse 112, blood pressure 123/84. General: Patient is awake and alert in no acute distress. She is continuing to complain of chronic pain. LABORATORY: Hematology 6.64, hemoglobin 9.4, hematocrit 28.9, MCV 89.2, platelets 432,000. Chemistry: Sodium 133, potassium 3.7, chloride 99, BUN 3, creatinine 0.2, glucose 96. ASSESSMENT AND PLAN: 1. Chronic pain syndrome. The patient needs to be seen by a pain specialist to manage her chronic pain. 2. Abdominal pain. Patient had ERCP and stent removal during her last hospitalization that showed esophagitis and gastritis. Continue her PPI and Carafate. 3. Bipolar disorder/suicidal ideation. Patient needs psychiatric evaluation. As far as GI is a concerned, continue her current management of GERD symptoms and constipation. Patient has chronic pain that does not seem to be GI related. Continue her current management. Continue pain management along with referral for a pain specialist and also psychiatric management. GI will sign off for now. Please re-consult as needed. I have discussed this case with Dr. Rowe. Dictated by DORIS Hines for Bart Rowe MD cc: DORIS Ross MD
--- NOTE | 2019-07-26 15:37 | PROGRESS NOTE ---
DATE: 07/26/2019 SUBJECTIVE: The patient is resting in bed. She complains of abdominal pain. OBJECTIVE: Vital signs: Temperature 97 degrees, blood pressure 118/84, heart rate 106, respirations 18, O2 saturation 98% on room air. General: This is a chronically ill-appearing elderly female lying in bed in no acute distress. Heart: S1, S2 normal. Tachycardic. Lungs: Equal air entry bilaterally. No wheezing. No rales. Abdomen: Positive bowel sounds. Soft, nontender, and nondistended. Extremities: No edema. No cyanosis. Neurologic: The patient is alert and oriented x3. No focal neurologic deficits noted. LABORATORY: White blood cell count 6.6, hemoglobin 9.4, hematocrit 28, platelets 432,000. Sodium 133, potassium 3.7, chloride 99, CO2 24, BUN 3, creatinine 0.2, glucose 96, magnesium 1.6, and phosphorus 2.3. ASSESSMENT AND PLAN: 1. Chronic abdominal pain. The patient is currently on Percocet. She states that she was on Suboxone up until last month when it started to make her sick to her stomach so it was discontinued. The patient will likely need referral to outpatient pain management clinic upon discharge. 2. Pneumonia. Continue with antibiotic therapy and bronchodilator therapy. 3. Suicidal ideation and bipolar disorder. Once the patient is medically stable, she will need an assessment by [facility]. 4. Hypothyroidism. Continue on Synthroid. 5. Tobacco dependence. The patient has been counseled about smoking cessation. 6. Deep vein thrombosis prophylaxis. The patient is currently on Lovenox. cc: Katia Hay MD [facility]
[2019-07-26] MEDS ORDERED: NS 250 ML ONE (16:05)
[2019-07-26] MEDS: VANCOMYCIN 1,250 MG in NS 250 ML IV SCH (21:12)
[2019-07-27] MEDS: PERCOCET-10 PO PRN ×6 (00:31→22:57)
[2019-07-27] MEDS: DUONEB (A & A) INH SCH ×6 (03:19→23:21)
[2019-07-27] MEDS: MAXIPIME 1 GM in NS 50 ML IV SCH ×2 (04:26→16:00)
[2019-07-27] MEDS: CARAFATE PO SCH ×4 (06:22→20:23)
[2019-07-27] MEDS: SYNTHROID PO SCH (06:22)
[2019-07-27 07:44] LABS: BASO# 0.02 X1000 (0.0-0.2); BASO% 0.3 % (0.0-0.8); EOS# 0.08 X1000 (0.0-0.7); EOS% 1.1 % (0.0-10.0); HEMATOCRIT 28.3 % (37.0-47.0); HEMOGLOBIN 9.3 g/dL (12.0-16.0); LYMPH% 15.2 % (20.5-51.1); MCH 29.4 PG (27-31); MCHC 32.9 g/dL (33-37); MCV 89.6 FL (81-99); MONO# 0.84 X1000 (0.11-0.59); MONO% 11.6 % (1.7-9.3); MPV 8.9 FL (7.4-10.4); NEUT# 5.18 X1000 (1.4-6.5); NEUT% 71.8 % (42.2-75.2); PLT 420 X1000 (130-400); RBC 3.16 XMIL (4.2-5.4); RDW 22.7 % (11.5-14.5); WBC 7.22 X1000 (4.8-10.8)
[2019-07-27 08:11] LABS: AGAP 9; ALBUMIN 2.2 g/dL (3.5-5.0); BUN 3 mg/dL (8-22); CALCIUM 7.7 mg/dL (8.8-10.2); CHLORIDE 98 mmol/L (98-107); COSMO 262; CREATININE 0.3 mg/dL (0.5-0.9); ESTIMATED GFR > 60; GLUCOSE 115 mg/dL (70-104); MAGNESIUM 1.6 mg/dL (1.5-2.7); PHOSPHORUS 2.8 mg/dL (2.7-4.5); POTASSIUM 2.8 mmol/L (3.5-5.1); SODIUM 132 mmol/L (136-145); TCO2 25 mmol/L (25-35)
[2019-07-27] MEDS: MIRALAX PO SCH (08:16)
[2019-07-27] MEDS: PROTONIX PO SCH ×2 (08:16→20:23)
[2019-07-27] MEDS: MYCOSTATIN SUSP PO SCH ×4 (08:16→20:23)
[2019-07-27] MEDS: NICODERM PATCH TD SCH (08:16)
[2019-07-27] MEDS: LACTULOSE PO SCH ×2 (08:16→20:23)
[2019-07-27] MEDS: MAG-OX PO SCH (08:16)
[2019-07-27] MEDS: VANCOMYCIN 1,250 MG in NS 250 ML IV SCH ×2 (08:16→20:40)
[2019-07-27] MEDS: ZOFRAN IV PRN ×3 (08:17→20:30)
[2019-07-27] MEDS: PHENERGAN PR PRN ×2 (13:26→18:46)
[2019-07-27] MEDS ORDERED: KLOR-CON PO ONE (14:30)
[2019-07-27] MEDS: LOVENOX SUBQ SCH (14:57)
--- NOTE | 2019-07-27 16:30 | INFECTIOUS DISEASE PROGRESS NO ---
DATE: 07/27/2019 PRESENT ILLNESS: Ms. Alonso is being treated for a left lower lobe pneumonia and oral candidiasis. MEDICATIONS: She is receiving cefepime 1 g IV every 12 hours, vancomycin IV per pharmacy dosing and nystatin swish and swallow. PHYSICAL EXAMINATION: Vital Signs: Temperature is 97.9 degrees, pulse rate 127, respiratory rate 18, blood pressure 120/80, O2 saturation 97% on room air. General: This is a chronically ill-appearing middle-aged malnourished looking female. She is lying in bed complaining of abdominal pain which she is fixated on. HEENT: Atraumatic, normocephalic. Oral mucous membranes are pink and moist. Conjunctivae are pale. Neck: Has a decrease in suppleness. Trachea is midline. Respiratory: Lung sounds are clear in the upper lobes. Diminished in the mid and bases. Cardiovascular: Heart rate is regular and fast. Abdomen: Flat, mildly firm and guarded with complaints of pain. Neurologic: She is awake, alert and speaking only about the pain in her abdomen at this point. Generalized weakness is noted. LABORATORY AND X-RAY: Today her white count is 7.22, hemoglobin 9.3, platelet count 420,000. Creatinine is 0.3, estimated GFR is greater than 60. Her immunoglobulin levels drawn yesterday show an IgA of 590 an IgG of 1230. Blood cultures have shown no growth after 48 hours. EKG shows sinus tachycardia. No imaging reports today. ASSESSMENT AND PLAN: Ms. Alonso is being treated for pneumonia with vancomycin and cefepime, which we will continue. Her immunoglobulin levels are normal. She has an oral candidiasis which has improved. We will continue nystatin swish and swallow. These plans have been discussed with and recommended by Dr. Lawrence. COMORBIDITIES: Include gastroesophageal reflux disease, previous stroke, chronic pain, cigarette smoking with COPD, anxiety and depression. Dictated by DORIS Villegas for Jordan Lawrence MD cc: Jordan Lawrence MD [facility]
--- NOTE | 2019-07-27 17:58 | PROGRESS NOTE ---
DATE: 07/27/2019 Ms. Alonso was admitted on 07/21/2019. No primary care provider. Had nausea, vomiting, left upper quadrant pain, chills, and productive cough with yellow sputum. She is a 63-year-old female, well known to our service from multiple admissions for nausea, vomiting, and chronic constipation secondary to opiate use, who re- presented to the emergency room complaining of nausea, vomiting, constipation, left upper quadrant pain, productive cough and yellowish sputum, and chills. She reports the nausea and vomiting had been ongoing for 3 days.denies any diarrhea. Workup in the emergency room continued to show airspace consolidation of the left lung base, minimal consolidation in the right lung base, worsening during the interval of fluid-filled loops of small bowel in the abdomen, nonspecific for ileus or mild enteritis. White count of 8, hemoglobin and hematocrit were stable. Potassium is 3.2. PAST MEDICAL HISTORY: 1. Chronic pain. 2. Chronic abdominal pain. 3. Opioid-related constipation. 4. Hypertension. 5. Hypothyroidism. 6. Anxiety and depression. 7. Degenerative joint disease. 8. Gastroesophageal reflux disease. 9. Bipolar disorder. 10. 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 11. COPD. 12. Recent cholangitis, status post stenting and stent removal. 13. Cholecystitis. 14. Stent removal secondary to cholangitis. 15. Tubal . 16. Bilateral lens placement and cataracts. Admitted with bilateral pneumonia, chronic nausea and vomiting, dehydration, chronic constipation, COPD, hypothyroidism, oral thrush, history of anxiety and depression. Today, she is sitting up in bed. She is eating a little bit. Complains of her stomach still feeling raw. OBJECTIVE: Temperature 97.9 degrees, pulse 127, respirations 16, blood pressure 120/80. Pupils are equal and round. Lungs are clear in all lung oconnell. Cardiovascular: Regular rhythm and rate without murmur or S3. Urine output was 3100 mL. ASSESSMENT AND PLAN: 1. Treated for left lower lobe pneumonia, oral candidiasis. She is getting cefepime 1 g every 12 hours, vancomycin dosing per Pharmacy, and nystatin swish and swallow. She does seem to be improving. 2. Chronic abdominal pain, currently on Percocet. She states that she was on Suboxone until last month, started making her sick at her stomach, and likely she will need pain management referral when she leaves. 3. Suicidal ideation and bipolar disorder. She is medically stable. Supposed to be assessed when she is medically stable by [facility] Ol[facility]. 4. Hypothyroidism. On Synthroid. Appears to be euthyroid. 5. Tobacco dependence. 6. Deep venous thrombosis prophylaxis in place. REVIEW OF HER ORDERS: She is on breathing treatments with albuterol/ipratropium, on Lovenox 40 mg subcutaneous q.24 h., lactulose 30 mL b.i.d., Synthroid 75 mcg a day, cefepime 1 g IV q.12 h., nicotine 21 mg patch daily, oxycodone 10 mg q.4 h. p.r.n., Protonix 40 mg b.i.d. MiraLAX 17 g daily, Carafate 1 g q.a.c. and at bedtime, vancomycin 1250 mg IV q.12 h., magnesium sulfate was given yesterday 2 g, and some potassium chloride given IV as well. cc: Binh Fuentes MD [facility]
[2019-07-28] MEDS: DUONEB (A & A) INH SCH ×6 (03:02→23:45)
[2019-07-28] MEDS: MAXIPIME 1 GM in NS 50 ML IV SCH ×2 (04:53→15:59)
[2019-07-28] MEDS: PERCOCET-10 PO PRN ×5 (04:53→21:45)
[2019-07-28] MEDS: PHENERGAN PR PRN ×2 (05:56→15:59)
[2019-07-28] MEDS: SYNTHROID PO SCH (06:20)
[2019-07-28] MEDS: CARAFATE PO SCH ×4 (06:20→21:02)
[2019-07-28] MEDS: MIRALAX PO SCH (08:21)
[2019-07-28] MEDS: NICODERM PATCH TD SCH (08:21)
[2019-07-28] MEDS: MYCOSTATIN SUSP PO SCH ×4 (08:21→21:02)
[2019-07-28] MEDS: VANCOMYCIN 1,250 MG in NS 250 ML IV SCH (08:21)
[2019-07-28] MEDS: MAG-OX PO SCH (08:21)
[2019-07-28] MEDS: LACTULOSE PO SCH ×2 (08:22→21:02)
[2019-07-28] MEDS: PROTONIX PO SCH ×2 (08:27→21:02)
[2019-07-28 08:30] LABS: AGAP 13; ALBUMIN 2.3 g/dL (3.5-5.0); BUN 4 mg/dL (8-22); CALCIUM 7.6 mg/dL (8.8-10.2); CHLORIDE 100 mmol/L (98-107); COSMO 270; CREATININE 0.3 mg/dL (0.5-0.9); ESTIMATED GFR > 60; GLUCOSE 119 mg/dL (70-104); MAGNESIUM 1.5 mg/dL (1.5-2.7); PHOSPHORUS 2.4 mg/dL (2.7-4.5); POTASSIUM 3.4 mmol/L (3.5-5.1); SODIUM 136 mmol/L (136-145); TCO2 23 mmol/L (25-35)
--- NOTE | 2019-07-28 09:21 | PROGRESS NOTE ---
DATE: 07/28/2019 SUBJECTIVE: Ms. Alonso is still complaining that her stomach is sore and she is having a lot of gas. OBJECTIVE: Temperature 99.0 degrees, pulse 100, respirations 22, blood pressure 125/87. Pupils are equal and round. Lungs are clear in all lung oconnell. Cardiovascular Examination: Regular rhythm and rate without murmur or S3. Abdomen is soft. Skin is warm and dry. Urine output was 1000 mL. ASSESSMENT AND PLAN: 1. Treated for left lower lobe pneumonia and oral candidiasis. Getting cefepime 1 g every 12 hours, vancomycin per pharmacy, nystatin swish and swallow. Seems to be improving. 2. Chronic abdominal pain, on Percocet. She was on Suboxone. 3. Suicidal ideation, bipolar disorder. 4. Hypothyroidism, on Synthroid. Appears euthyroid. 5. Tobacco dependence. 6. Deep venous thrombosis prophylaxis in place. 7. I guess waiting on placement. She is medically stable. We will get [facility] to evaluate. cc: Binh Fuentes MD
[2019-07-28] MEDS: ZOFRAN IV PRN ×3 (09:54→17:31)
[2019-07-28] MEDS: LOVENOX SUBQ SCH (13:57)
--- NOTE | 2019-07-28 19:02 | INFECTIOUS DISEASE PROGRESS NO ---
DATE: 07/28/2019 PRESENT ILLNESS: Ms. Alonso has left over lower lobe pneumonia and oral candidiasis. MEDICATIONS: She is receiving IV vancomycin per pharmacy dosing and cefepime 1 g IV every 12 hours. Today is day 7 of vancomycin, and day 6 of cefepime. She is receiving nystatin swish and swallow. PHYSICAL EXAMINATION: Vital Signs: Temperature is 98.2 degrees, pulse rate 98, respiratory rate 18, blood pressure 113/82, and O2 saturation is 94% on room air. General: This is a chronically ill appearing cachectic-looking middle-aged female. She is sitting up in bed currently in mild to moderate distress due to complaints of pain to her mid epigastric area. HEENT: Atraumatic, normocephalic. Oral mucous membranes are pink and moist. Conjunctivae are pale. Neck: Decrease suppleness. Trachea is midline. Cardiovascular: Heart rate is regular and sounds tachycardic. Respiratory: Lung sounds are clear to auscultation, and diminished bilaterally. Abdomen: Flat and mildly firm and tender. Bowel sounds are audible. Neurologic: She is awake and alert, and fixated on the pain to her abdomen. Generalized weakness is noted. LABORATORY AND X-RAY: Today, there is no CBC, but her creatinine is 0.3. Estimated GFR is greater than 60. Blood cultures have shown no growth after 5 days. There is no imaging reports. ASSESSMENT AND PLAN: Ms. Alonso is being treated for pneumonia and oral candidiasis. For now, we will continue the vancomycin and cefepime as ordered. She is also receiving nystatin swish and swallow which we will continue. We will get a chest x-ray for in the morning. These plans have been discussed with and recommended by Dr. Lawrence. COMORBIDITIES: Gastroesophageal reflux disease, chronic pain, cigarette smoking with COPD, anxiety, depression, and bipolar disorder. Dictated by DORIS Villegas for Jordan Lawrence MD cc: Jordan Lawrence MD [facility]
[2019-07-28] MEDS: VANCOMYCIN 1,150 MG in NS 250 ML IV SCH (22:04)
[2019-07-29] MEDS: PERCOCET-10 PO PRN ×5 (03:10→22:22)
[2019-07-29] MEDS: MAXIPIME 1 GM in NS 50 ML IV SCH ×2 (04:00→16:37)
[2019-07-29] MEDS: DUONEB (A & A) INH SCH ×6 (06:01→23:24)
[2019-07-29] MEDS: PHENERGAN PR PRN ×2 (06:08→16:38)
[2019-07-29] MEDS: SYNTHROID PO SCH (06:10)
[2019-07-29] MEDS: CARAFATE PO SCH ×4 (06:10→21:35)
--- NOTE | 2019-07-29 06:30 | Diag Imaging Result Doc PS360 ---
CHEST-PORTABLE - 07/29/2019 INDICATION: LLL pneumonia COMPARISON: 07/26/2019 FINDINGS: There is slight improvement in the left lower lobe infiltrate/pneumonia. Stable trace left pleural effusion. Stable hyperexpanded lungs. No new infiltrates. IMPRESSION: Slight improvement in the left lower lobe infiltrate/pneumonia. Electronically signed by Christian Helms 07/29/2019 6:27 AM
[2019-07-29 08:17] LABS: AGAP 10; ALBUMIN 2.2 g/dL (3.5-5.0); BUN 5 mg/dL (8-22); CALCIUM 7.8 mg/dL (8.8-10.2); CHLORIDE 97 mmol/L (98-107); COSMO 261; CREATININE 0.4 mg/dL (0.5-0.9); ESTIMATED GFR > 60; GLUCOSE 119 mg/dL (70-104); PHOSPHORUS 2.4 mg/dL (2.7-4.5); POTASSIUM 3.2 mmol/L (3.5-5.1); SODIUM 131 mmol/L (136-145); TCO2 24 mmol/L (25-35)
[2019-07-29] MEDS: VANCOMYCIN 1,150 MG in NS 250 ML IV SCH ×2 (10:00→21:36)
[2019-07-29] MEDS: MIRALAX PO SCH (10:02)
[2019-07-29] MEDS: MAG-OX PO SCH (10:02)
[2019-07-29] MEDS: MYCOSTATIN SUSP PO SCH ×4 (10:02→21:35)
[2019-07-29] MEDS: LACTULOSE PO SCH ×2 (10:02→21:35)
[2019-07-29] MEDS: NICODERM PATCH TD SCH (10:02)
[2019-07-29] MEDS: PROTONIX PO SCH ×2 (10:02→21:35)
[2019-07-29] MEDS ORDERED: MYCAMINE 100 MG in NS 100 ML IV SCH (13:45)
--- NOTE | 2019-07-29 14:21 | INFECTIOUS DISEASE PROGRESS NO ---
DATE: 07/29/2019 PRESENT ILLNESS: The patient has a left lower lobe pneumonia and oral candidiasis. The candidiasis may have spread to the patient's esophagus and stomach. MEDICATIONS: The patient is receiving a combination of vancomycin and cefepime. This is day 8 of treatment with that. The patient also is receiving nystatin swish and swallow. PHYSICAL EXAMINATION: Vital Signs: Temperature is 97.5 degrees, pulse 121, respirations 18, blood pressure 118/89. General: This is a chronically ill-appearing, cachectic appearing, middle- aged female. She is in no acute distress, but she does continue to complain of pain in the left upper quadrant at this time. Head, eyes, ears, nose, and throat: She can hear my spoken words and see near objects. The white coating she had on her tongue has cleared. Neck: No meningismus. Lungs: Clear to auscultation. Cardiovascular: Heart rate is regular. Thorax: The patient has an increased AP diameter of the chest, suggesting that she has emphysema. Abdomen: Slightly tender in the left upper quadrant. Neurologic: The patient is awake. She looks depressed. There is no tremor. She can move her extremities but she is weak. LAB AND X-RAY: Chest x-ray shows improvement in the left lower lobe infiltrate. The patient's IgG level was 1230, IgA was 590, thus ruling out any type of immunoglobulin deficiency. Creatinine is 0.4. GFR is greater than 60. ASSESSMENT AND PLAN: The patient has pneumonia and candidiasis. My plan is to continue cefepime and vancomycin for the pneumonia and nystatin for the candidiasis and I am also going to add micafungin in case the patient's oral candidiasis has spread into the esophagus and/or stomach. COMORBIDITIES: The patient has gastroesophageal reflux disease, chronic pain, cigarette smoking, emphysema, anxiety, depression, and bipolar disorder. cc: Jordan Lawrence MD
[2019-07-29] MEDS: LOVENOX SUBQ SCH (15:09)
--- NOTE | 2019-07-29 17:46 | PROGRESS NOTE ---
DATE: 07/29/2019 SUBJECTIVE: Ms. Alonso is still complaining of abdominal pain. She has eaten very little. She still is saying she does not want to live. We will go ahead and have [facility] evaluate, and we will continue her present regimen. I encouraged her to try and eat something. OBJECTIVE: Temperature 98.8 degrees, pulse 99, respirations 16, blood pressure 111/79. Pupils are equal and round. Lungs: Clear in all lung oconnell. Cardiovascular: Regular rhythm and rate without murmur or S3. Abdomen: Soft. Skin: Warm and dry. DIAGNOSTIC DATA: Urine output is 1000 mL. ASSESSMENT AND PLAN: 1. Patient with left lower lobe pneumonia, oral candidiasis, and the candidiasis may have spread to the esophagus and stomach. Receiving a combination of vancomycin and cefepime, this is day 8. Receiving nystatin swish and swallow. 2. Depression and chronic pain. We will have [facility] evaluate. I think medically, she is stable. 3. Suicidal ideation. She has underlying bipolar depression. 4. Hypothyroidism. On Synthroid. Appears to be euthyroid. 5. Tobacco dependence. 6. She is on deep vein thrombosis prophylaxis. Review of her orders, I do not see any changes at this point. She is getting oxycodone 10 mg q.4 hours p.r.n. She is on micafungin 100 mg IV q.24 hours, which was started today. She is on her vancomycin and cefepime. cc: Binh Fuentes MD
[2019-07-29] MEDS: ZOFRAN IV PRN (21:42)
[2019-07-30] MEDS: PERCOCET-10 PO PRN ×2 (02:41→06:34)
[2019-07-30] MEDS: DUONEB (A & A) INH SCH ×4 (03:19→16:24)
[2019-07-30] MEDS: MAXIPIME 1 GM in NS 50 ML IV SCH (05:50)
[2019-07-30] MEDS: SYNTHROID PO SCH (06:34)
[2019-07-30] MEDS: CARAFATE PO SCH ×2 (06:34→11:18)
[2019-07-30] MEDS: ZOFRAN IV PRN (06:34)
[2019-07-30 07:36] LABS: BASO# 0.02 X1000 (0.0-0.2); BASO% 0.2 % (0.0-0.8); EOS# 0.01 X1000 (0.0-0.7); EOS% 0.1 % (0.0-10.0); HEMATOCRIT 29.2 % (37.0-47.0); HEMOGLOBIN 9.8 g/dL (12.0-16.0); IMM GRAN# 0.03 X1000 (0.0-0.04); IMM GRAN% 0.4 % (0.0-0.5); LYMPH# 1.26 X1000 (1.2-3.4); LYMPH% 15.1 % (20.5-51.1); MCH 30.2 PG (27-31); MCHC 33.6 g/dL (33-37); MCV 90.1 FL (81-99); MONO# 1.53 X1000 (0.11-0.59); MONO% 18.4 % (1.7-9.3); MPV 9.2 FL (7.4-10.4); NEUT# 5.47 X1000 (1.4-6.5); NEUT% 65.8 % (42.2-75.2); PLT 429 X1000 (130-400); RBC 3.24 XMIL (4.2-5.4); RDW 22.4 % (11.5-14.5); WBC 8.32 X1000 (4.8-10.8)
[2019-07-30 08:01] LABS: ANISOCYTOSIS 2+; HYPOCHROM 1+; LYMPHS 24 % (21-51); MONO 14 % (1-9); SEGS 62 % (42-75)
[2019-07-30] MEDS: MYCOSTATIN SUSP PO SCH ×2 (08:31→13:09)
[2019-07-30] MEDS: LACTULOSE PO SCH (08:31)
[2019-07-30] MEDS: MIRALAX PO SCH (08:31)
[2019-07-30] MEDS: MAG-OX PO SCH (08:31)
[2019-07-30] MEDS: PROTONIX PO SCH (08:31)
[2019-07-30] MEDS: NICODERM PATCH TD SCH (08:32)
--- NOTE | 2019-07-30 10:30 | PROGRESS NOTE ---
DATE: 07/30/2019 SUBJECTIVE: Ms. Alonso still complains of stomach pain, but she seems to be a little more comfortable. She is getting a little more food down. OBJECTIVE: Vital Signs: Temperature 97.8 degrees, pulse 109, respirations 15, blood pressure 102/70. Eyes: Pupils are equal and round. Lungs: Clear in all lung oconnell. Cardiovascular exam: Regular rhythm and rate without murmur or S3. Abdomen: Soft. Skin: Warm and dry. ASSESSMENT AND PLAN: 1. The patient with left lower lobe pneumonia and oral candidiasis. The candidiasis may have spread to her esophagus. Continue vancomycin, cefepime and receiving nystatin swish and swallow. 2. Depression, chronic pain. [facility] has evaluated; they do think she needs inpatient care, but they do not have a bed for her. So, we will need to try and find inpatient. 3. Suicidal ideation, bipolar depression. 4. Hypothyroidism on Synthroid. 5. Tobacco dependence. 6. Continue deep venous thrombosis prophylaxis. I do not see any change in her orders at this time. cc: Binh Fuentes MD
[2019-07-30] MEDS: VANCOMYCIN 1,150 MG in NS 250 ML IV SCH (11:18)
--- NOTE | 2019-07-30 13:17 | INFECTIOUS DISEASE PROGRESS NO ---
DATE: 07/30/2019 PRESENT ILLNESS: The patient has left lower lobe pneumonia, oral candidiasis, and possible Anjelica involvement of the esophagus and stomach. MEDICATIONS: The patient has been for 9 days now on vancomycin and cefepime. The patient also has been receiving nystatin swish and swallow, and yesterday, I started her on micafungin. PHYSICAL EXAMINATION: Vital Signs: Temperature is 97.9 degrees, pulse 110, respirations 20, blood pressure 106/65. General: This is a chronically ill appearing, cachectic appearing middle- aged female. She is in no acute distress. Head/eyes/ears/nose/throat: She can hear my spoken words and see near objects. Her white coating of the tongue has cleared. Neck: No pain with movement. Thorax: Increased AP diameter of the chest. Lungs: Clear to auscultation. Cardiovascular: Heart rate is regular. Abdomen: Soft, and she did not seem to be tender today. Neurologic: The patient is awake. She does look depressed, but she does not have a tremor. She can move her extremities, but she is weak. LAB AND X-RAY: There is no new radiographic study. Yesterday, the patient had a chest x-ray, and it showed improvement in the left lower lobe infiltrate/pneumonia. The CBC shows a white count of 8320, hemoglobin 9.8, and platelet count 429,000. Creatinine is 0.4, GFR is greater than 60. ASSESSMENT AND PLAN: The patient has pneumonia and oral candidiasis that may have spread to the esophagus and stomach. I plan to continue cefepime and vancomycin, and also I plan to continue micafungin for the patient's oral candidiasis that may have spread to the esophagus and/or stomach. COMORBIDITIES: The patient has gastroesophageal reflux disease. She has chronic pain. She is a cigarette smoker. She has emphysema and anxiety as well as depression and bipolar disorder. The patient has chronic obstructive pulmonary disease as manifested by the increased AP diameter of the chest. cc: Jordan Lawrence MD
[2019-07-30] MEDS ORDERED: DOXYCYCLINE PO SCH (14:15)
--- NOTE | 2019-07-30 14:41 | Diag Imaging Result Doc PS360 ---
EXAM: CT HEAD W/O CONTRAST INDICATION: AMS TECHNIQUE: This exam was performed using automated exposure control, adjustment of mA or kV according to patient size, and/or use of iterative reconstruction technique. COMPARISON: 03/24/2019 FINDINGS: There is no definite acute infarct given the limited sensitivity of CT versus MRI. There is no discrete intracranial mass, mass effect, or intracranial hemorrhage. The surrounding soft tissues and bony structures are essentially unremarkable. IMPRESSION: No evidence of acute intracranial pathology. Electronically signed by Christiano Deluna 07/30/2019 2:39 PM
--- NOTE | 2019-07-30 14:59 | DISCHARGE SUMMARY ---
ADMISSION DATE: 07/21/2019 DISCHARGE DATE: HISTORY OF PRESENT ILLNESS: She came in with nausea, vomiting, left upper quadrant pain, chills, productive cough with yellow sputum. This is a 63-year-old, female, well known to our service for multiple admissions for nausea, vomiting, chronic constipation secondary to opiate use, who re-presented in the emergency room complaining of nausea, vomiting, constipation, left upper quadrant pain, productive cough with yellow sputum, and chills. Reports that the nausea and vomiting had been ongoing for 3 days. She admittedly denies any diarrhea. Workup in the ED continues to show airspace consolidation at the left lung base and minimal consolidation in the right lung base worsening during interval, fluid-filled loops of small bowel in the abdomen, nonspecific for ileus or mild enteritis. White count was 8000, hemoglobin and hematocrit were stable. Potassium was 3.2, BUN 10, creatinine 0.4, blood sugar was 141. Total bilirubin 1.43, AST 47, alkaline phosphatase 330, amylase was 18, lipase was 6. So, she was admitted for intractable nausea. PAST MEDICAL HISTORY: Once again to review past medical history: 1. Chronic pain syndrome. 2. Chronic abdominal pain. 3. Opioid-related constipation. 4. Hypertension. 5. Hypothyroidism. 6. Anxiety and depression. 7. Degenerative joint disease. 8. Gastroesophageal reflux disease. 9. Bipolar disorder. 10. CVA in 2008, some residual right-sided facial paralysis. 11. COPD. 12. Recent cholangitis, status post stenting and stent removal. 13. Cholecystitis. 14. Stent removal secondary to cholangitis. 15. Tubal . 16. Bilateral lens placement for cataracts. ADMISSION DIAGNOSES: 1. Continued bilateral pneumonia. Covered with vancomycin and cefepime, and followed with serial x-ray. She showed clinical improvement. 2. Chronic nausea, vomiting, and abdominal pain. The nausea did improve and she was able to get some p.o. medicine. 3. Clinical dehydration. Given her fluids and that corrected. 4. Chronic constipation secondary to opioid use. She had been on Suboxone. Her abdominal CT showed enteritis. However, the patient denied any diarrhea and no sick contacts. Her bowels moved and she was eating some food. Continued to complain of abdominal discomfort. 5. Chronic obstructive pulmonary disease. No exacerbation. 6. Hypothyroidism. 7. Oral thrush. 8. Hypertension. 9. Anxiety and depression. HOSPITAL COURSE: 1. She was put on gastrointestinal prophylaxis as well. Her chest x-ray on 07/22/2019, suggested left lower lobe pneumonia. Her abdominal x-ray on 07/22/2019, showed constipation. Once again, could appreciate left lower lobe pneumonia. CT of her chest on 07/22/2019, airspace consolidation involving left lower lobe and lingula, right middle lobe indicating pneumonia with mild mucus plugging, at least in the left, as well as bronchiectasis. 2. Bilateral effusions. Gastroenterology was asked to see about abdominal pain. Diagnosis of pneumonia, complaint of cough, history of esophageal reflux, ERCP and stent was removed on 07/01/2019, showed esophagitis and gastritis, hiatal hernia, so continued her proton pump inhibitors. Repeat abdominal x-ray on 07/24/2019, left lower lobe pneumonia, pleural effusion, nonspecific abdomen. Clinically showed improved. Infectious Disease was asked to see and she may have immunoglobulin deficiency. She did have some oral candidiasis, so was put on nystatin swish and swallow. She showed progressive improvement. Her depression, she had history of bipolar disorder, and she had some thoughts of suicide ideation and was put on 1-on-1 contact, and continues to have pretty profound depression. [place] like she could was stable and could be transferred to [place] on 07/30/2019. DISCHARGE MEDICATIONS: She will stop her IV antibiotics and does not need those anymore. I put her on Ceftin 500 mg q.12, doxycycline 50 mg p.o. q.12. She will get Diflucan 200 mg a day, lactulose 30 mL b.i.d., Synthroid 75 mcg a day, Mag-Ox 400 mg a day, NicoDerm patch 21 mg a day. She was getting Percocet 10 one q.4 hours p.r.n. pain, Protonix 40 mg b.i.d., MiraLAX 17 g daily, and Carafate 1 g 4 times a day with meals. PLAN: They did want to check a CT scan since she had fallen. Neurologically, she appears intact. cc: Binh Fuentes MD
[2019-07-30 15:59] VITALS: BP 110/75
[2019-07-30 16:00] LABS: FREE T4 1.2 ng/dL (0.93-1.70)
[2019-07-30 16:03] LABS: TSH 26.02 uIUmL (0.27-4.20)
--- NOTE | 2019-07-30 16:05 | DISCHARGE SUMMARY ---
ADMISSION DATE: 07/21/2019 DISCHARGE DATE: 07/30/2019 ADDENDUM TO THE DISCHARGE SUMMARY: We obtained a head CT at the request of [facility]. The impression showed no evidence of acute intracranial pathology. So, she will be discharged to their facility with the same medications and prescriptions as previously dictated. Dictated by DORIS Blevins for Binh Fuentes MD cc: DORIS Blevins MD
[2019-07-30 16:10] LABS: URINE SOURCE CATH
[2019-07-30 16:16] LABS: BILIRUBIN URINE NEGATIVE (NEGATIVE); BLOOD URINE NEGATIVE (NEGATIVE); COLOR YELLOW; GLUCOSE URINE NEGATIVE (NEGATIVE); KETONE URINE NEGATIVE (NEGATIVE); LEUKOCYTES URINE NEGATIVE (NEGATIVE); NITRITE URINE NEGATIVE (NEGATIVE); PROTEIN URINE TRACE mg/dL (NEGATIVE); SP GRAVITY URINE 1.018; TURBIDITY URINE HAZY (CLEAR); UR EPITHELIAL CELLS <10 /HPF (<10); URINE BACTERIA NEGATIVE /HPF; URINE RBC TNTC /HPF (<10); URINE WBC <10 /HPF (<10); UROBILINOGEN URINE NORMAL (NORMAL)
[2019-07-30] MEDS ORDERED: CEFTIN PO SCH ×2 (21:00)
[2019-07-31] MEDS ORDERED: DIFLUCAN PO SCH ×2 (09:00)
== END 2019-07-30 16:58 | DRG 391 ==
LOC: ED 11:03 → EDIPHOLD 16:12 → SUATTDRO 16:12 → 3N 18:21
PROVIDERS: ATTEND Emergency Medicine

== ENCOUNTER 2019-08-06 16:35 | Inpatient (IN) ==
--- NOTE | 2019-08-06 17:14 | PROVIDER DOCUMENTATION ---
HPI-Abdominal Pain/GI Problem - General Chief Complaint: Abdominal Pain Stated Complaint: ABD PAIN Time Seen by Provider: 08/06/19 16:58 Source: patient, other ([facility] worker) Allergies/Adverse Reactions: Patient Allergies Allergy/AdvReac Type Severity Reaction Status Date / Time codeine AdvReac VOMITING Verified 07/21/19 11:32 Home Medications: Home Medication List Medication Instructions Recorded Confirmed Last Taken Type CefUROXIME [Ceftin] 500 mg PO Q12HR 07/30/19 08/06/19 Unknown History Clonazepam [Klonopin] 1 mg PO TID 07/30/19 08/06/19 Unknown History Doxycycline 50 mg PO Q12HR 07/30/19 08/06/19 Unknown History Fluconazole [Diflucan] 200 mg PO DAILY 07/30/19 08/06/19 Unknown History Lactulose 30 ml PO BID 07/30/19 08/06/19 07/30/19 08:30 History Levothyroxine [Synthroid] 75 microgm PO DAILY@0700 07/30/19 08/06/19 07/30/19 06:30 History Magnesium Oxide 400 mg PO DAILY 07/30/19 08/06/19 07/30/19 08:30 History Nicotine Patch [Nicoderm Patch] 21 mg TD DAILY 07/30/19 08/06/19 07/30/19 08:30 History Oxycodone HCl/Acetaminophen 1 ea PO Q4H PRN PRN 07/30/19 08/06/19 07/30/19 06:30 History [Percocet 10-325 mg Tablet] Pantoprazole [Protonix] 40 mg PO BID 07/30/19 08/06/19 07/22/19 10:20 History Polyethylene Glycol 3350 [Miralax] 17 gm PO DAILY 07/30/19 08/06/19 07/30/19 08:30 History Promethazine [Phenergan] 25 mg OR Q6H PRN PRN 07/30/19 08/06/19 07/29/19 16:35 History Sucralfate [Carafate] 1 gm PO AC + HS 07/30/19 08/06/19 Unknown History - History of Present Illness-ABD Nature of Presenting Problems: Patient is a 63yo F who presents, accompanied by [facility] worker, with complaints of upper abdominal pain x6-7 weeks. Patient reports the pain has been constant and is accompanied by nausea and diarrhea. [facility] worker reports patient has been admitted since 07/30 for suicidal ideations. Reports patient constantly screams out that her abdomen is hurting. States an x-ray was performed this afternoon showing free air under the diaphragm and patient was sent to the ER. Patient also reports diarrhea, decreased appetite, and weight loss. Per old records, when patient was seen in the ER on 07/21, she weighed 99 pounds. Today in ER she weights 84 pounds. Patient denies fever/chills, blood in emesis/stool, CP, or SOB. Abdominal Pain Onset Location: reports: RUQ, LUQ Pain Radiation: reports: no radiation Quality of Pain: reports: pressure Severity in ED: reports: moderate Onset/Duration: reports: other (6-7 weeks) Timing: reports: still present, constant, getting worse Activities at Onset: reports: none Modifying Factors: improves with: nothing Associated Symptoms: reports: diarrhea, loss of appetite, nausea. denies: back/neck pain, constipation, fever/chills, shortness of breath, syncope, vomiting Last BM: this afternoon Dark Stools Present?: reports: none noticed Rectal Bleeding: reports: none Emesis Description: reports: none Bruising or Bleeding Gums?: No Similar Symptoms Previously?: No Recently seen or treated by another doctor?: Yes (currently admitted inpatient at [facility]) Review of Systems - Adult - REVIEW OF SYSTEMS - ADULT Constitutional: reports: see HPI, weight loss. denies: chills, fever Eyes: reports: no symptoms reported. denies: decreased vision, blurred vision, double vision Ears, Nose, Mouth & Throat: reports: no symptoms reported. denies: ear pain, throat pain Cardiovascular: reports: no symptoms reported. denies: chest pain, palpitations Respiratory: reports: no symptoms reported. denies: cough, shortness of breath Gastrointestinal: reports: see HPI, abdominal pain (epigastric), nausea, poor a ppetite. denies: diarrhea, vomiting Genitourinary: reports: no symptoms reported Musculoskeletal: reports: no symptoms reported Integumentary: reports: no symptoms reported Neurological: reports: no symptoms reported Psychiatric: reports: no symptoms reported Endocrine: reports: no symptoms reported Past History - Adult - PAST MEDICAL HISTORY-ADULT Review of Records: reports: Nursing Assessment Review, Medications Reviewed Major Childhood Illnesses: reports: other (Headaches) Cardiovascular: reports: HTN Respiratory: reports: asthma, COPD Gastrointestinal: reports: GERD Obstetrical/Gynecological: reports: denies history Genitourinary: reports: other (pt reports her bladder has dropped and she needs repair. ) Musculoskeletal: reports: arthritis, chronic pain Neurological: reports: CVA Psychiatric: reports: anxiety, depression, psychiatric problems Endocrine/Immune: reports: thyroid disorder (hypo). denies: Diabetes Other Conditions: reports: denies history - PRIOR SURGERIES/PROCEDURES Surgical/Procedure History: reports: cholecystectomy, BTL, - IMMUNIZATION STATUS Childhood Immunizations: See Nurse Assessment Flu Vaccine: See Nurse Assessment - FAMILY HISTORY Family History: other (Parents with unspecified heart disease) Physical Exam-General - PHYSICAL EXAM-ADULT Initial Vital Signs Reviewed: Yes - CONSTITUTIONAL General Appearance: alert, mild distress, cachetic. negative: lethargic, slow to respond, obtunded - EYES Eyes: PERRL/EOMI, pink conjunctivae. negative: EOM palsy, scleral icterus - HEAD, EARS, NOSE, MOUTH & THROAT HENMT: normocephalic/atraumatic, moist mucous membranes. negative: angioedema - NECK Neck: non-tender, full range of motion, supple, normal inspection. negative: C- spine tenderness, limited range of motion - RESPIRATORY Respiratory: chest non-tender, lungs clear, normal breath sounds, no pleuratic chest pain, no respiratory distress, no accessory muscle use. negative: crackles, rales, rhonchi, stridor, wheezing - CARDIOVASCULAR Cardiovascular: no gallop, tachycardia (130) - GASTROINTESTINAL (ABDOMEN) Abdominal Exam: normal bowel sounds, soft, tenderness (generalized). negative: distended, guarding, rigid, rebound - MUSCULOSKELETAL Back Exam: normal inspection, no CVA tenderness, no vertebral tenderness Extremity: normal range of motion, non-tender, normal gait, normal inspection, pelvis stable - SKIN Integumentary: normal color, warm/dry. negative: cyanosis, jaundice, pallor - NEUROLOGIC Neurologic: grossly normal. negative: abnormal gait, aphasia, EOM palsy - PSYCHIATRIC Psych/Mental Status: normal mood/affect, normal thought content, normal thought process, oriented x 3 Progress - PLAN OF CARE/RESULTS Progress/Plan/Lab Results: Vital Signs - 8 hr 08/06/19 16:32 Temperature 98 F Pulse Rate 130 H Respiratory Rate 18 Blood Pressure 116/77 O2 Sat by Pulse Oximetry 95 Orders Category Date Time Status Saline Loc NOW Care 08/06/19 16:59 Active CBC WITH ELECTRONIC DIFF [HEME] Stat Lab 08/06/19 16:59 Uncollected COMPREHENSIVE METABOLIC PANEL [CHEM] Stat Lab 08/06/19 16:[address] W/POSS RFLX CULT [URINALYSIS] Stat Lab 08/06/19 16:59 Uncollected Lab results, imaging results, and plan of care discussed with patient who agrees with and verbalizes understanding. Result Diagrams: 08/06/19 17:15 08/06/19 17:15 - XRAY 1 XRAY: Bilateral XRAY Study: Abdomen Impression: See EMR Report ([facility] - [address] , [address], [place] [address] [facility] - [address] [place] [address] Department of Imaging Patient: DARRYL VALVERDE Date: 07/30/19MR#: [id number] : 1955DM Status: ADM INAcct#: [id number] Age/Sex: 63/[place]Bed[place] [address]Loc: [facility] Ordering Physician: Hazel Pena Family Physician: None,PCP Reason for Procedure: Abdominal pain Signed KUB ABDOMEN - 08/06/2019 INDICATION: Abdominal pain COMPARISON: 07/24/2019 FINDINGS: The splenic flexure of the colon is slightly hyperinflated. No hyperinflated small bowel loops. No significant constipation. There are stable cholecystectomy clips. Left-sided free air cannot be excluded. IMPRESSION: Unusual bowel gas pattern. Cannot exclude free air under the left hemidiaphragm. This report was discussed with RT Thien on 08/06/2019 at 3:25 PM and was readback. Electronically signed by Christian Helms 08/06/2019 3:27 PM 08/06/19 1527 Interpreting Physician: Christian Helms MD Dictated Date/Time: 08/06/19 1523 cc: Hazel Pena; None,PCP) - CT/MRI 1 CT Study: Abdomen, Pelvis Impression: See EMR Report ([facility] - [address], [place] [address] [facility] - [address] , [place] [address] Department of Imaging Patient: DARRYL VALVERDE Date: 08/06/19#: [id number] : 7ADM Status: [facility] ERAcct#: [id number] Age/Sex: 63/FRoom/Bed: Loc: P.ED Ordering Physician: Ely Preston Family Physician: None,PCP Reason for Procedure: abd pain; possible perforation on KUB x-ray Signed CT ABD/PELVIS W/IV CONT ONLY - 08/06/2019 INDICATION: abd pain; possible perforation on KUB x-ray COMPARISON: 07/21/2019 FINDINGS: There is significant tree-in-bud infiltrates in the right middle lobe and in the left lung base. There is a moderate hiatal hernia. Heart size is normal. There are cholecystectomy clips. There is no free air. No bowel obstruction or inflammation. There is a Jackson catheter in the urinary bladder. Uterus and rectum are normal. Abdominal organs are grossly normal. Bones are intact. IMPRESSION: 1. No free air. 2. Bilateral lower lobe infiltrates compatible with pneumonia or aspiration. This exam was performed using aut omated exposure control, adjustment of mA or kV according to patient size, and/or use of iterative reconstruction technique Electronically signed by Christian Helms 08/06/2019 8:02 PM 08/06/192001 Interpreting Physician: Christian Helms MD Dictated Date/Time: 08/06/191999 cc: Ely Peralta; None,PCP) - CONSULTS/PCP/HOSPITALIST Notification #1 *Consult/PCP/Hospitalist*: Max, Hospitalist Time Discussed: 20:48 Reason/Comments: Bilateral bibasilar PNA Consult Disposition: Admit Departure - Departure Date of Disposition Decision: 08/06/19 Time of Disposition Decision: 20:48 DIAGNOSIS: Tachycardia, Hyperkalemia, Dehydration Bilateral pneumonia Qualifiers: Pneumonia type: due to unspecified organism Lung location: lower lobe of lung Qualified Code(s): J18.1 - Lobar pneumonia, unspecified organism Abdominal pain Qualifiers: Abdominal location: epigastric Qualified Code(s): R10.13 - Epigastric pain Disposition: ADMITTED INPATIENT 09 Certified Medical Emergency: Emergent Condition: Stable - Critical Care Note This patient required my direct & personal management of CC.: No Attestation - Physician/ MIKE Attestation Patient care was provided by Advanced Practice Provider:: Yes Advanced Practice Provider:: Ely Peralta Advanced Practice Provider documentation review:: The Mid-level provider documentation, treatment plan and medical decision making was reviewed by the physician who agrees with all treatment and medical decision making by the MLP. The physician spent face to face time with patient:: No Advanced Practice Provider documentation review:: Supervising physician onsite and consulted in the evaluation and care of this patient. The physician did not have a face to face encounter with the patient.
[2019-08-06] MEDS ORDERED: NS 1,000 ML IV ONE (17:22)
[2019-08-06 17:36] LABS: BASO# 0.04 X1000 (0.0-0.2); BASO% 0.4 % (0.0-0.8); EOS# 0.05 X1000 (0.0-0.7); EOS% 0.6 % (0.0-10.0); HEMOGLOBIN 10.8 g/dL (12.0-16.0); IMM GRAN# 0.05 X1000 (0.0-0.04); IMM GRAN% 0.6 % (0.0-0.5); LYMPH# 1.53 X1000 (1.2-3.4); MCH 30.4 PG (27-31); MCHC 31.8 g/dL (33-37); MCV 95.8 FL (81-99); MONO# 1.64 X1000 (0.11-0.59); MONO% 18.2 % (1.7-9.3); MPV 9.1 FL (7.4-10.4); NEUT% 63.2 % (42.2-75.2); PLT 613 X1000 (130-400); RBC 3.55 XMIL (4.2-5.4); RDW 21.4 % (11.5-14.5); WBC 9.01 X1000 (4.8-10.8)
[2019-08-06 17:52] LABS: AGAP 10; ALKALINE PHOSPHATASE 160 U/L (32-104); BUN 8 mg/dL (8-22); CALCIUM 8.3 mg/dL (8.8-10.2); CHLORIDE 101 mmol/L (98-107); COSMO 269; CREATININE 0.5 mg/dL (0.5-0.9); ESTIMATED GFR > 60; GLUCOSE 109 mg/dL (70-104); GOT 17 U/L (10-30); GPT 7 U/L (10-36); POTASSIUM 5.2 mmol/L (3.5-5.1); SODIUM 135 mmol/L (136-145); TCO2 24 mmol/L (25-35); TOTAL PROTEIN 6.3 g/dL (6.3-8.3)
[2019-08-06 18:09] LABS: BILIRUBIN URINE NEGATIVE (NEGATIVE); BLOOD URINE NEGATIVE (NEGATIVE); CLARITY CLEAR (CLEAR); COLOR YELLOW; GLUCOSE URINE NEGATIVE (NEGATIVE); KETONE URINE 1+(Small) mg/dL (NEGATIVE); LEUKOCYTES URINE NEGATIVE (NEGATIVE); NITRITE URINE NEGATIVE (NEGATIVE); PROTEIN URINE NEGATIVE (NEGATIVE); UROBILINOGEN URINE NORMAL
[2019-08-06 18:13] LABS: URINE SOURCE CATH
[2019-08-06 18:14] LABS: URINE BACTERIA 1+ /HFP; URINE CAST NONE SEEN /LPF; URINE CRYSTAL NONE SEEN /HPF; URINE EPITHELIAL CELLS <10 /HPF (<10); URINE RBC <10 /HPF (<10); URINE WBC <10 /HPF (<10); URINE YEAST NONE SEEN /HPF
--- NOTE | 2019-08-06 18:30 | EKG Report ---
Test Performed on : 08/06/2019 5:59:51 PM Test Reason : epigastric pain Blood Pressure : / mmHG Vent. Rate : 095 BPM Atrial Rate : 095 BPM P-R Int : 142 ms QRS Dur : 078 ms QT Int : 388 ms P-R-T Axes : 076 086 073 degrees QTc Int : 487 ms Normal sinus rhythm. Normal ECG When compared with ECG of 31-JUL-2019 11:13, Nonspecific T wave abnormality no longer evident in Anterior leads Unconfirmed Result
--- NOTE | 2019-08-06 20:03 | Diag Imaging Result Doc PS360 ---
CT ABD/PELVIS W/IV CONT ONLY - 08/06/2019 INDICATION: abd pain; possible perforation on KUB x-ray COMPARISON: 07/21/2019 FINDINGS: There is significant tree-in-bud infiltrates in the right middle lobe and in the left lung base. There is a moderate hiatal hernia. Heart size is normal. There are cholecystectomy clips. There is no free air. No bowel obstruction or inflammation. There is a Jackson catheter in the urinary bladder. Uterus and rectum are normal. Abdominal organs are grossly normal. Bones are intact. IMPRESSION: 1. No free air. 2. Bilateral lower lobe infiltrates compatible with pneumonia or aspiration. This exam was performed using automated exposure control, adjustment of mA or kV according to patient size, and/or use of iterative reconstruction technique Electronically signed by Christian Helms 08/06/2019 8:02 PM
[2019-08-06] MEDS ORDERED: ROCEPHIN 1 GM in NS 50 ML IV ONE (20:29)
[2019-08-06] MEDS ORDERED: ZITHROMAX 500 MG/NS 500 MG/250 ML IVPB IV ONE (20:40)
[2019-08-06] MEDS: TYLENOL PO PRN (22:45)
[2019-08-07] MEDS: TYLENOL PO PRN ×2 (04:22→11:01)
[2019-08-07] MEDS ORDERED: PHENERGAN PR PRN (09:14)
[2019-08-07] MEDS ORDERED: G.I. COCKTAIL PO ONE (10:14)
[2019-08-07] MEDS ORDERED: TYLENOL PO PRN (10:15)
[2019-08-07] MEDS ORDERED: ZOFRAN IV PRN (10:15)
[2019-08-07] MEDS: ROCEPHIN 1 GM in NS 50 ML IV SCH (11:01)
[2019-08-07] MEDS: KLONOPIN PO SCH ×3 (11:01→20:23)
[2019-08-07] MEDS: CARAFATE PO SCH ×3 (11:01→20:16)
[2019-08-07] MEDS: CLINDAMYCIN 600 MG/D5W 600 MG/50 ML IVPB IV SCH ×2 (11:02→20:10)
--- NOTE | 2019-08-07 14:51 | HISTORY AND PHYSICAL ---
CHIEF COMPLAINT: Abdominal pain. HISTORY OF PRESENT ILLNESS: The patient is a 63-year-old female who unfortunately has been in and out of the hospital several times. She has continued to lose weight over the last year. She has been having abdominal pain for the last year that has been unrelenting. States that she has not eaten in weeks, although she actually ate approximately half of her lunch at [facility]. The patient is lying in the bed. She is frequently screaming out about her abdominal pain. ALLERGIES: No known drug allergies. MEDICATIONS: 1. Ceftin and Diflucan due to recent pneumonia. 2. Klonopin 1 mg t.i.d. 3. Lactulose. 4. Synthroid 75. 5. Magnesium daily. 6. Percocet 10 three times daily. 7. Carafate. REVIEW OF SYSTEMS: Difficult to obtain. Patient denies any fevers, chills. States she has had temps, unrelenting abdominal pain for the last year. Denies any fevers, chills. Denies constipation, but does states she has frequent diarrhea. Denies any blood in her emesis or stool. Denies cough, congestion, or shortness of breath. PAST MEDICAL HISTORY: Significant for chronic headaches, hypertension, COPD, chronic reflux, chronic epigastric abdominal pain, chronic bladder spasms, chronic arthritis, history of stroke, anxiety, depression, hypothyroidism. SURGICAL HISTORY: She has had a BTL, , cholecystectomy. FAMILY HISTORY: Noncontributory although does have family history of heart disease. SOCIAL HISTORY: Patient denies alcohol or illicit substance use. Has a longstanding history of smoking. PHYSICAL EXAMINATION: Temperature 98 degrees, pulse 100 to 130s, respiratory rate 18, BP 116/77. Sat 95% on room air. GENERAL: Patient is awake, alert, currently in no distress. HEENT: Normocephalic. NECK: Supple. CARDIOVASCULAR: Regular rate. CHEST: Clear. ABDOMEN: Soft. EXTREMITIES: Moves all extremities. NEUROLOGIC: No changes. ASSESSMENT: 1. Supraventricular tachycardia. 2. Chronic abdominal pain. 3. Chronic weight loss. 4. Hyperkalemia. 5. Recalcitrant pneumonia, question aspiration as the cause. 6. Others. PLAN: We will continue patient in the hospital. Continue symptomatic treatment. Place her on IV antibiotics and will follow. cc: Gerson Santana MD
[2019-08-07] MEDS: G.I. COCKTAIL PO PRN (17:45)
[2019-08-07] MEDS: PROTONIX PO SCH (20:16)
[2019-08-07] MEDS: LACTULOSE PO SCH (20:16)
[2019-08-07] MEDS: DOXYCYCLINE PO SCH (20:16)
[2019-08-07] MEDS ORDERED: CEFTIN PO SCH (21:00)
[2019-08-08] MEDS: G.I. COCKTAIL PO PRN ×4 (00:35→19:49)
[2019-08-08] MEDS: CLINDAMYCIN 600 MG/D5W 600 MG/50 ML IVPB IV SCH ×3 (03:25→19:49)
[2019-08-08] MEDS: SYNTHROID PO SCH ×2 (05:54→06:34)
[2019-08-08] MEDS: CARAFATE PO SCH ×5 (05:55→21:39)
--- NOTE | 2019-08-08 09:11 | PROGRESS NOTE ---
DATE: 08/08/2019 SUBJECTIVE: The patient complains of having abdominal pain. No other acute complaints are reported. OBJECTIVE: Vital Signs: Temperature 98.4 degrees, pulse 104 per minute, respiratory rate 18 per minute pressure, blood pressure 117/72. General: Patient is alert and oriented x3. She is in mild distress secondary to abdominal pain. Cardiovascular System: First and second heart sounds are audible without any murmurs or gallops. Respiratory System: No respiratory distress noted. Bilateral lung air entry is good without any rales or rhonchi. Gastrointestinal System: Abdomen is soft and nondistended. It is slightly tender on deep palpation in the epigastric area. Normal bowel sounds are present. Musculoskeletal System: No deformities are present. Diagnostic Data: CBC done 2 days ago showed hemoglobin of 10.8 and hematocrit of 34.0. Rest of the CBC is nondiagnostic. Comprehensive metabolic panel done 2 days ago, on 08/06/2019, showed sodium level of 135, potassium 5.2, CO2 of 24, and glucose levels of 109. Calcium levels were found to be slightly low at 8.3 and alkaline phosphatase was found to be 160. Rest of the comprehensive metabolic panel was nondiagnostic. Plasma lactate levels were found to be normal at 1.4. CT scan of the abdomen and pelvis obtained in the emergency room on 08/06/2019 showed bilateral lower lobe infiltrates compatible with pneumonia or aspiration. IMPRESSION: 1. Bilateral aspiration pneumonia. 2. Abdominal pain with possible acid reflux. 3. Anxiety disorder. PLAN: The patient has been receiving ceftriaxone along with clindamycin intravenously and oral doxycycline which will be continued. She is also getting fluconazole 200 mg orally once daily for possible oropharyngeal candidiasis. Also, she is getting clonazepam 1 mg 3 times a day for anxiety disorder. Furthermore, she is going to continue getting pantoprazole 40 mg orally twice daily for acid reflux. I am not sure if she has any opioid analgesic intake history that might be causing her to have issues with abdominal pain but I am going to give her morphine sulfate 2 mg IV q.4 hours as needed for abdominal pain for now. Further recommendations will be given as per hospital course. cc: MD Gerson Monreal MD
[2019-08-08] MEDS: ROCEPHIN 1 GM in NS 50 ML IV SCH (09:24)
[2019-08-08] MEDS: NICODERM PATCH TD SCH (09:24)
[2019-08-08] MEDS: DIFLUCAN PO SCH (09:25)
[2019-08-08] MEDS: MORPHINE IV PRN ×3 (09:25→19:49)
[2019-08-08] MEDS: PROTONIX PO SCH ×2 (09:25→21:39)
[2019-08-08] MEDS: KLONOPIN PO SCH ×3 (09:25→21:39)
[2019-08-08] MEDS: LACTULOSE PO SCH ×2 (09:26→21:39)
[2019-08-08] MEDS: MIRALAX PO SCH (09:26)
[2019-08-08] MEDS: MAG-OX PO SCH (09:26)
[2019-08-08] MEDS: DOXYCYCLINE PO SCH ×2 (09:26→21:39)
[2019-08-09] MEDS: CLINDAMYCIN 600 MG/D5W 600 MG/50 ML IVPB IV SCH ×3 (03:56→20:21)
[2019-08-09] MEDS: MORPHINE IV PRN ×5 (04:25→23:37)
[2019-08-09] MEDS: SYNTHROID PO SCH (06:17)
[2019-08-09 06:32] LABS: BASO# 0.04 X1000 (0.0-0.2); BASO% 0.6 % (0.0-0.8); EOS# 0.13 X1000 (0.0-0.7); EOS% 2.1 % (0.0-10.0); HEMATOCRIT 30.4 % (37.0-47.0); HEMOGLOBIN 9.6 g/dL (12.0-16.0); IMM GRAN# 0.03 X1000 (0.0-0.04); IMM GRAN% 0.5 % (0.0-0.5); LYMPH# 1.64 X1000 (1.2-3.4); LYMPH% 26.5 % (20.5-51.1); MCH 30.6 PG (27-31); MCHC 31.6 g/dL (33-37); MCV 96.8 FL (81-99); MONO% 16.2 % (1.7-9.3); MPV 9.3 FL (7.4-10.4); NEUT# 3.35 X1000 (1.4-6.5); NEUT% 54.1 % (42.2-75.2); PLT 446 X1000 (130-400); RBC 3.14 XMIL (4.2-5.4); RDW 19.9 % (11.5-14.5); WBC 6.19 X1000 (4.8-10.8)
[2019-08-09 07:13] LABS: AGAP 10; ALBUMIN 2.6 g/dL (3.5-5.0); ALKALINE PHOSPHATASE 123 U/L (32-104); AMYLASE 33 U/L (20-200); BUN 11 mg/dL (8-22); CHLORIDE 100 mmol/L (98-107); COSMO 271; CREATININE 0.4 mg/dL (0.5-0.9); ESTIMATED GFR > 60; GLUCOSE 98 mg/dL (70-104); GOT 11 U/L (10-30); GPT < 5 U/L (10-36); LIPASE 13 U/L (13-60); POTASSIUM 3.6 mmol/L (3.5-5.1); SODIUM 136 mmol/L (136-145); TCO2 26 mmol/L (25-35); TOTAL PROTEIN 5.3 g/dL (6.3-8.3)
--- NOTE | 2019-08-09 07:29 | Diag Imaging Result Doc PS360 ---
EXAM: CHEST-PORTABLE HISTORY: Aspiration Pneumonia TECHNIQUE: Chest single view COMPARISON: 08/06/2019 FINDINGS: The lungs are hypoexpanded. The vessels are small. No cardiomegaly. Tiny left effusion versus pleural thickening. Mild increased markings in the left lung base. No consolidation. IMPRESSION: No significant interval change. Electronically signed by Bruce Mercedes 08/09/2019 7:27 AM
[2019-08-09] MEDS: CARAFATE PO SCH ×4 (10:48→20:21)
[2019-08-09] MEDS: LACTULOSE PO SCH ×2 (10:48→20:28)
[2019-08-09] MEDS: MAG-OX PO SCH (10:49)
[2019-08-09] MEDS: PROTONIX PO SCH ×2 (10:49→20:21)
[2019-08-09] MEDS: DIFLUCAN PO SCH (10:50)
[2019-08-09] MEDS: KLONOPIN PO SCH ×3 (10:50→20:21)
[2019-08-09] MEDS: ROCEPHIN 1 GM in NS 50 ML IV SCH (10:51)
[2019-08-09] MEDS: NICODERM PATCH TD SCH (10:51)
[2019-08-09] MEDS: MIRALAX PO SCH (10:51)
[2019-08-09] MEDS: G.I. COCKTAIL PO PRN (20:21)
--- NOTE | 2019-08-09 20:56 | PROGRESS NOTE ---
DATE: 08/08/2019 SUBJECTIVE: Patient is sleeping soundly. She is easily awakened. Once awakened, she states her abdominal pain is quite severe. OBJECTIVE: Vital signs: Temperature 97.9, pulse 93, respiratory 22, BP 112/73. General: Patient is in no respiratory distress. She is lying flat in the bed. HEENT: Normocephalic. Neck: Supple. Cardiovascular: Regular rate. Chest: Clear. Abdomen: Soft, diffusely tender before palpation. Positive bowel sounds. Extremities: Moves all extremities. Neurologic: No changes. ASSESSMENT: 1. Abdominal pain of undetermined origin. The patient has had abdominal pain for the last couple of months and off and on for the last year. 2. Supraventricular tachycardia. 3. Chronic weight loss. 4. Pneumonia. PLAN: We will continue antibiotics, Rocephin, clindamycin. Continue symptomatic treatment, and we will follow. cc: Gerson Santana MD
[2019-08-10] MEDS: CLINDAMYCIN 600 MG/D5W 600 MG/50 ML IVPB IV SCH ×3 (03:00→20:24)
[2019-08-10] MEDS: MORPHINE IV PRN ×5 (03:27→21:27)
[2019-08-10] MEDS: SYNTHROID PO SCH (06:15)
[2019-08-10] MEDS: MAG-OX PO SCH ×2 (07:58→12:13)
[2019-08-10] MEDS: DIFLUCAN PO SCH ×2 (07:58→07:59)
[2019-08-10] MEDS: KLONOPIN PO SCH ×3 (07:59→21:28)
[2019-08-10] MEDS: PROTONIX PO SCH ×2 (07:59→21:28)
[2019-08-10] MEDS: CARAFATE PO SCH ×4 (07:59→21:28)
[2019-08-10] MEDS: ROCEPHIN 1 GM in NS 50 ML IV SCH (12:00)
[2019-08-10] MEDS: MIRALAX PO SCH (12:12)
[2019-08-10] MEDS: NICODERM PATCH TD SCH (12:13)
[2019-08-10] MEDS: LACTULOSE PO SCH ×2 (12:13→21:28)
--- NOTE | 2019-08-10 18:36 | PROGRESS NOTE ---
DATE: 08/10/2019 SUBJECTIVE: She is complaining of abdominal pain. I think that is a fairly frequent complaint for her, but not quite clear etiology. OBJECTIVE: Vital signs: Blood pressure 100/70, heart rate of 94, respiratory rate of 14, temperature 98.1 degrees, 97% on room air. Cardiovascular: Regular rate and rhythm. Pulmonary: Bilateral breath sounds. Clear to auscultation. GI: Soft, nontender, nondistended. Bowel sounds are positive. LABORATORY DATA: White count 6, hemoglobin and hematocrit 9 and 30, platelets 446,000. ASSESSMENT: 1. Abdominal pain, really unclear etiology. I am not sure what our end goal is here. I guess I will try some Bentyl and see if that helps. 2. Pneumonia. We will continue medications and follow closely. Continue pulmonary toilet. 3. Disposition. I am not sure what the plan is. I guess she came from [facility] for geropsychiatry perhaps, but I am not sure if she is going to be able to get back there. cc: MD Gerson Anne MD
[2019-08-10] MEDS: G.I. COCKTAIL PO PRN (21:28)
[2019-08-11] MEDS: CLINDAMYCIN 600 MG/D5W 600 MG/50 ML IVPB IV SCH ×3 (03:07→18:22)
[2019-08-11] MEDS: MORPHINE IV PRN ×4 (04:53→20:58)
[2019-08-11 05:56] LABS: BASO# 0.02 X1000 (0.0-0.2); BASO% 0.3 % (0.0-0.8); EOS% 1.6 % (0.0-10.0); HEMATOCRIT 31.5 % (37.0-47.0); IMM GRAN# 0.04 X1000 (0.0-0.04); IMM GRAN% 0.7 % (0.0-0.5); LYMPH# 1.13 X1000 (1.2-3.4); LYMPH% 18.5 % (20.5-51.1); MCH 30.4 PG (27-31); MCHC 31.7 g/dL (33-37); MCV 95.7 FL (81-99); MONO# 0.99 X1000 (0.11-0.59); MONO% 16.2 % (1.7-9.3); MPV 9.3 FL (7.4-10.4); NEUT# 3.84 X1000 (1.4-6.5); NEUT% 62.7 % (42.2-75.2); PLT 384 X1000 (130-400); RBC 3.29 XMIL (4.2-5.4); RDW 18.5 % (11.5-14.5); WBC 6.12 X1000 (4.8-10.8)
[2019-08-11] MEDS: SYNTHROID PO SCH (06:11)
[2019-08-11 06:15] LABS: AGAP 9; BUN 6 mg/dL (8-22); CALCIUM 8.6 mg/dL (8.8-10.2); CHLORIDE 97 mmol/L (98-107); COSMO 264; CREATININE 0.3 mg/dL (0.5-0.9); ESTIMATED GFR > 60; GLUCOSE 101 mg/dL (70-104); POTASSIUM 3.5 mmol/L (3.5-5.1); SODIUM 133 mmol/L (136-145); TCO2 27 mmol/L (25-35)
[2019-08-11] MEDS: ROCEPHIN 1 GM in NS 50 ML IV SCH (10:22)
[2019-08-11] MEDS: KLONOPIN PO SCH ×3 (10:27→20:58)
[2019-08-11] MEDS: CARAFATE PO SCH ×3 (10:27→17:03)
[2019-08-11] MEDS: MAG-OX PO SCH (10:28)
[2019-08-11] MEDS: BENTYL PO SCH ×2 (10:28→17:02)
[2019-08-11] MEDS: PROTONIX PO SCH (10:28)
[2019-08-11] MEDS: NICODERM PATCH TD SCH (10:28)
[2019-08-11] MEDS: DIFLUCAN PO SCH (10:28)
[2019-08-11] MEDS: MIRALAX PO SCH (10:29)
[2019-08-11] MEDS: LACTULOSE PO SCH (17:01)
[2019-08-12] MEDS: CARAFATE PO SCH ×5 (00:37→20:00)
[2019-08-12] MEDS: BENTYL PO SCH ×4 (00:37→16:55)
[2019-08-12] MEDS: LACTULOSE PO SCH ×2 (00:37→09:50)
[2019-08-12] MEDS: PROTONIX PO SCH ×3 (00:37→20:00)
[2019-08-12] MEDS: CLINDAMYCIN 600 MG/D5W 600 MG/50 ML IVPB IV SCH ×3 (00:38→16:56)
[2019-08-12] MEDS: MORPHINE IV PRN ×4 (01:04→14:51)
[2019-08-12] MEDS: SYNTHROID PO SCH ×2 (04:52→06:00)
[2019-08-12 06:59] LABS: BASO# 0.04 X1000 (0.0-0.2); BASO% 0.6 % (0.0-0.8); EOS# 0.12 X1000 (0.0-0.7); EOS% 1.7 % (0.0-10.0); HEMATOCRIT 30.1 % (37.0-47.0); HEMOGLOBIN 9.5 g/dL (12.0-16.0); IMM GRAN# 0.05 X1000 (0.0-0.04); IMM GRAN% 0.7 % (0.0-0.5); LYMPH# 1.33 X1000 (1.2-3.4); LYMPH% 18.6 % (20.5-51.1); MCH 30.4 PG (27-31); MCHC 31.6 g/dL (33-37); MCV 96.2 FL (81-99); MONO# 1.17 X1000 (0.11-0.59); MONO% 16.4 % (1.7-9.3); MPV 9.6 FL (7.4-10.4); NEUT# 4.43 X1000 (1.4-6.5); PLT 377 X1000 (130-400); RBC 3.13 XMIL (4.2-5.4); RDW 17.8 % (11.5-14.5); WBC 7.14 X1000 (4.8-10.8)
[2019-08-12 07:19] LABS: AGAP 8; BUN 4 mg/dL (8-22); CALCIUM 8.2 mg/dL (8.8-10.2); CHLORIDE 98 mmol/L (98-107); COSMO 264; CREATININE 0.3 mg/dL (0.5-0.9); ESTIMATED GFR > 60; GLUCOSE 104 mg/dL (70-104); POTASSIUM 3.5 mmol/L (3.5-5.1); SODIUM 133 mmol/L (136-145); TCO2 27 mmol/L (25-35)
[2019-08-12] MEDS: NICODERM PATCH TD SCH (09:48)
[2019-08-12] MEDS: KLONOPIN PO SCH ×3 (09:48→20:00)
[2019-08-12] MEDS: MAG-OX PO SCH (09:49)
[2019-08-12] MEDS: DIFLUCAN PO SCH (09:49)
[2019-08-12] MEDS: ROCEPHIN 1 GM in NS 50 ML IV SCH (09:50)
[2019-08-12] MEDS: MIRALAX PO SCH (09:50)
--- NOTE | 2019-08-12 18:41 | PROGRESS NOTE ---
DATE: 08/11/2019 SUBJECTIVE: The patient just is inconsolable with pain. No objective signs of pain, but unclear what this is all related to. OBJECTIVE: All of her data is stable. Vitals are stable. She is able to eat. Blood pressure is 120/63, heart rate 92, respiratory rate 14, temperature 97.8 degrees ,100% on room air.Cardiovascular: Regular rhythm. Pulmonary: Bilateral breath sounds. Clear to auscultation. Gastrointestinal: Soft, nontender, nondistended. Bowel sounds are positive. LABORATORY DATA: White count 6, hemoglobin and hematocrit 10 and 31, platelets 384,000. Basic was normal. PROBLEM LIST: 1. Abdominal pain. We will continue to monitor, work on pain control. I think there is definitely a psychosomatic component to all of this. 2. Aspiration-type pneumonia. She is on Rocephin and clindamycin. I think we will consider switching her to Augmentin soon as a single agent. DISPOSITION: I think we are getting close to meeting anymore inpatient needs. However, her disposition is still a bit unclear. Essentially, they are requesting pain medication to go home with. I think that it has been an issue for her for the last little bit of time. So, we will continue to follow. Anticipate discharge soon. We may need to set up some home health for her. I would like to see how she does with ambulation. cc: Dave Marte MD
--- NOTE | 2019-08-12 18:47 | PROGRESS NOTE ---
DATE: 08/12/2019 SUBJECTIVE: She looks a little less agitated today. She seems a little bit better, but she is still complaining of pain. At this point, I am not entirely sure, but there is some secondary gain issues coming on, but we do not have an objective diagnosis. OBJECTIVE: Her blood pressure is 103/61, heart rate 93, respiratory rate 20, temperature 98.2 degrees, 99% on room air.Cardiovascular: Regular rate and rhythm. Pulmonary: Bilateral breath sounds. Clear to auscultation. Gastrointestinal: Soft, nontender, nondistended. Bowel sounds are positive. Extremities: No clubbing or cyanosis. Lymphatic: No peripheral edema. Neurological: Nonfocal. LABORATORY DATA: White count 7, hemoglobin and hematocrit 9 and 30, platelets of 377,000. Basic was normal. PROBLEM LIST: 1. Abdominal pain. Unclear etiology. We will continue Bentyl. I am going to try to switch her to p.o. pain medication. We will follow. 2. Protein-calorie malnutrition. We will continue supplementation and follow. 3. Pneumonia, possible aspiration type. We will transition to Augmentin and follow. DISPOSITION: Anticipate discharge soon, assuming we can get things situated. I think patient refused to ambulate. I am not exactly sure how much support she has at home, but they are also not interested in getting support unless she can get pain medication, so we will continue to follow. cc: Dave Marte MD
--- NOTE | 2019-08-12 19:47 | Diag Imaging Result Doc PS360 ---
FLAT/UPRIGHT ABD/1 VIEW CHEST - 08/12/2019 INDICATION: pain TECHNIQUE: COMPARISON: 08/09/2019 FINDINGS: Stable COPD changes. Stable ill-defined infiltrate in the left lung base. There is moderate constipation primarily of the proximal and transverse colon. No small bowel obstruction or free air. Stable cholecystectomy clips. IMPRESSION: 1. Left basilar infiltrate/pneumonia. 2. Moderate constipation. Electronically signed by Christian Helms 08/12/2019 7:45 PM
[2019-08-12] MEDS: G.I. COCKTAIL PO PRN (19:55)
[2019-08-12] MEDS: AUGMENTIN PO SCH (20:00)
[2019-08-12] MEDS: OXY IR PO PRN ×2 (20:01→23:27)
[2019-08-13] MEDS: SYNTHROID PO SCH ×2 (04:25→05:59)
[2019-08-13] MEDS: OXY IR PO PRN ×3 (04:25→14:32)
[2019-08-13 06:07] LABS: BASO# 0.02 X1000 (0.0-0.2); BASO% 0.3 % (0.0-0.8); EOS# 0.11 X1000 (0.0-0.7); EOS% 1.4 % (0.0-10.0); HEMATOCRIT 30.4 % (37.0-47.0); HEMOGLOBIN 9.6 g/dL (12.0-16.0); IMM GRAN# 0.04 X1000 (0.0-0.04); IMM GRAN% 0.5 % (0.0-0.5); LYMPH# 1.19 X1000 (1.2-3.4); LYMPH% 15.3 % (20.5-51.1); MCH 30.3 PG (27-31); MCHC 31.6 g/dL (33-37); MCV 95.9 FL (81-99); MONO# 1.09 X1000 (0.11-0.59); MPV 9.5 FL (7.4-10.4); NEUT# 5.34 X1000 (1.4-6.5); NEUT% 68.5 % (42.2-75.2); PLT 400 X1000 (130-400); RBC 3.17 XMIL (4.2-5.4); RDW 17.4 % (11.5-14.5); WBC 7.79 X1000 (4.8-10.8)
[2019-08-13 06:54] LABS: AGAP 5; ALBUMIN 2.6 g/dL (3.5-5.0); ALKALINE PHOSPHATASE 108 U/L (32-104); BUN 6 mg/dL (8-22); CALCIUM 8.4 mg/dL (8.8-10.2); CHLORIDE 98 mmol/L (98-107); COSMO 262; CREATININE 0.3 mg/dL (0.5-0.9); ESTIMATED GFR > 60; GLUCOSE 99 mg/dL (70-104); GOT 9 U/L (10-30); GPT < 5 U/L (10-36); POTASSIUM 3.9 mmol/L (3.5-5.1); SODIUM 132 mmol/L (136-145); TCO2 30 mmol/L (25-35); TOTAL PROTEIN 5.7 g/dL (6.3-8.3)
[2019-08-13] MEDS ORDERED: DIFLUCAN PO SCH (09:00)
[2019-08-13] MEDS: PROTONIX PO SCH (09:32)
[2019-08-13] MEDS: AUGMENTIN PO SCH (09:32)
[2019-08-13] MEDS: BENTYL PO SCH ×3 (09:32→16:13)
[2019-08-13] MEDS: NICODERM PATCH TD SCH (09:32)
[2019-08-13] MEDS: KLONOPIN PO SCH ×2 (09:32→14:32)
[2019-08-13] MEDS: MAG-OX PO SCH (09:33)
[2019-08-13] MEDS: CARAFATE PO SCH ×3 (09:33→16:13)
[2019-08-13] MEDS: MIRALAX PO SCH (09:35)
--- NOTE | 2019-08-13 14:49 | DISCHARGE SUMMARY ---
ADMISSION DATE: 08/06/2019 DISCHARGE DATE: 08/13/2019 DISCHARGE DIAGNOSIS: Atypical abdominal pain but chronic, protein calorie malnutrition, pneumonia. She is doing well the day of discharge, well or better. She is still having some abdominal pain, but she is eating. She seems like she is overall improved. PLAN: To discharge her today on Augmentin for another 7 days and we will give her some p.r.n. medications. Encouraged her to follow up with GI. She also needs to be set up with a primary care physician. She was set up with a rolling walker. This is a [id number] encounter note with Beverly Rabago. cc: Dave Marte MD
--- NOTE | 2019-08-13 14:58 | DISCHARGE SUMMARY ---
ADMISSION DATE: 08/06/2019 DISCHARGE DATE: 08/13/2019 PRIMARY CARE PHYSICIAN: Listed as none. ADMISSION DIAGNOSES: 1. SVT. 2. Chronic abdominal pain. 3. Chronic weight loss. 4. Hyperkalemia. 5. Recalcitrant pneumonia with questionable aspiration as the cause. DISCHARGE DIAGNOSES: 1. Abdominal pain with unclear etiology. 2. Protein calorie malnutrition. 3. Pneumonia with possible aspiration type. SUMMARY OF FINDINGS: This is a 64-year-old female who unfortunately has been in and out of the hospital several times with weight loss over the past year, having abdominal pain, and came from [facility], was found to be in SVT on arrival, on her abdomen and pelvic CT was found to have bilateral lower lobe infiltrate compatible with pneumonia or aspiration. We also did an abdomen x-ray yesterday that showed the left basilar infiltrate pneumonia and some moderate constipation. She was placed on IV antibiotics, breathing treatments. We discussed smoking cessation with this patient and placed her on a nicotine patch. She is feeling better. Heart rate is down to 96, temp 97.7 degrees, blood pressure 124/87, and it is now felt that she can safely be discharged home today. DISCHARGE MEDICATIONS: Will include Klonopin 1 mg p.o. t.i.d., Synthroid 75 mcg p.o. daily, magnesium 400 mg p.o. daily, nicotine patch 21 mg transdermally daily, pantoprazole 40 mg p.o. b.i.d., MiraLAX 17 g p.o. daily, promethazine 25 mg per rectum q. 6 hours p.r.n., Carafate 1 g p.o. a.c. and at bedtime, Augmentin 500/125 one p.o. q. 12 hours #14 with no refills, lactulose 30 mL p.o. b.i.d. and Percocet 10 one p.o. q. 4 hours p.r.n. FOLLOWUP: She will need to follow up with her primary care physician. We will give her the physician referral line to obtain. TIME SPENT: 35 minute discharge. Dictated by DORIS Blevins for Dave Marte MD cc: DORIS Blevins MD
[2019-08-13 15:44] VITALS: BP 107/59
== END 2019-08-13 17:08 | disposition home or self-care (01) | DRG 391 ==
LOC: P.ED 16:35 → SUATTDRO 21:43 → P.MEDSURG 21:43
PROVIDERS: ATTEND Internal Medicine